=== PATIENT | female | born 1950 | race Caucasian/White ===

== ENCOUNTER 2018-04-27 03:28 | Emergency (ER) | payer MEDICARE, OTHER ==
[2018-04-27] MEDS ORDERED: DIPHENHYDRAMINE HCL 50 MG/ML VIAL IV ONE (03:43)
[2018-04-27] MEDS ORDERED: FAMOTIDINE INJ/PF 20 MG/2 ML SDV IV ONE (03:44)
[2018-04-27] MEDS ORDERED: METHYLPREDNISOLONE INJ 40 MG/1 ML SDV IV ONE (03:44)
[2018-04-27] MEDS ORDERED: METHYLPREDNISOLONE INJ 125 MG/2 ML SDV IV ONE (03:47)
--- NOTE | 2018-04-27 03:53 | ER Document Report ---
ED General - General Chief Complaint: Allergic Reaction Stated Complaint: THROAT SWELLING Time Seen by Provider: 04/27/18 03:42 Mode of Arrival: Ambulatory Information source: Patient Notes: 67-year-old female presents emergency department with complaints of throat swelling. Patient states that she is having allergic reaction. Patient states that she fell down on a treadmill a couple of days ago. She has abrasions to her lower extremities. Patient states that for she was applying bacitracin but it was . She states that she then picked up some Neosporin. She states that she used the Neosporin yesterday and again today. Patient states that tonight she woke up with throat swelling. Patient states that she is having allergic reaction to Neosporin. Patient denies starting any new medications. She denies eating any new foods. She denies any new soaps, detergents, lotions. Patient is not on an FRANCISCO inhibitor. TRAVEL OUTSIDE OF THE [place] IN LAST 30 DAYS: No - HPI Onset: Just prior to arrival Onset/Duration: Sudden Quality of pain: Fullness Severity: None Pain Level: Denies Associated symptoms: None Exacerbated by: Denies Similar symptoms previously: No Recently seen / treated by doctor: No - Related Data Allergies/Adverse Reactions: Penicillins Allergy (Verified 09/16/13 13:11) Past Medical History - Social History Smoking Status: Never Smoker Family History: Reviewed & Not Pertinent - Past Medical History Cardiac Medical History: Reports: Hx Atrial Fibrillation, Hx Hypertension Past Surgical History: Reports: Hx Appendectomy, Hx Hysterectomy, Hx Tonsillectomy, Hx Valve Replacement Review of Systems - Review of Systems Constitutional: No symptoms reported EENT: Difficulty swallowing, Throat swelling Cardiovascular: No symptoms reported Respiratory: No symptoms reported Gastrointestinal: No symptoms reported Genitourinary: No symptoms reported Musculoskeletal: No symptoms reported Skin: No symptoms reported Hematologic/Lymphatic: No symptoms reported Neurological/Psychological: No symptoms reported -: Yes All other systems reviewed and negative Physical Exam - Vital signs Vitals: Pulse Resp BP Pulse Ox 76 16 190/120 H 92 04/27/18 03:41 04/27/18 03:41 04/27/18 03:41 04/27/18 03:41 - Notes Notes: PHYSICAL EXAMINATION: GENERAL: Well-appearing, well-nourished and in no acute distress. HEAD: Atraumatic, normocephalic. EYES: Pupils equal round and reactive to light, extraocular movements intact, conjunctiva are normal. ENT: Nares patent, oropharynx clear without exudates. Moist mucous membranes. NECK: Normal range of motion, supple without lymphadenopathy LUNGS: Breath sounds clear to auscultation bilaterally and equal. No wheezes rales or rhonchi. HEART: Regular rate and rhythm without murmurs ABDOMEN: Soft, nontender, nondistended abdomen. No guarding, no rebound. No masses appreciated. Female : deferred Musculoskeletal: Normal range of motion, no pitting or edema. No cyanosis. NEUROLOGICAL: Cranial nerves grossly intact. Normal speech, normal gait. Normal sensory, motor exams PSYCH: Normal mood, normal affect. SKIN: Warm, Dry, normal turgor, no rashes or lesions noted. Course - Re-evaluation Re-evalutation: 04/27/18 05:49 On re-evaluation, patient is feeling better. Swelling resolved. Patient is speaking in complete sentences. No difficulty swallowing. No difficulty opening her mouth. Patient feels comfortable with discharge home. Patient instructed to take medication as directed, to follow up with her PCP this week,and to return for worsening symptoms. - Vital Signs Vital signs: Temp Pulse Resp BP Pulse Ox 98.3 F 74 14 97/68 L 98 04/27/18 04:07 04/27/18 05:03 04/27/18 05:03 04/27/18 05:03 04/27/18 05:03 - Laboratory Laboratory results interpreted by me: 04/27/18 03:55 PT 21.0 H Discharge - Discharge Clinical Impression: Allergic reaction caused by a drug Qualifiers: Encounter type: initial encounter Qualified Code(s): T78.40XA - Allergy, unspecified, initial encounter Condition: Good Disposition: HOME, SELF-CARE Instructions: Acute Allergic Reaction to Drugs ([facility]) Prescriptions: Epinephrine [Epipen] 0.3 mg IJ ONCE PRN #1 [email or web address] PRN Reason: Referrals: SUYAPA SHEIKH MD [HONORARY] - Follow up as needed
[2018-04-27 04:11] LABS: INTERNATIONAL RATION (INR) 1.72
[2018-04-27] MEDS ORDERED: CLONIDINE HCL 0.1 MG TABLET PO ONE (05:49)
[2018-04-27 06:30] VITALS: BP 160/95
== END 2018-04-27 06:30 | disposition home or self-care (01) ==
LOC: ER 03:28
DX: T78.40XA Allergy, unspecified, initial encounter (principal); R13.10 Dysphagia, unspecified; R09.89 Other specified symptoms and signs involving the circulatory and respiratory systems; X58.XXXA Exposure to other specified factors, initial encounter; I10 Essential (primary) hypertension; Z79.899 Other long term (current) drug therapy
CPT/HCPCS: 99283; 96374; 96375; 36415; 85610; A9270; J1200; J2930; S0028

== ENCOUNTER 2018-05-15 08:11 | Emergency (ER) | payer MEDICARE, OTHER ==
[2018-05-15] MEDS ORDERED: METHYLPREDNISOLONE INJ 125 MG/2 ML SDV IV ONE (08:43)
[2018-05-15] MEDS ORDERED: FAMOTIDINE INJ/PF 20 MG/2 ML SDV IV ONE (08:43)
[2018-05-15] MEDS ORDERED: DIPHENHYDRAMINE HCL 50 MG/ML VIAL IV ONE (08:43)
--- NOTE | 2018-05-15 08:46 | ER Document Report ---
ED General - General Chief Complaint: Swelling of Tongue Stated Complaint: MOUTH PAIN TRAVEL OUTSIDE OF THE [place] IN LAST 30 DAYS: No - HPI Notes: Patient is a 67-year-old female with a history of hypothyroidism, hypertension, valve replacement who presents to the ED complaining of tongue swelling that started this morning when she woke up. Patient states that she did bite her tongue last night, but is not sure if that is associated or not. Patient states that she had a similar presentation about 2-1/2 weeks ago when she came to the ED. Patient states that she received Benadryl, steroid, and Pepcid which resolved her symptoms. Patient states that she has since stopped taking losartan as directed by her primary care doctor. Patient states that they have not found a cause as to why she had that swelling otherwise. Patient states that her swelling has greatly improved since this morning. She is eating and drinking without any difficulties. She is urinating normally and having normal bowel movements. She has not had any drooling or hoarseness. She has not had any new medications, foods, or drinks otherwise. No recent travel. No other recent illness. Denies any headache, fever, head injury, neck pain, changes in vision/speech/mentation/hearing, URI, sore throat, chest pain, palpitations, syncope, cough, shortness of breath, wheeze, dyspnea, abdominal pain, nausea/ vomiting/diarrhea, urinary retention, dysuria, hematuria, loss of control of bowel or bladder, numbness/tingling, or rash. Pt did not take her BP meds this morning. - Related Data Allergies/Adverse Reactions: Penicillins Allergy (Verified 09/16/13 13:11) Past Medical History - Social History Smoking Status: Never Smoker Family History: Reviewed & Not Pertinent - Past Medical History Cardiac Medical History: Reports: Hx Atrial Fibrillation, Hx Hypertension Renal/ Medical History: Denies: Hx Peritoneal Dialysis Past Surgical History: Reports: Hx Appendectomy, Hx Hysterectomy, Hx Tonsillectomy, Hx Valve Replacement Review of Systems - Review of Systems -: Yes All other systems reviewed and negative Physical Exam - Vital signs Vitals: Temp Pulse Resp BP Pulse Ox 99.2 F 80 18 189/110 H 93 05/15/18 08:17 05/15/18 08:17 05/15/18 08:17 05/15/18 08:17 05/15/18 08:17 - Notes Notes: PHYSICAL EXAMINATION: GENERAL: Well-appearing, well-nourished and in no acute distress. A&Ox4. Answers questions appropriately. Moves comfortably w/o notable distress. pt is speaking in clear and complete sentences non-stop w/o any difficulty or muffling of her voice. HEAD: Atraumatic, normocephalic. EYES: Pupils equal round and reactive to light, extraocular movements intact, sclera anicteric, conjunctiva are normal. ENT: Nares patent and with clear discharge. oropharynx w/o erythema without exudates. No tonsilar hypertrophy without erythema or exudate. No palatine shift. Uvula midline. No tongue protrusion. + minimal tongue swelling w/o immediate threat to airway. No drooling, hoarseness, or airway compromise. Moist mucous membranes. No lip swelling. NECK: Normal range of motion, supple without lymphadenopathy. No rigidity/ meningismus. LUNGS: Breath sounds clear to auscultation bilaterally and equal. No wheezes rales or rhonchi. No retractions HEART: Regular rate and rhythm without murmurs, rubs, gallops. NEUROLOGICAL: Normal speech, normal gait. Normal sensory, motor exams PSYCH: Normal mood, normal affect. SKIN: Warm, Dry, normal turgor, no rashes or lesions noted. Course - Re-evaluation Re-evalutation: 05/15/18 10:35 Patient is an afebrile, well-hydrated, 67-year-old female who presents to the ED with tongue swelling, since resolved. Vitals are acceptable without significant tachycardia, tachypnea, or hypoxia. PE is otherwise unremarkable without any obvious swelling noted at this time. Patient was given Solu-Medrol , Benadryl, and Pepcid IV. Patient had complete resolution of her symptoms and is feeling much better and would like to go home. She is nontoxic-appearing and is tolerating p.o. without difficulties. No other labs or imaging warranted at this time based on H&P. Low suspicion for any meningitis, sepsis, peritonsillar/pharyngeal abscess, respiratory compromise, Ted's, or other emergent systemic condition at this time. Patient is aware this condition can change from initial presentation and she needs to monitor symptoms closely. Conservative measures otherwise for symptoms. Recheck with your PCM in 2-3 days. Return to the ED with any worsening/concerning symptoms otherwise as reviewed in discharge. Patient is in agreement. - Vital Signs Vital signs: Temp Pulse Resp BP Pulse Ox 99.2 F 80 18 189/110 H 93 05/15/18 08:17 05/15/18 08:17 05/15/18 08:17 05/15/18 08:17 05/15/18 08:17 Discharge - Discharge Clinical Impression: Mild tongue swelling Condition: Stable Disposition: HOME, SELF-CARE Additional Instructions: Maintain adequate fluid intake Benadryl/Pepcid as needed F/u: with your PCM in 2-3 days for a recheck Return to the ED with any fever, worsening pain, chest pain, neck pain/stiffness , shortness of breath, cough, drooling, trouble swallowing/breathing, abdominal pain, n/v/d, rash, or worsening/concerning symptoms otherwise. Forms: Elevated Blood Pressure Referrals: FAROOQ MAHONEY DO [ASSOCIATE] - Follow up as needed
[2018-05-15 10:41] VITALS: BP 162/85
== END 2018-05-15 10:52 | disposition home or self-care (01) ==
LOC: ER 08:11
DX: R22.0 Localized swelling, mass and lump, head (principal); I10 Essential (primary) hypertension; Z88.0 Allergy status to penicillin
CPT/HCPCS: 99282; 96374; 96375; J1200; J2930; S0028

== ENCOUNTER 2019-09-10 11:32 | Inpatient (IN) | payer MEDICARE, OTHER ==
--- NOTE | 2019-09-10 13:16 | ER Document Report ---
ED General - General Chief Complaint: Abdominal Pain Stated Complaint: ABDOMINAL PAIN Time Seen by Provider: 09/10/19 13:15 TRAVEL OUTSIDE OF THE [place] IN LAST 30 DAYS: No - HPI Notes: 69WF h/o A fib s/p remote ablation (on diltazem ER 24 hr 120 mg BID), Ao valve replacement (on coumadin 5mg qd), sigmoid diverticulosis w/ 1 prior episode diverticulitis w/o complications who presents today by ems since the abdominal pain she started to note this am has persisted. its difficult for her to tell me exact location says it's rather general in her lower sections moreso on her right. yest started feeling poor appetitie but hasn't noticed worsening of pain w/ BM or w/ eating. denies urinary sx. has had nausea but no vomiting. has felt feverish now over last hours. vs wnl. she says pain doesn't radiate hasn't migrated since onset. says hasn't tried anything at home to help w/ pain. doesn't seem to be affected by position. denies falls/any passing out or near passing out. no changes in her BM she's noted. last yest. passing gas today. PMH: also includes. hypothyroidism (on levothyroxine qd) htn (in add to dilt on hydralazine 25 bid) COPD (haslevalbut inhaler prn, sotalol 80 bid) she has list of her meds and is able to recall them for me - Related Data Allergies/Adverse Reactions: Penicillins Allergy (Verified 09/16/13 13:11) Past Medical History - General Information source: Patient, Emergency Med Personnel - Social History Smoking Status: Never Smoker Chew tobacco use (# tins/day): No Frequency of alcohol use: None Drug Abuse: None Family History: Reviewed & Not Pertinent Patient has suicidal ideation: No Patient has homicidal ideation: No - Past Medical History Cardiac Medical History: Reports: Hx Atrial Fibrillation, Hx Hypertension Renal/ Medical History: Denies: Hx Peritoneal Dialysis Past Surgical History: Reports: Hx Appendectomy, Hx Hysterectomy, Hx Tonsillectomy, Hx Valve Replacement Review of Systems - Review of Systems Constitutional: See HPI, Fever, Malaise. denies: Diaphoresis, Weight gain, Weight loss, Recent illness EENT: No symptoms reported Cardiovascular: No symptoms reported Respiratory: No symptoms reported Gastrointestinal: See HPI, Abdominal pain, Nausea, Poor appetite, Poor fluid int cam. denies: Abdomen distended, Diarrhea, Vomiting, Constipation, Blood streaked bowels, Black stools, Rectal bleeding, Fecal incontinence Genitourinary: No symptoms reported Female Genitourinary: No symptoms reported Musculoskeletal: No symptoms reported Skin: No symptoms reported Hematologic/Lymphatic: No symptoms reported Neurological/Psychological: No symptoms reported Physical Exam - Vital signs Vitals: Resp Pulse Ox 20 96 09/10/19 11:44 09/10/19 11:44 Interpretation: Normal, Tachycardic, Febrile - General General appearance: Appears well, Alert In distress: None - HEENT Head: Normocephalic, Atraumatic Eyes: Normal. No: Pale conjunctiva, Scleral icterus Pupils: PERRL Mouth/Lips: No: Lesions Mucous membranes: Dry Pharynx: Normal Neck: Normal - Respiratory Respiratory status: No respiratory distress Chest status: Nontender Breath sounds: Normal Chest palpation: Normal - Cardiovascular Rhythm: Regular Heart sounds: Normal auscultation Murmur: No - Abdominal Inspection: Healed incision - old midline lap scar (prior appy)., Obese. No: Wounds Distension: No distension. No: Tympanitic, Distended bladder Bowel sounds: Normal Tenderness: Tender - very tender in general R and L lower quadrants and periumbilical regions w/ some guarding when i examine there no rigidity able to move in bed change postions for me w/o difficulty. not much at all RUQ or LUQ, no palpable masses or OMG. no overlying skin changes or ecchymosis. Organomegaly: No organomegaly - Back Back: Normal, Nontender. No: Deformity/step-off, CVA tenderness, Vertebra tenderness, Wounds - Extremities General upper extremity: Normal inspection, Nontender, Normal color, Normal ROM, Normal temperature General lower extremity: Normal inspection, Nontender, Normal color, Normal ROM, Normal temperature, Normal weight bearing. No: Darren's sign - Neurological Neuro grossly intact: Yes Cognition: Normal Orientation: AAOx4 Dulce Coma Scale Eye Opening: Spontaneous [place] Coma Scale Verbal: Oriented Dulce Coma Scale Motor: Obeys Commands Dulce Coma Scale Total: 15 Speech: Normal Motor strength normal: LUE, RUE, LLE, RLE Sensory: Normal - Psychological Associated symptoms: Normal affect, Normal mood - Skin Skin Temperature: Warm Skin Moisture: Dry Skin Color: Normal Course - Re-evaluation Re-evalutation: 09/20/19 19:56 pt reportedly received 975 tylenol, did have initial fever 101.5 oral here, then on rechecks resolved. made npo gave total 2L ivLR. hr remained ~100 but no hypotensive episodes during first hours ED w/u. ordered both CT a/p w/ iv contrast as well as RUQ u/s since on review of labs did have lipase 1096 and elvated unconjugated bili slightly to 2.2, though again my exam wasn't isolating to ruq had to consider older women difficult to localize pain. CT a/p showed sigmoid diverticulitis and 2 small 8mm areas at sigmoid/desc colon junction "c/w free air", they note no pancreatic changes. u/s and CT showed no evidence of GB stones, infection/obstruction. sgy evaluated patient request med adm, since she does need overall cont mgmt of afib, etc. and they will follow as consult. he doesn;t feel she has a acute abdomiinal exam therefore defer surgery right now and plan close monitoring cont serial exams. adm teams to order Abx. she'll remain NPO for now. . 09/20/19 19:58 09/20/19 20:02 - Vital Signs Vital signs: Temp Pulse Resp BP Pulse Ox 97.9 F 80 16 100/66 96 09/20/19 13:25 09/20/19 16:00 09/20/19 13:25 09/20/19 16:00 09/20/19 15:52 - Laboratory Result Diagrams: 09/20/19 04:39 09/16/19 04:09 Laboratory results interpreted by me: 09/10/19 09/10/19 09/10/19 12:54 12:54 12:54 WBC 15.6 H RBC 5.74 H Hgb 16.9 H Hct 49.7 H Seg Neuts % (Manual) 86 H Band Neutrophils % 2 L Lymphocytes % (Manual) 5 L Abs Neuts (Manual) 13.7 H PT 19.2 H Sodium 136.2 L Potassium 3.5 L Glucose 112 H Total Bilirubin 2.2 H Lipase 1078.9 H TSH Urine Protein 09/10/19 09/10/19 12:54 12:57 WBC RBC Hgb Hct Seg Neuts % (Manual) Band Neutrophils % Lymphocytes % (Manual) Abs Neuts (Manual) PT Sodium Potassium Glucose Total Bilirubin Lipase TSH 0.20 L Urine Protein >=500 H Critical Care Note - Critical Care Note Total time excluding time spent on procedures (mins): 30 Discharge - Discharge Clinical Impression: Sigmoid diverticulitis, Perforated diverticulum of large intestine, Fever, Free intraperitoneal air Condition: Poor Disposition: ADMITTED INPATIENT Admitting Provider: Staci (Hospitalist)
[2019-09-10 13:17] LABS: HEMATOCRIT 49.7 % (36.0-47.0); HEMOGLOBIN 16.9 g/dL (12.0-15.5); MEAN CORPUSCULAR HEMOGLOBIN 29.5 pg (27.0-33.4); MEAN CORPUSCULAR VOLUME 87 fl (80-97); PLATELET COUNT 175 10^3/uL (150-450); RED BLOOD COUNT 5.74 10^6/uL (3.72-5.28); RED CELL DISTRIBUTION WIDTH 13.8 % (11.5-14.0); WHITE BLOOD COUNT 15.6 10^3/uL (4.0-10.5)
[2019-09-10 13:18] LABS: ALBUMIN 3.9 g/dL (3.5-5.0); ALKALINE PHOSPHATASE 69 U/L (38-126); ANION GAP 13 (5-19); ASPARTATE AMINO TRANSFERASE 25 U/L (14-36); BILIRUBIN,TOTAL 2.2 mg/dL (0.2-1.3); BLOOD UREA NITROGEN 15 mg/dL (7-20); CARBON DIOXIDE 24 mmol/L (22-30); CHLORIDE 99 mmol/L (98-107); GLUCOSE 112 mg/dL (75-110); POTASSIUM 3.5 mmol/L (3.6-5.0); TOTAL PROTEIN 7.2 g/dL (6.3-8.2)
[2019-09-10 13:27] LABS: APPEARANCE,URINE CLEAR; BILIRUBIN,URINE NEGATIVE (NEGATIVE); COLOR,URINE YELLOW; GLUCOSE, URINE NEGATIVE (NEGATIVE); KETONES,URINE NEGATIVE (NEGATIVE); LEUKOCYTE ESTERASE,URINE NEGATIVE (NEGATIVE); NITRITE,URINE NEGATIVE (NEGATIVE); PROTEIN,URINE >=500 mg/dL (NEGATIVE); URINE SPECIFIC GRAVITY 1.015; UROBILINOGEN,URINE NEGATIVE mg/dL (<2.0)
[2019-09-10 13:45] LABS: ABSOLUTE LYMPHOCYTES# (MANUAL) 0.8 10^3/uL (0.5-4.7); ABSOLUTE MONOCYTES # (MANUAL) 1.1 10^3/uL (0.1-1.4); BAND NEUTROPHILS % (MANUAL) 2 % (3-5); BASOPHILS % (MANUAL) 0 % (0-2); EOSINOPHILS % (MANUAL) 0 % (0-6); LYMPHOCYTES % (MANUAL) 5 % (13-45); MONOCYTES % (MANUAL) 7 % (3-13); SEGMENTED NEUTROPHILS % (MAN) 86 % (42-78); TOTAL CELLS COUNTED 100
[2019-09-10 13:49] LABS: PLATELET COMMENT ADEQUATE; TOXIC GRANULATION 1+
[2019-09-10] MEDS ORDERED: RINGERS SOLUTION,LACTATED 1,000 ML IV ONE ×2 (14:05→17:23)
[2019-09-10] MEDS ORDERED: ONDANSETRON HCL INJ/PF 4 MG/2 ML SDV IV PRN (14:10)
[2019-09-10] MEDS ORDERED: HYDROMORPHONE HCL INJ/PF 2 MG/ML AMPULE IV PRN (14:10)
--- NOTE | 2019-09-10 15:35 | RADIOLOGY REPORT (SQ) ---
EXAM DESCRIPTION: U/S ABDOMEN LIMITED W/O DOP COMPLETED DATE/TIME: 09/10/2019 3:21 pm REASON FOR STUDY: abdominal pain post prandial elev lipase and bilir COMPARISON: None. TECHNIQUE: Dynamic and static grayscale images acquired of the abdomen and recorded on PACS. Kathyo nato selected color Doppler and spectral images recorded. LIMITATIONS: None. FINDINGS: PANCREAS: No masses. Visualized pancreatic duct normal caliber. LIVER: No masses. Increased echogenicity. Subcapsular cystic lesion measuring 3.1 cm in the right l obe. LIVER VASCULATURE: Normal directional flow of the main portal vein and hepatic veins. GALLBLADDER: Possible small volume of gall sludge. 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 The gallbl adder is mildly contracted. Normal wall thickness. No pericholecystic fluid. ULTRASOUND-DETECTED SZYMANSKI'S SIGN: Negative. INTRAHEPATIC DUCTS AND COMMON DUCT: CBD and intrahepatic ducts normal caliber. No filling defects. INFERIOR VENA CAVA: Normal flow. AORTA: No aneurysm. RIGHT KIDNEY: Normal size. Normal echogenicity. 1.0 cm cyst, possibly with a thickened septation or nodular component of the right superior pole. Mild right hydronephrosis. No calcifications. PERITONEAL AND RIGHT PLEURAL SPACE: Small volume ascites. OTHER: No other significant findings. IMPRESSION: 1. Possible small volume of gall sludge. 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 The gal lbladder is mildly contracted. No pericholecystic fluid. Negative sonographic Szymanski sign. 2. Hepatic steatosis. 3. Mild right hydronephrosis. No obstructing calculus or other etiology identified. Attention on f orthcoming CT. 4. Small volume ascites. 5. There is a 1.0 cm cyst, possibly with a thickened septation or nodular component of the right sup erior pole. Attention on forthcoming CT. TECHNICAL DOCUMENTATION: JOB ID: [id number] [employer]- All Rights Reserved Reading location - IP/workstation name: [email or web address]
--- NOTE | 2019-09-10 16:26 | RADIOLOGY REPORT (SQ) ---
EXAM DESCRIPTION: CT ABD/PELVIS WITH IV ONLY COMPLETED DATE/TIME: 09/10/2019 4:04 pm REASON FOR STUDY: abdominal pain COMPARISON: None. TECHNIQUE: CT scan of the abdomen and pelvis performed using helical scanning technique with dynamic intravenous contrast injection. No oral contrast. Images reviewed with lung, soft tissue, and bone w indows. Reconstructed coronal and sagittal MPR images reviewed. Delayed images for evaluation of the urinary system also acquired. All images stored on PACS. All CT scanners at this facility use dose modulation, iterative reconstruction, and/or weight based d osing when appropriate to reduce radiation dose to as low as reasonably achievable (ALARA). [facility]: Dose Right [facility]: CareDose [facility]: Dose Right [facility]: Teradose 4D [facility]: Invoice2go CONTRAST TYPE AND DOSE: contrast/concentration: Isovue 350.00 mg/ml; Total Contrast Delivered: 93.0 ml; Total Saline Delivered: 66.0 ml RENAL FUNCTION: GFR > 60. RADIATION DOSE: CT Rad equipment meets quality standard of care and radiation dose reduction techniq ues were employed. CTDIvol: 13.7 - 17.7 mGy. DLP: 1497 mGy-cm.. LIMITATIONS: None. FINDINGS: LOWER CHEST: No significant findings. LIVER: Normal size. No enhancing masses. Right lobe parenchymal cyst. No dilated ducts. SPLEEN: Normal size. No focal lesions. PANCREAS: No masses identified. No significant calcifications. No adjacent inflammation or peripancre atic fluid collections. Pancreatic duct not dilated. GALLBLADDER: No calcified stones. No inflammatory changes to suggest cholecystitis. ADRENAL GLANDS: No significant masses. RIGHT KIDNEY AND URETER: Small cysts identified. No solid masses identified. No calcified stones. No hydronephrosis or hydroureter. LEFT KIDNEY AND URETER: Small cysts identified. No solid masses identified. No calcified stones. No h ydronephrosis or hydroureter. AORTA AND VESSELS: No aneurysm. No dissection. Renal arteries, SMA, celiac without significant stenos is. RETROPERITONEUM: No bulky retroperitoneal adenopathy. BOWEL AND PERITONEAL CAVITY: No obstruction. Moderate inflammatory changes and 2 small 8-10 mm pocke ts of free air adjacent to the sigmoid -descending colonic junction consistent with perforated divert iculitis. Small amount of free fluid in scattered throughout the abdomen. APPENDIX: Normal. PELVIS: Small amount of free fluid.. Unremarkable bladder. ABDOMINAL WALL: No masses. No hernias. BONES: No acute findings. OTHER: No other significant finding. IMPRESSION: Moderate inflammatory changes and 2 small 8-10 mm pockets of free air adjacent to the si gmoid -descending colonic junction consistent with perforated diverticulitis. Surgical consultation recommended. COMMENT: The findings were sent to the Radiology Results Communication Center at 16:20 on 9 to be communicated to a licensed caregiver. TECHNICAL DOCUMENTATION: JOB ID: [id number] Quality ID # [id number]: Final reports with documentation of one or more dose reduction techniques (e.g., Au tomated exposure control, adjustment of the mA and/or kV according to patient size, use of iterative reconstruction technique) 2010 [employer]- All Rights Reserved Reading location - IP/workstation name: [email or web address]
[2019-09-10 17:37] LABS: PROTHROMBIN TIME 19.2 SEC (11.4-15.4)
[2019-09-10] MEDS ORDERED: DILTIAZEM HCL/D5W 125 MG/125 ML RTUINJ IV PRN (17:51)
[2019-09-10] MEDS ORDERED: POTASSI CL 20 MEQ/50 ML RIDER 20 MEQ/50 ML RTUPB IV ONE (17:53)
[2019-09-10] MEDS ORDERED: FLUCONAZOLE 100 MG TABLET PO ONE (17:54)
[2019-09-10] MEDS ORDERED: DEXTROSE 40% GEL 15 GM TUBE PO PRN ×2 (17:56)
[2019-09-10] MEDS ORDERED: DEXTROSE 50%-WATER 25 GM/50 ML DISP.SYRIN IV PRN ×2 (17:56)
[2019-09-10] MEDS ORDERED: GLUCAGON,HUMAN RECOMB 1 MG INJ IM PRN (17:56)
[2019-09-10] MEDS ORDERED: IPRATROPIUM/ALBUTEROL 0.5-2.5 MG/3 ML AMPUL NEB PRN (18:03)
--- NOTE | 2019-09-10 18:12 | PDOC H&P ---
History of Present Illness Admission Date/PCP: DILMA ALEXANDRE MD Patient complains of: abdominal pain History of Present Illness: RAKAN SUGGS is a 69 year old female with a past medical history of atrial fibrillation with prior ablation, aortic valve replacement, COPD not on home O2, hypothyroidism, history of diverticulosis and acute diverticulitis and hypertension who presented with abdominal pain. Patient says that she has been apparently fine until early this morning when she developed the hypogastric pain. She did report of associated loose, nonbloody stools. She denies fever or chills. In the ER, CT showed sigmoid diverticulitis with 2 pockets of free air consistent with perforation. Upon encounter, she is not in distress. On examination, there is minimal direct hypogastric tenderness with no rebound tenderness or other peritoneal signs. Past Medical History Cardiac Medical History: Reports: Atrial Fibrillation, Hypertension Past Surgical History Past Surgical History: Reports: Appendectomy, Hysterectomy, Tonsillectomy, Valve Replacement Social History Smoking Status: Unknown if Ever Smoked Electronic Cigarette use?: No Family History Family History: Reviewed & Not Pertinent Parental Family History Reviewed: Yes - No premature CAD Children Family History Reviewed: No Sibling(s) Family History Reviewed.: No Medication/Allergy Allergies/Adverse Reactions: Penicillins Allergy (Verified 09/16/13 13:11) Review of Systems All systems: reviewed and no additional remarkable complaints except as stated - As mentioned in HPI Physical Exam Vital Signs: Temp Pulse Resp BP Pulse Ox 100.6 F H 24 H 143/104 H 92 09/10/19 13:54 09/10/19 13:52 09/10/19 13:52 09/10/19 13:52 Intake & Output 09/09/19 09/10/19 09/11/19 06:59 06:59 06:59 Intake Total 1000 Balance 1000 Weight 178 lb General appearance: PRESENT: no acute distress, well-developed, well-nourished Head exam: PRESENT: atraumatic, normocephalic Eye exam: PRESENT: conjunctiva pink, EOMI, PERRLA. ABSENT: scleral icterus Ear exam: PRESENT: normal external ear exam Mouth exam: PRESENT: moist, tongue midline Neck exam: ABSENT: carotid bruit, JVD, lymphadenopathy, thyromegaly Respiratory exam: PRESENT: clear to auscultation chase. ABSENT: rales, rhonchi, wheezes Cardiovascular exam: PRESENT: irregular rhythm, tachycardia Pulses: PRESENT: normal dorsalis pedis pul GI/Abdominal exam: PRESENT: normal bowel sounds, soft, tenderness - Direct epigastric tenderness, negative rebound, no other peritoneal signs. ABSENT: distended, guarding, mass, organolmegaly, rebound Rectal exam: PRESENT: deferred Neurological exam: PRESENT: alert, awake, oriented to person, oriented to place, oriented to time, oriented to situation, CN II-XII grossly intact. ABSENT: motor sensory deficit Results Laboratory Results: 09/10/19 12:54 09/10/19 12:54 09/10/19 09/10/19 09/10/19 12:54 12:54 12:57 WBC 15.6 H RBC 5.74 H Hgb 16.9 H Hct 49.7 H MCV 87 MCH 29.5 MCHC 34.0 RDW 13.8 Plt Count 175 Seg Neutrophils % Not Reportable Sodium 136.2 L Potassium 3.5 L Chloride 99 Carbon Dioxide 24 Anion Gap 13 BUN 15 Creatinine 0.61 Est GFR ( Amer) > 60 Glucose 112 H Calcium 9.0 Total Bilirubin 2.2 H AST 25 Alkaline Phosphatase 69 Total Protein 7.2 Albumin 3.9 Lipase 1078.9 H Urine Color YELLOW Urine Appearance CLEAR Urine pH 6.0 Ur Specific [place] 1.015 Urine Protein >=500 H Urine Glucose (UA) NEGATIVE Urine Ketones NEGATIVE Urine Blood NEGATIVE Urine Nitrite NEGATIVE Ur Leukocyte Esterase NEGATIVE Urine WBC (Auto) 3 Urine RBC (Auto) 3 Impressions: Abdomen Ultrasound 09/10/19 14:06 IMPRESSION: 1. Possible small volume of gall sludge. 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 The gallbladder is mildly contracted. No pericholecystic fluid. Negative sonographic Szymanski sign. 2. Hepatic steatosis. 3. Mild right hydronephrosis. No obstructing calculus or other etiology identified. Attention on forthcoming CT. 4. Small volume ascites. 5. There is a 1.0 cm cyst, possibly with a thickened septation or nodular component of the right superior pole. Attention on forthcoming CT. Abdomen/Pelvis CT 09/10/19 14:06 IMPRESSION: Moderate inflammatory changes and 2 small 8-10 mm pockets of free air adjacent to the sigmoid -descending colonic junction consistent with perforated diverticulitis. Surgical consultation recommended. Assessment and Plan - Diagnosis (1) Acute diverticulitis Is this a current diagnosis for this admission?: Yes Plan: On examination, there is minimal direct hypogastric tenderness with no rebound tenderness or other peritoneal signs. Patient likely has diabetes mellitus with localized perforation at this time. She has also been evaluated by surgery. No plan for immediate surgical intervention at this time. Will start patient on IV fluids and IV antibiotics. She says she has allergy to penicillins but is unable to recall exact allergic reactions. We will start patient on IV Flagyl and ciprofloxacin. We will keep her n.p.o. for now. Hold Coumadin for now. Last dose of Coumadin was last night. (2) Atrial fibrillation with RVR Is this a current diagnosis for this admission?: Yes Plan: Currently in A. fib with heart rate running into 120s-130s. Will start patient on Cardizem drip. (3) Oral candidiasis Is this a current diagnosis for this admission?: Yes Plan: Patient says that she has been using Magic mouthwash but still has a few whitish plaques on oral cavity. He does appear to have oral thrush. Will start her on Diflucan. - Time Time Spent with patient: 25-34 minutes
--- NOTE | 2019-09-10 18:17 | ADVANCED CARE ---
- Diagnosis (1) Acute diverticulitis Diagnosis Current: Yes (2) Atrial fibrillation with RVR Diagnosis Current: Yes (3) Oral candidiasis Diagnosis Current: Yes Resuscitation Status: Full Code Discussion: Discussed CODE STATUS with patient. Patient verbalized that she "does not want to be on life support system for a long time". When this was further probed, she says that she is amenable for us to attempt resuscitation including receiving chest compressions, defibrillation or temporary mechanical ventilation if the need arises but verbalized she does not want to be resuscitated multiple times. She says that "if you do not think I will have a good chance of survival, just let me go". She verbalized that she is only okay with short-term or temporary intubation if she needs it during surgery but does not want to be on a ventilator for weeks. She says that her son, Magno is his surrogate medical decision maker.
--- NOTE | 2019-09-10 18:26 | PDOC CONSULTATION ---
Consultation Consult Date: 09/10/19 Provider Consulted: STEPHANIE CENTENO Consult reason:: Perforated diverticulitis with 2 small loculated free air 2 to 8 mm adjacent to the sigmoid colon History of Present Illness Admission Date/PCP: 09/10/19 17:56 DILMA ALEXANDRE MD Patient complains of: Abdominal pains History of Present Illness: RAKAN SUGGS is a 69 year old female with history of atrial fibrillation on Coumadin, hypertension, hypothyroidism complain of left lower quadrant pains this morning associated with nausea and fever. She had a bowel movement this m orning and has been passing small amount of flatus since. Past Medical History Cardiac Medical History: Reports: Atrial Fibrillation - On Coumadin, Hypertensio n Past Surgical History Past Surgical History: Reports: Appendectomy, Hysterectomy, Tonsillectomy, Valve Replacement - Pig valve Social History Smoking Status: Unknown if Ever Smoked Electronic Cigarette use?: No Family History Family History: Reviewed & Not Pertinent Parental Family History Reviewed: Yes Children Family History Reviewed: No Sibling(s) Family History Reviewed.: No Medication/Allergy Home Medications: Amlodipine Besylate [Norvasc 10 mg Tablet] 10 mg PO DAILY 09/16/13 Diazepam [Valium 5 mg Tablet] 5 mg PO PRN PRN 09/16/13 Dofetilide [Tikosyn 125 Mcg Capsule] 0.125 mg PO DAILY 09/16/13 Levothyroxine Sodium [Synthroid 0.088 mg Tablet] 88 mg PO DAILY 09/16/13 Losartan Potassium 50 mg PO DAILY 09/16/13 Warfarin Sodium [Coumadin 5 mg Tablet] 5 mg PO DAILY 09/16/13 Epinephrine [Epipen] 0.3 mg IJ ONCE PRN #1 auto.injct 04/27/18 Allergies/Adverse Reactions: Penicillins Allergy (Verified 09/16/13 13:11) Review of Systems Constitutional: PRESENT: as per HPI Gastrointestinal: PRESENT: abdominal pain Physical Exam Vital Signs: Temp Pulse Resp BP Pulse Ox 100.6 F H 24 H 143/104 H 92 09/10/19 13:54 09/10/19 13:52 09/10/19 13:52 09/10/19 13:52 Intake & Output 09/09/19 09/10/19 09/11/19 06:59 06:59 06:59 Intake Total 1000 Balance 1000 Weight 80.739 kg General appearance: PRESENT: mild distress Head exam: PRESENT: atraumatic Eye exam: PRESENT: conjunctiva pink Mouth exam: PRESENT: dry mucosa Neck exam: PRESENT: full ROM Respiratory exam: PRESENT: clear to auscultation chase Cardiovascular exam: PRESENT: irregular rhythm Pulses: PRESENT: normal radial pulses Vascular exam: PRESENT: normal capillary refill GI/Abdominal exam: PRESENT: soft, tenderness - Left lower quadrant Rectal exam: PRESENT: deferred Extremities exam: PRESENT: full ROM Musculoskeletal exam: PRESENT: full ROM Neurological exam: PRESENT: alert, oriented to person, oriented to place, oriented to time, oriented to situation Psychiatric exam: PRESENT: appropriate affect Skin exam: PRESENT: normal color, warm Results Laboratory Results: 09/10/19 12:54 09/10/19 12:54 09/10/19 09/10/19 09/10/19 12:54 12:54 12:57 WBC 15.6 H RBC 5.74 H Hgb 16.9 H Hct 49.7 H MCV 87 MCH 29.5 MCHC 34.0 RDW 13.8 Plt Count 175 Seg Neutrophils % Not Reportable Sodium 136.2 L Potassium 3.5 L Chloride 99 Carbon Dioxide 24 Anion Gap 13 BUN 15 Creatinine 0.61 Est GFR ( Amer) > 60 Glucose 112 H Calcium 9.0 Total Bilirubin 2.2 H AST 25 Alkaline Phosphatase 69 Total Protein 7.2 Albumin 3.9 Lipase 1078.9 H Urine Color YELLOW Urine Appearance CLEAR Urine pH 6.0 Ur Specific [place] 1.015 Urine Protein >=500 H Urine Glucose (UA) NEGATIVE Urine Ketones NEGATIVE Urine Blood NEGATIVE Urine Nitrite NEGATIVE Ur Leukocyte Esterase NEGATIVE Urine WBC (Auto) 3 Urine RBC (Auto) 3 Impressions: Abdomen Ultrasound 09/10/19 14:06 IMPRESSION: 1. Possible small volume of gall sludge. 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 The gallbladder is mildly contracted. No pericholecystic fluid. Negative sonographic Szymanski sign. 2. Hepatic steatosis. 3. Mild right hydronephrosis. No obstructing calculus or other etiology identified. Attention on forthcoming CT. 4. Small volume ascites. 5. There is a 1.0 cm cyst, possibly with a thickened septation or nodular component of the right superior pole. Attention on forthcoming CT. Abdomen/Pelvis CT 09/10/19 14:06 IMPRESSION: Moderate inflammatory changes and 2 small 8-10 mm pockets of free air adjacent to the sigmoid -descending colonic junction consistent with perforated diverticulitis. Surgical consultation recommended. Assessment & Plan - Time Time Spent: 30 to 50 Minutes - Inpatient Certification Medical Necessity: Need For IV Fluids, Need for Pain Control, Need for IV Antibiotics - Plan Summary Plan Summary: 69-year-old female with the sudden onset of left lower quadrant pains this morning associated with nausea and fever. She has history of atrial fibrillation and hypertension and taking Coumadin. History of valve replacement with a pig valve CT scan of the abdomen was done today which showed diverticulitis with small amount of free air adjacent to the sigmoid colon. Next Impression is sigmoid diverticular perforation with loculated small amount of air adjacent to the sigmoid colon Plans: Start hydration and IV antibiotics. Keep n.p.o. At this time there is no emergent need for surgery but we will monitor the patient closely. Hold Coumadin and monitor coagulation
[2019-09-10] MEDS ORDERED: DIAZEPAM INJ 10 MG/2 ML DISP.SYRIN IV ONE (18:36)
[2019-09-10] MEDS ORDERED: METRONIDAZOLE 500 MG/NS RTU 500 MG/100 ML RTUPB IV ONE (19:30)
[2019-09-10] MEDS: NORMAL SALINE 1000 ML 1,000 ML IV PRN (21:07)
[2019-09-10] MEDS: HEPARIN SOD (PORCINE) 5,000 UNIT/ML 1 ML VIAL SUBCUT SCH (21:40)
[2019-09-10] MEDS: CIPROFLOXACIN 400 MG/D5W RTU 400 MG/200 ML RTUPB IV SCH (22:34)
[2019-09-10] MEDS: METRONIDAZOLE 500 MG/NS RTU 500 MG/100 ML RTUPB IV SCH (23:23)
[2019-09-11] MEDS ORDERED: HYDROMORPHONE HCL INJ/PF 2 MG/ML AMPULE IV PRN (00:14)
[2019-09-11] MEDS ORDERED: NORMAL SALINE 1000 ML 1,000 ML IV ONE (02:45)
[2019-09-11] MEDS: METRONIDAZOLE 500 MG/NS RTU 500 MG/100 ML RTUPB IV SCH ×3 (06:16→18:44)
[2019-09-11 07:47] LABS: INTERNATIONAL RATION (INR) 1.74; PROTHROMBIN TIME 20.5 SEC (11.4-15.4)
[2019-09-11 07:49] LABS: HEMATOCRIT 43.8 % (36.0-47.0); MEAN CORPUSCULAR HEMOGLOBIN 29.8 pg (27.0-33.4); MEAN CORPUSCULAR HGB CONC 33.9 g/dL (32.0-36.0); MEAN CORPUSCULAR VOLUME 88 fl (80-97); PLATELET COUNT 118 10^3/uL (150-450); RED BLOOD COUNT 4.98 10^6/uL (3.72-5.28); RED CELL DISTRIBUTION WIDTH 14.4 % (11.5-14.0); WHITE BLOOD COUNT 16.2 10^3/uL (4.0-10.5)
[2019-09-11 07:56] LABS: HEMOGLOBIN 14.8 g/dL (12.0-15.5)
[2019-09-11 08:05] LABS: BILIRUBIN,DIRECT 0.2 mg/dL (0.0-0.4); BILIRUBIN,TOTAL 2.5 mg/dL (0.2-1.3)
[2019-09-11 08:11] LABS: ABSOLUTE LYMPHOCYTES# (MANUAL) 0.8 10^3/uL (0.5-4.7); ANISOCYTOSIS SLIGHT; BAND NEUTROPHILS % (MANUAL) 5 % (3-5); BASOPHILS % (MANUAL) 0 % (0-2); EOSINOPHILS % (MANUAL) 0 % (0-6); LYMPHOCYTES % (MANUAL) 5 % (13-45); MONOCYTES % (MANUAL) 6 % (3-13); PLATELET COMMENT ADEQUATE; PLATELET LARGE PRESENT; POIKILOCYTOSIS SLIGHT; SEGMENTED NEUTROPHILS % (MAN) 84 % (42-78); TOTAL CELLS COUNTED 100; TOXIC VACUOLATION PRESENT
[2019-09-11 08:22] LABS: ANION GAP 9 (5-19); BLOOD UREA NITROGEN 15 mg/dL (7-20); CALCIUM 8.2 mg/dL (8.4-10.2); CARBON DIOXIDE 25 mmol/L (22-30); CHLORIDE 106 mmol/L (98-107); GLUCOSE 121 mg/dL (75-110); POTASSIUM 3.8 mmol/L (3.6-5.0)
[2019-09-11] MEDS: DIAZEPAM 5 MG TABLET PO PRN (08:57)
[2019-09-11] MEDS: HEPARIN SOD (PORCINE) 5,000 UNIT/ML 1 ML VIAL SUBCUT SCH ×2 (09:53→21:29)
[2019-09-11] MEDS: CIPROFLOXACIN 400 MG/D5W RTU 400 MG/200 ML RTUPB IV SCH ×2 (10:05→21:28)
[2019-09-11] MEDS: FLUCONAZOLE 100 MG TABLET PO SCH (10:06)
[2019-09-11] MEDS: KETOROLAC TROMETHAMINE INJ/PF 30 MG/1 ML SDV IV PRN ×2 (10:27→21:28)
--- NOTE | 2019-09-11 11:49 | PDOC PROGRESS REPORT ---
Subjective Progress Note for:: 09/11/19 Subjective:: RAKAN SUGGS is a 69 year old female with a past medical history of atrial fibrillation with prior ablation, aortic valve replacement, COPD not on home O2, hypothyroidism, history of diverticulosis and acute diverticulitis and hypertension who presented with abdominal pain. In the ER, CT showed sigmoid diverticulitis with 2 pockets of free air consistent with perforation. She was also found to be in AFib with RVR. She was admitted for localized perforated diverticulitis. She was also started on Cardizem drip for her A. fib. No acute event overnight. She was weaned off Cardizem drip. Currently rate controlled in the 80s. She says her abdominal pain has slightly improved today. No nausea or vomiting. She says she wants to eat today. Reason For Visit: PERFORATED DIVERTICULITIS Physical Exam Vital Signs: Temp Pulse Resp BP Pulse Ox 98.1 F 93 16 109/70 97 09/11/19 07:40 09/11/19 07:40 09/11/19 07:40 09/11/19 07:40 09/11/19 07:40 Intake & Output 09/10/19 09/11/19 09/12/19 06:59 06:59 06:59 Intake Total 3096 100 Output Total 0 Balance 3096 100 Weight 180 lb 8.937 oz General appearance: PRESENT: no acute distress, well-developed, well-nourished Head exam: PRESENT: atraumatic, normocephalic Eye exam: PRESENT: conjunctiva pink, EOMI, PERRLA. ABSENT: scleral icterus Ear exam: PRESENT: normal external ear exam Mouth exam: PRESENT: moist, tongue midline Neck exam: ABSENT: carotid bruit, JVD, lymphadenopathy, thyromegaly Respiratory exam: PRESENT: clear to auscultation chase. ABSENT: rales, rhonchi, wheezes Cardiovascular exam: PRESENT: irregular rhythm. ABSENT: diastolic murmur, rubs Pulses: PRESENT: normal dorsalis pedis pul GI/Abdominal exam: PRESENT: normal bowel sounds, soft, tenderness - Minimal hypogastric, left lower quadrant tenderness, negative rebound. ABSENT: distended, guarding, mass, organolmegaly, rebound Rectal exam: PRESENT: deferred Extremities exam: PRESENT: full ROM. ABSENT: calf tenderness, clubbing, pedal edema Neurological exam: PRESENT: alert, awake, oriented to person, oriented to place, oriented to time, oriented to situation, CN II-XII grossly intact. ABSENT: motor sensory deficit Results Laboratory Results: 09/11/19 07:21 09/11/19 07:21 09/10/19 09/10/19 09/10/19 12:54 12:54 12:54 WBC 15.6 H RBC 5.74 H Hgb 16.9 H Hct 49.7 H MCV 87 MCH 29.5 MCHC 34.0 RDW 13.8 Plt Count 175 Seg Neutrophils % Not Reportable Sodium 136.2 L Potassium 3.5 L Chloride 99 Carbon Dioxide 24 Anion Gap 13 BUN 15 Creatinine 0.61 Est GFR ( Amer) > 60 Glucose 112 H Calcium 9.0 Total Bilirubin 2.2 H AST 25 Alkaline Phosphatase 69 Total Protein 7.2 Albumin 3.9 Lipase 1078.9 H TSH 0.20 L Urine Color Urine Appearance Urine pH Ur Specific [place] Urine Protein Urine Glucose (UA) Urine Ketones Urine Blood Urine Nitrite Ur Leukocyte Esterase Urine WBC (Auto) Urine RBC (Auto) Blood Type Antibody Screen 09/10/19 09/10/19 09/10/19 12:57 18:10 19:05 WBC RBC Hgb Hct MCV MCH MCHC RDW Plt Count Seg Neutrophils % Sodium Potassium Chloride Carbon Dioxide Anion Gap BUN Creatinine Est GFR ( Amer) Glucose Calcium Total Bilirubin AST Alkaline Phosphatase Total Protein Albumin Lipase TSH Urine Color YELLOW Urine Appearance CLEAR Urine pH 6.0 Ur Specific [place] 1.015 Urine Protein >=500 H Urine Glucose (UA) NEGATIVE Urine Ketones NEGATIVE Urine Blood NEGATIVE Urine Nitrite NEGATIVE Ur Leukocyte Esterase NEGATIVE Urine WBC (Auto) 3 Urine RBC (Auto) 3 Blood Type Cancelled O POSITIVE Antibody Screen Cancelled NEGATIVE 09/11/19 09/11/19 09/11/19 07:21 07:21 07:21 WBC 16.2 H RBC 4.98 Hgb 14.8 D Hct 43.8 MCV 88 MCH 29.8 MCHC 33.9 RDW 14.4 H Plt Count 118 L Seg Neutrophils % Not Reportable Sodium 139.5 Potassium 3.8 Chloride 106 Carbon Dioxide 25 Anion Gap 9 BUN 15 Creatinine 0.63 Est GFR ( Amer) > 60 Glucose 121 H Calcium 8.2 L Total Bilirubin 2.5 H AST Alkaline Phosphatase Total Protein Albumin Lipase < 10.0 L TSH Urine Color Urine Appearance Urine pH Ur Specific [place] Urine Protein Urine Glucose (UA) Urine Ketones Urine Blood Urine Nitrite Ur Leukocyte Esterase Urine WBC (Auto) Urine RBC (Auto) Blood Type Antibody Screen Impressions: Abdomen Ultrasound 09/10/19 14:06 IMPRESSION: 1. Possible small volume of gall sludge. 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 The gallbladder is mildly contracted. No pericholecystic fluid. Negative sonographic Szymanski sign. 2. Hepatic steatosis. 3. Mild right hydronephrosis. No obstructing calculus or other etiology identified. Attention on forthcoming CT. 4. Small volume ascites. 5. There is a 1.0 cm cyst, possibly with a thickened septation or nodular component of the right superior pole. Attention on forthcoming CT. Abdomen/Pelvis CT 09/10/19 14:06 IMPRESSION: Moderate inflammatory changes and 2 small 8-10 mm pockets of free air adjacent to the sigmoid -descending colonic junction consistent with perforated diverticulitis. Surgical consultation recommended. Assessment and Plan - Diagnosis (1) Acute diverticulitis Is this a current diagnosis for this admission?: Yes Plan: Abdominal pain has slightly improved overnight. Currently n.p.o. Will advance to clear liquids if okay with surgery. Continue IV antibiotics. (2) Atrial fibrillation with RVR Is this a current diagnosis for this admission?: Yes Plan: Weaned off Cardizem drip. Resume Tikosyn. Coumadin on hold for now. Patient verbalizes understanding of the risks and benefits. (3) Oral candidiasis Is this a current diagnosis for this admission?: Yes Plan: Continue Diflucan. - Time Time Spent with patient: 25-34 minutes
[2019-09-11 13:26] LABS: FREE T4 (FREE THYROXINE) 1.69 ng/dL (0.78-2.19)
--- NOTE | 2019-09-11 13:36 | RADIOLOGY REPORT (SQ) ---
EXAM DESCRIPTION: ABDOMEN 2 VIEWS COMPLETED DATE/TIME: 09/11/2019 10:04 am REASON FOR STUDY: Abnominal pain/ R/O free flowing air COMPARISON: None. NUMBER OF VIEWS: Two views. TECHNIQUE: Supine and erect/decubitus radiographic images of the abdomen acquired. LIMITATIONS: None. FINDINGS: FREE AIR: None. No abnormal gas collections. LUNG BASES: Clear. BOWEL GAS PATTERN: Nonobstructive pattern. No dilated loops or air fluid levels. CALCIFICATIONS: No suspicious calcifications. SOFT TISSUES: Contrast in the urinary bladder. HARDWARE: None in the abdomen. BONES: No acute fracture. No worrisome bone lesions. OTHER: No other significant finding. IMPRESSION: NO RADIOGRAPHIC EVIDENCE FOR ACUTE ABDOMINAL DISEASE. TECHNICAL DOCUMENTATION: JOB ID: [id number] [employer]- All Rights Reserved Reading location - IP/workstation name: [email or web address]
[2019-09-11 13:42] LABS: FREE T3 2.1 pg/mL (2.77-5.27)
[2019-09-11] MEDS ORDERED: DIAZEPAM 5 MG TABLET PO PRN (16:24)
[2019-09-11] MEDS ORDERED: (PENDING PHARMACY ID) (Levalbuterol Tartrate [Levalbuterol Tartrate Hfa] 1 PUFF) IH PRN (16:24)
[2019-09-11] MEDS: NYSTATIN/DEXAMETH/DIPHEN SUSP 120 ML PO SCH ×2 (16:49→23:14)
[2019-09-11] MEDS ORDERED: ALPRAZOLAM 0.25 MG TABLET PO ONE (17:00)
--- NOTE | 2019-09-11 17:05 | EKG REPORT ---
SEVERITY:- ABNORMAL ECG - ATRIAL FIBRILLATION LEFT BUNDLE BRANCH BLOCK : Confirmed by: Taqueria Harman MD 11-Sep-2019 17:05:22
[2019-09-11] MEDS ORDERED: METOPROLOL TARTRATE PF/INJ 5 MG/5 ML SDV IV ONE (18:35)
[2019-09-11] MEDS: SOTALOL HCL 80 MG TABLET PO SCH (18:49)
[2019-09-11] MEDS ORDERED: DILTIAZEM HCL 120 MG CAP.SR.24H PO ONE (19:00)
[2019-09-11] MEDS ORDERED: (PENDING PHARMACY ID) (Diltiazem Hcl [Diltiazem 12hr Er] 120 MG) PO SCH (22:00)
[2019-09-11] MEDS ORDERED: DIAZEPAM 5 MG TABLET PO ONE (23:00)
[2019-09-12] MEDS: METRONIDAZOLE 500 MG/NS RTU 500 MG/100 ML RTUPB IV SCH ×5 (00:45→23:33)
[2019-09-12] MEDS: NORMAL SALINE 1000 ML 1,000 ML IV PRN ×2 (03:47→15:53)
[2019-09-12] MEDS ORDERED: (PENDING PHARMACY ID) (Levothyroxine Sodium [Synthroid] 125 MCG) PO SCH (06:00)
[2019-09-12 06:30] LABS: HEMATOCRIT 41.1 % (36.0-47.0); HEMOGLOBIN 13.8 g/dL (12.0-15.5); MEAN CORPUSCULAR HEMOGLOBIN 29.8 pg (27.0-33.4); MEAN CORPUSCULAR HGB CONC 33.7 g/dL (32.0-36.0); MEAN CORPUSCULAR VOLUME 88 fl (80-97); PLATELET COUNT 104 10^3/uL (150-450); RED BLOOD COUNT 4.65 10^6/uL (3.72-5.28); RED CELL DISTRIBUTION WIDTH 14.4 % (11.5-14.0); WHITE BLOOD COUNT 11.9 10^3/uL (4.0-10.5)
[2019-09-12] MEDS: LEVOTHYROXINE SODIUM 0.1 MG TABLET PO SCH (06:50)
[2019-09-12] MEDS: LEVOTHYROXINE SODIUM 0.025 MG TABLET PO SCH (06:50)
[2019-09-12] MEDS: NYSTATIN/DEXAMETH/DIPHEN SUSP 120 ML PO SCH ×3 (06:51→21:11)
[2019-09-12 06:57] LABS: ABSOLUTE LYMPHOCYTES# (MANUAL) 0.8 10^3/uL (0.5-4.7); ABSOLUTE MONOCYTES # (MANUAL) 0.4 10^3/uL (0.1-1.4); BASOPHILS % (MANUAL) 0 % (0-2); EOSINOPHILS % (MANUAL) 0 % (0-6); LYMPHOCYTES % (MANUAL) 7 % (13-45); MONOCYTES % (MANUAL) 3 % (3-13); SEGMENTED NEUTROPHILS % (MAN) 90 % (42-78); TOTAL CELLS COUNTED 100
[2019-09-12 07:01] LABS: ANISOCYTOSIS SLIGHT; BURR CELLS SLIGHT; PLATELET COMMENT ADEQUATE; POIKILOCYTOSIS SLIGHT; TOXIC GRANULATION SLIGHT; TOXIC VACUOLATION PRESENT
[2019-09-12 09:25] LABS: ANION GAP 6 (5-19); BLOOD UREA NITROGEN 22 mg/dL (7-20); CALCIUM 8.1 mg/dL (8.4-10.2); CARBON DIOXIDE 28 mmol/L (22-30); CHLORIDE 99 mmol/L (98-107); GLUCOSE 82 mg/dL (75-110); POTASSIUM 4.4 mmol/L (3.6-5.0)
[2019-09-12] MEDS: HEPARIN SOD (PORCINE) 5,000 UNIT/ML 1 ML VIAL SUBCUT SCH ×2 (09:27→21:08)
[2019-09-12] MEDS: DILTIAZEM HCL 120 MG CAP.SR.24H PO SCH ×2 (09:29→21:09)
[2019-09-12] MEDS: CIPROFLOXACIN 400 MG/D5W RTU 400 MG/200 ML RTUPB IV SCH ×2 (09:29→21:13)
[2019-09-12] MEDS: SOTALOL HCL 80 MG TABLET PO SCH ×2 (09:29→21:09)
[2019-09-12] MEDS: FLUCONAZOLE 100 MG TABLET PO SCH (09:29)
[2019-09-12] MEDS ORDERED: DIAZEPAM 5 MG TABLET PO SCH (10:00)
--- NOTE | 2019-09-12 10:28 | PDOC PROGRESS REPORT ---
Subjective Reason For Visit: PERFORATED DIVERTICULITIS Physical Exam Vital Signs: Temp Pulse Resp BP Pulse Ox 98.9 F 99 16 117/50 L 93 09/12/19 07:35 09/12/19 08:00 09/12/19 08:00 09/12/19 07:35 09/12/19 08:00 Intake & Output 09/11/19 09/12/19 09/13/19 06:59 06:59 06:59 Intake Total 3365 800 100 Output Total 0 0 Balance 3365 800 100 Weight 81.9 kg 85.3 kg General appearance: PRESENT: no acute distress GI/Abdominal exam: PRESENT: other - Abdomen exposed. It is soft not distended but tender in the left lower quadrant with mild guarding to moderate palpation. There is no rigidity. Results Laboratory Results: 09/12/19 06:23 09/12/19 06:23 09/11/19 09/12/19 09/12/19 07:21 06:23 06:23 WBC 11.9 H RBC 4.65 Hgb 13.8 Hct 41.1 MCV 88 MCH 29.8 MCHC 33.7 RDW 14.4 H Plt Count 104 L Seg Neutrophils % Not Reportable Sodium 133.4 L Potassium 4.4 Chloride 99 Carbon Dioxide 28 Anion Gap 6 BUN 22 H Creatinine 0.98 Est GFR ( Amer) > 60 Glucose 82 Calcium 8.1 L Free T4 1.69 Free T3 pg/mL 2.10 L Impressions: Abdomen Ultrasound 09/10/19 14:06 IMPRESSION: 1. Possible small volume of gall sludge. 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 The gallbladder is mildly contracted. No pericholecystic fluid. Negative sonographic Szymanski sign. 2. Hepatic steatosis. 3. Mild right hydronephrosis. No obstructing calculus or other etiology identified. Attention on forthcoming CT. 4. Small volume ascites. 5. There is a 1.0 cm cyst, possibly with a thickened septation or nodular component of the right superior pole. Attention on forthcoming CT. Abdomen/Pelvis CT 09/10/19 14:06 IMPRESSION: Moderate inflammatory changes and 2 small 8-10 mm pockets of free air adjacent to the sigmoid -descending colonic junction consistent with perforated diverticulitis. Surgical consultation recommended. Abdomen X-Ray 09/11/19 00:00 IMPRESSION: NO RADIOGRAPHIC EVIDENCE FOR ACUTE ABDOMINAL DISEASE. Assessment & Plan - Diagnosis (1) Acute diverticulitis with localized perf Is this a current diagnosis for this admission?: Yes Plan: Impression: Incremental clinical improvement in patient with a contained sigmoid colon perforation on intravenous antibiotics, leukocytosis improved. No indication for surgical intervention at this time. Recommendations: 1. We will start clear liquid sips today. 2. Continue intravenous antibiotics 3. Patient had complete colonoscopy with normal findings 3 years ago in [place]. Understands that she may require interval sigmoid colectomy for resolution of her complicated sigmoid diverticular problem. (2) Atrial fibrillation with RVR Is this a current diagnosis for this admission?: Yes - Time Time Spent with patient: 15-24 minutes
--- NOTE | 2019-09-12 13:03 | PDOC PROGRESS REPORT ---
Subjective Progress Note for:: 09/12/19 Subjective:: RAKAN SUGGS is a 69 year old female with a past medical history of atrial fibrillation with prior ablation, aortic valve replacement, COPD not on home O2, hypothyroidism, history of diverticulosis and acute diverticulitis and hypertension who presented with abdominal pain. In the ER, CT showed sigmoid diverticulitis with 2 pockets of free air consistent with perforation. She was also found to be in AFib with RVR. She was admitted for localized perforated diverticulitis. She was also started on Cardizem drip for her A. fib. 09/11: She was weaned off Cardizem drip. Currently rate controlled in the 80s. She says her abdominal pain has slightly improved today. No nausea or vomiting. She says she wants to eat today. 09/12: No acute event overnight. She did get 1 dose of Dilaudid last night for abdominal pain. This morning, she says that her abdominal pain continue to improve. She remains rate controlled. Denies chest pain or shortness of breat h. Her diet is being advanced to clear liquids today per surgery recommendation. Reason For Visit: PERFORATED DIVERTICULITIS Physical Exam Vital Signs: Temp Pulse Resp BP Pulse Ox 98.2 F 77 17 112/66 91 L 09/12/19 11:01 09/12/19 11:01 09/12/19 11:01 09/12/19 11:01 09/12/19 11:01 Intake & Output 09/11/19 09/12/19 09/13/19 06:59 06:59 06:59 Intake Total 3365 800 300 Output Total 0 0 Balance 3365 800 300 Weight 180 lb 8.937 oz 188 lb 0.869 oz General appearance: PRESENT: no acute distress, well-developed, well-nourished Head exam: PRESENT: atraumatic, normocephalic Eye exam: PRESENT: conjunctiva pink, EOMI, PERRLA. ABSENT: scleral icterus Ear exam: PRESENT: normal external ear exam Mouth exam: PRESENT: moist, tongue midline Neck exam: ABSENT: carotid bruit, JVD, lymphadenopathy, thyromegaly Respiratory exam: PRESENT: clear to auscultation chase. ABSENT: rales, rhonchi, wheezes Cardiovascular exam: PRESENT: RRR. ABSENT: diastolic murmur, rubs, systolic murmur Pulses: PRESENT: normal dorsalis pedis pul GI/Abdominal exam: PRESENT: normal bowel sounds, soft, tenderness - To moderate left lower quadrant tenderness negative rebound. ABSENT: distended, guarding, mass, organolmegaly, rebound Rectal exam: PRESENT: deferred Neurological exam: PRESENT: alert, awake, oriented to person, oriented to place, oriented to time, oriented to situation, CN II-XII grossly intact. ABSENT: motor sensory deficit Results Laboratory Results: 09/12/19 06:23 09/12/19 06:23 09/11/19 09/12/19 09/12/19 07:21 06:23 06:23 WBC 11.9 H RBC 4.65 Hgb 13.8 Hct 41.1 MCV 88 MCH 29.8 MCHC 33.7 RDW 14.4 H Plt Count 104 L Seg Neutrophils % Not Reportable Sodium 133.4 L Potassium 4.4 Chloride 99 Carbon Dioxide 28 Anion Gap 6 BUN 22 H Creatinine 0.98 Est GFR ( Amer) > 60 Glucose 82 Calcium 8.1 L Free T4 1.69 Free T3 pg/mL 2.10 L Impressions: Abdomen Ultrasound 09/10/19 14:06 IMPRESSION: 1. Possible small volume of gall sludge. 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 The gallbladder is mildly contracted. No pericholecystic fluid. Negative sonographic Szymanski sign. 2. Hepatic steatosis. 3. Mild right hydronephrosis. No obstructing calculus or other etiology identified. Attention on forthcoming CT. 4. Small volume ascites. 5. There is a 1.0 cm cyst, possibly with a thickened septation or nodular component of the right superior pole. Attention on forthcoming CT. Abdomen/Pelvis CT 09/10/19 14:06 IMPRESSION: Moderate inflammatory changes and 2 small 8-10 mm pockets of free air adjacent to the sigmoid -descending colonic junction consistent with perforated diverticulitis. Surgical consultation recommended. Abdomen X-Ray 09/11/19 00:00 IMPRESSION: NO RADIOGRAPHIC EVIDENCE FOR ACUTE ABDOMINAL DISEASE. Assessment and Plan - Diagnosis (1) Acute diverticulitis Is this a current diagnosis for this admission?: Yes Plan: 09/12: Abdominal pain slightly improving. Currently n.p.o. Advance diet to clear liquids. Continue IV antibiotics. Continue IV fluids. Creatinine slightly up from yesterday. Repeat BMP tomorrow tomorrow. (2) Atrial fibrillation with RVR Is this a current diagnosis for this admission?: Yes Plan: Weaned off Cardizem drip. Continue sotalol and p.o. Cardizem. (3) Oral candidiasis Is this a current diagnosis for this admission?: Yes Plan: Continue Diflucan. - Time Time Spent with patient: 25-34 minutes
[2019-09-12] MEDS: DIAZEPAM 5 MG TABLET PO PRN (19:42)
[2019-09-12] MEDS: KETOROLAC TROMETHAMINE INJ/PF 30 MG/1 ML SDV IV PRN (21:18)
[2019-09-13] MEDS: NORMAL SALINE 1000 ML 1,000 ML IV PRN (03:31)
[2019-09-13] MEDS: METRONIDAZOLE 500 MG/NS RTU 500 MG/100 ML RTUPB IV SCH ×2 (05:18→16:48)
[2019-09-13] MEDS: LEVOTHYROXINE SODIUM 0.025 MG TABLET PO SCH (05:18)
[2019-09-13] MEDS: NYSTATIN/DEXAMETH/DIPHEN SUSP 120 ML PO SCH ×3 (05:18→23:45)
[2019-09-13] MEDS: LEVOTHYROXINE SODIUM 0.1 MG TABLET PO SCH (05:18)
[2019-09-13 06:41] LABS: ANION GAP 10 (5-19); BLOOD UREA NITROGEN 23 mg/dL (7-20); CALCIUM 8.2 mg/dL (8.4-10.2); CARBON DIOXIDE 21 mmol/L (22-30); CHLORIDE 103 mmol/L (98-107); GLUCOSE 74 mg/dL (75-110)
[2019-09-13] MEDS: SOTALOL HCL 80 MG TABLET PO SCH ×2 (09:13→23:44)
[2019-09-13] MEDS: FLUCONAZOLE 100 MG TABLET PO SCH (09:13)
[2019-09-13] MEDS: DILTIAZEM HCL 120 MG CAP.SR.24H PO SCH ×2 (09:14→23:45)
[2019-09-13] MEDS: CIPROFLOXACIN 400 MG/D5W RTU 400 MG/200 ML RTUPB IV SCH (09:15)
[2019-09-13] MEDS: DIAZEPAM 5 MG TABLET PO PRN (09:23)
--- NOTE | 2019-09-13 11:10 | RADIOLOGY REPORT (SQ) ---
EXAM DESCRIPTION: CT ABD/PELVIS WITH IV ONLY COMPLETED DATE/TIME: 09/13/2019 10:24 am REASON FOR STUDY: perf diverticulitis COMPARISON: 09/10/2019 TECHNIQUE: CT scan of the abdomen and pelvis performed using helical scanning technique with dynamic intravenous contrast injection. No oral contrast. Images reviewed with lung, soft tissue, and bone windows. Reconstructed coronal and sagittal MPR images reviewed. Delayed images for evaluation of the urinary system also acquired. All images stored on PACS. All CT scanners at this facility use dose modulation, iterative reconstruction, and/or weight based d osing when appropriate to reduce radiation dose to as low as reasonably achievable (ALARA). [facility]: Dose Right [facility]: CareDose [facility]: Dose Right [facility]: Teradose 4D [facility]: [employer] CONTRAST TYPE AND DOSE: contrast/concentration: Isovue 350.00 mg/ml; Total Contrast Delivered: 97.0 ml; Total Saline Delivered: 70.0 ml RENAL FUNCTION: Creatinine 0.95 RADIATION DOSE: CT Rad equipment meets quality standard of care and radiation dose reduction techniq ues were employed. CTDIvol: 19.2 - 19.4 mGy. DLP: 1916 mGy-cm.. LIMITATIONS: None. FINDINGS: LOWER CHEST: Small bilateral pleural effusions with minimal associated atelectasis. Uncha nged right-sided Bochdalek's hernia. Enlarged heart. LIVER: Normal size. Unchanged inferior right hepatic lobe cyst. Small volume perihepatic ascites. Increased perihepatic free intraperitoneal gas. SPLEEN: Normal size. No focal lesions. PANCREAS: No masses. No significant calcifications. No adjacent inflammation or peripancreatic fluid collections. Pancreatic duct not dilated. GALLBLADDER: Vicarious excretion of contrast within the gallbladder lumen. ADRENAL GLANDS: No significant masses or asymmetry. RIGHT KIDNEY AND URETER: No solid masses. No significant calcifications. No hydronephrosis or hyd roureter. LEFT KIDNEY AND URETER: No solid masses. No significant calcifications. No hydronephrosis or hydr oureter. AORTA AND VESSELS: Aortoiliac atherosclerosis with out aneurysm. Celiac, SMA, bilateral renals and I MA are opacified. RETROPERITONEUM: No retroperitoneal adenopathy, hemorrhage or masses. BOWEL AND PERITONEAL CAVITY: Again seen is inflammatory change around the sigmoid colon with multiple scattered colonic diverticula. There is increased, now moderate to large volume, pneumoperitoneum. Small volume ill-defined stranding around the sigmoid colon without focal drainable collection. New small volume perihepatic and pelvic ascites. No evidence of intestinal obstruction. APPENDIX: Not identified PELVIS: Small volume pelvic ascites. Unremarkable urinary bladder. ABDOMINAL WALL: Anasarca. BONES: No acute bony abnormality. No discrete lytic or blastic osseous lesions. Lower lumbar facet arthropathy. OTHER: No other significant finding. IMPRESSION: 1. Again seen are the changes from sigmoid diverticulitis. There has been worsening of the pneumoperitoneum with now moderate to large volume pneumoperitoneum and new small volume perihep atic and pelvic ascites. No focal drainable collection. Recommend surgical re-evaluation. 2. New small bilateral pleural effusions, right greater than left. 3. Vicarious excretion of contrast within the gallbladder lumen suggestive of kidney dysfunction. 4. Cardiomegaly. Findings were discussed with TONY Hirsch at 1101 hours on 09/13/2019. TECHNICAL DOCUMENTATION: JOB ID: [id number] Quality ID # [id number]: Final reports with documentation of one or more dose reduction techniques (e.g., Au tomated exposure control, adjustment of the mA and/or kV according to patient size, use of iterative reconstruction technique) 2010 [employer]- All Rights Reserved Reading location - IP/workstation name: [email or web address]
[2019-09-13] MEDS ORDERED: LIDOCAINE 2% INJ-PF (20 MG/ML) 2 ML AMPUL ONE (11:18)
[2019-09-13] MEDS ORDERED: PHENYLEPHRINE HCL INJ/PF 10 MG/1 ML SDV ONE (11:18)
[2019-09-13] MEDS ORDERED: VECURONIUM BROMIDE INJ 10 MG VIAL IV ONE (11:18)
[2019-09-13] MEDS ORDERED: ROCURONIUM BROMIDE INJ 50 MG/5 ML VIAL IV ONE (11:18)
[2019-09-13] MEDS: HEPARIN SOD (PORCINE) 5,000 UNIT/ML 1 ML VIAL SUBCUT SCH (11:56)
--- NOTE | 2019-09-13 13:58 | PDOC PROGRESS REPORT ---
Subjective Progress Note for:: 09/13/19 Subjective:: This is a 69-year-old female with diverticulitis. She has received 3 days of antibiotics. She still complains of pain. She reports nausea and vomiting this morning. Repeat CT scan was performed today showing increasing amounts of intra-abdominal fluid and free intra-abdominal air. Patient denies fevers, chills, shortness of breath, chest pain, blurry vision, headache. Reason For Visit: PERFORATED DIVERTICULITIS Physical Exam Vital Signs: Temp Pulse Resp BP Pulse Ox 97.2 F 54 L 18 144/58 H 95 09/13/19 08:07 09/13/19 08:07 09/13/19 08:07 09/13/19 08:07 09/13/19 08:07 Intake & Output 09/12/19 09/13/19 09/14/19 06:59 06:59 06:59 Intake Total 800 4080 Output Total 0 Balance 800 4080 Weight 85.3 kg 91.7 kg General appearance: PRESENT: cooperative, mild distress - Abdominal pain, other - Overweight Head exam: PRESENT: atraumatic, normocephalic Eye exam: PRESENT: EOMI, PERRLA Mouth exam: PRESENT: moist, neck supple Neck exam: ABSENT: tenderness, thyromegaly, tracheal deviation Respiratory exam: PRESENT: clear to auscultation chase, unlabored. ABSENT: chest wall tenderness, tachypnea, wheezes Cardiovascular exam: PRESENT: irregular rhythm Vascular exam: PRESENT: normal capillary refill. ABSENT: pallor GI/Abdominal exam: PRESENT: soft, tenderness - Left lower quadrant, suprapubic. ABSENT: distended Rectal exam: PRESENT: deferred Extremities exam: ABSENT: clubbing Musculoskeletal exam: ABSENT: deformity Neurological exam: PRESENT: alert, awake, oriented to person, oriented to place, oriented to time, oriented to situation, CN II-XII grossly intact. ABSENT: motor sensory deficit Psychiatric exam: ABSENT: agitated, anxious, depressed Focused psych exam: ABSENT: delusional Skin exam: ABSENT: cyanosis, erythema, jaundice Results Laboratory Results: 09/12/19 06:23 09/13/19 04:59 09/13/19 04:59 Sodium 133.6 L Potassium 4.0 Chloride 103 Carbon Dioxide 21 L Anion Gap 10 BUN 23 H Creatinine 0.95 Est GFR ( Amer) > 60 Glucose 74 L Calcium 8.2 L Impressions: Abdomen Ultrasound 09/10/19 14:06 IMPRESSION: 1. Possible small volume of gall sludge. Probable gallbladder maría elena omyomatosis. The gallbladder is mildly contracted. No pericholecystic fluid. Negative sonographic Szymanski sign. 2. Hepatic steatosis. 3. Mild right hydronephrosis. No obstructing calculus or other etiology identified. Attention on forthcoming CT. 4. Small volume ascites. 5. There is a 1.0 cm cyst, possibly with a thickened septation or nodular component of the right superior pole. Attention on forthcoming CT. Abdomen X-Ray 09/11/19 00:00 IMPRESSION: NO RADIOGRAPHIC EVIDENCE FOR ACUTE ABDOMINAL DISEASE. Abdomen/Pelvis CT 09/13/19 11:00 IMPRESSION: 1. Again seen are the changes from sigmoid diverticulitis. There has been worsening of the pneumoperitoneum with now moderate to large volume pneumoperitoneum and new small volume perihepatic and pelvic ascites. No focal drainable collection. Recommend surgical re-evaluation. 2. New small bilateral pleural effusions, right greater than left. 3. Vicarious excretion of contrast within the gallbladder lumen suggestive of kidney dysfunction. 4. Cardiomegaly. Findings were discussed with TONY Hirsch at 1101 hours on 09/13/2019. Assessment & Plan - Diagnosis (1) Free intraperitoneal air Is this a current diagnosis for this admission?: Yes (2) Acute diverticulitis Is this a current diagnosis for this admission?: Yes - Time Time Spent with patient: Less than 15 minutes - Plan Summary Plan Summary: This is a 69-year-old female with diverticulitis, that is progressed to free air and free fluid in the abdomen. 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 I have recommended surgical intervention for her, in an effort to resolve her infectious process. She has agreed to this. Risks/benefits discussed, informed consent obtained, and all questions answered.
[2019-09-13] MEDS ORDERED: CLINDAMYCIN 600 MG/D5W RTU 600 MG/50 ML RTUPB IV PRN (15:25)
--- NOTE | 2019-09-13 15:25 | Progress Note ---
Provider Note Provider Note: 09/13/2019 I have gone up to see the patient today following her CT scan of the abdomen earlier this morning. Patient's perforation diverticulitis is to have worsened and is now a surgical situation. She was being treated conservatively with IV antibiotics and tincture of time, ever she has failed to improve and is worse. Patient is given me the name of her son and his phone number to call should anything significant develop, name is Sumeet, in [place] area code [phone]. Patient has decided that she does not want to be intubated should she have a respiratory arrest, he does want chest compression and she does want medications but she does not want to be put on a ventilator, she was to going to cardiac arrest. 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 Quiñones. Patient has also told me that she had an aortic valve replacement done 15 years ago. Patient will need 1 dose of IV clindamycin 600 mg prior to anesthesia prophylactics for her aortic valve replacement. I have ordered this
[2019-09-13] MEDS ORDERED: LORAZEPAM INJ 2 MG/1 ML VIAL IV ONE (15:30)
[2019-09-13] MEDS ORDERED: BUPIVACAINE HCL 0.25 % INJ/PF (2.5 MG/1 ML) 30 ML VIAL ONE (15:55)
[2019-09-13 16:08] LABS: HEMATOCRIT 42.7 % (36.0-47.0); HEMOGLOBIN 14.2 g/dL (12.0-15.5); MEAN CORPUSCULAR HEMOGLOBIN 29.5 pg (27.0-33.4); MEAN CORPUSCULAR HGB CONC 33.3 g/dL (32.0-36.0); MEAN CORPUSCULAR VOLUME 89 fl (80-97); PLATELET COUNT 140 10^3/uL (150-450); RED BLOOD COUNT 4.82 10^6/uL (3.72-5.28); WHITE BLOOD COUNT 14.8 10^3/uL (4.0-10.5)
[2019-09-13 16:22] LABS: ANION GAP 10 (5-19); BLOOD UREA NITROGEN 23 mg/dL (7-20); CALCIUM 8.4 mg/dL (8.4-10.2); CARBON DIOXIDE 23 mmol/L (22-30); CHLORIDE 101 mmol/L (98-107); GLUCOSE 104 mg/dL (75-110); POTASSIUM 4.2 mmol/L (3.6-5.0)
[2019-09-13] MEDS ORDERED: EPHEDRINE SULFATE INJ 50 MG/1 ML AMPULE ONE (16:29)
[2019-09-13] MEDS ORDERED: MIDAZOLAM 2 MG/2 ML INJ ONE (16:29)
[2019-09-13] MEDS ORDERED: FENTANYL CITRATE INJ/PF 100 MCG/2 ML AMPUL ONE (16:29)
[2019-09-13] MEDS ORDERED: HYDROMORPHONE HCL INJ/PF 2 MG/ML AMPULE ONE (16:29)
[2019-09-13] MEDS ORDERED: PROPOFOL INJ 200 MG/20 ML VIAL IV ONE (16:35)
--- NOTE | 2019-09-13 17:02 | RADIOLOGY REPORT (SQ) ---
EXAM DESCRIPTION: CHEST SINGLE VIEW COMPLETED DATE/TIME: 09/13/2019 4:53 pm REASON FOR STUDY: PER ANESTHESIA COMPARISON: None. EXAM PARAMETERS: NUMBER OF VIEWS: One view. TECHNIQUE: Single frontal radiographic view of the chest acquired. RADIATION DOSE: NA LIMITATIONS: None. FINDINGS: LUNGS AND PLEURA: There is ill-defined opacification in the right base. The right hemidia phragm remains well-defined. There appear to be pleural calcifications on the left diaphragm. MEDIASTINUM AND HILAR STRUCTURES: No masses. Contour normal. HEART AND VASCULAR STRUCTURES: Cardiomegaly. No pulmonary edema. BONES: No acute findings. HARDWARE: None in the chest. OTHER: No other significant finding. IMPRESSION: Cardiomegaly without pulmonary edema. Cannot exclude limited right lower lobe pneumonia . Pleural calcifications may suggest asbestos exposure. TECHNICAL DOCUMENTATION: JOB ID: [id number] [employer]- All Rights Reserved Reading location - IP/workstation name: [email or web address]
[2019-09-13] MEDS ORDERED: CLINDAMYCIN 600 MG/D5W RTU 600 MG/50 ML RTUPB IV ONE (17:05)
[2019-09-13] MEDS ORDERED: METRONIDAZOLE 500 MG/NS RTU 500 MG/100 ML RTUPB IV ONE (17:49)
--- NOTE | 2019-09-13 21:15 | Operative Report ---
Nonrecallable Operative Report DATE OF SURGERY: 09/13/19 PREOPERATIVE DIAGNOSIS: 1. Sigmoid diverticulitis. 2. Free intraperitoneal air. 3. Free intra-abdominal fluid POSTOPERATIVE DIAGNOSIS: 1. Perforated sigmoid colon due to diverticulitis. 2. Purulent peritonitis. 3. Free intraperitoneal air. OPERATION: 1. Sigmoid colon resection with descending left lower quadrant colostomy (Graf's procedure). 2. Mobilization of the splenic flexure SURGEON: RONY RAMOS ANESTHESIA: GA TISSUE REMOVED OR ALTERED: Sigmoid colon COMPLICATIONS: None apparent ESTIMATED BLOOD LOSS: 200 cc PROCEDURE: Drains/implants: 15 Slovenian round Missael drain in the pelvis. Procedure in detail: After informed consent was obtained, the patient was brought to the operating room and laid in the supine position. The area of the abdomen was prepped and draped in a normal sterile fashion. An incision was created from the umbilicus to the pubis using a 10 blade scalpel. Dissection was carried through the subcutaneous tissue using sharp and blunt dissection. The linea alba fascia was incised sharply, the abdomen was entered sharply. Upon entering the abdomen there was noted to be free intraperitoneal air, as well as purulent intraperitoneal fluid. This was suctioned. The abdomen was then inspected. There was a dense inflammatory reaction in the left lower quadrant. The area of sigmoid colon perforation was easily identified. The sigmoid colon was freed using a mixture of sharp and blunt dissection. It was rotated medially. A portion of the rectosigmoid junction that was uninvolved with the inflammatory response was chosen as the distal line of resection. This was divided using the contour stapling device. Next the rectal stump was marked with an 0 Prolene suture. The tails were left long, to facilitate identification in the future. Next attention was turned to removing the affected sigmoid colon from its mesentery. The LigaSure impact device was used to divide the mesentery immediately adjacent to the bowel wall. This was done to the inflamed, affected sigmoid colon. Once an unaffected portion of the proximal bowel was reached, the contour stapler was again used to divide the colon. The inflamed sigmoid colon was then passed off the field and sent to pathology. It was felt necessary to free the splenic flexure in order to gain enough length to place a colostomy. The splenic flexure was mobilized using a mixture of sharp dissection, blunt dissection, and electrocautery. The white line of Toldt was divided laterally along the entirety of the descending colon. The greater omentum was freed from the transverse colon also using electrocautery. Once the splenic flexure was c ompletely freed, adequate length was ensured to perform a colostomy. An area between the umbilicus and the ASIS was chosen. An area of skin was removed. Dissection was carried down to the abdominal wall using blunt dissection. The anterior and posterior rectus sheath was divided using electrocautery. The rectus muscle was spread. The descending colon was then brought out through the incision. Attention was then turned to irrigation of the abdomen, and placement of the drain. A 15 Slovenian round Missael drain was pulled out through a separate stab incision in the right lower quadrant. It was placed into the pelvis, over the area of the rectal stump. It was also draped over the left lower quadrant. The drain was sutured into place using 2-0 nylon suture at the skin. Once the drain was in place, the midline fascia was reapproximated using #1 PDS suture in simple running fashion. The overlying skin was loosely approximated using skin milka. Xeroform packing was placed into the skin. A dressing was placed over the midline wound, and attention was turned to maturing of the colostomy. The left lower quadrant colostomy was created in Lorie fashion. The distal aspect of the colon was divided, removing a devascularized piece. 3-0 Vicryl suture was then used circumferentially to mature the colostomy. Once this was completed, an ostomy appliance was placed, and the procedure was concluded. All sponge, instrument, and needle counts were correct x2. Condition: Fair.
[2019-09-13] MEDS ORDERED: PROPOFOL 1,000 MG/100 ML INFUS..BTL IV PRN (22:10)
[2019-09-13] MEDS ORDERED: PROPOFOL 1,000 MG/100 ML INFUS..BTL IV ONE (22:21)
[2019-09-13] MEDS: DEXTROSE 5%-LACTATED RINGERS 1,000 ML IV PRN (22:23)
[2019-09-13] MEDS ORDERED: ALBUTEROL SULFATE 0.083% NEB 2.5 MG/3 ML AMPUL NEB PRN (22:23)
[2019-09-13] MEDS ORDERED: IPRATROPIUM/ALBUTEROL 0.5-2.5 MG/3 ML AMPUL NEB SCH (22:30)
[2019-09-13] MEDS ORDERED: PHARMACY COMMUNICATION ORDER MC NR (22:30)
[2019-09-13 23:05] LABS: HEMATOCRIT 41.8 % (36.0-47.0); MEAN CORPUSCULAR HEMOGLOBIN 29.5 pg (27.0-33.4); MEAN CORPUSCULAR HGB CONC 33.4 g/dL (32.0-36.0); MEAN CORPUSCULAR VOLUME 88 fl (80-97); PLATELET COUNT 114 10^3/uL (150-450); RED BLOOD COUNT 4.74 10^6/uL (3.72-5.28); RED CELL DISTRIBUTION WIDTH 13.9 % (11.5-14.0); WHITE BLOOD COUNT 12.6 10^3/uL (4.0-10.5)
[2019-09-13] MEDS ORDERED: DILTIAZEM HCL/D5W 125 MG/125 ML RTUINJ IV PRN (23:19)
--- NOTE | 2019-09-13 23:22 | RADIOLOGY REPORT (SQ) ---
EXAM DESCRIPTION: XR CHEST 1 VIEW COMPLETED DATE/TME: 09/13/2019 00:00 CLINICAL HISTORY: 69 years, Female, post intubation - tube placement COMPARISON: 09/13/2019 chest at 4:51 PM NUMBER OF VIEWS: 1 TECHNIQUE: Portable chest LIMITATIONS: None. FINDINGS: Cardiomegaly. Endotracheal tube directed slightly to the right of midline likely at the level of the ankit or proximal right mainstem bronchus. Retraction by approximately 2 to 3 cm recommended. Enteric tube extends into the upper abdomen. Median sternotomy wires. No pneumothorax. Airspace opacities of the lung bases and right upper lobe. IMPRESSION: Recommend retraction of the endotracheal tube, as above. Cardiomegaly with airspace opacities bilaterally copyright 2010 [employer]- All Rights Reserved
[2019-09-13 23:23] LABS: ALBUMIN 2.8 g/dL (3.5-5.0); ALKALINE PHOSPHATASE 50 U/L (38-126); ANION GAP 10 (5-19); ASPARTATE AMINO TRANSFERASE 28 U/L (14-36); BILIRUBIN,DIRECT 0.5 mg/dL (0.0-0.4); BILIRUBIN,TOTAL 1.7 mg/dL (0.2-1.3); BLOOD UREA NITROGEN 22 mg/dL (7-20); CALCIUM 8.4 mg/dL (8.4-10.2); CARBON DIOXIDE 22 mmol/L (22-30); CHLORIDE 103 mmol/L (98-107); GLUCOSE 94 mg/dL (75-110); PHOSPHORUS 2.8 mg/dL (2.5-4.5); POTASSIUM 4.3 mmol/L (3.6-5.0)
[2019-09-13 23:24] LABS: ABSOLUTE LYMPHOCYTES# (MANUAL) 0.8 10^3/uL (0.5-4.7); ABSOLUTE MONOCYTES # (MANUAL) 0.8 10^3/uL (0.1-1.4); BAND NEUTROPHILS % (MANUAL) 1 % (3-5); BASOPHILS % (MANUAL) 0 % (0-2); EOSINOPHILS % (MANUAL) 1 % (0-6); LYMPHOCYTES % (MANUAL) 6 % (13-45); MONOCYTES % (MANUAL) 6 % (3-13); OVALOCYTES SLIGHT; PLATELET COMMENT ADEQUATE; SEGMENTED NEUTROPHILS % (MAN) 86 % (42-78); TOTAL CELLS COUNTED 100; TOXIC VACUOLATION PRESENT
[2019-09-13] MEDS ORDERED: DILTIAZEM HCL INJ 25 MG/5 ML VIAL ONE (23:27)
[2019-09-13 23:47] LABS: ARTERIAL BLOOD BASE EXCESS -5.5 mmol/L; ARTERIAL BLOOD H2CO3 1.24 mmol/L (1.05-1.35); ARTERIAL BLOOD HCO3 20.4 mmol/L (20-24); ARTERIAL BLOOD O2 SATURATION 97.2 % (94-98); ARTERIAL BLOOD PCO2 41.3 mmHg (35-45); ARTERIAL BLOOD PH 7.31 (7.35-7.45); ARTERIAL BLOOD PO2 101.7 mmHg (80-100); ARTERIAL BLOOD TOTAL CO2 21.7 mmol/L (21-25)
[2019-09-13 23:48] LABS: ARTERIAL BLOOD FIO2 40%
[2019-09-14] MEDS: METRONIDAZOLE 500 MG/NS RTU 500 MG/100 ML RTUPB IV SCH ×6 (00:01→23:03)
[2019-09-14] MEDS: CIPROFLOXACIN 400 MG/D5W RTU 400 MG/200 ML RTUPB IV SCH ×3 (00:01→21:09)
[2019-09-14] MEDS: HEPARIN SOD (PORCINE) 5,000 UNIT/ML 1 ML VIAL SUBCUT SCH ×2 (00:04→21:03)
[2019-09-14] MEDS: FENTANYL CITRATE INJ/PF 100 MCG/2 ML AMPUL IV PRN ×2 (01:10→06:16)
--- NOTE | 2019-09-14 01:50 | CRITICAL CARE ADMISSION REPORT ---
HPI Date:: 09/13/19 Reason for ICU Reason:: Acute diverticulitis HPI: As per admitting H&P "RAKAN SUGGS is a 69 year old female with a past medical history of atrial fibrillation with prior ablation, aortic valve replacement, COPD not on home O2, hypothyroidism, history of diverticulosis and acute diverticulitis and hypertension who presented with abdominal pain. Patient says that she has been apparently fine until early this morning when she developed the hypogastric pain. She did report of associated loose, nonbloody stools. She denies fever or chills. In the ER, CT showed sigmoid diverticulitis with 2 pockets of free air consistent with perforation." Surgery assessed the pt after initial CT scan and determined no need for acute intervention. Pt was admitted to the medicine service in 09/10 and treated with IV abx and initially placed on cardizem gtt to treat Afib with RVR. She began showing improvemnt and was weaned off the Cardizem gtt and transitioned to PO meds and a clear liquid diet with reported improvement by the pt. This AM, pt reported increased abdominal pain, nausea and vomiting. Repeat CT was performed and found worsening of sigmoid diverticulitis with perforation and worsening of thee pneumoperitoneum with moderate to large volume of perihepatic and pelvic ascites. Surgery was re-called and pt was taken to the OR for sigmoid colon resection and left lower quadrant colonostomy placement. Prior to the procedure, an Echo was obtained do to her hx of aortic valve replacement with final read pending but reported by surgical team to have multiple valve dysfunction. Per [employer], pt was noted to be hypoxic prior to procedure while on nasal cannula. Decision was made by surgical team for pt to remain intubated post-op secondary to her poor cardiac function, hypoxia prior to procedure and high liklihood of SIRS reponse post-op. Pt was transferred to the ICU intubated and sedated. - Diagnosis/Plan (1) Acute diverticulitis with localized perf Is this a current diagnosis for this admission?: Yes (2) Leukocytosis Is this a current diagnosis for this admission?: Yes (3) Atrial fibrillation with RVR Is this a current diagnosis for this admission?: Yes (4) Free intraperitoneal air Is this a current diagnosis for this admission?: Yes (5) Hypothyroid Is this a current diagnosis for this admission?: Yes (6) Oral candidiasis Is this a current diagnosis for this admission?: Yes (7) COPD (chronic obstructive pulmonary disease) Is this a current diagnosis for this admission?: Yes (8) Hypertension Is this a current diagnosis for this admission?: Yes - . Plan Summary: Pulm: * Continue full vent support with weaning trials in the AM as tolerated - goal to extubate pt in the AM as she is a DNI * Post intubation Xray showing ETT at level of clavicle - advanced ETT with confirmation xray to show tube above the ankit * Hx of COPD - DuoNeb Q6 with PRN Albuterol Cardiac: * Continue on tele monitoring - Afib * Echo pending final read - valve dysfunction in multiple valves on quick read by surgical team * Hx of Afib - rate controlling meds on hold for NPO status - placed on cardizem gtt for AFib * Hx of HTN - hold antihypertensives and monitor - currently mildly hypotensive Neuro: * Q2hr neuro assessments post-op to assess for acute changes * Fentanyl PRN for pain post-op - transition to less constipating medication as soon as able GI: * S/P sigmoid colon resection with LLQ colonstomy - continue surgery recommendations, repeat KUB in AM to follow free air in abdomen * Consult for dietary placed Re: pt education of colonstomy * maintain NPO * GI ppx - will hold at this time as goal for extubation in the AM if possible * treatment for oral candidiasis prior to ICU admission - no evidence on exam, reassess after extubation Renal: * Maintain strict I&O * Monitor renal indices, replace lytes PRN * Nesbitt placed for prolonged immobility while intubated - remove when able Heme/Onc: * Leukocytosis - continue IV abx and monitor for SIRS response post-op * DVT ppx on hold 24hrs post-op - SCDs on b/l lower extremities Endocrine: * D5 LR at 75mL/hr while NPO to prevent hypoglycemia * Hx of hypothyroid - PO synthroid on hold - consider transition to IV if pt unable to take PO in 2-3days Advance directives: DNI suspended for surgical procedure, goal to extubate in the AM Past Medical History Past Medical History: As per HPI Cardiac Medical History: Reports: Atrial Fibrillation, Hypertension Past Surgical History Past Surgical History: Reports: Appendectomy, Hysterectomy, Tonsillectomy, Valve Replacement Social/Family History - Social History Smoking Status: Unknown if Ever Smoked Frequency of Alcohol Use: None Drugs: None Hx Prescription Drug Abuse: No - Medication/Allergies Home Medications: Diazepam [Valium 5 mg Tablet] 5 mg PO DAILYP PRN 09/11/19 Diltiazem HCl [Diltiazem 12Hr ER] 120 mg PO Q12 09/11/19 Hydralazine HCl [Apresoline 25 mg Tablet] 25 mg PO BID 09/11/19 Levalbuterol Tartrate [Levalbuterol Tartrate Hfa] 1 puff IH Q6HP PRN 09/11/19 Levothyroxine Sodium [Synthroid] 125 mcg PO Q6AM 09/11/19 Sotalol HCl [Sotalol Af] 80 mg PO Q12 09/11/19 Warfarin Sodium [Coumadin 5 mg Tablet] 5 mg PO DAILY 09/11/19 Allergies/Adverse Reactions: Penicillins Allergy (Verified 09/16/13 13:11) Review of Systems ROS unobtainable: Due to endotracheal tube Physical Exam Vital Signs: Temp Pulse Resp BP Pulse Ox 98.2 F 68 16 130/90 H 100 09/13/19 15:32 09/13/19 15:32 09/13/19 15:32 09/13/19 15:32 09/13/19 21:00 Intake & Output 09/12/19 09/13/19 09/14/19 06:59 06:59 06:59 Intake Total 800 4080 320 Output Total 0 Balance 800 4080 320 Weight 85.3 kg 91.7 kg Weight/Height Weight 91.7 kg Height 5 ft 3 in General appearance: PRESENT: no acute distress, well-developed, well-nourished Head exam: PRESENT: atraumatic, normocephalic Eye exam: PRESENT: conjunctiva pink, PERRLA Ear exam: PRESENT: normal external ear exam Mouth exam: PRESENT: moist, other - tongue pink Neck exam: ABSENT: JVD, tracheal deviation Respiratory exam: PRESENT: decreased breath sounds - RLL, symmetrical. ABSENT: wheezes Cardiovascular exam: PRESENT: irregular rhythm, +S1, +S2 Pulses: PRESENT: other - b/l radial pulses +1 GI/Abdominal exam: PRESENT: hypoactive bowel sounds, soft, other - colonostomy to LLQ, surgical dressing to mid-abdomen, surgical drain with small amount of serous fluid Extremities exam: PRESENT: +1 edema Neurological exam: PRESENT: other - sedated Skin exam: PRESENT: dry, warm. ABSENT: rash Tubes/Lines: PRESENT: Endotracheal Tube, Nasogastic Tube, Other - surgical drain Laboratory/Radiographs Laboratory Results: 09/13/19 22:56 09/13/19 22:56 09/13/19 09/13/19 09/13/19 04:59 15:43 15:43 WBC 14.8 H RBC 4.82 Hgb 14.2 Hct 42.7 MCV 89 MCH 29.5 MCHC 33.3 RDW 14.0 Plt Count 140 L Seg Neutrophils % Sodium 133.6 L 133.7 L Potassium 4.0 4.2 Chloride 103 101 Carbon Dioxide 21 L 23 Anion Gap 10 10 BUN 23 H 23 H Creatinine 0.95 0.90 Est GFR ( Amer) > 60 > 60 Glucose 74 L 104 Calcium 8.2 L 8.4 Phosphorus Magnesium Total Bilirubin AST Alkaline Phosphatase Total Protein Albumin 09/13/19 09/13/19 22:56 22:56 WBC 12.6 H RBC 4.74 Hgb 14.0 Hct 41.8 MCV 88 MCH 29.5 MCHC 33.4 RDW 13.9 Plt Count 114 L Seg Neutrophils % Not Reportable Sodium 135.4 L Potassium 4.3 Chloride 103 Carbon Dioxide 22 Anion Gap 10 BUN 22 H Creatinine 0.91 Est GFR ( Amer) > 60 Glucose 94 Calcium 8.4 Phosphorus 2.8 Magnesium 1.9 Total Bilirubin 1.7 H AST 28 Alkaline Phosphatase 50 Total Protein 6.0 L Albumin 2.8 L Impressions: Abdomen Ultrasound 09/10/19 14:06 IMPRESSION: 1. Possible small volume of gall sludge. 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 The gallbladder is mildly contracted. No pericholecystic fluid. Negative sonographic Szymanski sign. 2. Hepatic steatosis. 3. Mild right hydronephrosis. No obstructing calculus or other etiology identified. Attention on forthcoming CT. 4. Small volume ascites. 5. There is a 1.0 cm cyst, possibly with a thickened septation or nodular component of the right superior pole. Attention on forthcoming CT. Abdomen X-Ray 09/11/19 00:00 IMPRESSION: NO RADIOGRAPHIC EVIDENCE FOR ACUTE ABDOMINAL DISEASE. Abdomen/Pelvis CT 09/13/19 11:00 IMPRESSION: 1. Again seen are the changes from sigmoid diverticulitis. There has been worsening of the pneumoperitoneum with now moderate to large volume pneumoperitoneum and new small volume perihepatic and pelvic ascites. No focal drainable collection. Recommend surgical re-evaluation. 2. New small bilateral pleural effusions, right greater than left. 3. Vicarious excretion of contrast within the gallbladder lumen suggestive of kidney dysfunction. 4. Cardiomegaly. Findings were discussed with TONY Hirsch at 1101 hours on 09/13/2019. Chest X-Ray 09/13/19 16:39 IMPRESSION: Cardiomegaly without pulmonary edema. Cannot exclude limited right lower lobe pneumonia. Pleural calcifications may suggest asbestos exposure. All labs, radiographs, diagnostic studies and EKGs were personally reviewed: Yes Critical Time Critical Time (minutes): 45 - not including procedures -: The care of a critically ill patient is dynamic. This note represents a static moment in the admission process. orders and treatments may be given simulataneously and urgentl, and time is not parts sales representative of the treatment process. This patient requires Critical Care secondary to life threating organ or limb dysfunction. Without the need for Critical Care services, the patient is at risk for increasid mortality and morbidity.
--- NOTE | 2019-09-14 03:16 | RADIOLOGY REPORT (SQ) ---
CLINICAL HISTORY: Check Placement of NG Tube COMPARISON: None. TECHNIQUE: XR ABDOMEN 1 VIEW (KUB) 09/13/2019 10:26 PM GRIZZLYMAN FINDINGS: Bowel gas pattern is nonspecific. There are no abnormal radiopaque foreign bodies or abnormal calcifications. Osseous structures are grossly unremarkable. NG tube tip is in the stomach. The heart is enlarged following sternotomy. IMPRESSION: NG tube tip in the stomach.
[2019-09-14] MEDS ORDERED: MIDAZOLAM 2 MG/2 ML INJ ONE ×3 (03:21→05:43)
[2019-09-14] MEDS ORDERED: MIDAZOLAM 2 MG/2 ML INJ IV ONE ×2 (03:58→05:06)
[2019-09-14] MEDS ORDERED: MIDAZOLAM 2 MG/2 ML INJ IV PRN ×3 (04:00→05:45)
[2019-09-14 04:40] LABS: HEMATOCRIT 40.6 % (36.0-47.0); HEMOGLOBIN 13.5 g/dL (12.0-15.5); MEAN CORPUSCULAR HEMOGLOBIN 29.5 pg (27.0-33.4); MEAN CORPUSCULAR HGB CONC 33.3 g/dL (32.0-36.0); MEAN CORPUSCULAR VOLUME 89 fl (80-97); PLATELET COUNT 121 10^3/uL (150-450); RED BLOOD COUNT 4.59 10^6/uL (3.72-5.28); RED CELL DISTRIBUTION WIDTH 14.1 % (11.5-14.0); WHITE BLOOD COUNT 14.9 10^3/uL (4.0-10.5)
[2019-09-14 04:47] LABS: INTERNATIONAL RATION (INR) 1.52; PROTHROMBIN TIME 18.5 SEC (11.4-15.4)
[2019-09-14 04:48] LABS: PARTIAL THROMBOPLASTIN TIME 34.7 SEC (23.5-35.8)
[2019-09-14] MEDS: NYSTATIN/DEXAMETH/DIPHEN SUSP 120 ML PO SCH ×3 (05:01→21:04)
[2019-09-14 05:03] LABS: ABSOLUTE LYMPHOCYTES# (MANUAL) 0.6 10^3/uL (0.5-4.7); ABSOLUTE MONOCYTES # (MANUAL) 0.6 10^3/uL (0.1-1.4); BASOPHILS % (MANUAL) 0 % (0-2); EOSINOPHILS % (MANUAL) 1 % (0-6); LYMPHOCYTES % (MANUAL) 4 % (13-45); MONOCYTES % (MANUAL) 4 % (3-13); SEGMENTED NEUTROPHILS % (MAN) 91 % (42-78); TOTAL CELLS COUNTED 100
[2019-09-14 05:04] LABS: PLATELET COMMENT DECREASED; RBC MORPHOLOGY COMMENT NORMO-CYTIC/CHROMIC
[2019-09-14 05:26] LABS: ALBUMIN 2.5 g/dL (3.5-5.0); ALKALINE PHOSPHATASE 43 U/L (38-126); ANION GAP 9 (5-19); ASPARTATE AMINO TRANSFERASE 27 U/L (14-36); BILIRUBIN,DIRECT 0.5 mg/dL (0.0-0.4); BILIRUBIN,TOTAL 1.6 mg/dL (0.2-1.3); BLOOD UREA NITROGEN 22 mg/dL (7-20); CALCIUM 8.1 mg/dL (8.4-10.2); CARBON DIOXIDE 24 mmol/L (22-30); CHLORIDE 103 mmol/L (98-107); GLUCOSE 95 mg/dL (75-110); PHOSPHORUS 2.9 mg/dL (2.5-4.5); POTASSIUM 3.8 mmol/L (3.6-5.0); TOTAL PROTEIN 5.3 g/dL (6.3-8.2)
[2019-09-14 06:05] LABS: ARTERIAL BLOOD BASE EXCESS -2.1 mmol/L; ARTERIAL BLOOD H2CO3 1.68 mmol/L (1.05-1.35); ARTERIAL BLOOD HCO3 25.6 mmol/L (20-24); ARTERIAL BLOOD PCO2 55.9 mmHg (35-45); ARTERIAL BLOOD PH 7.28 (7.35-7.45); ARTERIAL BLOOD TOTAL CO2 27.3 mmol/L (21-25)
[2019-09-14 06:09] LABS: ARTERIAL BLOOD FIO2 40%
--- NOTE | 2019-09-14 07:21 | RADIOLOGY REPORT (SQ) ---
CLINICAL HISTORY: assess ETT position COMPARISON: 09/13/2019. TECHNIQUE: XR CHEST 1 VIEW 09/14/2019 12:00 AM PAINTER ORDNANCE FINDINGS: The heart is enlarged following sternotomy. Lungs are clear without consolidation, atelectasis, mass or edema. There are small pleural effusions. There is no pneumothorax. There are no acute osseous findings. Endotracheal tube has been retracted into the lower third of the trachea. NG tube is unchanged. IMPRESSION: Appropriate position of endotracheal tube.
[2019-09-14] MEDS ORDERED: DIAZEPAM 5 MG TABLET NG PRN (07:30)
[2019-09-14] MEDS: MORPHINE SULFATE 10 MG/ML INJ IV PRN ×3 (08:02→21:00)
--- NOTE | 2019-09-14 09:24 | PDOC PROGRESS REPORT ---
Subjective Progress Note for:: 09/14/19 Subjective:: Patient in ICU, intubated, partially sedated. Hemodynamically stable, no pressors. Reason For Visit: PERFORATED DIVERTICULITIS Physical Exam Vital Signs: Temp Pulse Resp BP Pulse Ox 98.6 F 84 14 86/53 L 96 09/14/19 09:11 09/13/19 22:08 09/14/19 09:11 09/14/19 09:11 09/14/19 09:00 Intake & Output 09/13/19 09/14/19 09/15/19 06:59 06:59 06:59 Intake Total 4080 640 42 Output Total 575 75 Balance 4080 65 -33 Weight 91.7 kg 92.7 kg General appearance: PRESENT: other - Patient agitated, chomping at the oral tracheal tube GI/Abdominal exam: PRESENT: other - All dressings removed because of serosanguineous soaking. Midline incision approximated in areas; repacked with gauze saline. Serosanguineous food coming out of right pelvic drain; ostomy is edematous, dark pink. No output yet Results Laboratory Results: 09/14/19 03:54 09/14/19 03:54 09/13/19 09/13/19 09/13/19 15:43 15:43 15:43 WBC 14.8 H RBC 4.82 Hgb 14.2 Hct 42.7 MCV 89 MCH 29.5 MCHC 33.3 RDW 14.0 Plt Count 140 L Seg Neutrophils % Carbonic Acid HCO3/H2CO3 Ratio ABG pH ABG pCO2 ABG pO2 ABG HCO3 ABG O2 Saturation ABG Base Excess FiO2 Sodium 133.7 L Potassium 4.2 Chloride 101 Carbon Dioxide 23 Anion Gap 10 BUN 23 H Creatinine 0.90 Est GFR ( Amer) > 60 Glucose 104 Calcium 8.4 Phosphorus Magnesium Total Bilirubin AST Alkaline Phosphatase Total Protein Albumin Blood Type O POSITIVE Antibody Screen NEGATIVE 09/13/19 09/13/19 09/13/19 22:56 22:56 23:35 WBC 12.6 H RBC 4.74 Hgb 14.0 Hct 41.8 MCV 88 MCH 29.5 MCHC 33.4 RDW 13.9 Plt Count 114 L Seg Neutrophils % Not Reportable Carbonic Acid 1.24 HCO3/H2CO3 Ratio 16:1 ABG pH 7.31 L ABG pCO2 41.3 ABG pO2 101.7 H ABG HCO3 20.4 ABG O2 Saturation 97.2 ABG Base Excess -5.5 FiO2 40% Sodium 135.4 L Potassium 4.3 Chloride 103 Carbon Dioxide 22 Anion Gap 10 BUN 22 H Creatinine 0.91 Est GFR ( Amer) > 60 Glucose 94 Calcium 8.4 Phosphorus 2.8 Magnesium 1.9 Total Bilirubin 1.7 H AST 28 Alkaline Phosphatase 50 Total Protein 6.0 L Albumin 2.8 L Blood Type Antibody Screen 09/14/19 09/14/19 09/14/19 03:54 03:54 05:47 WBC 14.9 H RBC 4.59 Hgb 13.5 Hct 40.6 MCV 89 MCH 29.5 MCHC 33.3 RDW 14.1 H Plt Count 121 L Seg Neutrophils % Not Reportable Carbonic Acid 1.68 H HCO3/H2CO3 Ratio 15:1 ABG pH 7.28 L ABG pCO2 55.9 H ABG pO2 79.0 L ABG HCO3 25.6 H ABG O2 Saturation 94.0 ABG Base Excess -2.1 FiO2 40% Sodium 136.2 L Potassium 3.8 Chloride 103 Carbon Dioxide 24 Anion Gap 9 BUN 22 H Creatinine 0.89 Est GFR ( Amer) > 60 Glucose 95 Calcium 8.1 L Phosphorus 2.9 Magnesium 1.9 Total Bilirubin 1.6 H AST 27 Alkaline Phosphatase 43 Total Protein 5.3 L Albumin 2.5 L Blood Type Antibody Screen Impressions: Abdomen Ultrasound 09/10/19 14:06 IMPRESSION: 1. Possible small volume of gall sludge. 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 The gallbladder is mildly contracted. No pericholecystic fluid. Negative sonographic Szymanski sign. 2. Hepatic steatosis. 3. Mild right hydronephrosis. No obstructing calculus or other etiology identified. Attention on forthcoming CT. 4. Small volume ascites. 5. There is a 1.0 cm cyst, possibly with a thickened septation or nodular component of the right superior pole. Attention on forthcoming CT. Abdomen X-Ray 09/11/19 00:00 IMPRESSION: NO RADIOGRAPHIC EVIDENCE FOR ACUTE ABDOMINAL DISEASE. Abdomen/Pelvis CT 09/13/19 11:00 IMPRESSION: 1. Again seen are the changes from sigmoid diverticulitis. There has been worsening of the pneumoperitoneum with now moderate to large volume pneumoperitoneum and new small volume perihepatic and pelvic ascites. No focal drainable collection. Recommend surgical re-evaluation. 2. New small bilateral pleural effusions, right greater than left. 3. Vicarious excretion of contrast within the gallbladder lumen suggestive of kidney dysfunction. 4. Cardiomegaly. Findings were discussed with TONY Hirsch at 1101 hours on 09/13/2019. KUB X-Ray 09/13/19 22:26 IMPRESSION: NG tube tip in the stomach. Chest X-Ray 09/14/19 00:00 IMPRESSION: Appropriate position of endotracheal tube. Assessment & Plan - Diagnosis (1) Acute diverticulitis with localized perf Is this a current diagnosis for this admission?: Yes Plan: Impression: 12 hours status post exploratory laparotomy, sigmoid colectomy, colostomy for perforated, complicated diverticulitis. Able early postoperative course. Recommendations: 1. We will initiate dressing changes; order written 2. Discussed ventilator management with Dr. Colon; will consider extubation if criteria met 3. Continue empiric antibiotic coverage (2) Atrial fibrillation with RVR Is this a current diagnosis for this admission?: Yes - Time Time Spent with patient: 15-24 minutes
[2019-09-14] MEDS ORDERED: DEXMEDETOMIDINE IN 0.9 % NACL 400 MCG/100 ML RTUPB IV ONE (09:52)
[2019-09-14] MEDS: FAMOTIDINE INJ/PF 20 MG/2 ML SDV IV SCH ×2 (10:10→21:09)
[2019-09-14] MEDS: FLUCONAZOLE 100 MG TABLET NG SCH (10:17)
[2019-09-14] MEDS: SOTALOL HCL 80 MG TABLET NG SCH ×2 (10:17→21:03)
--- NOTE | 2019-09-14 10:29 | PDOC CRITICAL CARE PROG REPORT ---
General Date:: 09/14/19 ICU Day:: 2 Ventilator Day:: 2 Hospital Day:: 2 Events in the past 12 to 24 Hours:: To OR for perforated diverticulitis.Unable to extubate as yet. Review of systems relevant to events:: Respiratory, GI Reason for ICU Addmission:: Acute diverticulitis, Intubated from OR - Medications: Medications reviewed and adjusted accordingly: Yes Vasopressors:: None Sedation:: Precedex, ativa. Physical Exam Vital Signs: Temp Pulse Resp BP Pulse Ox 98.6 F 84 14 86/53 L 96 09/14/19 09:11 09/13/19 22:08 09/14/19 09:11 09/14/19 09:11 09/14/19 09:00 Intake & Output 09/13/19 09/14/19 09/15/19 06:59 06:59 06:59 Intake Total 4080 640 42 Output Total 575 75 Balance 4080 65 -33 Weight 91.7 kg 92.7 kg Weight/Height Weight 92.7 kg Height 5 ft 3 in General appearance: PRESENT: cooperative, hard of hearing, mild distress Head exam: PRESENT: atraumatic, normocephalic Eye exam: PRESENT: conjunctiva pink, EOMI, PERRLA. ABSENT: scleral icterus Ear exam: PRESENT: normal external ear exam Mouth exam: PRESENT: moist, tongue midline Respiratory exam: PRESENT: clear to auscultation chase, decreased breath sounds, other - Much secretions Cardiovascular exam: PRESENT: tachycardia Vascular exam: PRESENT: normal capillary refill GI/Abdominal exam: PRESENT: hypoactive bowel sounds, soft, tenderness, other - MIA with serosanguinous material. Ostomy pink and not producing yet. Rectal exam: PRESENT: deferred Gentrourinary exam: PRESENT: indwelling catheter Extremities exam: PRESENT: full ROM. ABSENT: calf tenderness, clubbing, pedal edema Musculoskeletal exam: PRESENT: full ROM Neurological exam: PRESENT: altered, awake Psychiatric exam: PRESENT: agitated Skin exam: PRESENT: dry, intact, warm. ABSENT: cyanosis, rash Tubes/Lines: PRESENT: Endotracheal Tube, Nasogastic Tube, Other - MIA RLQ Laboratory/Radiographs Laboratory Results: 09/14/19 03:54 09/14/19 03:54 09/13/19 09/13/19 09/13/19 15:43 15:43 15:43 WBC 14.8 H RBC 4.82 Hgb 14.2 Hct 42.7 MCV 89 MCH 29.5 MCHC 33.3 RDW 14.0 Plt Count 140 L Seg Neutrophils % Carbonic Acid HCO3/H2CO3 Ratio ABG pH ABG pCO2 ABG pO2 ABG HCO3 ABG O2 Saturation ABG Base Excess FiO2 Sodium 133.7 L Potassium 4.2 Chloride 101 Carbon Dioxide 23 Anion Gap 10 BUN 23 H Creatinine 0.90 Est GFR ( Amer) > 60 Glucose 104 Calcium 8.4 Phosphorus Magnesium Total Bilirubin AST Alkaline Phosphatase Total Protein Albumin Blood Type O POSITIVE Antibody Screen NEGATIVE 09/13/19 09/13/19 09/13/19 22:56 22:56 23:35 WBC 12.6 H RBC 4.74 Hgb 14.0 Hct 41.8 MCV 88 MCH 29.5 MCHC 33.4 RDW 13.9 Plt Count 114 L Seg Neutrophils % Not Reportable Carbonic Acid 1.24 HCO3/H2CO3 Ratio 16:1 ABG pH 7.31 L ABG pCO2 41.3 ABG pO2 101.7 H ABG HCO3 20.4 ABG O2 Saturation 97.2 ABG Base Excess -5.5 FiO2 40% Sodium 135.4 L Potassium 4.3 Chloride 103 Carbon Dioxide 22 Anion Gap 10 BUN 22 H Creatinine 0.91 Est GFR ( Amer) > 60 Glucose 94 Calcium 8.4 Phosphorus 2.8 Magnesium 1.9 Total Bilirubin 1.7 H AST 28 Alkaline Phosphatase 50 Total Protein 6.0 L Albumin 2.8 L Blood Type Antibody Screen 09/14/19 09/14/19 09/14/19 03:54 03:54 05:47 WBC 14.9 H RBC 4.59 Hgb 13.5 Hct 40.6 MCV 89 MCH 29.5 MCHC 33.3 RDW 14.1 H Plt Count 121 L Seg Neutrophils % Not Reportable Carbonic Acid 1.68 H HCO3/H2CO3 Ratio 15:1 ABG pH 7.28 L ABG pCO2 55.9 H ABG pO2 79.0 L ABG HCO3 25.6 H ABG O2 Saturation 94.0 ABG Base Excess -2.1 FiO2 40% Sodium 136.2 L Potassium 3.8 Chloride 103 Carbon Dioxide 24 Anion Gap 9 BUN 22 H Creatinine 0.89 Est GFR ( Amer) > 60 Glucose 95 Calcium 8.1 L Phosphorus 2.9 Magnesium 1.9 Total Bilirubin 1.6 H AST 27 Alkaline Phosphatase 43 Total Protein 5.3 L Albumin 2.5 L Blood Type Antibody Screen Impressions: Abdomen Ultrasound 09/10/19 14:06 IMPRESSION: 1. Possible small volume of gall sludge. 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 The gallbladder is mildly contracted. No pericholecystic fluid. Negative sonographic Szymanski sign. 2. Hepatic steatosis. 3. Mild right hydronephrosis. No obstructing calculus or other etiology identified. Attention on forthcoming CT. 4. Small volume ascites. 5. There is a 1.0 cm cyst, possibly with a thickened septation or nodular component of the right superior pole. Attention on forthcoming CT. Abdomen X-Ray 09/11/19 00:00 IMPRESSION: NO RADIOGRAPHIC EVIDENCE FOR ACUTE ABDOMINAL DISEASE. Abdomen/Pelvis CT 09/13/19 11:00 IMPRESSION: 1. Again seen are the changes from sigmoid diverticulitis. There has been worsening of the pneumoperitoneum with now moderate to large volume pneumoperitoneum and new small volume perihepatic and pelvic ascites. No focal drainable collection. Recommend surgical re-evaluation. 2. New small bilateral pleural effusions, right greater than left. 3. Vicarious excretion of contrast within the gallbladder lumen suggestive of kidney dysfunction. 4. Cardiomegaly. Findings were discussed with TONY Hirsch at 1101 hours on 09/13/2019. KUB X-Ray 09/13/19 22:26 IMPRESSION: NG tube tip in the stomach. Chest X-Ray 09/14/19 00:00 IMPRESSION: Appropriate position of endotracheal tube. All labs, radiographs, diagnostic studies and EKGs were personally reviewed: Yes In addition, reports of radiographic and diagnostic studies were read: Yes Assessment and Plan - Diagnosis (1) Acute diverticulitis with localized perf Is this a current diagnosis for this admission?: Yes Plan: Resolved with surgery and Graf's procedure. Continue antibiotics and await bowel function to return. (2) Atrial fibrillation with RVR Is this a current diagnosis for this admission?: Yes Plan: No further episodes of afib. (3) COPD (chronic obstructive pulmonary disease) Qualifiers: COPD type: emphysema Emphysema type: centrilobular Qualified Code(s): J43.2 - Centrilobular emphysema Is this a current diagnosis for this admission?: Yes Plan: This will make extubation more difficult especially with a midline abdominal incision. Her RSBI is 196 and NIF zenon 9. With secretions she is not a viable extubation candidate at this point. With her DNI status I would not want to reintubate her. Plan Summary: Sedate, pain control and exercise on vent. Critical Time Critical Time (minutes): 35 Level of Care: ICU Anticipated discharge: Home Within: Other - Unable to give a definite date. -: 1. The care of a critical patient is a dynamic process. This note is a customer retention representative synopsis but static in nature. The timeframe for treatments given in order is not necessary the actual time these treatments may have been done. 2. This patient requires critical care secondary to ongoing requirements for therapy not offered or safe outside the critical care environment. Transfer to a lower level of care with altered life or limb morbidity and mortality. 3. Multidisciplinary rounds completed. 4. ABCDE bundle addressed.
[2019-09-14] MEDS: DEXMEDETOMIDINE IN NS 400 MCG/100 ML RTUPB IV PRN ×2 (10:59→23:01)
[2019-09-14] MEDS: DEXTROSE 5%-LACTATED RINGERS 1,000 ML IV PRN (20:07)
[2019-09-15] MEDS: LORAZEPAM INJ 2 MG/1 ML VIAL IV PRN ×2 (01:59→07:09)
[2019-09-15] MEDS: MORPHINE SULFATE 10 MG/ML INJ IV PRN ×2 (03:19→21:26)
[2019-09-15] MEDS: NYSTATIN/DEXAMETH/DIPHEN SUSP 120 ML PO SCH ×3 (05:33→21:32)
[2019-09-15] MEDS: METRONIDAZOLE 500 MG/NS RTU 500 MG/100 ML RTUPB IV SCH ×3 (05:33→18:20)
[2019-09-15] MEDS: LEVOTHYROXINE SODIUM 0.025 MG TABLET NG SCH (05:34)
[2019-09-15] MEDS: LEVOTHYROXINE SODIUM 0.1 MG TABLET NG SCH (05:34)
[2019-09-15 08:00] LABS: ABSOLUTE EOSINOPHILS # (AUTO) 0.3 10^3/uL (0.0-0.6); ABSOLUTE LYMPHOCYTES (AUTO) 0.6 10^3/uL (0.5-4.7); ABSOLUTE MONOCYTES (AUTO) 1.2 10^3/uL (0.1-1.4); BASOPHILS % (AUTO) 0.2 % (0-2); EOSINOPHILS % (AUTO) 2.9 % (0-6); HEMATOCRIT 35.3 % (36.0-47.0); HEMOGLOBIN 12.1 g/dL (12.0-15.5); MEAN CORPUSCULAR HEMOGLOBIN 29.9 pg (27.0-33.4); MEAN CORPUSCULAR HGB CONC 34.3 g/dL (32.0-36.0); MEAN CORPUSCULAR VOLUME 87 fl (80-97); MONOCYTES % (AUTO) 11.8 % (3-13); PLATELET COUNT 110 10^3/uL (150-450); RED BLOOD COUNT 4.05 10^6/uL (3.72-5.28); RED CELL DISTRIBUTION WIDTH 13.7 % (11.5-14.0); SEGMENTED NEUTROPHILS % (AUTO) 79.1 % (42-78); TOTAL CELLS COUNTED % (AUTO) 100 %; WHITE BLOOD COUNT 10.1 10^3/uL (4.0-10.5)
--- NOTE | 2019-09-15 09:31 | PDOC CRITICAL CARE PROG REPORT ---
General Date:: 09/15/19 ICU Day:: 2 Hospital Day:: 3 Events in the past 12 to 24 Hours:: Extubated Review of systems relevant to events:: Respiratory, GI, neuro. Reason for ICU Addmission:: Acute diverticulitis, Intubated from OR - Medications: Medications reviewed and adjusted accordingly: Yes Vasopressors:: None Sedation:: None Physical Exam Vital Signs: Temp Pulse Resp BP Pulse Ox 97.9 F 76 14 98/76 L 98 09/15/19 08:00 09/15/19 08:00 09/15/19 08:00 09/15/19 08:00 09/15/19 08:00 Intake & Output 09/14/19 09/15/19 09/16/19 06:59 06:59 06:59 Intake Total 940 1823 Output Total 575 1020 0 Balance 365 803 0 Weight 92.7 kg 92.4 kg Weight/Height Weight 92.4 kg Height 5 ft 3 in General appearance: PRESENT: cooperative Exam: Sleepy Head exam: PRESENT: atraumatic, normocephalic Eye exam: PRESENT: conjunctiva pink, EOMI, PERRLA. ABSENT: scleral icterus Ear exam: PRESENT: normal external ear exam Mouth exam: PRESENT: dry mucosa, moist, tongue midline Respiratory exam: PRESENT: clear to auscultation chase, decreased breath sounds. ABSENT: rales, rhonchi, wheezes Cardiovascular exam: PRESENT: RRR. ABSENT: diastolic murmur, rubs, systolic murmur GI/Abdominal exam: PRESENT: diminished bowel sounds, soft, tenderness, other - Ostomy pink and not functioning yet Rectal exam: PRESENT: deferred Gentrourinary exam: PRESENT: indwelling catheter Extremities exam: PRESENT: full ROM. ABSENT: calf tenderness, clubbing, pedal edema Neurological exam: PRESENT: alert, awake, oriented to person, oriented to place, oriented to time, oriented to situation, CN II-XII grossly intact, other - She is sleepy but arousable and appropriate.. ABSENT: motor sensory deficit Skin exam: PRESENT: dry, intact, warm. ABSENT: cyanosis, rash Tubes/Lines: PRESENT: Nasogastic Tube Laboratory/Radiographs Laboratory Results: 09/15/19 07:40 09/14/19 03:54 09/15/19 07:40 WBC 10.1 RBC 4.05 Hgb 12.1 Hct 35.3 L MCV 87 MCH 29.9 MCHC 34.3 RDW 13.7 Plt Count 110 L Seg Neutrophils % 79.1 H Impressions: Abdomen Ultrasound 09/10/19 14:06 IMPRESSION: 1. Possible small volume of gall sludge. 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 The gallbladder is mildly contracted. No pericholecystic fluid. Negative sonographic Szymanski sign. 2. Hepatic steatosis. 3. Mild right hydronephrosis. No obstructing calculus or other etiology identified. Attention on forthcoming CT. 4. Small volume ascites. 5. There is a 1.0 cm cyst, possibly with a thickened septation or nodular component of the right superior pole. Attention on forthcoming CT. Abdomen X-Ray 09/11/19 00:00 IMPRESSION: NO RADIOGRAPHIC EVIDENCE FOR ACUTE ABDOMINAL DISEASE. Abdomen/Pelvis CT 09/13/19 11:00 IMPRESSION: 1. Again seen are the changes from sigmoid diverticulitis. There has been worsening of the pneumoperitoneum with now moderate to large volume pneumoperitoneum and new small volume perihepatic and pelvic ascites. No focal drainable collection. Recommend surgical re-evaluation. 2. New small bilateral pleural effusions, right greater than left. 3. Vicarious excretion of contrast within the gallbladder lumen suggestive of kidney dysfunction. 4. Cardiomegaly. Findings were discussed with TONY Hirsch at 1101 hours on 09/13/2019. KUB X-Ray 09/13/19 22:26 IMPRESSION: NG tube tip in the stomach. Chest X-Ray 09/14/19 00:00 IMPRESSION: Appropriate position of endotracheal tube. All labs, radiographs, diagnostic studies and EKGs were personally reviewed: Yes In addition, reports of radiographic and diagnostic studies were read: Yes Assessment and Plan - Diagnosis (1) Acute diverticulitis with localized perf Is this a current diagnosis for this admission?: Yes Plan: Resolved with definitive Graf's surgery. (2) Atrial fibrillation with RVR Is this a current diagnosis for this admission?: Yes Plan: Resolved. Mild ST remains (3) COPD (chronic obstructive pulmonary disease) Qualifiers: COPD type: emphysema Emphysema type: centrilobular Qualified Code(s): J43.2 - Centrilobular emphysema Is this a current diagnosis for this admission?: Yes Plan: Inactive Plan Summary: Await bowel return funcion. NG until then. Respiratory stable right now. Critical Time Critical Time (minutes): 40 Level of Care: ICU Anticipated discharge: Home Within: Other -: 1. The care of a critical patient is a dynamic process. This note is a technical account representative synopsis but static in nature. The timeframe for treatments given in order is not necessary the actual time these treatments may have been done. 2. This patient requires critical care secondary to ongoing requirements for therapy not offered or safe outside the critical care environment. Transfer to a lower level of care with altered life or limb morbidity and mortality. 3. Multidisciplinary rounds completed. 4. ABCDE bundle addressed.
[2019-09-15] MEDS: HEPARIN SOD (PORCINE) 5,000 UNIT/ML 1 ML VIAL SUBCUT SCH ×2 (10:38→21:26)
[2019-09-15] MEDS: FAMOTIDINE INJ/PF 20 MG/2 ML SDV IV SCH ×2 (10:38→21:25)
[2019-09-15] MEDS: SOTALOL HCL 80 MG TABLET NG SCH (10:38)
[2019-09-15] MEDS: CIPROFLOXACIN 400 MG/D5W RTU 400 MG/200 ML RTUPB IV SCH ×2 (10:39→21:25)
[2019-09-15] MEDS: FLUCONAZOLE 100 MG TABLET NG SCH (10:40)
--- NOTE | 2019-09-15 10:53 | PDOC PROGRESS REPORT ---
Subjective Progress Note for:: 09/15/19 Subjective:: Patient has been extubated. She appears a bit tired and sleepy but easily arousable. Reason For Visit: PERFORATED DIVERTICULITIS Physical Exam Vital Signs: Temp Pulse Resp BP Pulse Ox 98.6 F 90 17 106/70 98 09/15/19 10:00 09/15/19 10:00 09/15/19 10:00 09/15/19 10:00 09/15/19 10:00 Intake & Output 09/14/19 09/15/19 09/16/19 06:59 06:59 06:59 Intake Total 940 1823 22 Output Total 575 1020 300 Balance 365 803 -278 Weight 92.7 kg 92.4 kg General appearance: PRESENT: no acute distress Respiratory exam: PRESENT: clear to auscultation chase Cardiovascular exam: PRESENT: RRR GI/Abdominal exam: PRESENT: other - Soft, nondistended, no apparent tenderness. Wound has milka intact loosely spaced with portions of the lower wound open. The packing was removed. There was only slight drainage. No erythema. Stoma is edematous but viable. No significant ostomy output. Extremities exam: PRESENT: other - No swelling and no tenderness Results Laboratory Results: 09/15/19 07:40 09/14/19 03:54 09/15/19 07:40 WBC 10.1 RBC 4.05 Hgb 12.1 Hct 35.3 L MCV 87 MCH 29.9 MCHC 34.3 RDW 13.7 Plt Count 110 L Seg Neutrophils % 79.1 H Impressions: Abdomen Ultrasound 09/10/19 14:06 IMPRESSION: 1. Possible small volume of gall sludge. 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 The gallbladder is mildly contracted. No pericholecystic fluid. Negative sonographic Szymanski sign. 2. Hepatic steatosis. 3. Mild right hydronephrosis. No obstructing calculus or other etiology identified. Attention on forthcoming CT. 4. Small volume ascites. 5. There is a 1.0 cm cyst, possibly with a thickened septation or nodular component of the right superior pole. Attention on forthcoming CT. Abdomen X-Ray 09/11/19 00:00 IMPRESSION: NO RADIOGRAPHIC EVIDENCE FOR ACUTE ABDOMINAL DISEASE. Abdomen/Pelvis CT 09/13/19 11:00 IMPRESSION: 1. Again seen are the changes from sigmoid diverticulitis. There has been worsening of the pneumoperitoneum with now moderate to large volume pneumoperitoneum and new small volume perihepatic and pelvic ascites. No focal drainable collection. Recommend surgical re-evaluation. 2. New small bilateral pleural effusions, right greater than left. 3. Vicarious excretion of contrast within the gallbladder lumen suggestive of kidney dysfunction. 4. Cardiomegaly. Findings were discussed with TONY Hirsch at 1101 hours on 09/13/2019. KUB X-Ray 09/13/19 22:26 IMPRESSION: NG tube tip in the stomach. Chest X-Ray 09/14/19 00:00 IMPRESSION: Appropriate position of endotracheal tube. Assessment & Plan - Diagnosis (1) Acute diverticulitis with localized perf Is this a current diagnosis for this admission?: Yes Plan: Status post sigmoid colectomy with end colostomy. Patient looks reasonably well. Just got extubated today. When she has gained sufficient strength will ambulate the patient. Likely will DC NG tube tomorrow. Possible transfer to the floor in the next couple of days. - Time Time Spent with patient: Less than 15 minutes
--- NOTE | 2019-09-15 21:32 | Progress Note ---
Provider Note Provider Note: Pt discontinued NGT inadvertantly. No NGT output recorded in chart, scant amount in canister per RN. Reviewed GS note with plans to dc in am. Given above, will hold on replacing. Transitions sotalol to metoprolol until safe oral intake can resume.
[2019-09-15] MEDS ORDERED: METOPROLOL TARTRATE PF/INJ 5 MG/5 ML SDV IV ONE (22:09)
[2019-09-16] MEDS: METRONIDAZOLE 500 MG/NS RTU 500 MG/100 ML RTUPB IV SCH ×4 (01:18→18:34)
[2019-09-16 04:28] LABS: ABSOLUTE EOSINOPHILS # (AUTO) 0.4 10^3/uL (0.0-0.6); ABSOLUTE LYMPHOCYTES (AUTO) 0.7 10^3/uL (0.5-4.7); ABSOLUTE MONOCYTES (AUTO) 1.7 10^3/uL (0.1-1.4); ABSOLUTE NEUT (AUTO) 9.3 10^3/uL (1.7-8.2); BASOPHILS % (AUTO) 0.4 % (0-2); EOSINOPHILS % (AUTO) 2.9 % (0-6); HEMATOCRIT 40.2 % (36.0-47.0); HEMOGLOBIN 13.6 g/dL (12.0-15.5); MEAN CORPUSCULAR HEMOGLOBIN 29.5 pg (27.0-33.4); MEAN CORPUSCULAR HGB CONC 33.9 g/dL (32.0-36.0); MEAN CORPUSCULAR VOLUME 87 fl (80-97); MONOCYTES % (AUTO) 13.7 % (3-13); PLATELET COUNT 177 10^3/uL (150-450); RED BLOOD COUNT 4.62 10^6/uL (3.72-5.28); RED CELL DISTRIBUTION WIDTH 13.9 % (11.5-14.0); TOTAL CELLS COUNTED % (AUTO) 100 %; WHITE BLOOD COUNT 12.1 10^3/uL (4.0-10.5)
[2019-09-16] MEDS ORDERED: METOPROLOL TARTRATE PF/INJ 5 MG/5 ML SDV IV ONE (04:33)
[2019-09-16] MEDS: MORPHINE SULFATE 10 MG/ML INJ IV PRN ×3 (04:35→22:21)
[2019-09-16 04:51] LABS: ANION GAP 6 (5-19); BLOOD UREA NITROGEN 18 mg/dL (7-20); CALCIUM 8.2 mg/dL (8.4-10.2); CARBON DIOXIDE 27 mmol/L (22-30); CHLORIDE 107 mmol/L (98-107); GLUCOSE 106 mg/dL (75-110); POTASSIUM 3.8 mmol/L (3.6-5.0)
[2019-09-16] MEDS: METOPROLOL TARTRATE PF/INJ 5 MG/5 ML SDV IV SCH ×3 (05:49→18:34)
[2019-09-16] MEDS: NYSTATIN/DEXAMETH/DIPHEN SUSP 120 ML PO SCH ×3 (05:49→22:21)
[2019-09-16] MEDS: LEVOTHYROXINE SODIUM 0.1 MG TABLET NG SCH (05:50)
[2019-09-16] MEDS: LEVOTHYROXINE SODIUM 0.025 MG TABLET NG SCH (05:50)
[2019-09-16] MEDS: LORAZEPAM INJ 2 MG/1 ML VIAL IV PRN (08:43)
[2019-09-16] MEDS: DEXTROSE 5%-LACTATED RINGERS 1,000 ML IV PRN ×2 (09:36→18:34)
[2019-09-16] MEDS ORDERED: LORAZEPAM INJ 2 MG/1 ML VIAL IV PRN (09:41)
[2019-09-16] MEDS: FLUCONAZOLE 100 MG TABLET NG SCH (10:27)
[2019-09-16] MEDS: CIPROFLOXACIN 400 MG/D5W RTU 400 MG/200 ML RTUPB IV SCH ×2 (10:56→22:22)
[2019-09-16] MEDS: FAMOTIDINE INJ/PF 20 MG/2 ML SDV IV SCH ×2 (10:57→22:22)
[2019-09-16] MEDS: HEPARIN SOD (PORCINE) 5,000 UNIT/ML 1 ML VIAL SUBCUT SCH ×2 (10:57→22:22)
--- NOTE | 2019-09-16 11:39 | PDOC CRITICAL CARE PROG REPORT ---
General Date:: 09/16/19 ICU Day:: 4 Hospital Day:: 6 Events in the past 12 to 24 Hours:: Increasing confusion and developement of delirium. Review of systems relevant to events:: Neuro, GI, Respiratory Reason for ICU Addmission:: Acute diverticulitis, Intubated from OR - Medications: Medications reviewed and adjusted accordingly: Yes Vasopressors:: None. Sedation:: Ativan, decreased dose today Physical Exam Vital Signs: Temp Pulse Resp BP Pulse Ox 98.6 F 87 13 114/70 98 09/16/19 10:00 09/16/19 10:00 09/16/19 10:00 09/16/19 10:00 09/16/19 10:00 Intake & Output 09/15/19 09/16/19 09/17/19 06:59 06:59 06:59 Intake Total 1923 1722 100 Output Total 1020 2495 270 Balance 903 -773 -170 Weight 92.4 kg Weight/Height Weight 92.4 kg Height 5 ft 3 in General appearance: PRESENT: no acute distress, cooperative Exam: Sleepy and confused Head exam: PRESENT: atraumatic, normocephalic Eye exam: PRESENT: conjunctiva pink, EOMI, PERRLA. ABSENT: scleral icterus Ear exam: PRESENT: normal external ear exam Mouth exam: PRESENT: moist, tongue midline Respiratory exam: PRESENT: clear to auscultation chase, decreased breath sounds. ABSENT: rales, rhonchi, wheezes Cardiovascular exam: PRESENT: RRR. ABSENT: diastolic murmur, rubs, systolic murmur Pulses: PRESENT: normal dorsalis pedis pul Vascular exam: PRESENT: normal capillary refill GI/Abdominal exam: PRESENT: normal bowel sounds, soft, other - Ostomy continues pink. No output yet.. ABSENT: distended, guarding, mass, organolmegaly, rebound, tenderness Rectal exam: PRESENT: deferred Gentrourinary exam: PRESENT: indwelling catheter Extremities exam: PRESENT: full ROM. ABSENT: calf tenderness, clubbing, pedal edema Musculoskeletal exam: PRESENT: normal inspection Neurological exam: PRESENT: altered Psychiatric exam: PRESENT: agitated Skin exam: PRESENT: dry, intact, warm. ABSENT: cyanosis, rash Laboratory/Radiographs Laboratory Results: 09/16/19 04:09 09/16/19 04:09 09/16/19 09/16/19 04:09 04:09 WBC 12.1 H RBC 4.62 Hgb 13.6 Hct 40.2 MCV 87 MCH 29.5 MCHC 33.9 RDW 13.9 Plt Count 177 Seg Neutrophils % 77.0 Sodium 139.8 Potassium 3.8 Chloride 107 Carbon Dioxide 27 Anion Gap 6 BUN 18 Creatinine 0.91 Est GFR ( Amer) > 60 Glucose 106 Calcium 8.2 L 09/10/19 21:05 Blood Blood Culture - Final NO GROWTH IN 5 DAYS 09/10/19 19:05 Blood Blood Culture - Final NO GROWTH IN 5 DAYS Impressions: Abdomen Ultrasound 09/10/19 14:06 IMPRESSION: 1. Possible small volume of gall sludge. 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 The gallbladder is mildly contracted. No pericholecystic fluid. Negative sonographic Szymanski sign. 2. Hepatic steatosis. 3. Mild right hydronephrosis. No obstructing calculus or other etiology identified. Attention on forthcoming CT. 4. Small volume ascites. 5. There is a 1.0 cm cyst, possibly with a thickened septation or nodular component of the right superior pole. Attention on forthcoming CT. Abdomen X-Ray 09/11/19 00:00 IMPRESSION: NO RADIOGRAPHIC EVIDENCE FOR ACUTE ABDOMINAL DISEASE. Abdomen/Pelvis CT 09/13/19 11:00 IMPRESSION: 1. Again seen are the changes from sigmoid diverticulitis. There has been worsening of the pneumoperitoneum with now moderate to large volume pneumoperitoneum and new small volume perihepatic and pelvic ascites. No focal drainable collection. Recommend surgical re-evaluation. 2. New small bilateral pleural effusions, right greater than left. 3. Vicarious excretion of contrast within the gallbladder lumen suggestive of kidney dysfunction. 4. Cardiomegaly. Findings were discussed with TONY Hirsch at 1101 hours on 09/13/2019. KUB X-Ray 09/13/19 22:26 IMPRESSION: NG tube tip in the stomach. Chest X-Ray 09/14/19 00:00 IMPRESSION: Appropriate position of endotracheal tube. All labs, radiographs, diagnostic studies and EKGs were personally reviewed: Yes In addition, reports of radiographic and diagnostic studies were read: Yes Assessment and Plan - Diagnosis (1) Acute diverticulitis with localized perf Is this a current diagnosis for this admission?: Yes Plan: Resolved. Continue post-op treatment. Pt pulled out NG last night. (2) Atrial fibrillation with RVR Is this a current diagnosis for this admission?: Yes Plan: No recurrence. (3) COPD (chronic obstructive pulmonary disease) Qualifiers: COPD type: emphysema Emphysema type: centrilobular Qualified Code(s): J43.2 - Centrilobular emphysema Is this a current diagnosis for this admission?: Yes Plan: Stable and inactive. (4) Delirium Is this a current diagnosis for this admission?: Yes Plan: Right now this is her most pressing problem. She is elderly, post-op, receiving narcotics is relatively immobile and has sleep wake disturbances. Treatment will be according to PADIS goals. Pain: Treat pain with smallest doses to keep comfortable. Morphine already decreased. Agitation Delerium. Ativan also decreased. An importnat goal is to get her in an environement where time of day can be discerned. Family can more freely visit. She can be more mobilr. Immobility: Needs to get moving PT involved. Get away from ICU setting and lines to makeher more mobile. Sleep disturbance: Allow to sleep and re-stablish sleep/wake cycles. Plan Summary: Transfer out of ICU to become more oriented. Critical Time Critical Time (minutes): 35 Level of Care: ICU Anticipated discharge: SNF Within: Other -: 1. The care of a critical patient is a dynamic process. This note is a manufacturer representative synopsis but static in nature. The timeframe for treatments given in order is not necessary the actual time these treatments may have been done. 2. This patient requires critical care secondary to ongoing requirements for therapy not offered or safe outside the critical care environment. Transfer to a lower level of care with altered life or limb morbidity and mortality. 3. Multidisciplinary rounds completed. 4. ABCDE bundle addressed.
--- NOTE | 2019-09-16 12:57 | PDOC PROGRESS REPORT ---
Subjective Reason For Visit: PERFORATED DIVERTICULITIS Physical Exam Vital Signs: Temp Pulse Resp BP Pulse Ox 98.1 F 92 15 129/96 H 97 09/16/19 12:00 09/16/19 12:00 09/16/19 12:00 09/16/19 12:00 09/16/19 12:00 Intake & Output 09/15/19 09/16/19 09/17/19 06:59 06:59 06:59 Intake Total 1923 1722 100 Output Total 1020 2495 320 Balance 083 -613 -220 Weight 92.4 kg Results Laboratory Results: 09/16/19 04:09 09/16/19 04:09 09/16/19 09/16/19 04:09 04:09 WBC 12.1 H RBC 4.62 Hgb 13.6 Hct 40.2 MCV 87 MCH 29.5 MCHC 33.9 RDW 13.9 Plt Count 177 Seg Neutrophils % 77.0 Sodium 139.8 Potassium 3.8 Chloride 107 Carbon Dioxide 27 Anion Gap 6 BUN 18 Creatinine 0.91 Est GFR ( Amer) > 60 Glucose 106 Calcium 8.2 L 09/10/19 21:05 Blood Blood Culture - Final NO GROWTH IN 5 DAYS 09/10/19 19:05 Blood Blood Culture - Final NO GROWTH IN 5 DAYS Impressions: Abdomen Ultrasound 09/10/19 14:06 IMPRESSION: 1. Possible small volume of gall sludge. 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 The gallbladder is mildly contracted. No pericholecystic fluid. Negative sonographic Szymanski sign. 2. Hepatic steatosis. 3. Mild right hydronephrosis. No obstructing calculus or other etiology identified. Attention on forthcoming CT. 4. Small volume ascites. 5. There is a 1.0 cm cyst, possibly with a thickened septation or nodular component of the right superior pole. Attention on forthcoming CT. Abdomen X-Ray 09/11/19 00:00 IMPRESSION: NO RADIOGRAPHIC EVIDENCE FOR ACUTE ABDOMINAL DISEASE. Abdomen/Pelvis CT 09/13/19 11:00 IMPRESSION: 1. Again seen are the changes from sigmoid diverticulitis. There has been worsening of the pneumoperitoneum with now moderate to large volume pneumoperitoneum and new small volume perihepatic and pelvic ascites. No focal drainable collection. Recommend surgical re-evaluation. 2. New small bilateral pleural effusions, right greater than left. 3. Vicarious excretion of contrast within the gallbladder lumen suggestive of kidney dysfunction. 4. Cardiomegaly. Findings were discussed with TONY Hirsch at 1101 hours on 09/13/2019. KUB X-Ray 09/13/19 22:26 IMPRESSION: NG tube tip in the stomach. Chest X-Ray 09/14/19 00:00 IMPRESSION: Appropriate position of endotracheal tube. Assessment & Plan - Diagnosis (1) Free intraperitoneal air Is this a current diagnosis for this admission?: Yes (2) Acute diverticulitis Is this a current diagnosis for this admission?: Yes - Time Time Spent with patient: Less than 15 minutes - Plan Summary Plan Summary: This is a 69-year-old female status post Graf's procedure for perforated di verticulitis with purulent peritonitis. The patient is currently extubated. She is breathing without difficulty. She is somewhat confused at this time. I believe she is experiencing ICU delirium. She is calm however. Her colostomy is edematous, but it is pink. Her colostomy does not appear to be productive at this time. Continue antibiotics. Aggressive pulmonary toilet. Awaiting bowel function.
[2019-09-17] MEDS: METRONIDAZOLE 500 MG/NS RTU 500 MG/100 ML RTUPB IV SCH ×5 (00:09→23:05)
[2019-09-17] MEDS: METOPROLOL TARTRATE PF/INJ 5 MG/5 ML SDV IV SCH ×3 (00:10→13:11)
[2019-09-17] MEDS: LEVOTHYROXINE SODIUM 0.025 MG TABLET NG SCH (06:03)
[2019-09-17] MEDS: LEVOTHYROXINE SODIUM 0.1 MG TABLET NG SCH (06:03)
[2019-09-17] MEDS: NYSTATIN/DEXAMETH/DIPHEN SUSP 120 ML PO SCH ×3 (06:04→22:08)
--- NOTE | 2019-09-17 06:49 | PDOC PROGRESS REPORT ---
Subjective Progress Note for:: 09/17/19 Reason For Visit: PERFORATED DIVERTICULITIS Physical Exam Vital Signs: Temp Pulse Resp BP Pulse Ox 98.7 F 99 16 113/82 100 09/16/19 23:54 09/16/19 23:54 09/16/19 23:54 09/16/19 23:54 09/16/19 23:54 Intake & Output 09/15/19 09/16/19 09/17/19 06:59 06:59 06:59 Intake Total 1923 1722 1825 Output Total 1020 2495 1240 Balance 903 -773 585 Weight 92.4 kg 79.5 kg Results Laboratory Results: 09/16/19 04:09 09/16/19 04:09 Impressions: Abdomen Ultrasound 09/10/19 14:06 IMPRESSION: 1. Possible small volume of gall sludge. 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 The gallbladder is mildly contracted. No pericholecystic fluid. Negative sonographic Szymanski sign. 2. Hepatic steatosis. 3. Mild right hydronephrosis. No obstructing calculus or other etiology identified. Attention on forthcoming CT. 4. Small volume ascites. 5. There is a 1.0 cm cyst, possibly with a thickened septation or nodular component of the right superior pole. Attention on forthcoming CT. Abdomen X-Ray 09/11/19 00:00 IMPRESSION: NO RADIOGRAPHIC EVIDENCE FOR ACUTE ABDOMINAL DISEASE. Abdomen/Pelvis CT 09/13/19 11:00 IMPRESSION: 1. Again seen are the changes from sigmoid diverticulitis. There has been worsening of the pneumoperitoneum with now moderate to large volume pneumoperitoneum and new small volume perihepatic and pelvic ascites. No focal drainable collection. Recommend surgical re-evaluation. 2. New small bilateral pleural effusions, right greater than left. 3. Vicarious excretion of contrast within the gallbladder lumen suggestive of kidney dysfunction. 4. Cardiomegaly. Findings were discussed with TONY Hirsch at 1101 hours on 09/13/2019. KUB X-Ray 09/13/19 22:26 IMPRESSION: NG tube tip in the stomach. Chest X-Ray 09/14/19 00:00 IMPRESSION: Appropriate position of endotracheal tube. Assessment & Plan - Diagnosis (1) Free intraperitoneal air Is this a current diagnosis for this admission?: Yes (2) Acute diverticulitis Is this a current diagnosis for this admission?: Yes - Time Time Spent with patient: Less than 15 minutes - Plan Summary Plan Summary: This is a 69-year-old female status post Graf's procedure for perforated diverticulitis with purulent peritonitis. The patient is doing reasonably well today. She is awake and alert upon my examination. She is still somewhat confused. She is oriented to person but not place or time. She is breathing without difficulty. She is afebrile. Her midline wound appears clean, without erythema or purulent drainage. Dry dressing to midline abdominal wound daily. Ostomy is pink and productive of air and small amounts of fluid. Okay to start a liquid diet. Physical therapy/occupational therapy consult. DVT prophylaxis. Continue antibiotics.
--- NOTE | 2019-09-17 08:34 | PDOC PROGRESS REPORT ---
Subjective Progress Note for:: 09/17/19 Subjective:: Patient awake. Still not clear mentally but is oriented to person and knows she is in the hospital. She is cooperative. Reason For Visit: PERFORATED DIVERTICULITIS Physical Exam Vital Signs: Temp Pulse Resp BP Pulse Ox 98.7 F 99 16 122/88 H 100 09/16/19 23:54 09/16/19 23:54 09/16/19 23:54 09/17/19 06:30 09/16/19 23:54 Intake & Output 09/16/19 09/17/19 09/18/19 06:59 06:59 06:59 Intake Total 1722 1925 Output Total 2495 1240 Balance -773 685 Weight 79.5 kg General appearance: PRESENT: no acute distress, cooperative Eye exam: PRESENT: conjunctiva pink Respiratory exam: PRESENT: clear to auscultation chase Cardiovascular exam: PRESENT: irregular rhythm GI/Abdominal exam: PRESENT: other - Soft, nondistended, with no tenderness, open portions of wound appears clean with no significant drainage, ostomy pink with air in the bag. Results Laboratory Results: 09/16/19 04:09 09/16/19 04:09 Impressions: Abdomen Ultrasound 09/10/19 14:06 IMPRESSION: 1. Possible small volume of gall sludge. 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 The gallbladder is mildly contracted. No pericholecystic fluid. Negative sonographic Szymanski sign. 2. Hepatic steatosis. 3. Mild right hydronephrosis. No obstructing calculus or other etiology identified. Attention on forthcoming CT. 4. Small volume ascites. 5. There is a 1.0 cm cyst, possibly with a thickened septation or nodular component of the right superior pole. Attention on forthcoming CT. Abdomen X-Ray 09/11/19 00:00 IMPRESSION: NO RADIOGRAPHIC EVIDENCE FOR ACUTE ABDOMINAL DISEASE. Abdomen/Pelvis CT 09/13/19 11:00 IMPRESSION: 1. Again seen are the changes from sigmoid diverticulitis. There has been worsening of the pneumoperitoneum with now moderate to large volume pneumoperitoneum and new small volume perihepatic and pelvic ascites. No focal drainable collection. Recommend surgical re-evaluation. 2. New small bilateral pleural effusions, right greater than left. 3. Vicarious excretion of contrast within the gallbladder lumen suggestive of kidney dysfunction. 4. Cardiomegaly. Findings were discussed with TONY Hirsch at 1101 hours on 09/13/2019. KUB X-Ray 09/13/19 22:26 IMPRESSION: NG tube tip in the stomach. Chest X-Ray 09/14/19 00:00 IMPRESSION: Appropriate position of endotracheal tube. Assessment & Plan - Diagnosis (1) Acute diverticulitis with localized perf Is this a current diagnosis for this admission?: Yes Plan: Mental status still has not completely cleared but is improving. Patient with evidence of bowel function. Abdomen is not distended and although she is disoriented, I think her mental status is clear enough for a diet with nursing assistance. - Time Time Spent with patient: Less than 15 minutes
[2019-09-17] MEDS: FAMOTIDINE INJ/PF 20 MG/2 ML SDV IV SCH ×2 (10:56→22:02)
[2019-09-17] MEDS: HEPARIN SOD (PORCINE) 5,000 UNIT/ML 1 ML VIAL SUBCUT SCH ×2 (10:56→22:01)
[2019-09-17] MEDS: CIPROFLOXACIN 400 MG/D5W RTU 400 MG/200 ML RTUPB IV SCH ×2 (10:56→22:02)
[2019-09-17] MEDS: FLUCONAZOLE 100 MG TABLET NG SCH (10:56)
[2019-09-17] MEDS: MORPHINE SULFATE 10 MG/ML INJ IV PRN ×2 (11:17→18:33)
[2019-09-17] MEDS ORDERED: HYDRALAZINE HCL INJ/PF 20 MG/1 ML SDV IV PRN (14:37)
--- NOTE | 2019-09-17 15:31 | PDOC CONSULTATION ---
Consultation Consult Date: 09/17/19 Attending physician:: PANFILO SPENCE Provider Consulted: MAXINE HERRERA JR Consult reason:: medical management History of Present Illness Admission Date/PCP: 09/10/19 17:56 DILMA ALEXANDRE MD History of Present Illness: RAKAN SUGGS is a 69 year old female who was admitted to the hospital through the emergency room on September 10, 2019. Patient had acute abdominal pain day of admission. CT scan emergency room showed sigmoid diverticulitis with 2 pockets of free air consistent with perforation. Patient was treated with IV antibiotics however she worsened taken to the OR on sigmoid colon resection with descending left lower quadrant colostomy, (Graf's procedure). Start procedure well sent to recovery room in good condition. Since then the patient has been managed medically in the ICU. Patient was transferred out of the ICU today with ongoing delirium possibly due to narcotics and/or sleep-wake disturbances. Morphine and Ativan have been decreased. On admission her other medical problems included COPD, will fib with RVR, hypertension, hypothyroidism, valve replacement. 9 Past Medical History Cardiac Medical History: Reports: Atrial Fibrillation, Hypertension Past Surgical History Past Surgical History: Reports: Appendectomy, Hysterectomy, Tonsillectomy, Valve Replacement Social History Smoking Status: Unknown if Ever Smoked Electronic Cigarette use?: No Frequency of Alcohol Use: None Drugs: None Hx Prescription Drug Abuse: No - Advance Directive Resuscitation Status: Do Not Intubate Family History Family History: Reviewed & Not Pertinent Parental Family History Reviewed: No Children Family History Reviewed: No Sibling(s) Family History Reviewed.: No Medication/Allergy Home Medications: Diazepam [Valium 5 mg Tablet] 5 mg PO DAILYP PRN 09/11/19 Diltiazem HCl [Diltiazem 12Hr ER] 120 mg PO Q12 09/11/19 Hydralazine HCl [Apresoline 25 mg Tablet] 25 mg PO BID 09/11/19 Levalbuterol Tartrate [Levalbuterol Tartrate Hfa] 1 puff IH Q6HP PRN 09/11/19 Levothyroxine Sodium [Synthroid] 125 mcg PO Q6AM 09/11/19 Sotalol HCl [Sotalol Af] 80 mg PO Q12 09/11/19 Warfarin Sodium [Coumadin 5 mg Tablet] 5 mg PO DAILY 09/11/19 Allergies/Adverse Reactions: Penicillins Allergy (Verified 09/16/13 13:11) Review of Systems ROS unobtainable: Due to mental status Physical Exam Vital Signs: Temp Pulse Resp BP Pulse Ox 98.0 F 120 H 17 152/107 H 97 09/17/19 12:00 09/17/19 14:07 09/17/19 12:00 09/17/19 14:07 09/17/19 12:00 Intake & Output 09/16/19 09/17/19 09/18/19 06:59 06:59 06:59 Intake Total 1722 1925 120 Output Total 2495 1240 Balance -773 685 120 Weight 79.5 kg General appearance: PRESENT: mild distress, other - Patient is very lethargic secondary to a dose of 2 mg of morphine IV given approximately 1117 hrs. Respiratory exam: PRESENT: clear to auscultation chase. ABSENT: rales, rhonchi, wheezes Cardiovascular exam: PRESENT: RRR. ABSENT: diastolic murmur, rubs, systolic murmur GI/Abdominal exam: PRESENT: other - Deferred to general surgery, however dressing appears to be dry Neurological exam: PRESENT: altered, other - Allergic Psychiatric exam: PRESENT: other Results Laboratory Results: 09/16/19 04:09 09/16/19 04:09 Impressions: Abdomen Ultrasound 09/10/19 14:06 IMPRESSION: 1. Possible small volume of gall sludge. 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 The gallbladder is mildly contracted. No pericholecystic fluid. Negative sonographic Szymanski sign. 2. Hepatic steatosis. 3. Mild right hydronephrosis. No obstructing calculus or other etiology identified. Attention on forthcoming CT. 4. Small volume ascites. 5. There is a 1.0 cm cyst, possibly with a thickened septation or nodular component of the right superior pole. Attention on forthcoming CT. Abdomen X-Ray 09/11/19 00:00 IMPRESSION: NO RADIOGRAPHIC EVIDENCE FOR ACUTE ABDOMINAL DISEASE. Abdomen/Pelvis CT 09/13/19 11:00 IMPRESSION: 1. Again seen are the changes from sigmoid diverticulitis. There has been worsening of the pneumoperitoneum with now moderate to large volume pneumoperitoneum and new small volume perihepatic and pelvic ascites. No focal drainable collection. Recommend surgical re-evaluation. 2. New small bilateral pleural effusions, right greater than left. 3. Vicarious excretion of contrast within the gallbladder lumen suggestive of kidney dysfunction. 4. Cardiomegaly. Findings were discussed with TONY Herrera at 1101 hours on 09/13/2019. KUB X-Ray 09/13/19 22:26 IMPRESSION: NG tube tip in the stomach. Chest X-Ray 09/14/19 00:00 IMPRESSION: Appropriate position of endotracheal tube. Assessment and Plan - Diagnosis (1) Atrial fibrillation with RVR Is this a current diagnosis for this admission?: Yes (2) COPD (chronic obstructive pulmonary disease) Qualifiers: COPD type: emphysema Emphysema type: centrilobular Qualified Code(s): J43.2 - Centrilobular emphysema Is this a current diagnosis for this admission?: Yes (3) Free intraperitoneal air Is this a current diagnosis for this admission?: Yes (4) Hypertension Is this a current diagnosis for this admission?: Yes (5) Hypothyroid Is this a current diagnosis for this admission?: Yes - Plan Summary Summary: 09/17/2019 Patient has been transferred from the ICU up to the medical floor. We have been reconsulted to assume medical care while patient is convalescing from surgery. Patient's altered mental status may be due to medications. Certainly patient is not hypoxic, or does she have any apparent embolic reason for altered mental status. Will check labs daily, control blood pressure and glucose. See patient on a daily basis for medical management. I did discuss this with the patient's daughter who is in the room - Time Time Spent with patient: 35 or more minutes
[2019-09-17] MEDS: DEXTROSE 5%-LACTATED RINGERS 1,000 ML IV PRN (17:04)
[2019-09-17] MEDS: HYDRALAZINE HCL 25 MG TABLET PO SCH (18:29)
[2019-09-17] MEDS: DILTIAZEM HCL 120 MG CAP.SR.24H PO SCH (22:07)
[2019-09-18] MEDS: HYDRALAZINE HCL 25 MG TABLET PO SCH ×2 (05:49→17:18)
[2019-09-18] MEDS: NYSTATIN/DEXAMETH/DIPHEN SUSP 120 ML PO SCH ×3 (05:49→22:14)
[2019-09-18] MEDS: LEVOTHYROXINE SODIUM 0.1 MG TABLET PO SCH (06:18)
[2019-09-18] MEDS: LEVOTHYROXINE SODIUM 0.025 MG TABLET PO SCH (06:19)
[2019-09-18] MEDS: LEVOTHYROXINE SODIUM 0.1 MG TABLET NG SCH (06:53)
[2019-09-18] MEDS: LEVOTHYROXINE SODIUM 0.025 MG TABLET NG SCH (06:54)
[2019-09-18] MEDS: DEXTROSE 5%-LACTATED RINGERS 1,000 ML IV PRN ×2 (09:48→19:37)
[2019-09-18] MEDS: CIPROFLOXACIN 400 MG/D5W RTU 400 MG/200 ML RTUPB IV SCH ×2 (09:49→22:42)
[2019-09-18] MEDS: FAMOTIDINE INJ/PF 20 MG/2 ML SDV IV SCH ×2 (09:49→22:42)
[2019-09-18] MEDS: DILTIAZEM HCL 120 MG CAP.SR.24H PO SCH ×2 (09:49→22:42)
[2019-09-18] MEDS: HEPARIN SOD (PORCINE) 5,000 UNIT/ML 1 ML VIAL SUBCUT SCH ×2 (09:49→22:42)
[2019-09-18] MEDS: METOPROLOL TARTRATE PF/INJ 5 MG/5 ML SDV IV SCH ×2 (12:12→17:17)
--- NOTE | 2019-09-18 12:47 | PDOC PROGRESS REPORT ---
Subjective Progress Note for:: 09/18/19 Reason For Visit: PERFORATED DIVERTICULITIS 09/18/2019 Patient was admitted on 1123 for perforated diverticulitis Physical Exam Vital Signs: Temp Pulse Resp BP Pulse Ox 97.4 F 92 20 146/81 H 100 09/18/19 11:22 09/18/19 11:22 09/18/19 11:22 09/18/19 11:22 09/18/19 11:22 Intake & Output 09/17/19 09/18/19 09/19/19 06:59 06:59 06:59 Intake Total 1925 2051 827 Output Total 1240 1010 220 Balance 685 1041 607 Weight 79.5 kg 81 kg General appearance: PRESENT: mild distress, other - Due to decreased level of consciousness Respiratory exam: PRESENT: clear to auscultation chase. ABSENT: rales, rhonchi, wheezes Cardiovascular exam: PRESENT: irregular rhythm, other - Atrial fib controlled rate Neurological exam: PRESENT: altered, other - Lethargic but will open eyes to voice , will not follow commands Psychiatric exam: PRESENT: other Results Laboratory Results: 09/16/19 04:09 09/16/19 04:09 09/17/19 09/17/19 16:00 16:00 Lactic Acid 1.3 Ammonia < 8.7 L Impressions: Abdomen Ultrasound 09/10/19 14:06 IMPRESSION: 1. Possible small volume of gall sludge. 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 The gallbladder is mildly contracted. No pericholecystic fluid. Negative sonographic Szymanski sign. 2. Hepatic steatosis. 3. Mild right hydronephrosis. No obstructing calculus or other etiology identified. Attention on forthcoming CT. 4. Small volume ascites. 5. There is a 1.0 cm cyst, possibly with a thickened septation or nodular component of the right superior pole. Attention on forthcoming CT. Abdomen X-Ray 09/11/19 00:00 IMPRESSION: NO RADIOGRAPHIC EVIDENCE FOR ACUTE ABDOMINAL DISEASE. Abdomen/Pelvis CT 09/13/19 11:00 IMPRESSION: 1. Again seen are the changes from sigmoid diverticulitis. There has been worsening of the pneumoperitoneum with now moderate to large volume pneumoperitoneum and new small volume perihepatic and pelvic ascites. No focal drainable collection. Recommend surgical re-evaluation. 2. New small bilateral pleural effusions, right greater than left. 3. Vicarious excretion of contrast within the gallbladder lumen suggestive of kidney dysfunction. 4. Cardiomegaly. Findings were discussed with TONY Hirsch at 1101 hours on 09/13/2019. KUB X-Ray 09/13/19 22:26 IMPRESSION: NG tube tip in the stomach. Chest X-Ray 09/14/19 00:00 IMPRESSION: Appropriate position of endotracheal tube. Assessment and Plan - Diagnosis (1) Atrial fibrillation with RVR Is this a current diagnosis for this admission?: Yes (2) COPD (chronic obstructive pulmonary disease) Qualifiers: COPD type: emphysema Emphysema type: centrilobular Qualified Code(s): J43.2 - Centrilobular emphysema Is this a current diagnosis for this admission?: Yes (3) Free intraperitoneal air Is this a current diagnosis for this admission?: Yes (4) Hypertension Is this a current diagnosis for this admission?: Yes (5) Hypothyroid Is this a current diagnosis for this admission?: Yes - Plan Summary Summary: 09/17/2019 Patient has been transferred from the ICU up to the medical floor. We have been reconsulted to assume medical care while patient is convalescing from surgery. Patient's altered mental status may be due to medications. Certainly patient is not hypoxic, or does she have any apparent embolic reason for altered mental sta tus. Will check labs daily, control blood pressure and glucose. See patient on a daily basis for medical management. I did discuss this with the patient's daughter who is in the room 09/18/2019 No signs are stable O2 sat between 9400% on 3 L nasal cannula Lactic acid levels normal ammonia levels normal Patient is receiving IV morphine for pain, asked the nurse to hold this and to call me if it needs to be given as I would like to see her level of consciousness prior to the morphine administration Patient is on IV Cipro for her postop care Patient is receiving D5 lactated Ringer's at 125/h Patient is on Cardizem for her atrial fib We will continue to provide supportive care - Time Time Spent with patient: 25-34 minutes
[2019-09-18] MEDS ORDERED: METOPROLOL TARTRATE PF/INJ 5 MG/5 ML SDV IV ONE ×2 (13:43→15:00)
--- NOTE | 2019-09-18 14:44 | PDOC PROGRESS REPORT ---
Subjective Progress Note for:: 09/18/19 Subjective:: Patient is more alert today still not completely oriented but improving Reason For Visit: PERFORATED DIVERTICULITIS Physical Exam Vital Signs: Temp Pulse Resp BP Pulse Ox 97.4 F 92 20 146/81 H 100 09/18/19 11:22 09/18/19 11:22 09/18/19 11:22 09/18/19 11:22 09/18/19 11:22 Intake & Output 09/17/19 09/18/19 09/19/19 06:59 06:59 06:59 Intake Total 1925 2051 827 Output Total 1240 1010 220 Balance 685 1041 607 Weight 79.5 kg 81 kg General appearance: PRESENT: no acute distress, cooperative Respiratory exam: PRESENT: clear to auscultation chase Cardiovascular exam: PRESENT: irregular rhythm GI/Abdominal exam: PRESENT: other - Soft, nondistended, nontender to palpation. The open portions of the wound appears very clean with no significant drainage. No erythema. Drain output is serosanguineous Results Laboratory Results: 09/16/19 04:09 09/16/19 04:09 09/17/19 09/17/19 16:00 16:00 Lactic Acid 1.3 Ammonia < 8.7 L Impressions: Abdomen Ultrasound 09/10/19 14:06 IMPRESSION: 1. Possible small volume of gall sludge. 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 The gallbladder is mildly contracted. No pericholecystic fluid. Negative sonographic Szymanski sign. 2. Hepatic steatosis. 3. Mild right hydronephrosis. No obstructing calculus or other etiology identified. Attention on forthcoming CT. 4. Small volume ascites. 5. There is a 1.0 cm cyst, possibly with a thickened septation or nodular component of the right superior pole. Attention on forthcoming CT. Abdomen X-Ray 09/11/19 00:00 IMPRESSION: NO RADIOGRAPHIC EVIDENCE FOR ACUTE ABDOMINAL DISEASE. Abdomen/Pelvis CT 09/13/19 11:00 IMPRESSION: 1. Again seen are the changes from sigmoid diverticulitis. There has been worsening of the pneumoperitoneum with now moderate to large volume pneumoperitoneum and new small volume perihepatic and pelvic ascites. No focal drainable collection. Recommend surgical re-evaluation. 2. New small bilateral pleural effusions, right greater than left. 3. Vicarious excretion of contrast within the gallbladder lumen suggestive of kidney dysfunction. 4. Cardiomegaly. Findings were discussed with TONY Hirsch at 1101 hours on 09/13/2019. KUB X-Ray 09/13/19 22:26 IMPRESSION: NG tube tip in the stomach. Chest X-Ray 09/14/19 00:00 IMPRESSION: Appropriate position of endotracheal tube. Assessment & Plan - Diagnosis (1) Acute diverticulitis with localized perf Is this a current diagnosis for this admission?: Yes Plan: Status post sigmoid ectomy with end colostomy. Patient is making progress albeit slow. Tolerating a diet. Will start physical therapy with ambulation's with assistance. DC drain. - Time Time Spent with patient: Less than 15 minutes
[2019-09-18] MEDS: MORPHINE SULFATE 10 MG/ML INJ IV PRN (15:08)
[2019-09-18] MEDS ORDERED: DILTIAZEM HCL INJ 25 MG/5 ML VIAL ONE ×2 (16:02→16:30)
[2019-09-18] MEDS ORDERED: DILTIAZEM HCL 60 MG TABLET ONE (16:02)
[2019-09-18] MEDS ORDERED: DILTIAZEM HCL INJ 25 MG/5 ML VIAL IV ONE ×2 (16:15→17:30)
[2019-09-18] MEDS ORDERED: DILTIAZEM HCL 60 MG TABLET PO ONE (16:15)
[2019-09-18] MEDS ORDERED: HYDRALAZINE HCL INJ/PF 20 MG/1 ML SDV IV PRN (18:59)
[2019-09-18] MEDS: DILTIAZEM HCL/D5W 125 MG/125 ML RTUINJ IV PRN (19:13)
--- NOTE | 2019-09-18 23:34 | EKG REPORT ---
SEVERITY:- ABNORMAL ECG - A FIB NONSPECIFIC INTRAVENTRICULAR CONDUCTION DELAY ST ELEVATION, PROBABLE ANTERIOR INJURY : Confirmed by: Leora Whaley 18-Sep-2019 23:33:31
[2019-09-19] MEDS: DILTIAZEM HCL/D5W 125 MG/125 ML RTUINJ IV PRN ×3 (03:22→20:30)
[2019-09-19] MEDS: DEXTROSE 5%-LACTATED RINGERS 1,000 ML IV PRN ×3 (04:02→15:37)
[2019-09-19] MEDS: NYSTATIN/DEXAMETH/DIPHEN SUSP 120 ML PO SCH ×3 (05:11→23:15)
[2019-09-19] MEDS: HYDRALAZINE HCL 25 MG TABLET PO SCH ×2 (05:11→15:37)
[2019-09-19] MEDS: LEVOTHYROXINE SODIUM 0.025 MG TABLET PO SCH (06:15)
[2019-09-19] MEDS: LEVOTHYROXINE SODIUM 0.1 MG TABLET PO SCH (06:15)
--- NOTE | 2019-09-19 08:39 | PDOC PROGRESS REPORT ---
Subjective Progress Note for:: 09/19/19 Reason For Visit: PERFORATED DIVERTICULITIS 09-19 Patient is postop day # 6 Patient's primary medical problem now is chronic atrial fib Physical Exam Vital Signs: Temp Pulse Resp BP Pulse Ox 98.0 F 138 H 18 155/79 H 97 09/19/19 03:24 09/19/19 07:00 09/19/19 03:24 09/19/19 06:00 09/19/19 03:24 Intake & Output 09/18/19 09/19/19 09/20/19 06:59 06:59 06:59 Intake Total 2051 4218 Output Total 1010 2720 Balance 1041 1498 Weight 81 kg 102.4 kg General appearance: PRESENT: mild distress, other - Much more awake and alert today Respiratory exam: PRESENT: clear to auscultation chase. ABSENT: rales, rhonchi, wheezes Cardiovascular exam: PRESENT: irregular rhythm Neurological exam: PRESENT: alert, awake, oriented to person, oriented to place, oriented to time, oriented to situation, CN II-XII grossly intact. ABSENT: motor sensory deficit Psychiatric exam: PRESENT: anxious Results Laboratory Results: 09/16/19 04:09 09/16/19 04:09 Impressions: Abdomen Ultrasound 09/10/19 14:06 IMPRESSION: 1. Possible small volume of gall sludge. 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 The gallbladder is mildly contracted. No pericholecystic fluid. Negative sonographic Szymanski sign. 2. Hepatic steatosis. 3. Mild right hydronephrosis. No obstructing calculus or other etiology identified. Attention on forthcoming CT. 4. Small volume ascites. 5. There is a 1.0 cm cyst, possibly with a thickened septation or nodular component of the right superior pole. Attention on forthcoming CT. Abdomen X-Ray 09/11/19 00:00 IMPRESSION: NO RADIOGRAPHIC EVIDENCE FOR ACUTE ABDOMINAL DISEASE. Abdomen/Pelvis CT 09/13/19 11:00 IMPRESSION: 1. Again seen are the changes from sigmoid diverticulitis. There has been worsening of the pneumoperitoneum with now moderate to large volume pneumoperitoneum and new small volume perihepatic and pelvic ascites. No focal drainable collection. Recommend surgical re-evaluation. 2. New small bilateral pleural effusions, right greater than left. 3. Vicarious excretion of contrast within the gallbladder lumen suggestive of kidney dysfunction. 4. Cardiomegaly. Findings were discussed with TONY Hirsch at 1101 hours on 09/13/2019. KUB X-Ray 09/13/19 22:26 IMPRESSION: NG tube tip in the stomach. Chest X-Ray 09/14/19 00:00 IMPRESSION: Appropriate position of endotracheal tube. Assessment and Plan - Diagnosis (1) Atrial fibrillation with RVR Is this a current diagnosis for this admission?: Yes (2) COPD (chronic obstructive pulmonary disease) Qualifiers: COPD type: emphysema Emphysema type: centrilobular Qualified Code(s): J43.2 - Centrilobular emphysema Is this a current diagnosis for this admission?: Yes (3) Free intraperitoneal air Is this a current diagnosis for this admission?: Yes (4) Hypertension Is this a current diagnosis for this admission?: Yes (5) Hypothyroid Is this a current diagnosis for this admission?: Yes (6) Anxiety Is this a current diagnosis for this admission?: Yes - Plan Summary Summary: 09/17/2019 Patient has been transferred from the ICU up to the medical floor. We have been reconsulted to assume medical care while patient is convalescing from surgery. Patient's altered mental status may be due to medications. Certainly patient is not hypoxic, or does she have any apparent embolic reason for altered mental status. Will check labs daily, control blood pressure and glucose. See patient on a daily basis for medical management. I did discuss this with the patient's daughter who is in the room 09/18/2019 No signs are stable O2 sat between 9400% on 3 L nasal cannula Lactic acid levels normal ammonia levels normal Patient is receiving IV morphine for pain, asked the nurse to hold this and to call me if it needs to be given as I would like to see her level of consciousness prior to the morphine administration Patient is on IV Cipro for her postop care Patient is receiving D5 lactated Ringer's at 125/h Patient is on Cardizem for her atrial fib We will continue to provide supportive care 09/19/2019 Today patient had difficulty with her atrial fib and controlling her rate it would vacillate anywhere between 100 and 140. He would respond well to either Lopressor or Cardizem bolus but then she or her rate would go right back up Definitively or prophylactically moved her to the [facility] and put her on a Cardizem drip. Until l just yesterday she was not able to take her p.o. medications and that was part of the problem. Was due to sedation and being postop She is now back on her Cardizem CD twice daily. Added her sotalol but at a lower dosage 40 mg twice daily instead of 80 mg due to the fact that she is on Cipro for her abdominal surgery, was concerned about the QT interaction. He also has a significant problem with anxiety, he was taking Valium as needed as an outpatient but due to the long half-life change that Ativan now admitted scheduled every 8 hours. Her pain medicine has been cut back to the morphine at 0.5 mg and she seems to be doing well with that. #1 status post abdominal surgery, #2 chronic atrial fib #3 anxiety #4 hyperte nsion #5 hypothyroidism #6 COPD - Time Time Spent with patient: 25-34 minutes
[2019-09-19] MEDS: MORPHINE SULFATE 10 MG/ML INJ IV PRN ×3 (08:41→23:23)
--- NOTE | 2019-09-19 09:50 | PDOC PROGRESS REPORT ---
Subjective Progress Note for:: 09/19/19 Subjective:: Patient laying in bed; apparently refused to physical therapy, has not been out of bed. Tolerating full liquids. Reason For Visit: PERFORATED DIVERTICULITIS Physical Exam Vital Signs: Temp Pulse Resp BP Pulse Ox 98.0 F 138 H 18 155/79 H 97 09/19/19 03:24 09/19/19 07:00 09/19/19 03:24 09/19/19 06:00 09/19/19 03:24 Intake & Output 09/18/19 09/19/19 09/20/19 06:59 06:59 06:59 Intake Total 2051 4218 Output Total 1010 2720 Balance 1041 1498 Weight 81 kg 102.4 kg General appearance: PRESENT: other - Very sleepy, responds to simple commands. Seems disoriented GI/Abdominal exam: PRESENT: other - Colostomy with minimal output. Tissue pink. Midline incision closed with milka superiorly, open into areas inferiorly with no granulation tissue. Results Laboratory Results: 09/16/19 04:09 09/16/19 04:09 Impressions: Abdomen Ultrasound 09/10/19 14:06 IMPRESSION: 1. Possible small volume of gall sludge. 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 The gallbladder is mildly contracted. No pericholecystic fluid. Negative sonographic Szymanski sign. 2. Hepatic steatosis. 3. Mild right hydronephrosis. No obstructing calculus or other etiology identified. Attention on forthcoming CT. 4. Small volume ascites. 5. There is a 1.0 cm cyst, possibly with a thickened septation or nodular component of the right superior pole. Attention on forthcoming CT. Abdomen X-Ray 09/11/19 00:00 IMPRESSION: NO RADIOGRAPHIC EVIDENCE FOR ACUTE ABDOMINAL DISEASE. Abdomen/Pelvis CT 09/13/19 11:00 IMPRESSION: 1. Again seen are the changes from sigmoid diverticulitis. There has been worsening of the pneumoperitoneum with now moderate to large volume pneumoperitoneum and new small volume perihepatic and pelvic ascites. No focal drainable collection. Recommend surgical re-evaluation. 2. New small bilateral pleural effusions, right greater than left. 3. Vicarious excretion of contrast within the gallbladder lumen suggestive of kidney dysfunction. 4. Cardiomegaly. Findings were discussed with TONY Hirsch at 1101 hours on 09/13/2019. KUB X-Ray 09/13/19 22:26 IMPRESSION: NG tube tip in the stomach. Chest X-Ray 09/14/19 00:00 IMPRESSION: Appropriate position of endotracheal tube. Assessment & Plan - Diagnosis (1) Acute diverticulitis with localized perf Is this a current diagnosis for this admission?: Yes Plan: Impression: Postoperative day 6 status post open exploratory laparotomy, sigmoid colectomy, colostomy doing well from a topical standpoint; however patient very slow to move, participate in recommended therapy. Recommendations: 1. We will clarify patient admission status and ensure she is on the radical service; this was discussed with Dr. Carlin this morning 2. Patient is a DNR/DNI. 3. Concerned about patient's p.o. intake, absence of granulation tissue in the midline wound. She may need nutritional supplementation. 4. We can discontinue IV ciprofloxacin. (2) Atrial fibrillation with RVR Is this a current diagnosis for this admission?: Yes - Time Time Spent with patient: 15-24 minutes
[2019-09-19] MEDS ORDERED: SOTALOL HCL 80 MG TABLET PO SCH (10:00)
[2019-09-19] MEDS: HEPARIN SOD (PORCINE) 5,000 UNIT/ML 1 ML VIAL SUBCUT SCH ×2 (10:16→23:16)
[2019-09-19] MEDS: DILTIAZEM HCL 120 MG CAP.SR.24H PO SCH ×2 (10:16→23:13)
[2019-09-19] MEDS: FAMOTIDINE INJ/PF 20 MG/2 ML SDV IV SCH ×2 (10:16→23:12)
[2019-09-19] MEDS: LORAZEPAM 1 MG TABLET PO SCH ×2 (13:14→23:18)
[2019-09-19] MEDS ORDERED: LISINOPRIL 10 MG TABLET PO ONE (16:45)
[2019-09-19] MEDS ORDERED: HYDRALAZINE HCL INJ/PF 20 MG/1 ML SDV IV PRN (17:45)
--- NOTE | 2019-09-19 21:34 | PDOC CONSULTATION ---
Consultation-Blank Consultation: CARDIOLOGY CONSULTATION by Dr. Rosey Leo on 09/19/2019. Patient seen at 3 PM. 60 minutes spent on this patient with more than 50% time spent in direct patient care. REASON FOR CONSULTATION: Difficulty controlling atrial fibrillation rate, with the patient continues to be in atrial fibrillation with rapid ventricular response. CONSULT REQUESTING PROVIDER: Mr. Feliberto HirschJ[facility] HISTORY PRESENT ILLNESS: The patient is confused and not unable to give a history. Chart reviewed. Patient admitted with perforated sigmoid diverticular colitis and with septic peritonitis. The patient had surgery for this including colectomy and colostomy. The patient has a history of atrial fibrillation allegedly maintained in sinus rhythm on sotalol. The patient on admission the EKG on 11 September shows atrial fibrillation with left bundle branch block pattern. The patient has a history of mitral valve replacement and is on Coumadin for this. The patient is confused but denies any chest pain or discomfort. She appears to be slightly agitated. The patient is on 15 mg/h of Cardizem infusion and the patient is also on sotalol 40 mg p.o. q. every 12 hours. Patient's blood pressure was also elevated. She claims she had a mitral valve replaced. But from the echocardiogram and this CT of the chest and the chest x-rays it seems that the patient has had a porcine aortic valve replacement. There is no significant restenosis of the aortic valve replacement.. Past Medical History Cardiac Medical History: Reports: Atrial Fibrillation, Hypertension Past Surgical History Past Surgical History: Reports: Appendectomy, Hysterectomy, Tonsillectomy, Valve Replacement RESUSCITATION status: The patient is a DO NOT INTUBATE. The patient's son is a surrogate healthcare decision maker. Current Medications Albuterol (Ventolin 0.083% Neb 2.5 Mg/3 Ml Ampul) 2.5 mg NEB RTQ4HP PRN PRN Reason: SHORTNESS OF BREATH Stop: 10/13/19 22:22 Albuterol/Ipratropium (Duoneb 3 Ml Ampul) 3 ml NEB RTQ6HP LU Stop: 10/13/19 22:29 Dextrose (Dextrose Inj 50% Syringe (25 Gm/50 Ml)) 12.5 gm IV PRN PRN; Protocol PRN Reason: FOR BG 50-69 IN ALERT PATIENT Stop: 10/10/19 17:55 Dextrose (Dextrose Inj 50% Syringe (25 Gm/50 Ml)) 25 gm IV PRN PRN; Protocol PRN Reason: PER PROTOCOL Stop: 10/10/19 17:55 Diltiazem HCl (Cardizem Cd 120 Mg Capsule) 120 mg PO Q12 [facility] Stop: 10/18/19 21:59 Last Admin: 09/19/19 10:16 Dose: 120 mg Documented by: Diphenhydramine/Hydrocorti/Nystatin (Magic Mouthwash (Omh Formula) Susp) 5 ml PO Q8 [facility] Stop: 10/11/19 16:59 Last Admin: 09/19/19 13:14 Dose: Not Given Documented by: Famotidine (Pepcid Inj/Pf 20 Mg/2 Ml Sdv) 20 mg IV Q12 [facility] Stop: 10/14/19 09:59 Last Admin: 09/19/19 10:16 Dose: 20 mg Documented by: Glucagon (Glucagen Inj 1 Mg Vial) 1 mg IM PRN PRN; Protocol PRN Reason: Evaluate for BG < 70 Stop: 10/10/19 17:55 Glucose (Glutose 40% Gel 15 Gm Tube) 15 gm PO PRN PRN; Protocol PRN Reason: FOR BG 50-69 IN ALERT PATIENT Stop: 10/10/19 17:55 Glucose (Glutose 40% Gel 15 Gm Tube) 30 gm PO PRN PRN; Protocol PRN Reason: FOR BG < 50 IN ALERT PATIENT Stop: 10/10/19 17:55 Heparin Sodium (Porcine) (Heparin Inj 5,000 Units/Ml 1 Ml Vial) 5,000 unit SUBCUT Q12 [facility] Stop: 10/10/19 21:59 Last Admin: 09/19/19 10:16 Dose: 5,000 unit Documented by: Hydralazine HCl (Apresoline Inj/Pf 20 Mg/1 Ml Sdv) 10 mg IV Q4HP PRN PRN Reason: Give For Sbp > 160 / Dbp > 90 Stop: 10/17/19 14:36 Hydralazine HCl (Apresoline 25 Mg Tablet) 25 mg PO Q12A [facility] Stop: 10/19/19 15:59 Last Admin: 09/19/19 15:37 Dose: 25 mg Documented by: Hydralazine HCl (Apresoline Inj/Pf 20 Mg/1 Ml Sdv) 10 mg IV Q4HP PRN PRN Reason: FOR SBP >160 OR DBP >90 Stop: 10/19/19 17:44 Diltiazem HCl (Cardizem Rtu Inj 125 Mg-D5w 125 Ml Premix) 125 mg in 125 mls @ 0 mls/hr IV CONTINUOUS PRN; Protocol PRN Reason: THIS MED IS NOT "PRN" Stop: 10/18/19 17:26 Last Admin: 09/19/19 20:30 Dose: 15 mls/hr, 15 mls/hr Documented by: Dextrose/Lactated Ringer's (D5lr 1000 Ml Iv Soln) 1,000 mls @ 30 mls/hr IV CONTINUOUS PRN PRN Reason: THIS MED IS NOT "PRN" Stop: 10/19/19 15:11 Last Admin: 09/19/19 15:37 Dose: 30 mls/hr Documented by: Levothyroxine Sodium (Synthroid 0.025 Mg Tablet) 0.025 mg PO Q6AM [facility] Stop: 10/18/19 06:14 Last Admin: 09/19/19 06:15 Dose: 0.025 mg Documented by: Levothyroxine Sodium (Synthroid 0.1 Mg Tablet) 0.1 mg PO Q6AM [facility] Stop: 10/18/19 06:14 Last Admin: 09/19/19 06:15 Dose: 0.1 mg Documented by: Lorazepam (Ativan Inj 2 Mg/1 Ml Vial) 0.5 mg IV Q6HP PRN PRN Reason: ANXIETY/AGITATION Stop: 09/23/19 09:40 Last Admin: 09/18/19 21:07 Dose: 0.5 mg Documented by: Lorazepam (Ativan 1 Mg Tablet) 0.5 mg PO Q8 [facility] Stop: 09/26/19 13:59 Last Admin: 09/19/19 13:14 Dose: Not Given Documented by: Morphine Sulfate (Morphine 10 Mg/Ml Inj) 0.5 mg IV Q4HP PRN PRN Reason: FOR PAIN Stop: 09/25/19 13:43 Last Admin: 09/19/19 13:14 Dose: 0.5 mg Documented by: Patient Own Medication (Levalbuterol Tartrate [Levalbuterol Tartrate Hfa]) 1 puff IH Q6HP PRN PRN Reason: BRONCHOPSPASM Pharmacy Profile Note (Medication Communication Order) 1 each .NOTICE NR Stop: 10/13/19 22:29 Sodium Chloride (Saline Flush 2.5 Ml Monoject Prefil Syrin) 2.5 ml IV Q8 [facility] Stop: 10/14/19 05:59 Last Admin: 09/19/19 13:14 Dose: Not Given Documented by: Sotalol HCl (Betapace 80 Mg Tablet) 40 mg PO Q12 [facility] Stop: 10/19/19 09:59 Last Admin: 09/19/19 10:16 Dose: 40 mg Documented by: Social History Smoking Status: Unknown if Ever Smoked Electronic Cigarette use?: No Family History Family History: Reviewed & Not Pertinent Parental Family History Reviewed: Yes - No premature CAD Children Family History Reviewed: No Sibling(s) Family History Reviewed.: No Medication/Allergy Allergies/Adverse Reactions: Penicillins Allergy (Verified 09/16/13 13:11) Review of Systems not obtainable due to patient's confusion. PHYSICAL EXAMINATION: The patient is morbidly obese. She is confused and slightly agitated. Selected Entries 09/19/19 09/19/19 10:02 15:00 Pulse Rate 103 H Respiratory 28 H Rate Respiratory Normal Depth Blood Pressure 157/114 H O2 Sat by Pulse 97 Oximetry Fraction of 40 Inspired Oxygen (FIO2) HEAD: Is atraumatic normocephalic. EYES: Pupils are equal round regular reactive to light and accommodation. There is no clinical pallor. There is no scleral icterus. External ocular movements are normal. EARS: Tympanic membranes are intact. External auditory canals are clear. NOSE: Nasal mucous membranes are not inflamed. There is no deviated nasal septum. MOUTH: Mucous membranes of mouth are moist. Tongue is moist. There is no ulcers. There is no bleeding from the gums. THROAT: There is no redness of the oropharynx. There is no exudates in the throat. SKIN: There is no petechia or ecchymosis. There is no skin rashes or skin lesions. NECK: Is supple. There is no JVD. Carotids are equal there is no bruits. There is no lymphadenopathy. There is no goiter. There is no accessory muscles of respiration in use. Trachea central. LUNGS: There is diminished air entry and prolonged expiration. On percussion there is hyperresonance. There is scattered rhonchi present. There is no rales or wheezing. There is no chest wall tenderness on palpation. HEART: S1-S2 is heard. S1 is of variable intensity. There is no S3 gallop. There is no S4 gallop. There is systolic murmur left sternal border and the apex, without radiation. There is no murmur of aortic stenosis. Prosthetic aortic valve click heard crisply. There is no aortic regurgitation murmur.. No prosthetic valve click heard. There is no rub. ABDOMEN: Is Nontender. There is no hepatosplenomegaly. Bowel sounds are well heard. There is a colostomy in the left lower quadrant of the abdomen. Surgical incision is covered with a bandage which is clean and dry. EXTREMITIES: Femorals are deep. Femorals are slightly diminished. There is no femoral bruits. There is no pedal edema. There is no DVT or cellulitis. Leg pulses are diminished. There is no cyanosis or clubbing. Capillary refill is normal. There is no calf tenderness. 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 PSYCHIATRIC: Not obtained due to patient's confusion. EKG: His atrial fibrillation with left bundle branch block pattern. Labs- Entire Visit 09/10/19 09/10/19 09/10/19 12:54 12:54 12:54 WBC 15.6 H RBC 5.74 H Hgb 16.9 H Hct 49.7 H MCV 87 MCH 29.5 MCHC 34.0 RDW 13.8 Plt Count 175 Lymph % (Auto) Not Reportable [place] % (Auto) Not Reportable Eos % (Auto) Not Reportable Baso % (Auto) Not Reportable Absolute Neuts (auto) Not Reportable Absolute Lymphs (auto) Not Reportable Absolute Monos (auto) Not Reportable Absolute Eos (auto) Not Reportable Absolute Basos (auto) Not Reportable Total Counted 100 Seg Neutrophils % Not Reportable Seg Neuts % (Manual) 86 H Band Neutrophils % 2 L Lymphocytes % (Manual) 5 L Monocytes % (Manual) 7 Eosinophils % (Manual) 0 Basophils % (Manual) 0 Abs Neuts (Manual) 13.7 H Abs Lymphs (Manual) 0.8 Abs Monocytes (Manual) 1.1 Absolute Eos (Manual) 0.0 Abs Basophils (Manual) 0.0 Toxic Granulation 1+ Toxic Vacuolation Large Platelets Platelet Comment ADEQUATE Poikilocytosis Anisocytosis Ovalocytes Reilly Cells RBC Morph Comment PT 19.2 H INR 1.60 APTT Carbonic Acid HCO3/H2CO3 Ratio ABG pH ABG pCO2 ABG pO2 ABG HCO3 ABG Total CO2 ABG O2 Saturation ABG Base Excess FiO2 Sodium 136.2 L Potassium 3.5 L Chloride 99 Carbon Dioxide 24 Anion Gap 13 BUN 15 Creatinine 0.61 Est GFR ( Amer) > 60 Est GFR (MDRD) Non-Af > 60 Glucose 112 H POC Glucose Lactic Acid Calcium 9.0 Phosphorus Magnesium Total Bilirubin 2.2 H Direct Bilirubin 0.0 Neonat Total Bilirubin Not Reportable Neonat Direct Bilirubin Not Reportable Neonat Indirect Bili Not Reportable AST 25 ALT 21 Alkaline Phosphatase 69 Ammonia Total Protein 7.2 Albumin 3.9 Lipase 1078.9 H TSH Free T4 Free T3 pg/mL Urine Color Urine Appearance Urine pH Ur Specific [place] Urine Protein Urine Glucose (UA) Urine Ketones Urine Blood Urine Nitrite Urine Bilirubin Urine Urobilinogen Ur Leukocyte Esterase Urine WBC (Auto) Urine RBC (Auto) Urine Bacteria (Auto) Urine Mucus (Auto) Urine Ascorbic Acid Blood Type Antibody Screen 09/10/19 09/10/19 09/10/19 12:54 12:57 18:10 WBC RBC Hgb Hct MCV MCH MCHC RDW Plt Count Lymph % (Auto) [place] % (Auto) Eos % (Auto) Baso % (Auto) Absolute Neuts (auto) Absolute Lymphs (auto) Absolute Monos (auto) Absolute Eos (auto) Absolute Basos (auto) Total Counted Seg Neutrophils % Seg Neuts % (Manual) Band Neutrophils % Lymphocytes % (Manual) Monocytes % (Manual) Eosinophils % (Manual) Basophils % (Manual) Abs Neuts (Manual) Abs Lymphs (Manual) Abs Monocytes (Manual) Absolute Eos (Manual) Abs Basophils (Manual) Toxic Granulation Toxic Vacuolation Large Platelets Platelet Comment Poikilocytosis Anisocytosis Ovalocytes Reilly Cells RBC Morph Comment PT INR APTT Carbonic Acid HCO3/H2CO3 Ratio ABG pH ABG pCO2 ABG pO2 ABG HCO3 ABG Total CO2 ABG O2 Saturation ABG Base Excess FiO2 Sodium Potassium Chloride Carbon Dioxide Anion Gap BUN Creatinine Est GFR ( Amer) Est GFR (MDRD) Non-Af Glucose POC Glucose Lactic Acid Calcium Phosphorus Magnesium Total Bilirubin Direct Bilirubin Neonat Total Bilirubin Neonat Direct Bilirubin Neonat Indirect Bili AST ALT Alkaline Phosphatase Ammonia Total Protein Albumin Lipase TSH 0.20 L Free T4 Free T3 pg/mL Urine Color YELLOW Urine Appearance CLEAR Urine pH 6.0 Ur Specific [place] 1.015 Urine Protein >=500 H Urine Glucose (UA) NEGATIVE Urine Ketones NEGATIVE Urine Blood NEGATIVE Urine Nitrite NEGATIVE Urine Bilirubin NEGATIVE Urine Urobilinogen NEGATIVE Ur Leukocyte Esterase NEGATIVE Urine WBC (Auto) 3 Urine RBC (Auto) 3 Urine Bacteria (Auto) TRACE Urine Mucus (Auto) RARE Urine Ascorbic Acid NEGATIVE Blood Type Cancelled Antibody Screen Cancelled 09/10/19 09/11/19 09/11/19 19:05 00:17 06:16 WBC RBC Hgb Hct MCV MCH MCHC RDW Plt Count Lymph % (Auto) [place] % (Auto) Eos % (Auto) Baso % (Auto) Absolute Neuts (auto) Absolute Lymphs (auto) Absolute Monos (auto) Absolute Eos (auto) Absolute Basos (auto) Total Counted Seg Neutrophils % Seg Neuts % (Manual) Band Neutrophils % Lymphocytes % (Manual) Monocytes % (Manual) Eosinophils % (Manual) Basophils % (Manual) Abs Neuts (Manual) Abs Lymphs (Manual) Abs Monocytes (Manual) Absolute Eos (Manual) Abs Basophils (Manual) Toxic Granulation Toxic Vacuolation Large Platelets Platelet Comment Poikilocytosis Anisocytosis Ovalocytes Herod Cells RBC Morph Comment PT INR APTT Carbonic Acid HCO3/H2CO3 Ratio ABG pH ABG pCO2 ABG pO2 ABG HCO3 ABG Total CO2 ABG O2 Saturation ABG Base Excess FiO2 Sodium Potassium Chloride Carbon Dioxide Anion Gap BUN Creatinine Est GFR ( Amer) Est GFR (MDRD) Non-Af Glucose POC Glucose 140 H 115 H Lactic Acid Calcium Phosphorus Magnesium Total Bilirubin Direct Bilirubin Neonat Total Bilirubin Neonat Direct Bilirubin Neonat Indirect Bili AST ALT Alkaline Phosphatase Ammonia Total Protein Albumin Lipase TSH Free T4 Free T3 pg/mL Urine Color Urine Appearance Urine pH Ur Specific [place] Urine Protein Urine Glucose (UA) Urine Ketones Urine Blood Urine Nitrite Urine Bilirubin Urine Urobilinogen Ur Leukocyte Esterase Urine WBC (Auto) Urine RBC (Auto) Urine Bacteria (Auto) Urine Mucus (Auto) Urine Ascorbic Acid Blood Type O POSITIVE Antibody Screen NEGATIVE 09/11/19 09/11/19 09/11/19 07:21 07:21 07:21 WBC 16.2 H RBC 4.98 Hgb 14.8 D Hct 43.8 MCV 88 MCH 29.8 MCHC 33.9 RDW 14.4 H Plt Count 118 L Lymph % (Auto) Not Reportable [place] % (Auto) Not Reportable Eos % (Auto) Not Reportable Baso % (Auto) Not Reportable Absolute Neuts (auto) Not Reportable Absolute Lymphs (auto) Not Reportable Absolute Monos (auto) Not Reportable Absolute Eos (auto) Not Reportable Absolute Basos (auto) Not Reportable Total Counted 100 Seg Neutrophils % Not Reportable Seg Neuts % (Manual) 84 H Band Neutrophils % 5 Lymphocytes % (Manual) 5 L Monocytes % (Manual) 6 Eosinophils % (Manual) 0 Basophils % (Manual) 0 Abs Neuts (Manual) 14.4 H Abs Lymphs (Manual) 0.8 Abs Monocytes (Manual) 1.0 Absolute Eos (Manual) 0.0 Abs Basophils (Manual) 0.0 Toxic Granulation Toxic Vacuolation PRESENT Large Platelets PRESENT Platelet Comment ADEQUATE Poikilocytosis SLIGHT Anisocytosis SLIGHT Ovalocytes Herod Cells RBC Morph Comment PT INR APTT Carbonic Acid HCO3/H2CO3 Ratio ABG pH ABG pCO2 ABG pO2 ABG HCO3 ABG Total CO2 ABG O2 Saturation ABG Base Excess FiO2 Sodium 139.5 Potassium 3.8 Chloride 106 Carbon Dioxide 25 Anion Gap 9 BUN 15 Creatinine 0.63 Est GFR ( Amer) > 60 Est GFR (MDRD) Non-Af > 60 Glucose 121 H POC Glucose Lactic Acid Calcium 8.2 L Phosphorus Magnesium Total Bilirubin 2.5 H Direct Bilirubin 0.2 Neonat Total Bilirubin Neonat Direct Bilirubin Neonat Indirect Bili AST ALT Alkaline Phosphatase Ammonia Total Protein Albumin Lipase < 10.0 L TSH Free T4 Free T3 pg/mL Urine Color Urine Appearance Urine pH Ur Specific [place] Urine Protein Urine Glucose (UA) Urine Ketones Urine Blood Urine Nitrite Urine Bilirubin Urine Urobilinogen Ur Leukocyte Esterase Urine WBC (Auto) Urine RBC (Auto) Urine Bacteria (Auto) Urine Mucus (Auto) Urine Ascorbic Acid Blood Type Antibody Screen 09/11/19 09/11/19 09/11/19 07:21 07:30 12:05 WBC RBC Hgb Hct MCV MCH MCHC RDW Plt Count Lymph % (Auto) [place] % (Auto) Eos % (Auto) Baso % (Auto) Absolute Neuts (auto) Absolute Lymphs (auto) Absolute Monos (auto) Absolute Eos (auto) Absolute Basos (auto) Total Counted Seg Neutrophils % Seg Neuts % (Manual) Band Neutrophils % Lymphocytes % (Manual) Monocytes % (Manual) Eosinophils % (Manual) Basophils % (Manual) Abs Neuts (Manual) Abs Lymphs (Manual) Abs Monocytes (Manual) Absolute Eos (Manual) Abs Basophils (Manual) Toxic Granulation Toxic Vacuolation Large Platelets Platelet Comment Poikilocytosis Anisocytosis Ovalocytes Reilly Cells RBC Morph Comment PT 20.5 H INR 1.74 APTT Carbonic Acid HCO3/H2CO3 Ratio ABG pH ABG pCO2 ABG pO2 ABG HCO3 ABG Total CO2 ABG O2 Saturation ABG Base Excess FiO2 Sodium Potassium Chloride Carbon Dioxide Anion Gap BUN Creatinine Est GFR ( Amer) Est GFR (MDRD) Non-Af Glucose POC Glucose 110 Lactic Acid Calcium Phosphorus Magnesium Total Bilirubin Direct Bilirubin Neonat Total Bilirubin Neonat Direct Bilirubin Neonat Indirect Bili AST ALT Alkaline Phosphatase Ammonia Total Protein Albumin Lipase TSH Free T4 1.69 Free T3 pg/mL 2.10 L Urine Color Urine Appearance Urine pH Ur Specific [place] Urine Protein Urine Glucose (UA) Urine Ketones Urine Blood Urine Nitrite Urine Bilirubin Urine Urobilinogen Ur Leukocyte Esterase Urine WBC (Auto) Urine RBC (Auto) Urine Bacteria (Auto) Urine Mucus (Auto) Urine Ascorbic Acid Blood Type Antibody Screen 09/11/19 09/11/19 09/12/19 18:06 23:58 06:06 WBC RBC Hgb Hct MCV MCH MCHC RDW Plt Count Lymph % (Auto) [place] % (Auto) Eos % (Auto) Baso % (Auto) Absolute Neuts (auto) Absolute Lymphs (auto) Absolute Monos (auto) Absolute Eos (auto) Absolute Basos (auto) Total Counted Seg Neutrophils % Seg Neuts % (Manual) Band Neutrophils % Lymphocytes % (Manual) Monocytes % (Manual) Eosinophils % (Manual) Basophils % (Manual) Abs Neuts (Manual) Abs Lymphs (Manual) Abs Monocytes (Manual) Absolute Eos (Manual) Abs Basophils (Manual) Toxic Granulation Toxic Vacuolation Large Platelets Platelet Comment Poikilocytosis Anisocytosis Ovalocytes Reilly Cells RBC Morph Comment PT INR APTT Carbonic Acid HCO3/H2CO3 Ratio ABG pH ABG pCO2 ABG pO2 ABG HCO3 ABG Total CO2 ABG O2 Saturation ABG Base Excess FiO2 Sodium Potassium Chloride Carbon Dioxide Anion Gap BUN Creatinine Est GFR ( Amer) Est GFR (MDRD) Non-Af Glucose POC Glucose 81 86 81 Lactic Acid Calcium Phosphorus Magnesium Total Bilirubin Direct Bilirubin Neonat Total Bilirubin Neonat Direct Bilirubin Neonat Indirect Bili AST ALT Alkaline Phosphatase Ammonia Total Protein Albumin Lipase TSH Free T4 Free T3 pg/mL Urine Color Urine Appearance Urine pH Ur Specific [place] Urine Protein Urine Glucose (UA) Urine Ketones Urine Blood Urine Nitrite Urine Bilirubin Urine Urobilinogen Ur Leukocyte Esterase Urine WBC (Auto) Urine RBC (Auto) Urine Bacteria (Auto) Urine Mucus (Auto) Urine Ascorbic Acid Blood Type Antibody Screen 09/12/19 09/12/19 09/13/19 06:23 06:23 04:59 WBC 11.9 H RBC 4.65 Hgb 13.8 Hct 41.1 MCV 88 MCH 29.8 MCHC 33.7 RDW 14.4 H Plt Count 104 L Lymph % (Auto) Not Reportable [place] % (Auto) Not Reportable Eos % (Auto) Not Reportable Baso % (Auto) Not Reportable Absolute Neuts (auto) Not Reportable Absolute Lymphs (auto) Not Reportable Absolute Monos (auto) Not Reportable Absolute Eos (auto) Not Reportable Absolute Basos (auto) Not Reportable Total Counted 100 Seg Neutrophils % Not Reportable Seg Neuts % (Manual) 90 H Band Neutrophils % Lymphocytes % (Manual) 7 L Monocytes % (Manual) 3 Eosinophils % (Manual) 0 Basophils % (Manual) 0 Abs Neuts (Manual) 10.7 H Abs Lymphs (Manual) 0.8 Abs Monocytes (Manual) 0.4 Absolute Eos (Manual) 0.0 Abs Basophils (Manual) 0.0 Toxic Granulation SLIGHT Toxic Vacuolation PRESENT Large Platelets Platelet Comment ADEQUATE Poikilocytosis SLIGHT Anisocytosis SLIGHT Ovalocytes Herod Cells SLIGHT RBC Morph Comment PT INR APTT Carbonic Acid HCO3/H2CO3 Ratio ABG pH ABG pCO2 ABG pO2 ABG HCO3 ABG Total CO2 ABG O2 Saturation ABG Base Excess FiO2 Sodium 133.4 L 133.6 L Potassium 4.4 4.0 Chloride 99 103 Carbon Dioxide 28 21 L Anion Gap 6 10 BUN 22 H 23 H Creatinine 0.98 0.95 Est GFR ( Amer) > 60 > 60 Est GFR (MDRD) Non-Af 56 L 58 L Glucose 82 74 L POC Glucose Lactic Acid Calcium 8.1 L 8.2 L Phosphorus Magnesium Total Bilirubin Direct Bilirubin Neonat Total Bilirubin Neonat Direct Bilirubin Neonat Indirect Bili AST ALT Alkaline Phosphatase Ammonia Total Protein Albumin Lipase TSH Free T4 Free T3 pg/mL Urine Color Urine Appearance Urine pH Ur Specific [place] Urine Protein Urine Glucose (UA) Urine Ketones Urine Blood Urine Nitrite Urine Bilirubin Urine Urobilinogen Ur Leukocyte Esterase Urine WBC (Auto) Urine RBC (Auto) Urine Bacteria (Auto) Urine Mucus (Auto) Urine Ascorbic Acid Blood Type Antibody Screen 09/13/19 09/13/19 09/13/19 15:43 15:43 15:43 WBC 14.8 H RBC 4.82 Hgb 14.2 Hct 42.7 MCV 89 MCH 29.5 MCHC 33.3 RDW 14.0 Plt Count 140 L Lymph % (Auto) [place] % (Auto) Eos % (Auto) Baso % (Auto) Absolute Neuts (auto) Absolute Lymphs (auto) Absolute Monos (auto) Absolute Eos (auto) Absolute Basos (auto) Total Counted Seg Neutrophils % Seg Neuts % (Manual) Band Neutrophils % Lymphocytes % (Manual) Monocytes % (Manual) Eosinophils % (Manual) Basophils % (Manual) Abs Neuts (Manual) Abs Lymphs (Manual) Abs Monocytes (Manual) Absolute Eos (Manual) Abs Basophils (Manual) Toxic Granulation Toxic Vacuolation Large Platelets Platelet Comment Poikilocytosis Anisocytosis Ovalocytes Herod Cells RBC Morph Comment PT INR APTT Carbonic Acid HCO3/H2CO3 Ratio ABG pH ABG pCO2 ABG pO2 ABG HCO3 ABG Total CO2 ABG O2 Saturation ABG Base Excess FiO2 Sodium 133.7 L Potassium 4.2 Chloride 101 Carbon Dioxide 23 Anion Gap 10 BUN 23 H Creatinine 0.90 Est GFR ( Amer) > 60 Est GFR (MDRD) Non-Af > 60 Glucose 104 POC Glucose Lactic Acid Calcium 8.4 Phosphorus Magnesium Total Bilirubin Direct Bilirubin Neonat Total Bilirubin Neonat Direct Bilirubin Neonat Indirect Bili AST ALT Alkaline Phosphatase Ammonia Total Protein Albumin Lipase TSH Free T4 Free T3 pg/mL Urine Color Urine Appearance Urine pH Ur Specific [place] Urine Protein Urine Glucose (UA) Urine Ketones Urine Blood Urine Nitrite Urine Bilirubin Urine Urobilinogen Ur Leukocyte Esterase Urine WBC (Auto) Urine RBC (Auto) Urine Bacteria (Auto) Urine Mucus (Auto) Urine Ascorbic Acid Blood Type O POSITIVE Antibody Screen NEGATIVE 09/13/19 09/13/19 09/13/19 22:56 22:56 23:00 WBC 12.6 H RBC 4.74 Hgb 14.0 Hct 41.8 MCV 88 MCH 29.5 MCHC 33.4 RDW 13.9 Plt Count 114 L Lymph % (Auto) Not Reportable [place] % (Auto) Not Reportable Eos % (Auto) Not Reportable Baso % (Auto) Not Reportable Absolute Neuts (auto) Not Reportable Absolute Lymphs (auto) Not Reportable Absolute Monos (auto) Not Reportable Absolute Eos (auto) Not Reportable Absolute Basos (auto) Not Reportable Total Counted 100 Seg Neutrophils % Not Reportable Seg Neuts % (Manual) 86 H Band Neutrophils % 1 L Lymphocytes % (Manual) 6 L Monocytes % (Manual) 6 Eosinophils % (Manual) 1 Basophils % (Manual) 0 Abs Neuts (Manual) 11.0 H Abs Lymphs (Manual) 0.8 Abs Monocytes (Manual) 0.8 Absolute Eos (Manual) 0.1 Abs Basophils (Manual) 0.0 Toxic Granulation Toxic Vacuolation PRESENT Large Platelets Platelet Comment ADEQUATE Poikilocytosis Anisocytosis Ovalocytes SLIGHT Reilly Cells RBC Morph Comment PT INR APTT Carbonic Acid HCO3/H2CO3 Ratio ABG pH ABG pCO2 ABG pO2 ABG HCO3 ABG Total CO2 ABG O2 Saturation ABG Base Excess FiO2 Sodium 135.4 L Potassium 4.3 Chloride 103 Carbon Dioxide 22 Anion Gap 10 BUN 22 H Creatinine 0.91 Est GFR ( Amer) > 60 Est GFR (MDRD) Non-Af > 60 Glucose 94 POC Glucose 84 Lactic Acid Calcium 8.4 Phosphorus 2.8 Magnesium 1.9 Total Bilirubin 1.7 H Direct Bilirubin 0.5 H Neonat Total Bilirubin Not Reportable Neonat Direct Bilirubin Not Reportable Neonat Indirect Bili Not Reportable AST 28 ALT 16 Alkaline Phosphatase 50 Ammonia Total Protein 6.0 L Albumin 2.8 L Lipase TSH Free T4 Free T3 pg/mL Urine Color Urine Appearance Urine pH Ur Specific [place] Urine Protein Urine Glucose (UA) Urine Ketones Urine Blood Urine Nitrite Urine Bilirubin Urine Urobilinogen Ur Leukocyte Esterase Urine WBC (Auto) Urine RBC (Auto) Urine Bacteria (Auto) Urine Mucus (Auto) Urine Ascorbic Acid Blood Type Antibody Screen 09/13/19 09/14/19 09/14/19 23:35 03:54 03:54 WBC 14.9 H RBC 4.59 Hgb 13.5 Hct 40.6 MCV 89 MCH 29.5 MCHC 33.3 RDW 14.1 H Plt Count 121 L Lymph % (Auto) Not Reportable [place] % (Auto) Not Reportable Eos % (Auto) Not Reportable Baso % (Auto) Not Reportable Absolute Neuts (auto) Not Reportable Absolute Lymphs (auto) Not Reportable Absolute Monos (auto) Not Reportable Absolute Eos (auto) Not Reportable Absolute Basos (auto) Not Reportable Total Counted 100 Seg Neutrophils % Not Reportable Seg Neuts % (Manual) 91 H Band Neutrophils % Lymphocytes % (Manual) 4 L Monocytes % (Manual) 4 Eosinophils % (Manual) 1 Basophils % (Manual) 0 Abs Neuts (Manual) 13.6 H Abs Lymphs (Manual) 0.6 Abs Monocytes (Manual) 0.6 Absolute Eos (Manual) 0.1 Abs Basophils (Manual) 0.0 Toxic Granulation Toxic Vacuolation Large Platelets Platelet Comment DECREASED Poikilocytosis Anisocytosis Ovalocytes Reilly Cells RBC Morph Comment NORMO-CYTIC/CHROMIC PT 18.5 H INR 1.52 APTT 34.7 Carbonic Acid 1.24 HCO3/H2CO3 Ratio 16:1 ABG pH 7.31 L ABG pCO2 41.3 ABG pO2 101.7 H ABG HCO3 20.4 ABG Total CO2 21.7 ABG O2 Saturation 97.2 ABG Base Excess -5.5 FiO2 40% Sodium Potassium Chloride Carbon Dioxide Anion Gap BUN Creatinine Est GFR ( Amer) Est GFR (MDRD) Non-Af Glucose POC Glucose Lactic Acid Calcium Phosphorus Magnesium Total Bilirubin Direct Bilirubin Neonat Total Bilirubin Neonat Direct Bilirubin Neonat Indirect Bili AST ALT Alkaline Phosphatase Ammonia Total Protein Albumin Lipase TSH Free T4 Free T3 pg/mL Urine Color Urine Appearance Urine pH Ur Specific [place] Urine Protein Urine Glucose (UA) Urine Ketones Urine Blood Urine Nitrite Urine Bilirubin Urine Urobilinogen Ur Leukocyte Esterase Urine WBC (Auto) Urine RBC (Auto) Urine Bacteria (Auto) Urine Mucus (Auto) Urine Ascorbic Acid Blood Type Antibody Screen 09/14/19 09/14/19 09/14/19 03:54 05:47 15:51 WBC RBC Hgb Hct MCV MCH MCHC RDW Plt Count Lymph % (Auto) [place] % (Auto) Eos % (Auto) Baso % (Auto) Absolute Neuts (auto) Absolute Lymphs (auto) Absolute Monos (auto) Absolute Eos (auto) Absolute Basos (auto) Total Counted Seg Neutrophils % Seg Neuts % (Manual) Band Neutrophils % Lymphocytes % (Manual) Monocytes % (Manual) Eosinophils % (Manual) Basophils % (Manual) Abs Neuts (Manual) Abs Lymphs (Manual) Abs Monocytes (Manual) Absolute Eos (Manual) Abs Basophils (Manual) Toxic Granulation Toxic Vacuolation Large Platelets Platelet Comment Poikilocytosis Anisocytosis Ovalocytes Reilly Cells RBC Morph Comment PT INR APTT Carbonic Acid 1.68 H HCO3/H2CO3 Ratio 15:1 ABG pH 7.28 L ABG pCO2 55.9 H ABG pO2 79.0 L ABG HCO3 25.6 H ABG Total CO2 27.3 H ABG O2 Saturation 94.0 ABG Base Excess -2.1 FiO2 40% Sodium 136.2 L Potassium 3.8 Chloride 103 Carbon Dioxide 24 Anion Gap 9 BUN 22 H Creatinine 0.89 Est GFR ( Amer) > 60 Est GFR (MDRD) Non-Af > 60 Glucose 95 POC Glucose 144 H Lactic Acid Calcium 8.1 L Phosphorus 2.9 Magnesium 1.9 Total Bilirubin 1.6 H Direct Bilirubin 0.5 H Neonat Total Bilirubin Not Reportable Neonat Direct Bilirubin Not Reportable Neonat Indirect Bili Not Reportable AST 27 ALT 14 Alkaline Phosphatase 43 Ammonia Total Protein 5.3 L Albumin 2.5 L Lipase TSH Free T4 Free T3 pg/mL Urine Color Urine Appearance Urine pH Ur Specific [place] Urine Protein Urine Glucose (UA) Urine Ketones Urine Blood Urine Nitrite Urine Bilirubin Urine Urobilinogen Ur Leukocyte Esterase Urine WBC (Auto) Urine RBC (Auto) Urine Bacteria (Auto) Urine Mucus (Auto) Urine Ascorbic Acid Blood Type Antibody Screen 09/15/19 09/16/19 09/16/19 07:40 04:09 04:09 WBC 10.1 12.1 H RBC 4.05 4.62 Hgb 12.1 13.6 Hct 35.3 L 40.2 MCV 87 87 MCH 29.9 29.5 MCHC 34.3 33.9 RDW 13.7 13.9 Plt Count 110 L 177 Lymph % (Auto) 6.0 L 6.0 L [place] % (Auto) 11.8 13.7 H Eos % (Auto) 2.9 2.9 Baso % (Auto) 0.2 0.4 Absolute Neuts (auto) 8.0 9.3 H Absolute Lymphs (auto) 0.6 0.7 Absolute Monos (auto) 1.2 1.7 H Absolute Eos (auto) 0.3 0.4 Absolute Basos (auto) 0.0 0.0 Total Counted Seg Neutrophils % 79.1 H 77.0 Seg Neuts % (Manual) Band Neutrophils % Lymphocytes % (Manual) Monocytes % (Manual) Eosinophils % (Manual) Basophils % (Manual) Abs Neuts (Manual) Abs Lymphs (Manual) Abs Monocytes (Manual) Absolute Eos (Manual) Abs Basophils (Manual) Toxic Granulation Toxic Vacuolation Large Platelets Platelet Comment Poikilocytosis Anisocytosis Ovalocytes Reilly Cells RBC Morph Comment PT INR APTT Carbonic Acid HCO3/H2CO3 Ratio ABG pH ABG pCO2 ABG pO2 ABG HCO3 ABG Total CO2 ABG O2 Saturation ABG Base Excess FiO2 Sodium 139.8 Potassium 3.8 Chloride 107 Carbon Dioxide 27 Anion Gap 6 BUN 18 Creatinine 0.91 Est GFR ( Amer) > 60 Est GFR (MDRD) Non-Af > 60 Glucose 106 POC Glucose Lactic Acid Calcium 8.2 L Phosphorus Magnesium Total Bilirubin Direct Bilirubin Neonat Total Bilirubin Neonat Direct Bilirubin Neonat Indirect Bili AST ALT Alkaline Phosphatase Ammonia Total Protein Albumin Lipase TSH Free T4 Free T3 pg/mL Urine Color Urine Appearance Urine pH Ur Specific [place] Urine Protein Urine Glucose (UA) Urine Ketones Urine Blood Urine Nitrite Urine Bilirubin Urine Urobilinogen Ur Leukocyte Esterase Urine WBC (Auto) Urine RBC (Auto) Urine Bacteria (Auto) Urine Mucus (Auto) Urine Ascorbic Acid Blood Type Antibody Screen 09/17/19 09/17/19 16:00 16:00 WBC RBC Hgb Hct MCV MCH MCHC RDW Plt Count Lymph % (Auto) [place] % (Auto) Eos % (Auto) Baso % (Auto) Absolute Neuts (auto) Absolute Lymphs (auto) Absolute Monos (auto) Absolute Eos (auto) Absolute Basos (auto) Total Counted Seg Neutrophils % Seg Neuts % (Manual) Band Neutrophils % Lymphocytes % (Manual) Monocytes % (Manual) Eosinophils % (Manual) Basophils % (Manual) Abs Neuts (Manual) Abs Lymphs (Manual) Abs Monocytes (Manual) Absolute Eos (Manual) Abs Basophils (Manual) Toxic Granulation Toxic Vacuolation Large Platelets Platelet Comment Poikilocytosis Anisocytosis Ovalocytes Herod Cells RBC Morph Comment PT INR APTT Carbonic Acid HCO3/H2CO3 Ratio ABG pH ABG pCO2 ABG pO2 ABG HCO3 ABG Total CO2 ABG O2 Saturation ABG Base Excess FiO2 Sodium Potassium Chloride Carbon Dioxide Anion Gap BUN Creatinine Est GFR ( Amer) Est GFR (MDRD) Non-Af Glucose POC Glucose Lactic Acid 1.3 Calcium Phosphorus Magnesium Total Bilirubin Direct Bilirubin Neonat Total Bilirubin Neonat Direct Bilirubin Neonat Indirect Bili AST ALT Alkaline Phosphatase Ammonia < 8.7 L Total Protein Albumin Lipase TSH Free T4 Free T3 pg/mL Urine Color Urine Appearance Urine pH Ur Specific [place] Urine Protein Urine Glucose (UA) Urine Ketones Urine Blood Urine Nitrite Urine Bilirubin Urine Urobilinogen Ur Leukocyte Esterase Urine WBC (Auto) Urine RBC (Auto) Urine Bacteria (Auto) Urine Mucus (Auto) Urine Ascorbic Acid Blood Type Antibody Screen Abdomen Ultrasound 09/10/19 14:06 IMPRESSION: 1. Possible small volume of gall sludge. 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 The gallbladder is mildly contracted. No pericholecystic fluid. Negative sonographic Szymanski sign. 2. Hepatic steatosis. 3. Mild right hydronephrosis. No obstructing calculus or other etiology identified. Attention on forthcoming CT. 4. Small volume ascites. 5. There is a 1.0 cm cyst, possibly with a thickened septation or nodular component of the right superior pole. Attention on forthcoming CT. Abdomen/Pelvis CT 09/10/19 14:06 IMPRESSION: Moderate inflammatory changes and 2 small 8-10 mm pockets of free air adjacent to the sigmoid -descending colonic junction consistent with perforated diverticulitis. Surgical consultation recommended. Abdomen X-Ray 09/11/19 00:00 IMPRESSION: NO RADIOGRAPHIC EVIDENCE FOR ACUTE ABDOMINAL DISEASE. Chest X-Ray 09/13/19 00:00 IMPRESSION: Recommend retraction of the endotracheal tube, as above. Cardiomegaly with airspace opacities bilaterally copyright 2011 [employer]- All Rights Reserved Abdomen/Pelvis CT 09/13/19 11:00 IMPRESSION: 1. Again seen are the changes from sigmoid diverticulitis. There has been worsening of the pneumoperitoneum with now moderate to large volume pneumoperitoneum and new small volume perihepatic and pelvic ascites. No focal drainable collection. Recommend surgical re-evaluation. 2. New small bilateral pleural effusions, right greater than left. 3. Vicarious excretion of contrast within the gallbladder lumen suggestive of kidney dysfunction. 4. Cardiomegaly. Findings were discussed with TONY Hirsch at 1101 hours on 09/13/2019. Chest X-Ray 09/13/19 16:39 IMPRESSION: Cardiomegaly without pulmonary edema. Cannot exclude limited right lower lobe pneumonia. Pleural calcifications may suggest asbestos exposure. KUB X-Ray 09/13/19 22:26 IMPRESSION: NG tube tip in the stomach. Chest X-Ray 09/14/19 00:00 IMPRESSION: Appropriate position of endotracheal tube. Echo report not available. IMPRESSION/RECOMMENDATION: 1. Atrial fibrillation with rapid ventricular response. Continue patient IV Cardizem. We will give a dose of digoxin IV. We will stop the patient's sotalol, since the patient has been off anticoagulation for a while this admission. Hence would not have the patient converted to sinus rhythm, less she have a TIA or CVA. Of note the patient when she was admitted was in atrial fibrillation by EKG. 2. Hypertension uncontrolled: Start the patient on lisinopril and increase the dose as tolerated. 3. History of Porcine Aortic valve replacement. Continue the patient on Coumadin. 4. History of acute abdomen status post perforated diverticulitis and peritonitis, status post colectomy and colostomy. We will try to obtain records from [facility]. Medications reviewed. Medication adjusted. Medical regimen and management plan discussed with attending physician on the case. Medical decision making is of high complexity. 60 minutes spent on this patient with more than 50% time spent in direct patient care.
--- NOTE | 2019-09-19 22:29 | EKG REPORT ---
SEVERITY:- ABNORMAL ECG - ATRIAL FIBRILLATION, V-RATE 69-132 LEFT BUNDLE BRANCH BLOCK : Confirmed by: Rosey Leo MD 19-Sep-2019 22:29:04
[2019-09-19] MEDS: LISINOPRIL 10 MG TABLET PO SCH (23:14)
[2019-09-19] MEDS ORDERED: DIGOXIN INJ 0.5 MG/2 ML AMPULE IV ONE (23:15)
[2019-09-20] MEDS: DILTIAZEM HCL/D5W 125 MG/125 ML RTUINJ IV PRN (03:55)
[2019-09-20 05:23] LABS: HEMOGLOBIN 13.8 g/dL (12.0-15.5); MEAN CORPUSCULAR HEMOGLOBIN 29.3 pg (27.0-33.4); MEAN CORPUSCULAR HGB CONC 33.7 g/dL (32.0-36.0); MEAN CORPUSCULAR VOLUME 87 fl (80-97); PLATELET COUNT 216 10^3/uL (150-450); WHITE BLOOD COUNT 10.8 10^3/uL (4.0-10.5)
[2019-09-20] MEDS: HYDRALAZINE HCL 25 MG TABLET PO SCH ×2 (06:44→17:56)
[2019-09-20] MEDS: LORAZEPAM 1 MG TABLET PO SCH ×3 (06:45→21:15)
[2019-09-20] MEDS: LEVOTHYROXINE SODIUM 0.025 MG TABLET PO SCH (06:45)
[2019-09-20] MEDS: HEPARIN SOD (PORCINE) 5,000 UNIT/ML 1 ML VIAL SUBCUT SCH ×3 (06:45→21:16)
[2019-09-20] MEDS: NYSTATIN/DEXAMETH/DIPHEN SUSP 120 ML PO SCH ×3 (06:46→21:17)
[2019-09-20] MEDS: LEVOTHYROXINE SODIUM 0.1 MG TABLET PO SCH (06:47)
[2019-09-20 07:52] LABS: APPEARANCE,URINE CLEAR; BILIRUBIN,URINE NEGATIVE (NEGATIVE); COLOR,URINE STRAW; GLUCOSE, URINE NEGATIVE (NEGATIVE); KETONES,URINE NEGATIVE (NEGATIVE); LEUKOCYTE ESTERASE,URINE NEGATIVE (NEGATIVE); NITRITE,URINE NEGATIVE (NEGATIVE); PROTEIN,URINE NEGATIVE (NEGATIVE); URINE SPECIFIC GRAVITY 1.006; UROBILINOGEN,URINE NEGATIVE mg/dL (<2.0)
[2019-09-20] MEDS: DILTIAZEM HCL 120 MG CAP.SR.24H PO SCH (09:37)
[2019-09-20] MEDS: FAMOTIDINE INJ/PF 20 MG/2 ML SDV IV SCH ×3 (09:39→21:16)
[2019-09-20] MEDS: LISINOPRIL 10 MG TABLET PO SCH ×2 (09:39→21:15)
[2019-09-20] MEDS ORDERED: ENOXAPARIN SODIUM INJ 100 MG/1 ML DISP.SYRIN SUBCUT SCH (10:00)
[2019-09-20] MEDS: DILTIAZEM HCL 180 MG CAPSULE.CR PO SCH ×2 (10:29→21:16)
--- NOTE | 2019-09-20 10:38 | PDOC PROGRESS REPORT ---
Subjective Progress Note for:: 09/20/19 Subjective:: Alert. Cooperative. No acute distress Reason For Visit: PERFORATED DIVERTICULITIS Physical Exam Vital Signs: Temp Pulse Resp BP Pulse Ox 97.6 F 73 16 155/80 H 95 09/20/19 08:40 09/20/19 08:40 09/20/19 08:40 09/20/19 08:00 09/20/19 08:40 Intake & Output 09/19/19 09/20/19 09/21/19 06:59 06:59 06:59 Intake Total 4218 2452 85 Output Total 2720 4450 Balance 1498 -1997 85 Weight 102.4 kg 95.5 kg General appearance: PRESENT: no acute distress, cooperative Respiratory exam: PRESENT: clear to auscultation chase Cardiovascular exam: PRESENT: irregular rhythm GI/Abdominal exam: PRESENT: other - Soft, nondistended, nontender to palpation. Ostomy with air and some liquid. Results Laboratory Results: 09/20/19 04:39 09/16/19 04:09 09/20/19 09/20/19 04:39 07:00 WBC 10.8 H RBC 4.70 Hgb 13.8 Hct 41.0 MCV 87 MCH 29.3 MCHC 33.7 RDW 14.0 Plt Count 216 Urine Color STRAW Urine Appearance CLEAR Urine pH 6.0 Ur Specific [place] 1.006 Urine Protein NEGATIVE Urine Glucose (UA) NEGATIVE Urine Ketones NEGATIVE Urine Blood SMALL H Urine Nitrite NEGATIVE Ur Leukocyte Esterase NEGATIVE Urine WBC (Auto) 3 Urine RBC (Auto) 5 Impressions: Abdomen Ultrasound 09/10/19 14:06 IMPRESSION: 1. Possible small volume of gall sludge. 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 The gallbladder is mildly contracted. No pericholecystic fluid. Negative sonographic Szymanski sign. 2. Hepatic steatosis. 3. Mild right hydronephrosis. No obstructing calculus or other etiology identified. Attention on forthcoming CT. 4. Small volume ascites. 5. There is a 1.0 cm cyst, possibly with a thickened septation or nodular component of the right superior pole. Attention on forthcoming CT. Abdomen X-Ray 09/11/19 00:00 IMPRESSION: NO RADIOGRAPHIC EVIDENCE FOR ACUTE ABDOMINAL DISEASE. Abdomen/Pelvis CT 09/13/19 11:00 IMPRESSION: 1. Again seen are the changes from sigmoid diverticulitis. There has been worsening of the pneumoperitoneum with now moderate to large volume pneumoperitoneum and new small volume perihepatic and pelvic ascites. No focal drainable collection. Recommend surgical re-evaluation. 2. New small bilateral pleural effusions, right greater than left. 3. Vicarious excretion of contrast within the gallbladder lumen suggestive of kidney dysfunction. 4. Cardiomegaly. Findings were discussed with TONY Hirsch at 1101 hours on 09/13/2019. KUB X-Ray 09/13/19 22:26 IMPRESSION: NG tube tip in the stomach. Chest X-Ray 09/14/19 00:00 IMPRESSION: Appropriate position of endotracheal tube. Assessment & Plan - Diagnosis (1) Acute diverticulitis with localized perf Is this a current diagnosis for this admission?: Yes Plan: Status post sigmoid colectomy with end colostomy. Main issue is generalized weakness and control of her heart rate on A. fib. Defer to hospitalist for management. - Time Time Spent with patient: Less than 15 minutes
--- NOTE | 2019-09-20 14:29 | EKG REPORT ---
SEVERITY:- ABNORMAL ECG - ATRIAL FIBRILLATION LEFT BUNDLE BRANCH BLOCK : Confirmed by: Rosey Leo MD 20-Sep-2019 14:29:15
--- NOTE | 2019-09-20 14:31 | EKG REPORT ---
SEVERITY:- ABNORMAL ECG - LEFT BUNDLE BRANCH BLOCK ATRIAL FIBRILLATION : Confirmed by: Rosey Leo MD 20-Sep-2019 14:29:37
--- NOTE | 2019-09-20 17:48 | PDOC PROGRESS REPORT ---
Subjective Progress Note for:: 09/20/19 Subjective:: No adverse events overnight. No new complaints. Her Cardizem was increased and she is being transitioned off of the drip. Sotalol has been discontinued. Reason For Visit: PERFORATED DIVERTICULITIS Physical Exam Vital Signs: Temp Pulse Resp BP Pulse Ox 97.9 F 80 16 100/66 96 09/20/19 13:25 09/20/19 16:00 09/20/19 13:25 09/20/19 16:00 09/20/19 15:52 Intake & Output 09/19/19 09/20/19 09/21/19 06:59 06:59 06:59 Intake Total 4218 2452 638 Output Total 2720 0 1700 Balance 2131 -4454 -6038 Weight 102.4 kg 95.5 kg General appearance: PRESENT: no acute distress, cooperative, disheveled, morbidly obese Respiratory exam: PRESENT: clear to auscultation chase, symmetrical, unlabored. ABSENT: accessory muscle use, chest wall tenderness, crackles, prolonged expiratory phas, rhonchi, tachypnea, wheezes Cardiovascular exam: PRESENT: irregular rhythm Pulses: PRESENT: normal carotid pulses Vascular exam: PRESENT: normal capillary refill GI/Abdominal exam: PRESENT: normal bowel sounds, soft, other - Left lower quadrant ostomy with some gas and liquid. ABSENT: distended, guarding, rebound, tenderness Extremities exam: ABSENT: clubbing, pedal edema Musculoskeletal exam: PRESENT: normal inspection. ABSENT: deformity Neurological exam: PRESENT: alert, awake, oriented to person, oriented to place, oriented to situation Psychiatric exam: PRESENT: flat affect, normal mood Skin exam: PRESENT: dry, warm Results Laboratory Results: 09/20/19 04:39 09/16/19 04:09 09/20/19 09/20/19 04:39 07:00 WBC 10.8 H RBC 4.70 Hgb 13.8 Hct 41.0 MCV 87 MCH 29.3 MCHC 33.7 RDW 14.0 Plt Count 216 Urine Color STRAW Urine Appearance CLEAR Urine pH 6.0 Ur Specific [place] 1.006 Urine Protein NEGATIVE Urine Glucose (UA) NEGATIVE Urine Ketones NEGATIVE Urine Blood SMALL H Urine Nitrite NEGATIVE Ur Leukocyte Esterase NEGATIVE Urine WBC (Auto) 3 Urine RBC (Auto) 5 Impressions: Abdomen Ultrasound 09/10/19 14:06 IMPRESSION: 1. Possible small volume of gall sludge. Probable gallbladder ad enomyomatosis. The gallbladder is mildly contracted. No pericholecystic fluid. Negative sonographic Szymanski sign. 2. Hepatic steatosis. 3. Mild right hydronephrosis. No obstructing calculus or other etiology identified. Attention on forthcoming CT. 4. Small volume ascites. 5. There is a 1.0 cm cyst, possibly with a thickened septation or nodular component of the right superior pole. Attention on forthcoming CT. Abdomen X-Ray 09/11/19 00:00 IMPRESSION: NO RADIOGRAPHIC EVIDENCE FOR ACUTE ABDOMINAL DISEASE. Abdomen/Pelvis CT 09/13/19 11:00 IMPRESSION: 1. Again seen are the changes from sigmoid diverticulitis. There has been worsening of the pneumoperitoneum with now moderate to large volume pneumoperitoneum and new small volume perihepatic and pelvic ascites. No focal drainable collection. Recommend surgical re-evaluation. 2. New small bilateral pleural effusions, right greater than left. 3. Vicarious excretion of contrast within the gallbladder lumen suggestive of kidney dysfunction. 4. Cardiomegaly. Findings were discussed with TONY Hirsch at 1101 hours on 09/13/2019. KUB X-Ray 09/13/19 22:26 IMPRESSION: NG tube tip in the stomach. Chest X-Ray 09/14/19 00:00 IMPRESSION: Appropriate position of endotracheal tube. Assessment and Plan - Diagnosis (1) Acute diverticulitis with localized perf Is this a current diagnosis for this admission?: Yes Plan: Status post Graf's procedure. Further management per surgery. (2) Anxiety Is this a current diagnosis for this admission?: Yes Plan: We have resumed her oral medications (3) Atrial fibrillation with RVR Is this a current diagnosis for this admission?: Yes Plan: She is been on a Cardizem drip, transitioning to increased dose of oral Cardizem off of the drip. Sotalol has been discontinued. Currently on DVT prophylaxis but may need long-term anticoagulation. We will see if we can transition her to a newer anticoagulant. (4) COPD (chronic obstructive pulmonary disease) Qualifiers: COPD type: emphysema Emphysema type: centrilobular Qualified Code(s): J43.2 - Centrilobular emphysema Is this a current diagnosis for this admission?: Yes Plan: Stable on her current treatment (5) Hypertension Qualifiers: Hypertension type: essential hypertension Qualified Code(s): I10 - Essential (primary) hypertension Is this a current diagnosis for this admission?: Yes Plan: Well-controlled on her current regimen (6) Hypothyroid Is this a current diagnosis for this admission?: Yes Plan: Continue Synthroid - Plan Summary Summary: 09/17/2019 Patient has been transferred from the ICU up to the medical floor. We have been reconsulted to assume medical care while patient is convalescing from surgery. Patient's altered mental status may be due to medications. Certainly patient is not hypoxic, nor does she have any apparent embolic reason for altered mental status. Will check labs daily, control blood pressure and glucose. See patient on a daily basis for medical management. I did discuss this with the patient's daughter who is in the room 09/18/2019 vital signs are stable O2 sat between 94 and 100% on 3 L nasal cannula Lactic acid levels normal, ammonia levels normal Patient is receiving IV morphine for pain, asked the nurse to hold this and to call me if it needs to be given as I would like to see her level of consciousness prior to the morphine administration Patient is on IV Cipro for her postop care Patient is receiving D5 lactated Ringer's at 125/h Patient is on Cardizem for her atrial fib We will continue to provide supportive care 09/19/2019 Today patient had difficulty with her atrial fib and controlling her rate , it w ould vacillate anywhere between 100 and 140. she would respond well to either Lopressor or Cardizem bolus but then her rate would go right back up Preventatively or prophylactically moved her to the IMCU and put her on a Cardizem drip. Until just yesterday she was not able to take her p.o. medica tions and that was part of the problem. Also was due to sedation and being postop She is now back on her Cardizem CD twice daily. Added her sotalol but at a lower dosage 40 mg twice daily instead of 80 mg due to the fact that she is on Cipro for her abdominal surgery, was concerned about the QT interaction. she also has a significant problem with anxiety, she was taking Valium as needed as an outpatient but due to the long I half-life change that to Ativan now scheduled every 8 hours. Her pain medicine has been cut back to morphine at 0.5 mg and she seems to be doing well with that. #1 status post abdominal surgery, #2 chronic atrial fib #3 anxiety #4 hypertension #5 hypothyroidism #6 COPD - Time Time Spent with patient: 15-24 minutes
[2019-09-20] MEDS: DEXTROSE 5%-LACTATED RINGERS 1,000 ML IV PRN (17:55)
--- NOTE | 2019-09-20 18:49 | Progress Note ---
Provider Note Provider Note: CARDIOLOGY PROGRESS NOTE by Dr. Rosey Leo on 09/20/2019. SUBJECTIVE: The patient still confused but less so. She is more wide awake today. She continues to be in atrial fibrillation ventricular response is much improved. She denies any chest pain or discomfort or shortness of breath. There is no PND orthopnea. There is no bleeding on Coumadin. There is no TIA CVA symptoms. PHYSICAL EXAMINATION: The patient is moderately obese in no acute distress although pleasantly confused. Selected Entries 09/20/19 09/20/19 13:25 13:30 Temperature 97.9 F Temperature Axillary Source Pulse Rate 93 Respiratory 16 Rate Blood Pressure 117/88 H O2 Sat by Pulse 97 Oximetry Oxygen Flow 3.00 Rate Oxygen Delivery Nasal Cannula Method HEAD: Is atraumatic normocephalic. EYES: Pupils are equal round regular reactive to light and accommodation. There is no clinical pallor. There is no scleral icterus. External ocular movements are normal. EARS: Tympanic membranes are intact. External auditory canals are clear. NOSE: Nasal mucous membranes are not inflamed. There is no deviated nasal septum. MOUTH: Mucous membranes of mouth are moist. Tongue is moist. There is no ulcers. There is no bleeding from the gums. THROAT: There is no redness of the oropharynx. There is no exudates in the throat. SKIN: There is no petechia or ecchymosis. There is no skin rashes or skin lesions. NECK: Is supple. There is no JVD. Carotids are equal there is no bruits. There is no lymphadenopathy. There is no goiter. There is no accessory muscles of respiration in use. Trachea central. LUNGS: There is diminished air entry and prolonged expiration. On percussion there is hyperresonance. There is scattered rhonchi present. There is no rales or wheezing. There is no chest wall tenderness on palpation. HEART: S1-S2 is heard. S1 is of variable intensity. There is no S3 gallop. There is no S4 gallop. There is systolic murmur left sternal border and the apex, without radiation. There is no murmur of aortic stenosis. There is no aortic regurgitation murmur.. No prosthetic valve click heard. There is no rub. ABDOMEN: Is Nontender. There is no hepatosplenomegaly. Bowel sounds are well heard. There is a colostomy in the left lower quadrant of the abdomen. Surgical incision is covered with a bandage which is clean and dry. EXTREMITIES: Femorals are deep. Femorals are slightly diminished. There is no femoral bruits. There is no pedal edema. There is no DVT or cellulitis. Leg pulses are diminished. There is no cyanosis or clubbing. Capillary refill is normal. There is no calf tenderness. ARTISTIC DIRECTOR: The patient is conscious awake disoriented x3 with no focal deficits. PSYCHIATRIC: Not obtained due to patient's confusion. EKG shows atrial fibrillation with left bundle branch block pattern. Abdomen Ultrasound 09/10/19 14:06 IMPRESSION: 1. Possible small volume of gall sludge. 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 The gallbladder is mildly contracted. No pericholecystic fluid. Negative sonographic Szymanski sign. 2. Hepatic steatosis. 3. Mild right hydronephrosis. No obstructing calculus or other etiology identified. Attention on forthcoming CT. 4. Small volume ascites. 5. There is a 1.0 cm cyst, possibly with a thickened septation or nodular component of the right superior pole. Attention on forthcoming CT. Abdomen/Pelvis CT 09/10/19 14:06 IMPRESSION: Moderate inflammatory changes and 2 small 8-10 mm pockets of free air adjacent to the sigmoid -descending colonic junction consistent with perforated diverticulitis. Surgical consultation recommended. Abdomen X-Ray 09/11/19 00:00 IMPRESSION: NO RADIOGRAPHIC EVIDENCE FOR ACUTE ABDOMINAL DISEASE. Chest X-Ray 09/13/19 00:00 IMPRESSION: Recommend retraction of the endotracheal tube, as above. Cardiomegaly with airspace opacities bilaterally copyright 2011 [employer]- All Rights Reserved Abdomen/Pelvis CT 09/13/19 11:00 IMPRESSION: 1. Again seen are the changes from sigmoid diverticulitis. There has been worsening of the pneumoperitoneum with now moderate to large volume pneumoperitoneum and new small volume perihepatic and pelvic ascites. No focal drainable collection. Recommend surgical re-evaluation. 2. New small bilateral pleural effusions, right greater than left. 3. Vicarious excretion of contrast within the gallbladder lumen suggestive of kidney dysfunction. 4. Cardiomegaly. Findings were discussed with TONY Hirsch at 1101 hours on 09/13/2019. Chest X-Ray 09/13/19 16:39 IMPRESSION: Cardiomegaly without pulmonary edema. Cannot exclude limited right lower lobe pneumonia. Pleural calcifications may suggest asbestos exposure. KUB X-Ray 09/13/19 22:26 IMPRESSION: NG tube tip in the stomach. Chest X-Ray 09/14/19 00:00 IMPRESSION: Appropriate position of endotracheal tube. Labs- All tests 24 hr 09/20/19 09/20/19 04:39 07:00 WBC 10.8 H RBC 4.70 Hgb 13.8 Hct 41.0 MCV 87 MCH 29.3 MCHC 33.7 RDW 14.0 Plt Count 216 Urine Color STRAW Urine Appearance CLEAR Urine pH 6.0 Ur Specific [place] 1.006 Urine Protein NEGATIVE Urine Glucose (UA) NEGATIVE Urine Ketones NEGATIVE Urine Blood SMALL H Urine Nitrite NEGATIVE Urine Bilirubin NEGATIVE Urine Urobilinogen NEGATIVE Ur Leukocyte Esterase NEGATIVE Urine WBC (Auto) 3 Urine RBC (Auto) 5 Urine Bacteria (Auto) TRACE Urine Mucus (Auto) RARE Urine Ascorbic Acid NEGATIVE IMPRESSION/RECOMMENDATION: 1. Atrial fibrillation with rapid ventricular response. We will increase the patient's Cardizem to 180 mg twice daily. Then will discontinue the IV Cardizem drip. 2. Hypertension uncontrolled: Start the patient on lisinopril and increase the dose as tolerated. 3. History of Porcine Aortic valve replacement. Continue the patient on Coumadin. 4. History of acute abdomen status post perforated diverticulitis and peritonitis, status post colectomy and colostomy. We will try to obtain records from [facility]. Medications reviewed. Medication adjusted. Medical regimen and management plan discussed with attending physician on the case. Medical decision making is of high complexity. 40 minutes spent on this patient with more than 50% time spent in direct patient care.
[2019-09-21 05:03] LABS: HEMATOCRIT 43.3 % (36.0-47.0); HEMOGLOBIN 14.6 g/dL (12.0-15.5); MEAN CORPUSCULAR HEMOGLOBIN 29.2 pg (27.0-33.4); MEAN CORPUSCULAR HGB CONC 33.7 g/dL (32.0-36.0); MEAN CORPUSCULAR VOLUME 87 fl (80-97); PLATELET COUNT 245 10^3/uL (150-450); RED BLOOD COUNT 4.98 10^6/uL (3.72-5.28); RED CELL DISTRIBUTION WIDTH 13.9 % (11.5-14.0); WHITE BLOOD COUNT 13.1 10^3/uL (4.0-10.5)
[2019-09-21] MEDS: LORAZEPAM 1 MG TABLET PO SCH ×3 (05:29→22:43)
[2019-09-21] MEDS: LEVOTHYROXINE SODIUM 0.1 MG TABLET PO SCH (05:44)
[2019-09-21] MEDS: LEVOTHYROXINE SODIUM 0.025 MG TABLET PO SCH (05:44)
[2019-09-21] MEDS: HYDRALAZINE HCL 25 MG TABLET PO SCH ×2 (05:44→18:38)
[2019-09-21] MEDS: HEPARIN SOD (PORCINE) 5,000 UNIT/ML 1 ML VIAL SUBCUT SCH ×3 (05:45→22:57)
[2019-09-21] MEDS: NYSTATIN/DEXAMETH/DIPHEN SUSP 120 ML PO SCH ×3 (05:51→22:45)
[2019-09-21] MEDS: DILTIAZEM HCL 180 MG CAPSULE.CR PO SCH (09:08)
[2019-09-21] MEDS: LISINOPRIL 10 MG TABLET PO SCH ×2 (09:08→22:44)
[2019-09-21] MEDS: FAMOTIDINE INJ/PF 20 MG/2 ML SDV IV SCH ×2 (09:09→22:44)
[2019-09-21] MEDS ORDERED: DILTIAZEM HCL 60 MG TABLET ONE (11:10)
[2019-09-21] MEDS ORDERED: DILTIAZEM HCL 60 MG TABLET PO ONE (11:30)
--- NOTE | 2019-09-21 11:38 | Progress Note ---
Provider Note Provider Note: CARDIOLOGY PROGRESS NOTE by Dr. Rosey Leo on 09/21/2019. SUBJECTIVE: The patient continues to be confused. The patient is still in atrial fibrillation with at times a heart rate going about 100. She denies any chest pain or discomfort. There is no PND orthopnea. She denies any shortness of breath. There is no ventricular arrhythmias seen. The patient continues to be in atrial fibrillation. PHYSICAL EXAMINATION: The patient is moderately obese. In no acute distress. Selected Entries 09/21/19 09/21/19 07:00 07:45 Temperature 97.8 F Pulse Rate 108 H Respiratory 14 Rate Blood Pressure 152/90 H Blood Pressure 110 Mean BP Location Right Arm BP Position Supine O2 Sat by Pulse 96 Oximetry Oxygen Flow 3.00 Rate Oxygen Delivery Nasal Cannula Method HEAD: Is atraumatic normocephalic. EYES: Pupils are equal round regular reactive to light and accommodation. There is no clinical pallor. There is no scleral icterus. External ocular movements are normal. EARS: Tympanic membranes are intact. External auditory canals are clear. NOSE: Nasal mucous membranes are not inflamed. There is no deviated nasal septum. MOUTH: Mucous membranes of mouth are moist. Tongue is moist. There is no ulcers. There is no bleeding from the gums. THROAT: There is no redness of the oropharynx. There is no exudates in the throat. SKIN: There is no petechia or ecchymosis. There is no skin rashes or skin lesions. NECK: Is supple. There is no JVD. Carotids are equal there is no bruits. There is no lymphadenopathy. There is no goiter. There is no accessory muscles of respiration in use. Trachea central. LUNGS: There is diminished air entry and prolonged expiration. On percussion there is hyperresonance. There is scattered rhonchi present. There is no rales or wheezing. There is no chest wall tenderness on palpation. H EART: S1-S2 is heard. S1 is of variable intensity. There is no S3 gallop. There is no S4 gallop. There is systolic murmur left sternal border and the apex, without radiation. There is no murmur of aortic stenosis. There is no aortic regurgitation murmur.. No prosthetic valve click heard. There is no rub. ABDOMEN: Is Nontender. There is no hepatosplenomegaly. Bowel sounds are well heard. There is a colostomy in the left lower quadrant of the abdomen. Surgical incision is covered with a bandage which is clean and dry. EXTREMITIES: Femorals are deep. Femorals are slightly diminished. There is no femoral bruits. There is no pedal edema. There is no DVT or cellulitis. Leg pulses are diminished. There is no cyanosis or clubbing. Capillary refill is normal. There is no calf tenderness. APERTURE MASK ETCHER: The patient is conscious awake disoriented x3 with no focal deficits. PSYCHIATRIC: Not obtained due to patient's confusion. Labs- All tests 24 hr 09/21/19 04:31 WBC 13.1 H RBC 4.98 Hgb 14.6 Hct 43.3 MCV 87 MCH 29.2 MCHC 33.7 RDW 13.9 Plt Count 245 IMPRESSION/RECOMMENDATION:ease the patient's Cardizem to 180 mg twice daily. Then will discontinue the Abdomen Ultrasound 09/10/19 14:06 IMPRESSION: 1. Possible small volume of gall sludge. 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 The gallbladder is mildly contracted. No pericholecystic fluid. Negative sonographic Szymanski sign. 2. Hepatic steatosis. 3. Mild right hydronephrosis. No obstructing calculus or other etiology identified. Attention on forthcoming CT. 4. Small volume ascites. 5. There is a 1.0 cm cyst, possibly with a thickened septation or nodular component of the right superior pole. Attention on forthcoming CT. Abdomen/Pelvis CT 09/10/19 14:06 IMPRESSION: Moderate inflammatory changes and 2 small 8-10 mm pockets of free air adjacent to the sigmoid -descending colonic junction consistent with perforated diverticulitis. Surgical consultation recommended. Abdomen X-Ray 09/11/19 00:00 IMPRESSION: NO RADIOGRAPHIC EVIDENCE FOR ACUTE ABDOMINAL DISEASE. Chest X-Ray 09/13/19 00:00 IMPRESSION: Recommend retraction of the endotracheal tube, as above. Cardiomegaly with airspace opacities bilaterally copyright 2011 [employer]- All Rights Reserved Abdomen/Pelvis CT 09/13/19 11:00 IMPRESSION: 1. Again seen are the changes from sigmoid diverticulitis. There has been worsening of the pneumoperitoneum with now moderate to large volume pneumoperitoneum and new small volume perihepatic and pelvic ascites. No focal drainable collection. Recommend surgical re-evaluation. 2. New small bilateral pleural effusions, right greater than left. 3. Vicarious excretion of contrast within the gallbladder lumen suggestive of kidney dysfunction. 4. Cardiomegaly. Findings were discussed with TONY Hirsch at 1101 hours on 09/13/2019. Chest X-Ray 09/13/19 16:39 IMPRESSION: Cardiomegaly without pulmonary edema. Cannot exclude limited right lower lobe pneumonia. Pleural calcifications may suggest asbestos exposure. KUB X-Ray 09/13/19 22:26 IMPRESSION: NG tube tip in the stomach. Chest X-Ray 09/14/19 00:00 IMPRESSION: Appropriate position of endotracheal tube. IMPRESSION/RECOMMENDATION: 1. Atrial fibrillation with still ventricular response not well controlled. The patient was given extra dose of Cardizem 60 mg p.o. now and the patient's Cardizem dosage has been increased to Cardizem CD 240 mg p.o. every 12 hours. 2. Hypertension uncontrolled: Start the patient on lisinopril and increase the dose as tolerated. 3. History of Porcine Aortic valve replacement. Note that the patient is not on Coumadin. Would recommend restarting the patient on Coumadin. 4. History of acute abdomen status post perforated diverticulitis and peritonitis, status post colectomy and colostomy. We will try to obtain records from [facility]. Medications reviewed. Medication adjusted. Medical regimen and management plan discussed with attending physician on the case. Medical decision making is of high complexity. 40 minutes spent on this patient with more than 50% time spent in direct patient care.
--- NOTE | 2019-09-21 17:46 | PDOC PROGRESS REPORT ---
Subjective Progress Note for:: 09/21/19 Subjective:: No adverse events overnight. No new complaints. Heart rate has been stable below 100 on oral medications. Reason For Visit: PERFORATED DIVERTICULITIS Physical Exam Vital Signs: Temp Pulse Resp BP Pulse Ox 98.0 F 55 L 18 141/92 H 97 09/21/19 16:33 09/21/19 16:33 09/21/19 16:33 09/21/19 16:33 09/21/19 16:33 Intake & Output 09/20/19 09/21/19 09/22/19 06:59 06:59 06:59 Intake Total 2452 1427 Output Total 4450 3350 Balance -1997 Weight 95.5 kg 94.9 kg General appearance: PRESENT: no acute distress, cooperative, disheveled, morbidly obese Respiratory exam: PRESENT: clear to auscultation chase, symmetrical, unlabored. ABSENT: accessory muscle use, chest wall tenderness, crackles, prolonged expiratory phas, rhonchi, tachypnea, wheezes Cardiovascular exam: PRESENT: irregular rhythm Pulses: PRESENT: normal carotid pulses Vascular exam: PRESENT: normal capillary refill GI/Abdominal exam: PRESENT: normal bowel sounds, soft, other - Left lower quadrant ostomy with some gas and liquid. ABSENT: distended, guarding, rebound, tenderness Extremities exam: ABSENT: clubbing, pedal edema Musculoskeletal exam: PRESENT: normal inspection. ABSENT: deformity Neurological exam: PRESENT: alert, awake, oriented to person, oriented to place, oriented to situation Psychiatric exam: PRESENT: flat affect, normal mood Skin exam: PRESENT: dry, warm Results Laboratory Results: 09/21/19 04:31 09/16/19 04:09 09/21/19 04:31 WBC 13.1 H RBC 4.98 Hgb 14.6 Hct 43.3 MCV 87 MCH 29.2 MCHC 33.7 RDW 13.9 Plt Count 245 Impressions: Abdomen Ultrasound 09/10/19 14:06 IMPRESSION: 1. Possible small volume of gall sludge. 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 The gallbladder is mildly contracted. No pericholecystic fluid. Negative sonographic Szymanski sign. 2. Hepatic steatosis. 3. Mild right hydronephrosis. No obstructing calculus or other etiology identified. Attention on forthcoming CT. 4. Small volume ascites. 5. There is a 1.0 cm cyst, possibly with a thickened septation or nodular component of the right superior pole. Attention on forthcoming CT. Abdomen X-Ray 09/11/19 00:00 IMPRESSION: NO RADIOGRAPHIC EVIDENCE FOR ACUTE ABDOMINAL DISEASE. Abdomen/Pelvis CT 09/13/19 11:00 IMPRESSION: 1. Again seen are the changes from sigmoid diverticulitis. There has been worsening of the pneumoperitoneum with now moderate to large volume pneumoperitoneum and new small volume perihepatic and pelvic ascites. No focal drainable collection. Recommend surgical re-evaluation. 2. New small bilateral pleural effusions, right greater than left. 3. Vicarious excretion of contrast within the gallbladder lumen suggestive of kidney dysfunction. 4. Cardiomegaly. Findings were discussed with TONY Hirsch at 1101 hours on 09/13/2019. KUB X-Ray 09/13/19 22:26 IMPRESSION: NG tube tip in the stomach. Chest X-Ray 09/14/19 00:00 IMPRESSION: Appropriate position of endotracheal tube. Assessment and Plan - Diagnosis (1) Acute diverticulitis with localized perf Is this a current diagnosis for this admission?: Yes Plan: Status post Graf's procedure. Further management per surgery. (2) Anxiety Is this a current diagnosis for this admission?: Yes Plan: We have resumed her oral medications (3) Atrial fibrillation with RVR Is this a current diagnosis for this admission?: Yes Plan: Heart rate now stable on oral Cardizem, cardiology following (4) COPD (chronic obstructive pulmonary disease) Qualifiers: COPD type: emphysema Emphysema type: centrilobular Qualified Code(s): J43.2 - Centrilobular emphysema Is this a current diagnosis for this admission?: Yes Plan: Stable on her current treatment (5) Hypertension Qualifiers: Hypertension type: essential hypertension Qualified Code(s): I10 - Essential (primary) hypertension Is this a current diagnosis for this admission?: Yes Plan: Well-controlled on her current regimen (6) Hypothyroid Is this a current diagnosis for this admission?: Yes Plan: Continue Synthroid - Plan Summary Summary: 09/17/2019 Patient has been transferred from the ICU up to the medical floor. We have been reconsulted to assume medical care while patient is convalescing from surgery. Patient's altered mental status may be due to medications. Certainly patient is not hypoxic, nor does she have any apparent embolic reason for altered mental status. Will check labs daily, control blood pressure and glucose. See patient on a daily basis for medical management. I did discuss this with the patient's daughter who is in the room 09/18/2019 vital signs are stable O2 sat between 94 and 100% on 3 L nasal cannula Lactic acid levels normal, ammonia levels normal Patient is receiving IV morphine for pain, asked the nurse to hold this and to call me if it needs to be given as I would like to see her level of consciousness prior to the morphine administration Patient is on IV Cipro for her postop care Patient is receiving D5 lactated Ringer's at 125/h Patient is on Cardizem for her atrial fib We will continue to provide supportive care 09/19/2019 Today patient had difficulty with her atrial fib and controlling her rate , it w ould vacillate anywhere between 100 and 140. she would respond well to either Lopressor or Cardizem bolus but then her rate would go right back up Preventatively or prophylactically moved her to the IMCU and put her on a Cardizem drip. Until just yesterday she was not able to take her p.o. medica tions and that was part of the problem. Also was due to sedation and being postop She is now back on her Cardizem CD twice daily. Added her sotalol but at a lower dosage 40 mg twice daily instead of 80 mg due to the fact that she is on Cipro for her abdominal surgery, was concerned about the QT interaction. she also has a significant problem with anxiety, she was taking Valium as needed as an outpatient but due to the long I half-life change that to Ativan now scheduled every 8 hours. Her pain medicine has been cut back to morphine at 0.5 mg and she seems to be doing well with that. #1 status post abdominal surgery, #2 chronic atrial fib #3 anxiety #4 hypertension #5 hypothyroidism #6 COPD - Time Time Spent with patient: 15-24 minutes
--- NOTE | 2019-09-21 18:05 | PDOC PROGRESS REPORT ---
Subjective Progress Note for:: 09/21/19 Reason For Visit: PERFORATED DIVERTICULITIS Physical Exam Vital Signs: Temp Pulse Resp BP Pulse Ox 98.0 F 55 L 18 141/92 H 97 09/21/19 16:33 09/21/19 16:33 09/21/19 16:33 09/21/19 16:33 09/21/19 16:33 Intake & Output 09/20/19 09/21/19 09/22/19 06:59 06:59 06:59 Intake Total 2452 1427 Output Total 4450 3350 Balance -1997 Weight 95.5 kg 94.9 kg Results Laboratory Results: 09/21/19 04:31 09/16/19 04:09 09/21/19 04:31 WBC 13.1 H RBC 4.98 Hgb 14.6 Hct 43.3 MCV 87 MCH 29.2 MCHC 33.7 RDW 13.9 Plt Count 245 Impressions: Abdomen Ultrasound 09/10/19 14:06 IMPRESSION: 1. Possible small volume of gall sludge. 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 The gallbladder is mildly contracted. No pericholecystic fluid. Negative sonographic Szymanski sign. 2. Hepatic steatosis. 3. Mild right hydronephrosis. No obstructing calculus or other etiology identified. Attention on forthcoming CT. 4. Small volume ascites. 5. There is a 1.0 cm cyst, possibly with a thickened septation or nodular component of the right superior pole. Attention on forthcoming CT. Abdomen X-Ray 09/11/19 00:00 IMPRESSION: NO RADIOGRAPHIC EVIDENCE FOR ACUTE ABDOMINAL DISEASE. Abdomen/Pelvis CT 09/13/19 11:00 IMPRESSION: 1. Again seen are the changes from sigmoid diverticulitis. There has been worsening of the pneumoperitoneum with now moderate to large volume pneumoperitoneum and new small volume perihepatic and pelvic ascites. No focal drainable collection. Recommend surgical re-evaluation. 2. New small bilateral pleural effusions, right greater than left. 3. Vicarious excretion of contrast within the gallbladder lumen suggestive of kidney dysfunction. 4. Cardiomegaly. Findings were discussed with TONY Hirsch at 1101 hours on 09/13/2019. KUB X-Ray 09/13/19 22:26 IMPRESSION: NG tube tip in the stomach. Chest X-Ray 09/14/19 00:00 IMPRESSION: Appropriate position of endotracheal tube. Assessment & Plan - Diagnosis (1) Free intraperitoneal air Is this a current diagnosis for this admission?: Yes (2) Acute diverticulitis Is this a current diagnosis for this admission?: Yes - Time Time Spent with patient: Less than 15 minutes - Plan Summary Plan Summary: This is a 69-year-old female who is status post Graf's procedure for perforated diverticulitis with purulent peritonitis. Patient's overall status is improving. She is more awake and alert today. Her ostomy is functioning. She is tolerating liquids well. I will advance her diet today. I have encouraged her to be out of bed and awake during the daytime. Continue with physical therapy. We will continue to follow with you.
[2019-09-21 21:45] LABS: APPEARANCE,URINE CLEAR; BILIRUBIN,URINE NEGATIVE (NEGATIVE); COLOR,URINE STRAW; GLUCOSE, URINE NEGATIVE (NEGATIVE); KETONES,URINE NEGATIVE (NEGATIVE); LEUKOCYTE ESTERASE,URINE NEGATIVE (NEGATIVE); NITRITE,URINE NEGATIVE (NEGATIVE); PROTEIN,URINE NEGATIVE (NEGATIVE); URINE SPECIFIC GRAVITY 1.006; UROBILINOGEN,URINE NEGATIVE mg/dL (<2.0)
[2019-09-21] MEDS ORDERED: DILTIAZEM HCL 180 MG CAPSULE.CR PO SCH (22:00)
[2019-09-21] MEDS: DILTIAZEM HCL 240 MG CAPSULE.CR PO SCH (22:45)
[2019-09-22] MEDS: DEXTROSE 5%-LACTATED RINGERS 1,000 ML IV PRN (04:27)
[2019-09-22] MEDS: LEVOTHYROXINE SODIUM 0.025 MG TABLET PO SCH (06:19)
[2019-09-22] MEDS: LEVOTHYROXINE SODIUM 0.1 MG TABLET PO SCH (06:19)
[2019-09-22] MEDS: HYDRALAZINE HCL 25 MG TABLET PO SCH ×2 (06:19→17:52)
[2019-09-22] MEDS: NYSTATIN/DEXAMETH/DIPHEN SUSP 120 ML PO SCH ×3 (06:21→22:59)
[2019-09-22] MEDS: HEPARIN SOD (PORCINE) 5,000 UNIT/ML 1 ML VIAL SUBCUT SCH ×3 (06:21→22:59)
[2019-09-22] MEDS: LORAZEPAM 1 MG TABLET PO SCH (06:21)
--- NOTE | 2019-09-22 09:12 | PDOC PROGRESS REPORT ---
Subjective Progress Note for:: 09/22/19 Subjective:: Feels much better. Patient is alert and much more oriented. Reason For Visit: PERFORATED DIVERTICULITIS Physical Exam Vital Signs: Temp Pulse Resp BP Pulse Ox 97.8 F 54 L 20 131/92 H 97 09/22/19 03:52 09/22/19 03:52 09/21/19 23:10 09/22/19 03:52 09/22/19 03:52 Intake & Output 09/21/19 09/22/19 09/23/19 06:59 06:59 06:59 Intake Total 1427 3516 Output Total 3350 3500 Balance -1923 16 Weight 94.9 kg 93 kg General appearance: PRESENT: no acute distress, cooperative Respiratory exam: PRESENT: clear to auscultation chase Cardiovascular exam: PRESENT: RRR GI/Abdominal exam: PRESENT: other - Soft, nondistended, nontender to palpation. Ostomy functioning well with stool and air in the bag. Results Laboratory Results: 09/21/19 04:31 09/16/19 04:09 09/21/19 17:10 Urine Color STRAW Urine Appearance CLEAR Urine pH 8.0 Ur Specific [place] 1.006 Urine Protein NEGATIVE Urine Glucose (UA) NEGATIVE Urine Ketones NEGATIVE Urine Blood MODERATE H Urine Nitrite NEGATIVE Ur Leukocyte Esterase NEGATIVE Urine WBC (Auto) 3 Urine RBC (Auto) 18 Impressions: Abdomen Ultrasound 09/10/19 14:06 IMPRESSION: 1. Possible small volume of gall sludge. 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 The gallbladder is mildly contracted. No pericholecystic fluid. Negative sonographic Szymanski sign. 2. Hepatic steatosis. 3. Mild right hydronephrosis. No obstructing calculus or other etiology identified. Attention on forthcoming CT. 4. Small volume ascites. 5. There is a 1.0 cm cyst, possibly with a thickened septation or nodular component of the right superior pole. Attention on forthcoming CT. Abdomen X-Ray 09/11/19 00:00 IMPRESSION: NO RADIOGRAPHIC EVIDENCE FOR ACUTE ABDOMINAL DISEASE. Abdomen/Pelvis CT 09/13/19 11:00 IMPRESSION: 1. Again seen are the changes from sigmoid diverticulitis. There has been worsening of the pneumoperitoneum with now moderate to large volume pneumoperitoneum and new small volume perihepatic and pelvic ascites. No focal drainable collection. Recommend surgical re-evaluation. 2. New small bilateral pleural effusions, right greater than left. 3. Vicarious excretion of contrast within the gallbladder lumen suggestive of kidney dysfunction. 4. Cardiomegaly. Findings were discussed with TONY Hirsch at 1101 hours on 09/13/2019. KUB X-Ray 09/13/19 22:26 IMPRESSION: NG tube tip in the stomach. Chest X-Ray 09/14/19 00:00 IMPRESSION: Appropriate position of endotracheal tube. Assessment & Plan - Diagnosis (1) Acute diverticulitis with localized perf Is this a current diagnosis for this admission?: Yes Plan: Looks much improved. Offered patient placement at intermediate care facility but patient is insistent on going home. We will start physical therapy. Discharge planning. - Time Time Spent with patient: Less than 15 minutes
[2019-09-22] MEDS: DILTIAZEM HCL 240 MG CAPSULE.CR PO SCH ×2 (09:59→23:02)
[2019-09-22] MEDS: LISINOPRIL 10 MG TABLET PO SCH ×2 (09:59→22:58)
[2019-09-22] MEDS: FAMOTIDINE INJ/PF 20 MG/2 ML SDV IV SCH ×2 (09:59→23:00)
[2019-09-22] MEDS: MORPHINE SULFATE 10 MG/ML INJ IV PRN ×2 (09:59→23:19)
[2019-09-22] MEDS: LORAZEPAM 0.5 MG TABLET PO SCH ×2 (14:01→22:58)
--- NOTE | 2019-09-22 18:05 | PDOC PROGRESS REPORT ---
Subjective Progress Note for:: 09/22/19 Subjective:: No adverse events overnight. No new complaints. Appetite has been fair. Heart rate consistently below 100. Reason For Visit: PERFORATED DIVERTICULITIS Physical Exam Vital Signs: Temp Pulse Resp BP Pulse Ox 97.6 F 74 16 131/87 H 93 09/22/19 12:03 09/22/19 14:00 09/22/19 12:03 09/22/19 12:03 09/22/19 12:03 Intake & Output 09/21/19 09/22/19 09/23/19 06:59 06:59 06:59 Intake Total 1427 3516 Output Total 3350 3500 Balance -1923 16 Weight 94.9 kg 93 kg General appearance: PRESENT: no acute distress, cooperative, disheveled, morbidly obese Respiratory exam: PRESENT: clear to auscultation chase, symmetrical, unlabored. ABSENT: accessory muscle use, chest wall tenderness, crackles, prolonged expiratory phas, rhonchi, tachypnea, wheezes Cardiovascular exam: PRESENT: irregular rhythm Pulses: PRESENT: normal carotid pulses Vascular exam: PRESENT: normal capillary refill GI/Abdominal exam: PRESENT: normal bowel sounds, soft, other - Left lower quadrant ostomy with some gas and liquid. ABSENT: distended, guarding, rebound, tenderness Extremities exam: ABSENT: clubbing, pedal edema Musculoskeletal exam: PRESENT: normal inspection. ABSENT: deformity Neurological exam: PRESENT: alert, awake, oriented to person, oriented to place, oriented to situation Psychiatric exam: PRESENT: flat affect, normal mood Skin exam: PRESENT: dry, warm Results Laboratory Results: 09/21/19 04:31 09/16/19 04:09 09/21/19 17:10 Urine Color STRAW Urine Appearance CLEAR Urine pH 8.0 Ur Specific [place] 1.006 Urine Protein NEGATIVE Urine Glucose (UA) NEGATIVE Urine Ketones NEGATIVE Urine Blood MODERATE H Urine Nitrite NEGATIVE Ur Leukocyte Esterase NEGATIVE Urine WBC (Auto) 3 Urine RBC (Auto) 18 Impressions: Abdomen Ultrasound 09/10/19 14:06 IMPRESSION: 1. Possible small volume of gall sludge. 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 The gallbladder is mildly contracted. No pericholecystic fluid. Negative sonographic Szymanski sign. 2. Hepatic steatosis. 3. Mild right hydronephrosis. No obstructing calculus or other etiology identified. Attention on forthcoming CT. 4. Small volume ascites. 5. There is a 1.0 cm cyst, possibly with a thickened septation or nodular component of the right superior pole. Attention on forthcoming CT. Abdomen X-Ray 09/11/19 00:00 IMPRESSION: NO RADIOGRAPHIC EVIDENCE FOR ACUTE ABDOMINAL DISEASE. Abdomen/Pelvis CT 09/13/19 11:00 IMPRESSION: 1. Again seen are the changes from sigmoid diverticulitis. There has been worsening of the pneumoperitoneum with now moderate to large volume pneumoperitoneum and new small volume perihepatic and pelvic ascites. No focal drainable collection. Recommend surgical re-evaluation. 2. New small bilateral pleural effusions, right greater than left. 3. Vicarious excretion of contrast within the gallbladder lumen suggestive of kidney dysfunction. 4. Cardiomegaly. Findings were discussed with TONY Hirsch at 1101 hours on 09/13/2019. KUB X-Ray 09/13/19 22:26 IMPRESSION: NG tube tip in the stomach. Chest X-Ray 09/14/19 00:00 IMPRESSION: Appropriate position of endotracheal tube. Assessment and Plan - Diagnosis (1) Acute diverticulitis with localized perf Is this a current diagnosis for this admission?: Yes Plan: Status post Graf's procedure. Further management per surgery. (2) Anxiety Is this a current diagnosis for this admission?: Yes Plan: We have resumed her oral medications (3) Atrial fibrillation with RVR Is this a current diagnosis for this admission?: Yes Plan: Rate is controlled on oral medications. I spoke with Dr. Fernando and he said that there was no reason why she could not be on Eliquis or Xarelto when cleared by surgery to do so. (4) COPD (chronic obstructive pulmonary disease) Qualifiers: COPD type: emphysema Emphysema type: centrilobular Qualified Code(s): J43.2 - Centrilobular emphysema Is this a current diagnosis for this admission?: Yes Plan: Stable on her current treatment (5) Hypertension Qualifiers: Hypertension type: essential hypertension Qualified Code(s): I10 - Essential (primary) hypertension Is this a current diagnosis for this admission?: Yes Plan: Well-controlled on her current regimen (6) Hypothyroid Is this a current diagnosis for this admission?: Yes Plan: Continue Synthroid - Plan Summary Summary: 09/17/2019 Patient has been transferred from the ICU up to the medical floor. We have been reconsulted to assume medical care while patient is convalescing from surgery. Patient's altered mental status may be due to medications. Certainly patient is not hypoxic, nor does she have any apparent embolic reason for altered mental status. Will check labs daily, control blood pressure and glucose. See patient on a daily basis for medical management. I did discuss this with the patient's daughter who is in the room 09/18/2019 vital signs are stable O2 sat between 94 and 100% on 3 L nasal cannula Lactic acid levels normal, ammonia levels normal Patient is receiving IV morphine for pain, asked the nurse to hold this and to call me if it needs to be given as I would like to see her level of consciousness prior to the morphine administration Patient is on IV Cipro for her postop care Patient is receiving D5 lactated Ringer's at 125/h Patient is on Cardizem for her atrial fib We will continue to provide supportive care 09/19/2019 Today patient had difficulty with her atrial fib and controlling her rate , it would vacillate anywhere between 100 and 140. she would respond well to either Lopressor or Cardizem bolus but then her rate would go right back up Preventatively or prophylactically moved her to the IMCU and put her on a Cardizem drip. Until just yesterday she was not able to take her p.o. me dications and that was part of the problem. Also was due to sedation and being postop She is now back on her Cardizem CD twice daily. Added her sotalol but at a lower dosage 40 mg twice daily instead of 80 mg due to the fact that she is on Cipro for her abdominal surgery, was concerned about the QT interaction. she also has a significant problem with anxiety, she was taking Valium as needed as an outpatient but due to the long I half-life change that to Ativan now scheduled every 8 hours. Her pain medicine has been cut back to morphine at 0.5 mg and she seems to be doing well with that. #1 status post abdominal surgery, #2 chronic atrial fib #3 anxiety #4 hypertension #5 hypothyroidism #6 COPD - Time Time Spent with patient: 15-24 minutes
--- NOTE | 2019-09-22 19:23 | Progress Note ---
Provider Note Provider Note: Cardiology progress note by Dr. Rosey Arce on 09/22/2019. SUBJECTIVE: The patient still appears to be confused. But she denies any chest pain or discomfort. There is no shortness of breath. Her atrial fibrillation ventricular response is well controlled. There is no ventricular arrhythmia seen on the monitor. There is no TIA CVA symptoms. She is reasonably well recovering from her GI surgery. PHYSICAL EXAMINATION: The patient is moderately obese. At present is no acute distress. Selected Entries 09/22/19 12:03 Temperature 97.6 F Temperature Axillary Source Pulse Rate 73 Respiratory 16 Rate Blood Pressure 131/87 H Blood Pressure 101 Mean BP Location Right Arm BP Position Supine O2 Sat by Pulse 93 Oximetry Oxygen Flow 3.00 Rate Oxygen Delivery Nasal Cannula Method HEAD: Is atraumatic normocephalic. EYES: Pupils are equal round regular r eactive to light and accommodation. There is no clinical pallor. There is no scleral icterus. External ocular movements are normal. EARS: Tympanic membranes are intact. External auditory canals are clear. NOSE: Nasal mucous membranes are not inflamed. There is no deviated nasal septum. MOUTH: Mucous membranes of mouth are moist. Tongue is moist. There is no ulcers. There is no bleeding from the gums. THROAT: There is no redness of the oropharynx. There is no exudates in the throat. SKIN: There is no petechia or ecchymosis. There is no skin rashes or skin lesions. NECK: Is supple. There is no JVD. Carotids are equal there is no bruits. There is no lymphadenopathy. There is no goiter. There is no accessory muscles of respiration in use. Trachea central. LUNGS: There is diminished air entry and prolonged expiration. On percussion there is hyperresonance. There is scattered rhonchi present. There is no rales or wheezing. There is no chest wall tenderness on palpation. HEART: S1-S2 is heard. S1 is of variable intensity. There is no S3 gallop. There is no S4 gallop. There is systolic murmur left sternal border and the apex, without radiation. There is no murmur of aortic stenosis. There is no aortic regurgitation murmur.. No prosthetic valve click heard. There is no rub. ABDOMEN: Is Nontender. There is no hepatosplenomegaly. Bowel sounds are well heard. There is a colostomy in the left lower quadrant of the abdomen. Surgical incision is covered with a bandage which is clean and dry. EXTREMITIES: Femorals are deep. Femorals are slightly diminished. There is no femoral bruits. There is no pedal edema. There is no DVT or cellulitis. Leg pulses are diminished. There is no cyanosis or clubbing. Capillary refill is normal. There is no calf tenderness. WELDER FITTER: The patient is conscious awake disoriented x3 with no focal deficits. PSYCHIATRIC: Not obtained due to patient's confusion. IMPRESSION/RECOMMENDATION: 1. Atrial fibrillation with no ventricular response reasonably well controlled. Been acceptable from the surgical list would recommend restarting the patient on chronic anticoagulation such as Coumadin or Xarelto or Eliquis. This has been discussed with Dr. Loo with attending physician. 2. Hypertension uncontrolled: Start the patient on lisinopril and increase the dose as tolerated. 3. History of Porcine Aortic valve replacement. No evidence of restenosis. 4. History of acute abdomen status post perforated diverticulitis and peritonitis, status post colectomy and colostomy. Patient recovering well from this. Still no records from [facility]. Medications reviewed. Medication adjusted. Medical regimen and management plan discussed with attending physician on the case. Medical decision making is of moderate complexity. 40 minutes spent on this patient with more than 50% time spent in direct patient care. Cardiac status is stable. Will sign off. Please contact me if the patient should have any recurrent cardiac problems that require cardiology management.
[2019-09-23 04:26] LABS: HEMATOCRIT 41.1 % (36.0-47.0); HEMOGLOBIN 13.7 g/dL (12.0-15.5); MEAN CORPUSCULAR HEMOGLOBIN 29.3 pg (27.0-33.4); MEAN CORPUSCULAR HGB CONC 33.3 g/dL (32.0-36.0); MEAN CORPUSCULAR VOLUME 88 fl (80-97); PLATELET COUNT 220 10^3/uL (150-450); RED BLOOD COUNT 4.68 10^6/uL (3.72-5.28); RED CELL DISTRIBUTION WIDTH 14.3 % (11.5-14.0); WHITE BLOOD COUNT 13.4 10^3/uL (4.0-10.5)
[2019-09-23] MEDS: HYDRALAZINE HCL 25 MG TABLET PO SCH ×2 (06:28→17:36)
[2019-09-23] MEDS: LORAZEPAM 0.5 MG TABLET PO SCH ×3 (06:28→21:59)
[2019-09-23] MEDS: LEVOTHYROXINE SODIUM 0.1 MG TABLET PO SCH (06:29)
[2019-09-23] MEDS: LEVOTHYROXINE SODIUM 0.025 MG TABLET PO SCH (06:29)
[2019-09-23] MEDS: NYSTATIN/DEXAMETH/DIPHEN SUSP 120 ML PO SCH ×3 (06:30→21:57)
[2019-09-23] MEDS: HEPARIN SOD (PORCINE) 5,000 UNIT/ML 1 ML VIAL SUBCUT SCH ×2 (06:30→13:19)
[2019-09-23] MEDS: LISINOPRIL 10 MG TABLET PO SCH ×2 (09:12→21:56)
[2019-09-23] MEDS: FAMOTIDINE INJ/PF 20 MG/2 ML SDV IV SCH ×2 (09:13→21:56)
[2019-09-23] MEDS: DILTIAZEM HCL 240 MG CAPSULE.CR PO SCH ×2 (09:13→21:57)
--- NOTE | 2019-09-23 10:21 | Progress Note ---
Provider Note Provider Note: Patient remains stable from surgical standpoint awaiting transfer to extended care facility Please reconsult surgery as necessary
[2019-09-23] MEDS: DEXTROSE 5%-LACTATED RINGERS 1,000 ML IV PRN (13:51)
--- NOTE | 2019-09-23 15:24 | PDOC PROGRESS REPORT ---
Subjective Progress Note for:: 09/23/19 Subjective:: No adverse events overnight. No new complaints. Appetite has been fair. Heart rate consistently below 100. Tolerating diet advancement. Reason For Visit: PERFORATED DIVERTICULITIS Physical Exam Vital Signs: Temp Pulse Resp BP Pulse Ox 98.0 F 84 23 H 94/60 L 90 L 09/23/19 08:09 09/23/19 14:00 09/23/19 08:09 09/23/19 08:09 09/23/19 10:31 Intake & Output 09/22/19 09/23/19 09/24/19 06:59 06:59 06:59 Intake Total 3516 1526 1600 Output Total 3500 2700 500 Balance 16 -1174 1100 Weight 93 kg 72.1 kg General appearance: PRESENT: no acute distress, cooperative, disheveled, morbidly obese Respiratory exam: PRESENT: clear to auscultation chase, symmetrical, unlabored. ABSENT: accessory muscle use, chest wall tenderness, crackles, prolonged expiratory phas, rhonchi, tachypnea, wheezes Cardiovascular exam: PRESENT: irregular rhythm Pulses: PRESENT: normal carotid pulses Vascular exam: PRESENT: normal capillary refill GI/Abdominal exam: PRESENT: normal bowel sounds, soft, other - Left lower quadrant ostomy with some gas and liquid. ABSENT: distended, guarding, rebound, tenderness Extremities exam: ABSENT: clubbing, pedal edema Musculoskeletal exam: PRESENT: normal inspection. ABSENT: deformity Neurological exam: PRESENT: alert, awake, oriented to person, oriented to place, oriented to situation Psychiatric exam: PRESENT: flat affect, normal mood Skin exam: PRESENT: dry, warm Results Laboratory Results: 09/23/19 04:01 09/16/19 04:09 09/23/19 04:01 WBC 13.4 H RBC 4.68 Hgb 13.7 Hct 41.1 MCV 88 MCH 29.3 MCHC 33.3 RDW 14.3 H Plt Count 220 Impressions: Abdomen Ultrasound 09/10/19 14:06 IMPRESSION: 1. Possible small volume of gall sludge. 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 The gallbladder is mildly contracted. No pericholecystic fluid. Negative sonographic Szymanski sign. 2. Hepatic steatosis. 3. Mild right hydronephrosis. No obstructing calculus or other etiology identified. Attention on forthcoming CT. 4. Small volume ascites. 5. There is a 1.0 cm cyst, possibly with a thickened septation or nodular c omponent of the right superior pole. Attention on forthcoming CT. Abdomen X-Ray 09/11/19 00:00 IMPRESSION: NO RADIOGRAPHIC EVIDENCE FOR ACUTE ABDOMINAL DISEASE. Abdomen/Pelvis CT 09/13/19 11:00 IMPRESSION: 1. Again seen are the changes from sigmoid diverticulitis. There has been worsening of the pneumoperitoneum with now moderate to large volume pneumoperitoneum and new small volume perihepatic and pelvic ascites. No focal drainable collection. Recommend surgical re-evaluation. 2. New small bilateral pleural effusions, right greater than left. 3. Vicarious excretion of contrast within the gallbladder lumen suggestive of kidney dysfunction. 4. Cardiomegaly. Findings were discussed with TONY Hirsch at 1101 hours on 09/13/2019. KUB X-Ray 09/13/19 22:26 IMPRESSION: NG tube tip in the stomach. Chest X-Ray 09/14/19 00:00 IMPRESSION: Appropriate position of endotracheal tube. Assessment and Plan - Diagnosis (1) Acute diverticulitis with localized perf Is this a current diagnosis for this admission?: Yes Plan: Status post Graf's procedure. Further management per surgery. (2) Anxiety Is this a current diagnosis for this admission?: Yes Plan: We have resumed her oral medications (3) Atrial fibrillation with RVR Is this a current diagnosis for this admission?: Yes Plan: Rate is controlled on oral medications. I spoke with Dr. Hurtado and he said that there was no reason why she could not be on Eliquis or Xarelto when cleared by surgery to do so. (4) COPD (chronic obstructive pulmonary disease) Qualifiers: COPD type: emphysema Emphysema type: centrilobular Qualified Code(s): J43.2 - Centrilobular emphysema Is this a current diagnosis for this admission?: Yes Plan: Stable on her current treatment (5) Hypertension Qualifiers: Hypertension type: essential hypertension Qualified Code(s): I10 - Essential (primary) hypertension Is this a current diagnosis for this admission?: Yes Plan: Well-controlled on her current regimen (6) Hypothyroid Is this a current diagnosis for this admission?: Yes Plan: Continue Synthroid - Plan Summary Summary: 09/17/2019 Patient has been transferred from the ICU up to the medical floor. We have been reconsulted to assume medical care while patient is convalescing from surgery. Patient's altered mental status may be due to medications. Certainly patient is not hypoxic, nor does she have any apparent embolic reason for altered mental status. Will check labs daily, control blood pressure and glucose. See patient on a daily basis for medical management. I did discuss this with the patient's daughter who is in the room 09/18/2019 vital signs are stable O2 sat between 94 and 100% on 3 L nasal cannula Lactic acid levels normal, ammonia levels normal Patient is receiving IV morphine for pain, asked the nurse to hold this and to call me if it needs to be given as I would like to see her level of consciousness prior to the morphine administration Patient is on IV Cipro for her postop care Patient is receiving D5 lactated Ringer's at 125/h Patient is on Cardizem for her atrial fib We will continue to provide supportive care 09/19/2019 Today patient had difficulty with her atrial fib and controlling her rate , it would vacillate anywhere between 100 and 140. she would respond well to either Lopressor or Cardizem bolus but then her rate would go right back up Preventatively or prophylactically moved her to the IMCU and put her on a Cardizem drip. Until just yesterday she was not able to take her p.o. medications and that was part of the problem. Also was due to sedation and being postop She is now back on her Cardizem CD twice daily. Added her sotalol but at a lower dosage 40 mg twice daily instead of 80 mg due to the fact that she is on Cipro for her abdominal surgery, was concerned about the QT interaction. she also has a significant problem with anxiety, she was taking Valium as needed as an outpatient but due to the long I half-life change that to Ativan now scheduled every 8 hours. Her pain medicine has been cut back to morphine at 0.5 mg and she seems to be doing well with that. #1 status post abdominal surgery, #2 chronic atrial fib #3 anxiety #4 hypertension #5 hypothyroidism #6 COPD - Time Time Spent with patient: 15-24 minutes
[2019-09-23] MEDS: APIXABAN 2.5 MG TABLET PO SCH (18:29)
[2019-09-23] MEDS: MORPHINE SULFATE 10 MG/ML INJ IV PRN (21:58)
[2019-09-24 00:24] LABS: APPEARANCE,URINE CLEAR; BILIRUBIN,URINE NEGATIVE (NEGATIVE); COLOR,URINE YELLOW; GLUCOSE, URINE NEGATIVE (NEGATIVE); KETONES,URINE NEGATIVE (NEGATIVE); LEUKOCYTE ESTERASE,URINE NEGATIVE (NEGATIVE); NITRITE,URINE NEGATIVE (NEGATIVE); PROTEIN,URINE NEGATIVE (NEGATIVE); URINE SPECIFIC GRAVITY 1.009; UROBILINOGEN,URINE NEGATIVE mg/dL (<2.0)
[2019-09-24] MEDS: LEVOTHYROXINE SODIUM 0.025 MG TABLET PO SCH (05:16)
[2019-09-24] MEDS: NYSTATIN/DEXAMETH/DIPHEN SUSP 120 ML PO SCH (05:16)
[2019-09-24] MEDS: LORAZEPAM 0.5 MG TABLET PO SCH (05:16)
[2019-09-24] MEDS: LEVOTHYROXINE SODIUM 0.1 MG TABLET PO SCH (05:16)
[2019-09-24] MEDS: HYDRALAZINE HCL 25 MG TABLET PO SCH (05:17)
[2019-09-24] MEDS: FAMOTIDINE INJ/PF 20 MG/2 ML SDV IV SCH (09:22)
[2019-09-24] MEDS: DILTIAZEM HCL 240 MG CAPSULE.CR PO SCH (09:22)
[2019-09-24] MEDS: LISINOPRIL 10 MG TABLET PO SCH (09:22)
[2019-09-24] MEDS: APIXABAN 2.5 MG TABLET PO SCH (09:24)
[2019-09-24] MEDS ORDERED: TRAMADOL HCL 50 MG TABLET PO PRN (09:55)
--- NOTE | 2019-09-24 10:14 | PDOC TRANSFER SUMMARY ---
Impression - Admit/DC Date/PCP Admission Date/Primary Care Provider: 09/10/19 17:56 DILMA ALEXANDRE MD Discharge Date: 09/24/19 - Discharge Diagnosis (1) Acute diverticulitis with localized perf Is this a current diagnosis for this admission?: Yes (2) Anxiety Is this a current diagnosis for this admission?: Yes (3) Atrial fibrillation with RVR Is this a current diagnosis for this admission?: Yes (4) COPD (chronic obstructive pulmonary disease) Is this a current diagnosis for this admission?: Yes (5) Hypertension Is this a current diagnosis for this admission?: Yes (6) Hypothyroid Is this a current diagnosis for this admission?: Yes - Assessment Summary: 09/17/2019 Patient has been transferred from the ICU up to the medical floor. We have been reconsulted to assume medical care while patient is convalescing from surgery. Patient's altered mental status may be due to medications. Certainly patient is not hypoxic, nor does she have any apparent embolic reason for altered mental status. Will check labs daily, control blood pressure and glucose. See patient on a daily basis for medical management. I did discuss this with the patient's daughter who is in the room 09/18/2019 vital signs are stable O2 sat between 94 and 100% on 3 L nasal cannula Lactic acid levels normal, ammonia levels normal Patient is receiving IV morphine for pain, asked the nurse to hold this and to call me if it needs to be given as I would like to see her level of consciousness prior to the morphine administration Patient is on IV Cipro for her postop care Patient is receiving D5 lactated Ringer's at 125/h Patient is on Cardizem for her atrial fib We will continue to provide supportive care 09/19/2019 Today patient had difficulty with her atrial fib and controlling her rate , it would vacillate anywhere between 100 and 140. she would respond well to either Lopressor or Cardizem bolus but then her rate would go right back up Preventatively or prophylactically moved her to the IMCU and put her on a Cardizem drip. Until just yesterday she was not able to take her p.o. medications and that was part of the problem. Also was due to sedation and being postop She is now back on her Cardizem CD twice daily. Added her sotalol but at a lower dosage 40 mg twice daily instead of 80 mg due to the fact that she is on Cipro for her abdominal surgery, was concerned about the QT interaction. she also has a significant problem with anxiety, she was taking Valium as needed as an outpatient but due to the long I half-life change that to Ativan now s cheduled every 8 hours. Her pain medicine has been cut back to morphine at 0.5 mg and she seems to be doing well with that. #1 status post abdominal surgery, #2 chronic atrial fib #3 anxiety #4 hype rtension #5 hypothyroidism #6 COPD - Additional Information Resuscitation Status: Do Not Intubate Discharge Diet: Cardiac Discharge Activity: No Lifting Over 10 Pounds, No Lifting/Push/Pulling, Slowly Increase Activity, Supervised Activity Referrals: DILMA ALEXANDRE MD [Primary Care Provider] - Follow up as needed RONY RAMOS MD [ACTIVE STAFF] - (1-2 weeks) Prescriptions: Lorazepam [Ativan 0.5 mg Tablet] 0.5 mg PO Q8 #10 tablet Tramadol HCl [Ultram 50 mg Tablet] 50 mg PO Q6HP PRN #10 tablet PRN Reason: Home Medications: Hydralazine HCl [Apresoline 25 mg Tablet] 25 mg PO BID 09/11/19 Levalbuterol Tartrate [Levalbuterol Tartrate Hfa] 1 puff IH Q6HP PRN 09/11/19 Levothyroxine Sodium [Synthroid] 125 mcg PO Q6AM 09/11/19 Apixaban [Eliquis 2.5 mg Tablet] 2.5 mg PO BID tablet 09/24/19 Diltiazem HCl [Cardizem Cd 240 mg Capsule.cr] 240 mg PO Q12 capsule.cr 09/24/19 Lisinopril [Prinivil 10 mg Tablet] 20 mg PO Q12 tablet 09/24/19 Lorazepam [Ativan 0.5 mg Tablet] 0.5 mg PO Q8 #10 tablet 09/24/19 Tramadol HCl [Ultram 50 mg Tablet] 50 mg PO Q6HP PRN #10 tablet 09/24/19 History of Present Illiness History of Present Illness: RAKAN SUGGS is a 69 year old female with a past medical history of atrial fibrillation with prior ablation, aortic valve replacement, COPD not on home O2, hypothyroidism, history of diverticulosis and acute diverticulitis and hyperte nsion who presented with abdominal pain. Patient says that she has been apparently fine until early this morning when she developed the hypogastric pain. She did report of associated loose, nonbloody stools. She denies fever or chills. In the ER, CT showed sigmoid diverticulitis with 2 pockets of free air consistent with perforation. Upon encounter, she is not in distress. On examination, there is minimal direct hypogastric tenderness with no rebound tenderness or other peritoneal signs. Hospital Course Hospital Course: She was initially managed conservatively, but had increasing free air and fluid below the diaphragm and so underwent a Daiana's procedure. She went to the ICU post-op for a few days due to hypoxemia prior to surgery. She was successfully extubated in the ICU, but experienced some delerium, which eventually resolved. She required IV medications for her chronic conditions until she had return of bowel function. Her sotalol was discontinued in favor of an increased dose of Cardizem, and her warfarin was replaced with Eliquis at cardiology's recommendation. She has tolerated advancement of her diet well. A bed was obtained at [facility] for rehab and she was d/c'd in stable condition. Physical Exam Vital Signs: Temp Pulse Resp BP Pulse Ox 97.5 F 79 17 115/67 95 09/24/19 07:54 09/24/19 07:54 09/24/19 07:54 09/24/19 07:54 09/24/19 07:54 Intake & Output 09/23/19 09/24/19 09/25/19 06:59 06:59 06:59 Intake Total 1526 1930 Output Total 2700 3575 Balance -1174 -1645 Weight 72.1 kg General appearance: PRESENT: no acute distress, cooperative, disheveled, morbidly obese Respiratory exam: PRESENT: clear to auscultation chase, symmetrical, unlabored. ABSENT: accessory muscle use, chest wall tenderness, crackles, prolonged expiratory phas, rhonchi, tachypnea, wheezes Cardiovascular exam: PRESENT: irregular rhythm Pulses: PRESENT: normal carotid pulses Vascular exam: PRESENT: normal capillary refill GI/Abdominal exam: PRESENT: normal bowel sounds, soft, other - Left lower quadrant ostomy with some gas and liquid. ABSENT: distended, guarding, rebound, tenderness Extremities exam: ABSENT: clubbing, pedal edema Musculoskeletal exam: PRESENT: normal inspection. ABSENT: deformity Neurological exam: PRESENT: alert, awake, oriented to person, oriented to place, oriented to situation Psychiatric exam: PRESENT: flat affect, normal mood Skin exam: PRESENT: dry, warm Results Laboratory Results: WBC 13.4 10^3/uL (4.0-10.5) H 09/23/19 04:01 RBC 4.68 10^6/uL (3.72-5.28) 09/23/19 04:01 Hgb 13.7 g/dL (12.0-15.5) 09/23/19 04:01 Hct 41.1 % (36.0-47.0) 09/23/19 04:01 MCV 88 fl (80-97) 09/23/19 04:01 MCH 29.3 pg (27.0-33.4) 09/23/19 04:01 MCHC 33.3 g/dL (32.0-36.0) 09/23/19 04:01 RDW 14.3 % (11.5-14.0) H 09/23/19 04:01 Plt Count 220 10^3/uL (150-450) 09/23/19 04:01 Lymph % (Auto) 6.0 % (13-45) L 09/16/19 04:09 Troup % (Auto) 13.7 % (3-13) H 09/16/19 04:09 Eos % (Auto) 2.9 % (0-6) 09/16/19 04:09 Baso % (Auto) 0.4 % (0-2) 09/16/19 04:09 Absolute Neuts (auto) 9.3 10^3/uL (1.7-8.2) H 09/16/19 04:09 Absolute Lymphs (auto) 0.7 10^3/uL (0.5-4.7) 09/16/19 04:09 Absolute Monos (auto) 1.7 10^3/uL (0.1-1.4) H 09/16/19 04:09 Absolute Eos (auto) 0.4 10^3/uL (0.0-0.6) 09/16/19 04:09 Absolute Basos (auto) 0.0 10^3/uL (0.0-0.2) 09/16/19 04:09 Total Counted 100 09/14/19 03:54 Seg Neutrophils % 77.0 % (42-78) 09/16/19 04:09 Seg Neuts % (Manual) 91 % (42-78) H 09/14/19 03:54 Band Neutrophils % 1 % (3-5) L 09/13/19 22:56 Lymphocytes % (Manual) 4 % (13-45) L 09/14/19 03:54 Monocytes % (Manual) 4 % (3-13) 09/14/19 03:54 Eosinophils % (Manual) 1 % (0-6) 09/14/19 03:54 Basophils % (Manual) 0 % (0-2) 09/14/19 03:54 Abs Neuts (Manual) 13.6 10^3/uL (1.7-8.2) H 09/14/19 03:54 Abs Lymphs (Manual) 0.6 10^3/uL (0.5-4.7) 09/14/19 03:54 Abs Monocytes (Manual) 0.6 10^3/uL (0.1-1.4) 09/14/19 03:54 Absolute Eos (Manual) 0.1 10^3/uL (0.0-0.6) 09/14/19 03:54 Abs Basophils (Manual) 0.0 10^3/uL (0.0-0.2) 09/14/19 03:54 Toxic Granulation SLIGHT 09/12/19 06:23 Toxic Vacuolation PRESENT 09/13/19 22:56 Large Platelets PRESENT 09/11/19 07:21 Platelet Comment DECREASED 09/14/19 03:54 Poikilocytosis SLIGHT 09/12/19 06:23 Anisocytosis SLIGHT 09/12/19 06:23 Ovalocytes SLIGHT 09/13/19 22:56 Reilly Cells SLIGHT 09/12/19 06:23 RBC Morph Comment NORMO-CYTIC/CHROMIC 09/14/19 03:54 PT 18.5 SEC (11.4-15.4) H 09/14/19 03:54 INR 1.52 09/14/19 03:54 APTT 34.7 SEC (23.5-35.8) 09/14/19 03:54 Carbonic Acid 1.68 mmol/L (1.05-1.35) H 09/14/19 05:47 HCO3/H2CO3 Ratio 15:1 09/14/19 05:47 ABG pH 7.28 (7.35-7.45) L 09/14/19 05:47 ABG pCO2 55.9 mmHg (35-45) H 09/14/19 05:47 ABG pO2 79.0 mmHg (80-100) L 09/14/19 05:47 ABG HCO3 25.6 mmol/L (20-24) H 09/14/19 05:47 ABG Total CO2 27.3 mmol/L (21-25) H 09/14/19 05:47 ABG O2 Saturation 94.0 % (94-98) 09/14/19 05:47 ABG Base Excess -2.1 mmol/L 09/14/19 05:47 FiO2 40% 09/14/19 05:47 Sodium 139.8 mmol/L (137-145) 09/16/19 04:09 Potassium 3.8 mmol/L (3.6-5.0) 09/16/19 04:09 Chloride 107 mmol/L (98-107) 09/16/19 04:09 Carbon Dioxide 27 mmol/L (22-30) 09/16/19 04:09 Anion Gap 6 (5-19) 09/16/19 04:09 BUN 18 mg/dL (7-20) 09/16/19 04:09 Creatinine 0.91 mg/dL (0.52-1.25) 09/16/19 04:09 Est GFR ( Amer) > 60 (>60) 09/16/19 04:09 Est GFR (MDRD) Non-Af > 60 (>60) 09/16/19 04:09 Glucose 106 mg/dL (75-110) 09/16/19 04:09 POC Glucose 144 mg/dL (70-110) H 09/14/19 15:51 Lactic Acid 1.3 mmol/L (0.7-2.1) 09/17/19 16:00 Calcium 8.2 mg/dL (8.4-10.2) L 09/16/19 04:09 Phosphorus 2.9 mg/dL (2.5-4.5) 09/14/19 03:54 Magnesium 1.9 mg/dL (1.6-2.3) 09/14/19 03:54 Total Bilirubin 1.6 mg/dL (0.2-1.3) H 09/14/19 03:54 Direct Bilirubin 0.5 mg/dL (0.0-0.4) H 09/14/19 03:54 Neonat Total Bilirubin Not Reportable 09/14/19 03:54 Neonat Direct Bilirubin Not Reportable 09/14/19 03:54 Neonat Indirect Bili Not Reportable 09/14/19 03:54 AST 27 U/L (14-36) 09/14/19 03:54 ALT 14 U/L (<35) 09/14/19 03:54 Alkaline Phosphatase 43 U/L (38-126) 09/14/19 03:54 Ammonia < 8.7 umol/L (9-33) L 09/17/19 16:00 Total Protein 5.3 g/dL (6.3-8.2) L 09/14/19 03:54 Albumin 2.5 g/dL (3.5-5.0) L 09/14/19 03:54 Lipase < 10.0 U/L (23-300) L 09/11/19 07:21 TSH 0.20 uIU/mL (0.47-4.68) L 09/10/19 12:54 Free T4 1.69 ng/dL (0.78-2.19) 09/11/19 07:21 Free T3 pg/mL 2.10 pg/mL (2.77-5.27) L 09/11/19 07:21 Urine Color YELLOW 09/23/19 23:16 Urine Appearance CLEAR 09/23/19 23:16 Urine pH 9.0 (5.0-9.0) 09/23/19 23:16 Ur Specific Niland 1.009 09/23/19 23:16 Urine Protein NEGATIVE mg/dL (NEGATIVE) 09/23/19 23:16 Urine Glucose (UA) NEGATIVE mg/dL (NEGATIVE) 09/23/19 23:16 Urine Ketones NEGATIVE mg/dL (NEGATIVE) 09/23/19 23:16 Urine Blood NEGATIVE (NEGATIVE) 09/23/19 23:16 Urine Nitrite NEGATIVE (NEGATIVE) 09/23/19 23:16 Urine Bilirubin NEGATIVE (NEGATIVE) 09/23/19 23:16 Urine Urobilinogen NEGATIVE mg/dL (<2.0) 09/23/19 23:16 Ur Leukocyte Esterase NEGATIVE (NEGATIVE) 09/23/19 23:16 Urine WBC (Auto) 4 /HPF 09/23/19 23:16 Urine RBC (Auto) 9 /HPF 09/23/19 23:16 Urine Bacteria (Auto) TRACE /HPF 09/21/19 17:10 Squamous Epi Cells Auto <1 /HPF 09/23/19 23:16 Urine Mucus (Auto) RARE /LPF 09/20/19 07:00 Urine Ascorbic Acid NEGATIVE (NEGATIVE) 09/23/19 23:16 Blood Type O POSITIVE 09/13/19 15:43 Antibody Screen NEGATIVE 09/13/19 15:43 Impressions: Abdomen Ultrasound 09/10/19 14:06 IMPRESSION: 1. Possible small volume of gall sludge. 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 The gallbladder is mildly contracted. No pericholecystic fluid. Negative sonographic Szymanski sign. 2. Hepatic steatosis. 3. Mild right hydronephrosis. No obstructing calculus or other etiology identified. Attention on forthcoming CT. 4. Small volume ascites. 5. There is a 1.0 cm cyst, possibly with a thickened septation or nodular component of the right superior pole. Attention on forthcoming CT. Abdomen/Pelvis CT 09/10/19 14:06 IMPRESSION: Moderate inflammatory changes and 2 small 8-10 mm pockets of free air adjacent to the sigmoid -descending colonic junction consistent with perforated diverticulitis. Surgical consultation recommended. Abdomen X-Ray 09/11/19 00:00 IMPRESSION: NO RADIOGRAPHIC EVIDENCE FOR ACUTE ABDOMINAL DISEASE. Chest X-Ray 09/13/19 00:00 IMPRESSION: Recommend retraction of the endotracheal tube, as above. Cardiomegaly with airspace opacities bilaterally copyright 2011 [employer]- All Rights Reserved Abdomen/Pelvis CT 09/13/19 11:00 IMPRESSION: 1. Again seen are the changes from sigmoid diverticulitis. There has been worsening of the pneumoperitoneum with now moderate to large volume pneumoperitoneum and new small volume perihepatic and pelvic ascites. No focal drainable collection. Recommend surgical re-evaluation. 2. New small bilateral pleural effusions, right greater than left. 3. Vicarious excretion of contrast within the gallbladder lumen suggestive of kidney dysfunction. 4. Cardiomegaly. Findings were discussed with TONY Hirsch at 1101 hours on 09/13/2019. Chest X-Ray 09/13/19 16:39 IMPRESSION: Cardiomegaly without pulmonary edema. Cannot exclude limited right lower lobe pneumonia. Pleural calcifications may suggest asbestos exposure. KUB X-Ray 09/13/19 22:26 IMPRESSION: NG tube tip in the stomach. Chest X-Ray 09/14/19 00:00 IMPRESSION: Appropriate position of endotracheal tube. Plan Time Spent: Greater than 30 Minutes Stroke Is this a Stroke Patient?: No Acute Heart Failure - Is this a Heart Failure Patient?: No
[2019-09-24 11:27] VITALS: BP 134/79
== END 2019-09-24 13:14 | DRG 330 ==
LOC: ER 11:32 → EH 17:56 → 3N 20:35 → 3S 09-11 17:15 → ICU 09-13 21:05 → 5 09-16 17:11 → 3W 09-18 18:45
PROVIDERS: ADMIT Hospitalist; ATTEND Hospitalist
PROC: 0D1L0Z4 Bypass Transverse Colon to Cutaneous, Open Approach (ICD-10-PCS; 2019-09-13)
PROC: 0DTN0ZZ Resection of Sigmoid Colon, Open Approach (ICD-10-PCS; principal; 2019-09-13 14:00)
DX: K57.20 Diverticulitis of large intestine with perforation and abscess without bleeding (principal); I48.20 Chronic atrial fibrillation, unspecified; B37.0 Candidal stomatitis; F41.9 Anxiety disorder, unspecified; J44.9 Chronic obstructive pulmonary disease, unspecified; I10 Essential (primary) hypertension; E03.9 Hypothyroidism, unspecified; R41.82 Altered mental status, unspecified; R09.02 Hypoxemia; E66.01 Morbid (severe) obesity due to excess calories; I44.7 Left bundle-branch block, unspecified; R53.83 Other fatigue; T40.2X5A Adverse effect of other opioids, initial encounter; Y92.239 Unspecified place in hospital as the place of occurrence of the external cause; D72.829 Elevated white blood cell count, unspecified; Z79.01 Long term (current) use of anticoagulants; Z95.3 Presence of xenogenic heart valve; Z88.0 Allergy status to penicillin; Z68.31 Body mass index [BMI] 31.0-31.9, adult
CPT/HCPCS: 00840; 36415; 51701; 71045; 74018; 74019; 74177; 76705; 80048; 80053; 81001; 82140; 82247; 82248; 82803; 82962; 83605; 83690; 83735; 84100; 84439; 84443; 84481; 85025; 85027; 85610; 85730; 86850; 86900; 86901; 87040; 87070; 88307; 93005; 93010; 93306; 94002; 94003; 94660; 96360; 96361; 99285; 99291; J0360; J0744; J1160; J1170; J1644; J1885; J2060; J2250; J2270; J2370; J2405; J2704; J3010; J3360; J3480; J3490; J7030; J7120; J7121; S0028

== ENCOUNTER 2020-02-11 02:25 | Emergency (ER) | payer MEDICARE, OTHER ==
[2020-02-11] MEDS ORDERED: DIAZEPAM INJ 10 MG/2 ML DISP.SYRIN IV ONE ×2 (04:04→07:06)
--- NOTE | 2020-02-11 04:18 | ER Document Report ---
Entered by RODGER VELIZ SCRIBE 02/11/20 0326 Acting as scribe for:ZAYRA ZEPEDA IV, MD ED General - General Chief Complaint: Swelling of Lower Extremity Stated Complaint: SWOLLEN FEET Time Seen by Provider: 02/11/20 03:17 Primary Care Provider: KISHAN TEJADA MD [NO LOCAL MD] - Follow up as needed Mode of Arrival: Medic Information source: Patient Notes: This 69 year old female patient with a history of A fib, CHF, HTN, and COPD bro ught in by EMS presents to the ED today with complaints of bilateral lower extremity swelling that started approximately x2 weeks ago. Patient states that she was started on Alprazolam and Celexa for anxiety and depression and noticed that her ankles were swollen. She reports that her ankles have never been swollen like this in the past. She also reports that her PCP advised her to stop taking her Lisinopril recently. She states that she has anxiety concerning isolation due to COVID-19 and has been experiencing orthopnea, difficulty sleeping and decreased appetite. She notes that she was supposed to have a cardiac ablation done in [place], but states that it has been cancelled due to COVID-19. She is followed by Dr. Elin Champagne, pest control supervisor, at [facility]. Denies chest pain. TRAVEL OUTSIDE OF THE [place] IN LAST 30 DAYS: No - Related Data Allergies/Adverse Reactions: Penicillins Allergy (Verified 02/11/20 02:34) Past Medical History - General Information source: Patient, [facility] Records - Social History Smoking Status: Never Smoker Cigarette use (# per day): No Chew tobacco use (# tins/day): No Smoking Education Provided: No Frequency of alcohol use: None Drug Abuse: None Lives with: Alone Family History: Reviewed & Not Pertinent Patient has suicidal ideation: No Patient has homicidal ideation: No - Past Medical History Cardiac Medical History: Reports: Hx Atrial Fibrillation, Hx Congestive Heart Failure, Hx Hypertension Pulmonary Medical History: Reports: Hx COPD Past Surgical History: Reports: Hx Appendectomy, Hx Hysterectomy, Hx Tonsillectomy, Hx Valve Replacement Review of Systems - Review of Systems Constitutional: No symptoms reported EENT: No symptoms reported Cardiovascular: See HPI, Orthopnea. denies: Chest pain Respiratory: No symptoms reported Gastrointestinal: No symptoms reported Genitourinary: No symptoms reported Female Genitourinary: No symptoms reported Musculoskeletal: See HPI, Ankle swelling Skin: No symptoms reported Hematologic/Lymphatic: No symptoms reported Neurological/Psychological: See HPI, Anxiety -: Yes All other systems reviewed and negative Physical Exam - Vital signs Vitals: Temp Pulse Resp BP Pulse Ox 98.9 F 56 L 22 H 138/66 H 95 02/11/20 02:37 02/11/20 02:37 02/11/20 02:37 02/11/20 02:37 02/11/20 02:37 - General General appearance: Alert, Anxious In distress: None - HEENT Head: Normocephalic, Atraumatic Eyes: Normal Pupils: PERRL - Respiratory Respiratory status: No respiratory distress Chest status: Nontender Breath sounds: Normal Chest palpation: Normal - Cardiovascular Rhythm: Irregularly irregular, Tachycardia Heart sounds: Normal auscultation Murmur: No Friction rub: No Gallop: None auscultated - Abdominal Inspection: Normal Distension: No distension Bowel sounds: Normal Tenderness: Nontender - Abdomen soft Organomegaly: No organomegaly - Back Back: Normal, Nontender - Extremities General upper extremity: Normal inspection General lower extremity: Edema - Non-pitting edema noted to LE bilaterally - Neurological Neuro grossly intact: Yes - Psychological Associated symptoms: Anxious - Skin Skin Temperature: Warm Skin Moisture: Dry Skin Color: Normal Course - Vital Signs Vital signs: Temp Pulse Resp BP Pulse Ox 98.9 F 56 L 23 H 109/81 97 02/11/20 02:37 02/11/20 02:37 02/11/20 05:01 02/11/20 05:01 02/11/20 05:25 - Laboratory Result Diagrams: 02/11/20 03:39 02/11/20 03:39 Laboratory results interpreted by me: 02/11/20 02/11/20 02/11/20 03:39 03:39 03:39 Seg Neuts % (Manual) 89 H Lymphocytes % (Manual) 6 L Abs Neuts (Manual) 9.1 H PT D-Dimer Sodium 122.9 L Chloride 87 L Glucose 125 H Total Bilirubin 3.1 H AST 81 H NT-Pro-B Natriuret Pep 8760 H 02/11/20 03:39 Seg Neuts % (Manual) Lymphocytes % (Manual) Abs Neuts (Manual) PT 16.0 H D-Dimer 1.13 H Sodium Chloride Glucose Total Bilirubin AST NT-Pro-B Natriuret Pep - EKG Interpretation by Me Additional EKG results interpreted by me: 02/11/20 06:35 EKG obtained on 02/11/2020 at 0437 hrs. was interpreted by this MD. Findings: Atrial fibrillation with rapid ventricular rate, rate 111, left bundle branch block is present. Left bundle branch block is noted to be present on EKG from 09/20/2019. There are ST segment abnormalities present that are difficult to interpret in light of the left bundle branch block, however the ST segments show changes compared with EKG from January 18, 2020. These changes were discussed with Dr. Wallace; he was able to view the January 17 EKG from [facility] on his computer during consult. - Consults Dr. Wallace, cardiology Time consulted: 05:50 - Dr. Wallace recommended patient be transferred to tertiary care center with interventional cardiology availability Reason for consultation: 02/11/20 06:39 New onset CHF, abnormal EKG, positive troponin Dr. Fredy Light, hospitalist with [facility] in [facility] Time consulted: 06:14 - Dr. Light accept patient for transfer to his facility. Reason for consultation: 02/11/20 06:40 Patient established with [facility] cardiology in ED with new onset CHF, elevated troponin Discharge - Discharge Clinical Impression: New onset of congestive heart failure, Elevated troponin I level Condition: Good Disposition: [facility] Referrals: KISHAN TEJADA MD [NO LOCAL MD] - Follow up as needed I personally performed the services described in the documentation, reviewed and edited the documentation which was dictated to the scribe in my presence, and it accurately records my words and actions.
[2020-02-11 04:45] LABS: HEMOGLOBIN 14.5 g/dL (12.0-15.5); MEAN CORPUSCULAR HEMOGLOBIN 29.5 pg (27.0-33.4); MEAN CORPUSCULAR HGB CONC 34.5 g/dL (32.0-36.0); MEAN CORPUSCULAR VOLUME 86 fl (80-97); PLATELET COUNT 171 10^3/uL (150-450); RED BLOOD COUNT 4.91 10^6/uL (3.72-5.28); RED CELL DISTRIBUTION WIDTH 13.6 % (11.5-14.0); WHITE BLOOD COUNT 10.2 10^3/uL (4.0-10.5)
[2020-02-11 04:48] LABS: INTERNATIONAL RATION (INR) 1.27
[2020-02-11 04:49] LABS: ALBUMIN 4.1 g/dL (3.5-5.0); ALKALINE PHOSPHATASE 54 U/L (38-126); ANION GAP 10 (5-19); ASPARTATE AMINO TRANSFERASE 81 U/L (14-36); BILIRUBIN,DIRECT 0.1 mg/dL (0.0-0.4); BILIRUBIN,TOTAL 3.1 mg/dL (0.2-1.3); BLOOD UREA NITROGEN 17 mg/dL (7-20); CALCIUM 9.2 mg/dL (8.4-10.2); CARBON DIOXIDE 26 mmol/L (22-30); CHLORIDE 87 mmol/L (98-107); GLUCOSE 125 mg/dL (75-110); PARTIAL THROMBOPLASTIN TIME 28.9 SEC (23.5-35.8); TOTAL PROTEIN 7.1 g/dL (6.3-8.2)
[2020-02-11 04:51] LABS: D-DIMER 1.13 ug/mL (0.00-0.50)
[2020-02-11 05:06] LABS: TROPONIN I 2.13 ng/mL
[2020-02-11 05:11] LABS: ABSOLUTE LYMPHOCYTES# (MANUAL) 0.6 10^3/uL (0.5-4.7); ABSOLUTE MONOCYTES # (MANUAL) 0.5 10^3/uL (0.1-1.4); BASOPHILS % (MANUAL) 0 % (0-2); EOSINOPHILS % (MANUAL) 0 % (0-6); LYMPHOCYTES % (MANUAL) 6 % (13-45); MONOCYTES % (MANUAL) 5 % (3-13); SEGMENTED NEUTROPHILS % (MAN) 89 % (42-78); TOTAL CELLS COUNTED 100
[2020-02-11 05:12] LABS: BURR CELLS SLIGHT; PLATELET COMMENT ADEQUATE; POIKILOCYTOSIS SLIGHT; TOXIC GRANULATION 1+; TOXIC VACUOLATION PRESENT
--- NOTE | 2020-02-11 05:19 | RADIOLOGY REPORT (SQ) ---
CHEST 1 VIEW on 02/11/2020 at 4:32 AM CLINICAL INDICATION: Shortness of breath COMPARISON: 09/14/2019 FINDINGS: The patient is status post median sternotomy. Cardiomegaly is noted. Hilar and mediastinal contours are within normal limits. The lungs are clear. Pulmonary vascularity is within normal limits. IMPRESSION: Cardiomegaly with no acute pulmonary disease.
[2020-02-11] MEDS ORDERED: ASPIRIN 81 MG TABLET, CHEWABLE PO ONE ×2 (05:50→06:28)
[2020-02-11] MEDS ORDERED: ENOXAPARIN SODIUM INJ 80 MG/0.8 ML DISP.SYRIN SUBCUT ONE (05:53)
[2020-02-11] MEDS ORDERED: ATORVASTATIN CALCIUM 80 MG TABLET PO ONE (06:15)
[2020-02-11] MEDS ORDERED: FUROSEMIDE INJ/PF 20 MG/2 ML SDV IV ONE (07:07)
--- NOTE | 2020-02-11 08:02 | ER Document Report ---
Doctor's Note Notes: 02/11/20 08:01 Patient is being transported to [facility] at this time. She remains hemodynamically stable and is pain-free. I just looked at her repeat EKG and this is unchanged from the first. Her troponin however has bumped up to approximately 20.
[2020-02-11 08:24] VITALS: BP 133/102
--- NOTE | 2020-02-12 10:28 | EKG REPORT ---
SEVERITY:- ABNORMAL ECG - ATRIAL FIBRILLATION, V-RATE 88-153 VENTRICULAR PREMATURE COMPLEX LEFT BUNDLE BRANCH BLOCK : Confirmed by: Leora Whaley 12-Feb-2020 10:28:08
--- NOTE | 2020-02-12 10:30 | EKG REPORT ---
SEVERITY:- ABNORMAL ECG - ATRIAL FIBRILLATION, V-RATE 83-153 IVCD, CONSIDER ATYPICAL RBBB ANTERIOR Q WAVES, POSSIBLY DUE TO LVH VS IVCD : Confirmed by: Leora Whaley 12-Feb-2020 10:29:00
== END 2020-02-11 08:03 | disposition short-term general hospital (02) ==
LOC: ER 02:25
DX: I11.0 Hypertensive heart disease with heart failure (principal); I50.9 Heart failure, unspecified; R79.89 Other specified abnormal findings of blood chemistry; I48.91 Unspecified atrial fibrillation; I44.7 Left bundle-branch block, unspecified; R00.0 Tachycardia, unspecified; J44.9 Chronic obstructive pulmonary disease, unspecified; F41.9 Anxiety disorder, unspecified; F32.9 Major depressive disorder, single episode, unspecified; R63.0 Anorexia; R06.01 Orthopnea; Z88.0 Allergy status to penicillin
CPT/HCPCS: 93005; 96376; 99285; 96372; 51702; 96374; 96375; 36415; 85025; 85610; 85730; 80053; 84484; 85379; 83880; 71045; 93010; J3360; J1940; J1650; A9270

== ENCOUNTER 2020-02-25 18:48 | Emergency (ER) | payer MEDICARE, OTHER ==
--- NOTE | 2020-02-25 21:23 | ER Document Report ---
ED GI/ - General Chief Complaint: Loose Stools Stated Complaint: RECTAL PAIN Time Seen by Provider: 02/25/20 20:10 Primary Care Provider: DILMA ALEXANDRE MD [Primary Care Provider] - Follow up as needed Mode of Arrival: Medic Information source: Patient Notes: This 69-year-old woman presents to the emergency department with a history of colostomy which was done in August of this year. Tonight she is in the emergency department because she had noticed a brownish material from the rectal region. She denies pain, bleeding or associated symptoms. The colostomy is draining normally and she is anxious because this is the first time that she is noticed this material. She is recently discharged from [facility], now wearing a LifeVest. The patient is living alone and is quite anxious. TRAVEL OUTSIDE OF THE [place] IN LAST 30 DAYS: No - Related Data Allergies/Adverse Reactions: Penicillins Allergy (Verified 02/11/20 02:34) Home Medications: Nitroglycerin tablets PRN, Levothyroxine, Furosemide, Metoprolol Succ ER, Digoxin, Entresto, Magnesium Oxide, Eliquis, Potassium Cl ER Past Medical History - Social History Smoking Status: Never Smoker Frequency of alcohol use: None Drug Abuse: None Family History: Reviewed & Not Pertinent Patient has homicidal ideation: No - Past Medical History Cardiac Medical History: Reports: Hx Atrial Fibrillation, Hx Congestive Heart Failure, Hx Hypertension Pulmonary Medical History: Reports: Hx COPD Renal/ Medical History: Denies: Hx Peritoneal Dialysis Past Surgical History: Reports: Hx Abdominal Surgery - Colostomy August 2019, Hx Appendectomy, Hx Hysterectomy, Hx Tonsillectomy, Hx Valve Replacement Review of Systems - Review of Systems Notes: Constitutional: Negative for fever. HENT: Negative for sore throat. Eyes: Negative for visual changes. Cardiovascular: + LifeVest negative for chest pain. Respiratory: Negative for shortness of breath. Gastrointestinal: + Colostomy, negative for abdominal pain, vomiting or diarrhea. Genitourinary: Negative for dysuria. Musculoskeletal: Negative for back pain. Skin: Negative for rash. Neurological: Negative for headaches, weakness or numbness. 10 point ROS negative except as marked above and in HPI. Physical Exam - Vital signs Vitals: Temp 98.7 F 02/25/20 19:07 - Notes Notes: PHYSICAL EXAMINATION: Physical Exam: General: Well-nourished well-developed 69-year-old woman in no acute distress HEENT: NC/AT, pupils equal round and reactive to light, MM moist,nares clear, oropharynx clear, airway patent Neck: supple, no adenopathy, no masses. Good range of motion Lungs: clear, no wheezing, no rales no rhonchi CVS: Regular rate and rhythm no murmur gallop or rub Abdomen: Soft, active, left sided colostomy draining normally, nontender, no masses, no hepatosplenomegaly Ext: No edema, clubbing or cyanosis. Neuro: Alert and responsive, moving all 4 extremities on command, cranial nerves intact, no focal findings Skin: Intact no open lesions, no rash PSYCH: Normal mood, normal affect. Course - Re-evaluation Re-evalutation: 02/25/20 21:20 Dr Zamora, general surgery was called and after a short discussion noted that this is a normal finding and that the patient should not be concerned, however he will see her in the office for follow-up if she has other concerns. - Vital Signs Vital signs: Temp Pulse Resp BP Pulse Ox 98.7 F 102 H 16 137/83 H 97 02/25/20 19:07 02/25/20 19:15 02/25/20 19:15 02/25/20 19:15 02/25/20 19:15 Discharge - Discharge Clinical Impression: Rectal discharge, History of colostomy Condition: Good Disposition: HOME, SELF-CARE Additional Instructions: He was seen in the emergency department with discharge from the rectum, discharge of mucousy material from the distal stump of a colostomy is not unusual in his normal process. Your surgeon was contacted and he is willing to see you in the office next week or you may wait until your appointment on 15 March. If you have other problems or concerns you may return to the emergency department for further evaluation and treatment. HOME CARE INSTRUCTIONS & INFORMATION: Thank you for choosing us for your medical needs. We hope you're satisfied with the care you received. After you leave, you must properly care for your problem and, at the same time, observe its progress. Any condition can change. Some illnesses can change rapidly over hours or days. If your condition worsens, return to the Emergency Department or see your physician promptly. ABOUT YOUR X-RAYS AND EKG'S: If you had an EKG or X-rays taken, they have been read by the Emergency Physician. The X-rays and EKG's will also be read by a Radiologist or Car Carder within 24 hours. If discrepancies are noted, you will be notified by telephone. Please be certain the ED has a correct telephone number & address where you can be reached. Also, realize that some fractures or abnormalities do not show up on initial X-rays. If your symptoms continue, see your physician. ABOUT YOUR LABORATORY TEST: If you had laboratory tests, the results have been reviewed by the Emergency Physician. Some test results (for example cultures) may not be available for several days. You will be contacted if any test result shows you need additional treatment. Please be certain the ED has a correct telephone number and address where you can be reached. ABOUT YOUR MEDICATIONS: You will receive instructions on how to take your medicine on the prescription label you receive. Additional information may be provided by the Pharmacy. If you have questions afterwards, call the ED for clarification or further instructions. Some prescribed medications may cause drowsiness. Do not perform tasks such as driving a car or operating machinery without consulting your Pharmacist. If you feel you need a refill of pain medication, your condition will need re-evaluation. Please do not call for a refill of any medication. ABOUT YOUR SIGNATURE: Signature of this document acknowledges to followin. Understanding that you received emergency treatment and that you may be released before al medical problems are known or treated. Please be certain the ED has a correct phone number & address where you can be reached. 2. Acknowledgement that you will arrange for follow-up care as recommended. 3. Authorization for the Emergency Physician to provide information to your follow-up Physician in order to maximize your care. AT ANY TIME, IF YOUR SYMPTOMS CHANGE SIGNIFICANTLY OR WORSEN OR YOU DEVELOP NEW SYMPTOMS, RETURN TO THE EMERGENCY DEPARTMENT IMMEDIATELY FOR RE-EVALUATION. OUR GOAL IS TO PROVIDE EXCELLENT MEDICAL CARE! WE HOPE THAT WE HAVE MET YOUR EXPECTATIONS DURING YOUR EMERGENCY DEPARTMENT VISIT AND THAT YOU FEEL YOU HAVE RECEIVED EXCELLENT CARE! Referrals: DILMA ALEXANDRE MD [Primary Care Provider] - Follow up as needed
[2020-02-25 22:44] VITALS: BP 135/86
== END 2020-02-25 23:03 | disposition home or self-care (01) ==
LOC: ER 18:48
DX: R09.89 Other specified symptoms and signs involving the circulatory and respiratory systems (principal); Z98.890 Other specified postprocedural states; I48.91 Unspecified atrial fibrillation; I11.0 Hypertensive heart disease with heart failure; I50.9 Heart failure, unspecified; J44.9 Chronic obstructive pulmonary disease, unspecified; Z79.899 Other long term (current) drug therapy; Z79.01 Long term (current) use of anticoagulants; Z95.811 Presence of heart assist device; Z90.49 Acquired absence of other specified parts of digestive tract; Z88.0 Allergy status to penicillin
CPT/HCPCS: 99283

== ENCOUNTER 2020-10-02 01:52 | Inpatient (IN) | payer MEDICARE, OTHER ==
--- NOTE | 2020-10-02 05:12 | ER Document Report ---
ED General - General Mode of Arrival: Medic Information source: Patient TRAVEL OUTSIDE OF THE [place] IN LAST 30 DAYS: No <LANIE SHEEHAN - Last Filed: 10/02/20 08:22> <ANALI OCHOA - Last Filed: 10/02/20 12:07> <FAROOQ MALHOTRA - Last Filed: 10/02/20 18:46> - General Chief Complaint: Psych Problem Stated Complaint: IVC Notes: 70-year-old female patient presented to the emergency department with concern for possible suicidal ideations. Patient apparently lives alone, law enforcement was called by her family, told that patient has not been taking care of herself, states she "is tired". They are worried that patient has given up and is not taking her medications. Patient denies any active suicidal or homicidal thoughts. Patient does states she is tired of being sick all the time. Upon review of patient's records she has a history of A. fib with RVR, diverticulitis, hypothyroidism, COPD, hypertension, anxiety and CHF. We have sent off a request for records from [facility]. (LANIE SHEEHAN) - Related Data Allergies/Adverse Reactions: Penicillins Allergy (Verified 10/02/20 14:18) Past Medical History - General Information source: Patient - Social History Smoking Status: Never Smoker Frequency of alcohol use: None Drug Abuse: None Family History: Reviewed & Not Pertinent - Past Medical History Cardiac Medical History: Reports: Hx Atrial Fibrillation, Hx Congestive Heart Failure, Hx Hypertension Pulmonary Medical History: Reports: Hx COPD Renal/ Medical History: Denies: Hx Peritoneal Dialysis Past Surgical History: Reports: Hx Abdominal Surgery - Colostomy August 2019, Hx Appendectomy, Hx Hysterectomy, Hx Tonsillectomy, Hx Valve Replacement <LANIE SHEEHAN - Last Filed: 10/02/20 08:22> Review of Systems - Review of Systems -: Yes All other systems reviewed and negative - see HPI <LANIE SHEEHAN - Last Filed: 10/02/20 08:22> Physical Exam <LANIE SHEEHAN - Last Filed: 10/02/20 08:22> - Vital signs Vitals: Temp BP Pulse Ox 98.2 F 98/77 L 97 10/02/20 07:00 10/02/20 07:00 10/02/20 07:00 - Notes Notes: PHYSICAL EXAMINATION: GENERAL: Appears to be stated age, no acute distress. HEAD: Atraumatic, normocephalic. EYES: Pupils equal round and reactive to light, extraocular movements intact, conjunctiva are slightly yellow. ENT: Nares patent, oropharynx clear without exudates. Moist mucous membranes. NECK: Normal range of motion, supple without lymphadenopathy LUNGS: Faint expiratory wheezes noted bilaterally. Normal work of breathing. HEART: Regular rate and rhythm without murmurs ABDOMEN: Soft, nontender, nondistended abdomen. No guarding, no rebound. No masses appreciated. Female : deferred Musculoskeletal: Normal range of motion, no pitting or edema. No cyanosis. NEUROLOGICAL: Cranial nerves grossly intact. Normal speech. Normal sensory, motor exams PSYCH: Normal mood, normal affect. SKIN: Jaundiced. (LANIE SHEEHAN) Course - Laboratory Results Result Diagrams: 10/02/20 02:32 10/02/20 02:32 <LANIE SHEEHAN - Last Filed: 10/02/20 08:22> - Laboratory Results Result Diagrams: 10/02/20 02:32 10/02/20 10:55 <ANALI OCHOA - Last Filed: 10/02/20 12:07> - Laboratory Results Result Diagrams: 10/02/20 02:32 10/02/20 10:55 Critical Laboratory Results Reviewed: Yes Attending or Supervising Physician who Reviewed Labs: CASTILLO LOPEZ md aware of labs - Radiology Results Critical Radiology Results Reviewed: No Critical Results <FAROOQ MALHOTRA - Last Filed: 10/02/20 18:46> - Re-evaluation Re-evalutation: I do not suspect that the patient is in fact suicidal. She does seem down and depressed. I feel that she has some underlying acute medical issues at this time. She is jaundiced. She denies having any history of liver or kidney issues. She is denying any acute complaints other than feeling tired. Orders have been significantly delayed secondary to downtime procedures. 10/02/20 06:17 At this time I have called the lab to inquire about the patient's lab results. The charge nurse did report to me that patient had a potassium of 6.5. The rest of patient's chemistry have not resulted yet, and the lab states they are going to fax them as they did not cross over during downtime. Records requested from [facility]. (LANIE SHEEHAN) 10/02/20 12:50 spoke w/ Dr Quiles- hospitalist- will admit pt to [facility]. plan for possible mrcp and continue fluid resuscitation (FAROOQ MALHOTRA) - Vital Signs Vital signs: Temp Pulse Resp BP Pulse Ox 98.7 F 16 110/68 100 10/02/20 15:30 10/02/20 17:01 10/02/20 17:01 10/02/20 17:01 - Laboratory Results Laboratory Results Interpreted: 10/02/20 10/02/20 10/02/20 02:32 02:32 02:32 RBC 5.43 H Hct 47.2 H MCHC 31.9 L RDW 17.4 H Seg Neuts % (Manual) 94 H Lymphocytes % (Manual) 3 L Abs Lymphs (Manual) 0.2 L PT 31.6 H APTT 38.3 H Sodium 132.2 L Potassium 6.5 H* Chloride 97 L BUN 93 H Creatinine 2.69 H Est GFR ( Amer) 21 L Est GFR (MDRD) Non-Af 17 L Total Bilirubin 4.5 H Direct Bilirubin 1.5 H AST 58 H ALT 82 H Alkaline Phosphatase 135 H Total Protein Albumin Salicylates < 1.0 L Acetaminophen < 10 L 10/02/20 10:55 RBC Hct MCHC RDW Seg Neuts % (Manual) Lymphocytes % (Manual) Abs Lymphs (Manual) PT APTT Sodium 132.3 L Potassium 5.9 H Chloride BUN 90 H Creatinine 2.47 H Est GFR ( Amer) 23 L Est GFR (MDRD) Non-Af 19 L Total Bilirubin 3.7 H Direct Bilirubin 1.1 H AST 50 H ALT 73 H Alkaline Phosphatase Total Protein 5.5 L Albumin 3.1 L Salicylates Acetaminophen Discharge <LANIE SHEEHAN - Last Filed: 10/02/20 08:22> <ANALI OCHOA - Last Filed: 10/02/20 12:07> - Discharge Admitting Provider: Etta (Hospitalist) Unit Admitted: Telemetry <FAROOQ MALHOTRA - Last Filed: 10/02/20 18:46> - Discharge Clinical Impression: Hyperbilirubinemia, JUNAID (acute kidney injury), Hyperkalemia Depression Qualifiers: Depression Type: major depressive disorder Qualified Code(s): F32.9 - Major depressive disorder, single episode, unspecified Condition: Serious Disposition: ADMITTED INPATIENT
--- NOTE | 2020-10-02 05:54 | RADIOLOGY REPORT (SQ) ---
CHEST X-RAY 1 VIEW on 10/02/2020 at 3:21 AM CLINICAL INDICATION: Altered mental status COMPARISON: 02/11/2020 FINDINGS: The patient is status post median sternotomy. Cardiomegaly is noted. There is right basilar opacity consistent with likely trace right pleural effusion and adjacent right basilar atelectasis and/or pneumonia. The lungs are otherwise clear. Hilar and mediastinal contours are within normal limits. IMPRESSION: Right basilar opacity consistent with atelectasis and/or pneumonia and probable trace right pleural effusion.
[2020-10-02] MEDS ORDERED: NORMAL SALINE 1000 ML 1,000 ML IV ONE ×2 (05:58→08:30)
[2020-10-02 06:25] LABS: HEMATOCRIT 47.2 % (36.0-47.0); HEMOGLOBIN 15.1 g/dL (12.0-15.5); MEAN CORPUSCULAR HEMOGLOBIN 27.7 pg (27.0-33.4); MEAN CORPUSCULAR HGB CONC 31.9 g/dL (32.0-36.0); MEAN CORPUSCULAR VOLUME 87 fl (80-97); PLATELET COUNT 151 10^3/uL (150-450); RED BLOOD COUNT 5.43 10^6/uL (3.72-5.28); RED CELL DISTRIBUTION WIDTH 17.4 % (11.5-14.0)
[2020-10-02 06:27] LABS: ABSOLUTE LYMPHOCYTES# (MANUAL) 0.2 10^3/uL (0.5-4.7); ABSOLUTE MONOCYTES # (MANUAL) 0.2 10^3/uL (0.1-1.4); ANISOCYTOSIS SLIGHT; BASOPHILS % (MANUAL) 0 % (0-2); BURR CELLS SLIGHT; EOSINOPHILS % (MANUAL) 0 % (0-6); LYMPHOCYTES % (MANUAL) 3 % (13-45); MONOCYTES % (MANUAL) 3 % (3-13); OVALOCYTES SLIGHT; PLATELET COMMENT ADEQUATE; POIKILOCYTOSIS SLIGHT; SCHISTOCYTES SLIGHT; SEGMENTED NEUTROPHILS % (MAN) 94 % (42-78); TARGET CELLS SLIGHT; TOTAL CELLS COUNTED 100; TOXIC GRANULATION SLIGHT; TOXIC VACUOLATION PRESENT
[2020-10-02 06:43] LABS: BLOOD UREA NITROGEN 93 mg/dL (7-20); CALCIUM 9.5 mg/dL (8.4-10.2); CHLORIDE 97 mmol/L (98-107); GLUCOSE 102 mg/dL (75-110); POTASSIUM 6.5 mmol/L (3.6-5.0)
[2020-10-02 06:44] LABS: ALBUMIN 3.9 g/dL (3.5-5.0); ALKALINE PHOSPHATASE 135 U/L (38-126); ANION GAP 13 (5-19); ASPARTATE AMINO TRANSFERASE 58 U/L (14-36); BILIRUBIN,TOTAL 4.5 mg/dL (0.2-1.3); CARBON DIOXIDE 22 mmol/L (22-30)
[2020-10-02 06:46] LABS: ACETAMINOPHEN < 10 ug/mL (10-30); ALCOHOL < 10 mg/dL (NONE DETECTED); BILIRUBIN,DIRECT 1.5 mg/dL (0.0-0.4); TOTAL PROTEIN 6.5 g/dL (6.3-8.2)
[2020-10-02 06:53] LABS: PARTIAL THROMBOPLASTIN TIME 38.3 SEC (23.5-35.8)
[2020-10-02 06:54] LABS: INTERNATIONAL RATION (INR) 3.08; PROTHROMBIN TIME 31.6 SEC (11.4-15.4)
[2020-10-02] MEDS ORDERED: SODIUM POLYSTYRENE SULFONATE 15 GM/60 ML PO ONE (06:54)
[2020-10-02] MEDS ORDERED: CALCIUM GLUCONATE 1000 MG/10 ML INJ IV ONE (06:54)
[2020-10-02 07:37] LABS: SALICYLATE < 1.0 mg/dL (2.0-20.0)
--- NOTE | 2020-10-02 09:43 | ER Document Report ---
Doctor's Note Notes: 10/02/20 09:35 Assumed care of patient at signout at 08 30. Briefly, patient had been brought to the ER by law enforcement out of concerns family had regarding possible SI due to patient not taking medications and just feeling "tired". Patient initially was put on IVC papers. Once patient arrived to the ER she is clearly jaundiced and fatigued. Her total bili is 4.5. She has a acute kidney injury with a creatinine of 2.69 and BUN 91. Potassium 6.5 which apparently was not hemolyzed. CXR noted small right pleural effusion and atelectasis. PT was given 1 liter IVF, kayexalate, calcium gluconate, and Levaquin. Pt has become slightly more hypotensive than when she arrived w/ SBP 90's and MAP 65. pulse is 73. 2nd liter of IV started for JUNAID and hypotension. Dr Mckee and agrees w/ plan of care. Pending abdominal US, lactate, lipase at this time. PT will likely be admitted. 10/02/20 11:07 I had a further discussion with the patient regarding her mental status. She adamantly denies that she has any suicidal ideation. She denies any history of SI/HI or AH/VH. Patient is on IVC papers, I believe patient's acute medical condition is likely the cause of her fatigue and poor self-care at home. I updated psych and they are seeing the patient now to determine if IVC papers should be rescinded. Abdominal ultrasound reviewed, trace ascites and fatty liver noted. No ductal dilation or obstruction. Pending repeat CMP to recheck patient's kidney function and potassium. She is almost completed her second liter of IV fluids and had also received IV Levaquin. Patient's blood pressure has remained stable around 105/80. EKG reviewed by ER physicianDr. Rodriges. Beverley. fib with a rate of 99, LBBB QTC 545. EKG unchanged from prior. 10/02/20 12:03 cnsulted hospitalist- agrees to admit pt. potassium recheck has decreased to 6 from 6.5. psych also evaluated the pt and cleared her and will remove IVC papers. 10/02/20 12:04
--- NOTE | 2020-10-02 09:56 | RADIOLOGY REPORT (SQ) ---
EXAM DESCRIPTION: U/S ABDOMEN LTD W/DOPPLER IMAGES COMPLETED DATE/TIME: 10/02/2020 9:00 am REASON FOR STUDY: elevated bilirubin COMPARISON: None. TECHNIQUE: Dynamic and static grayscale images acquired of the abdomen and recorded on PACS. Additio nal selected color Doppler and spectral images recorded. LIMITATIONS: Limited visualization. Poor acoustical window FINDINGS: PANCREAS: No masses. Visualized pancreatic duct normal caliber. LIVER: Normal size Mild fatty infiltration. 3 cm cyst right lobe. LIVER VASCULATURE: Normal directional flow of the main portal vein and hepatic veins. GALLBLADDER: No stones. Normal wall thickness. No pericholecystic fluid. ULTRASOUND-DETECTED GERARD'S SIGN: Negative. INTRAHEPATIC DUCTS AND COMMON DUCT: CBD and intrahepatic ducts normal caliber. No filling defects. INFERIOR VENA CAVA: Obscured. AORTA: No aneurysm. RIGHT KIDNEY: 7.8 cm. Increased cortical echotexture. No solid or suspicious masses. No hydron ephrosis. No calcifications. PERITONEAL AND RIGHT PLEURAL SPACE: Trace of ascites. OTHER: No other significant findings. IMPRESSION: Fatty liver. No dilated ducts. Trace ascites. TECHNICAL DOCUMENTATION: JOB ID: [id number] [email or web address]- All Rights Reserved Reading location - IP/workstation name: [email or web address]
[2020-10-02 11:48] LABS: ALBUMIN 3.1 g/dL (3.5-5.0); ALKALINE PHOSPHATASE 105 U/L (38-126); ANION GAP 8 (5-19); ASPARTATE AMINO TRANSFERASE 50 U/L (14-36); BILIRUBIN,DIRECT 1.1 mg/dL (0.0-0.4); BILIRUBIN,TOTAL 3.7 mg/dL (0.2-1.3); BLOOD UREA NITROGEN 90 mg/dL (7-20); CALCIUM 8.9 mg/dL (8.4-10.2); CARBON DIOXIDE 22 mmol/L (22-30); CHLORIDE 102 mmol/L (98-107); GLUCOSE 89 mg/dL (75-110); POTASSIUM 5.9 mmol/L (3.6-5.0); TOTAL PROTEIN 5.5 g/dL (6.3-8.2)
[2020-10-02] MEDS ORDERED: LEVOFLOXACIN 750 MG/D5W RTU 750 MG/150 ML RTUPB IV ONE (13:30)
--- NOTE | 2020-10-02 14:19 | EKG REPORT ---
SEVERITY:- ABNORMAL ECG - ATRIAL FIBRILLATION, V-RATE 74-109 VENTRICULAR PREMATURE COMPLEX NONSPECIFIC IVCD WITH LAD PROBABLE LVH WITH SECONDARY REPOL ABNRM : Confirmed by: Rosey Leo MD 02-Oct-2020 14:18:30
--- NOTE | 2020-10-02 14:20 | EKG REPORT ---
SEVERITY:- ABNORMAL ECG - ATRIAL FIBRILLATION IVCD, CONSIDER ATYPICAL LBBB : Confirmed by: Rosey Leo MD 02-Oct-2020 14:18:38
[2020-10-02] MEDS ORDERED: IPRATROPIUM/ALBUTEROL 0.5-2.5 MG/3 ML AMPUL NEB PRN (16:52)
[2020-10-02] MEDS ORDERED: ACETAMINOPHEN 325 MG TABLET PO PRN (16:52)
[2020-10-02] MEDS ORDERED: ONDANSETRON 4 MG TAB.RAPDIS PO PRN (16:52)
[2020-10-02] MEDS ORDERED: ONDANSETRON HCL INJ/PF 4 MG/2 ML SDV IV PRN (16:52)
--- NOTE | 2020-10-02 16:52 | PSYCHOLOGICAL NOTE ---
Psych Note - Psych Note Date seen by psych provider: 10/02/20 Time seen by psych provider: 11:11 Psych Note: Reason for Consult: suicidal ideation [id number] Patient is a 70 year old female who was admitted to the ED via EMS for medical concerns. Patient denies suicidal ideation, plan, and intent. She denies homicidal ideation, plan, and intent. She reports stressors related to medical issues and reports ongoing depression and anxiety, but states she wants to live and has never been suicidal. Patient denies history of suicide attempts and inpatient hospitalization. She is currently prescribed Lexapro. Patient reports taking medication as prescribed. She states she lives alone and is able to take care of herself. She is not involved in outpatient therapy. Patient reports being tired of her medical issues, but states she is not suicidal. Patient was alert and oriented to self, person, place, time and situation. Mood was euphoric with congruent affect. She denies current suicidal and homicidal ideation, plan, and intent. Patient did not appear to be responding to internal stimuli as evidenced by fair eye contact and answering questions appropriately when addressed. Thought processes are linear and organized. Conversational speech was within normal limits for rate, tone and prosody. Intellectual abilities are estimated to be average. Insight, judgment and impulse control were fair as evidenced by calling EMS for medical assistance and not acting on passive SI. Patient engages appropriately. She demonstrates future forward goal oriented thinking as she talks about the upcoming holidays. Clinical Presentation: passive suicidal ideation IVC Criteria per [place] GS 122C Dangerous to others Within the relevant past the individual No has inflicted or attempted to inflict or threatened to inflict serious bodily harm on another AND No that there is a reasonable probability that this conduct will be repeated. OR No has acted in such a way as to create a substantial risk of serious bodily harm to another AND No that there is a reasonable probability that this conduct will be repeated. OR No has engaged in extreme destruction of property AND NO that there is a reasonable probability that this conduct will be repeated. Previous episodes of dangerousness to others, when applicable, may be considered when determining reasonable probability of future dangerous conduct. Clear, cogent, and convincing evidence that an individual has committed a homicide in the relevant past is prima facie evidence of dangerousness to others. Dangerous to self Within the relevant past the individual has done any of the following: acted in such a way as to show ALL of the following: No The individual would be unable without care, supervision, and the continued assistance of others not otherwise available, to exercise self- control, judgment, and discretion in the conduct of the individual's daily responsibilities and social relations or to satisfy the individual's need for nourishment, personal or medical care, mcc, or self-protection and safety. AND No There is a reasonable probability of the individual suffering serious physical debilitation within the near future unless adequate treatment is given. A showing of behavior that is grossly irrational, of actions that the individual is unable to control, of behavior that is grossly inappropriate to the situation, or of other evidence of severely impaired insight and judgment shall create a prima facie inference that the individual is unable to care for himself or herself. OR Yes has attempted suicide or threatened suicide Reportedly patient made passive SI; denies current, plan, and intent AND No that there is a reasonable probability of suicide unless adequate treatment is given Denies current SI, plan, and intent; demonstrates future forward goal oriented thinking as she talks about the upcoming holidays OR No has mutilated himself or herself or attempted to mutilate himself or herself AND No that there is a reasonable probability of serious self-mutilation unless adequate treatment is given. NOTE: Previous episodes of dangerousness to self, when applicable, may be considered when determining reasonable probability of physical debilitation, suicide, or self-mutilation. Impression\plan: Patient is cleared from psychiatric services. Patient is recommended to rescind IVC. She was admitted to the ED for medical concerns and passive SI. She denies SI, plan, and intent. She reports being tired of being sick and tired of her medical issues, but states she wants to live. She reports no inpatient history or suicidal history. She is prescribed Lexapro for depression and anxiety and reports medication compliance. Patient is recommended to follow up with outpatient provider to continue medications. She was given resource sheet for community resources to include mobile crisis. Patient is being admitted to the hospital for medical concerns. If a new psychiatric concern arises during medical admission, please consult behavioral health in the ED. Dr. Dial was consulted to care management of this patient; attending physicians in agreement with recommendations and disposition.
[2020-10-02] MEDS ORDERED: ALBUTEROL SULFATE HFA (90 MCG/PUFF) 8 GM MDI (1 MDI/ER DISP) IH PRN (18:28)
--- NOTE | 2020-10-02 18:34 | PDOC H&P ---
History of Present Illness Admission Date/PCP: 10/02/20 12:06 DILMA ALEXANDRE MD History of Present Illness: RAKAN SUGGS is a 70 year old female with past medical history significant for HTN, HLD, COPD, partial colectomy due to diverticulitis who presents ED with 2 months of progressive severe depression with poor appetite and dehydration. Patient was found to have significant JUNAID and hyperkalemia on admission and she was started on IV fluids. EKG showed A. fib with a rate of 99 and this was seen on her previous EKG from admission 01/2020. Patient denies any chest pain. Pat jessica states she prefers to live alone however she has been becoming progressively more more depressed stating that sometimes she wants to and sometimes she does not. Currently she has no SI/HI and states she would like to be full code. I asked her if she would like to go to assisted living and she said she cannot afford it but she is open to speaking with her case management about it. Her daughter lives 3 hours away and is reportedly coming to see her and help with her planning. Bilirubin also significantly elevated which had been seen on previous labs at her PCPs office and patient had a CT abdomen pelvis which we do not have access to but ED stated it showed no acute findings. We will get MRCP to rule out biliary obstruction. Most likely this is starvation muscle wasting with hyperbilirubinemia. Past Medical History Cardiac Medical History: Reports: Atrial Fibrillation, Congestive Heart Failure, Hypertension Pulmonary Medical History: Reports: Chronic Obstructive Pulmonary Disease (COPD) Past Surgical History Past Surgical History: Reports: Appendectomy, Colostomy, Hysterectomy, Tonsillectomy, Valve Replacement Social History Information Source: Patient - Extensive secondhand smoke exposure, Emergency Med Personnel Lives with: Alone Smoking Status: Never Smoker Frequency of Alcohol Use: None Drugs: None Hx Prescription Drug Abuse: No - Advance Directive Resuscitation Status: Full Code Surrogate healthcare decision maker:: Admitting diagnosis: JUNAID with hyperkalemia All aspects of code status discussed with patient/POA including cardioversion, chest compressions, and intubation and the patient/POA indicated they wish to be full code MPOA is designated as: Radha Torres Time spent: Greater than 16 minutes Family History Family History: Reviewed & Not Pertinent Parental Family History Reviewed: Yes Children Family History Reviewed: Yes Sibling(s) Family History Reviewed.: Yes Medication/Allergy Home Medications: Albuterol Sulfate [Proair HFA Inhalation Aerosol 8.5 gm MDI] 2 puff IH Q6HP PRN 10/02/20 Apixaban [Eliquis] 5 mg PO BID 10/02/20 Cetirizine HCl [Zyrtec 10 mg Tablet] 10 mg PO DAILY 10/02/20 Digoxin [Lanoxin 0.125 mg Tablet] 0.125 mg PO DAILY 10/02/20 Levothyroxine Sodium [Synthroid 0.088 mg Tablet] 88 mcg PO Q6AM 10/02/20 Magnesium Oxide [Mag-Ox 400 mg Tablet] 400 mg PO BID 10/02/20 Metoprolol Succinate [Toprol Xl 25 mg Tab.sr] 25 mg PO Q12 10/02/20 Potassium Chloride [Klor-Con M20] 20 meq PO BID 10/02/20 Sacubitril/Valsartan [Entresto 24 mg/26 mg Tablet] 1 tab PO BID 10/02/20 Allergies/Adverse Reactions: Penicillins Allergy (Verified 10/02/20 14:18) Review of Systems All systems: reviewed and no additional remarkable complaints except as stated - Per HPI otherwise negative Physical Exam Vital Signs: Temp Pulse Resp BP Pulse Ox 98.7 F 16 110/68 100 10/02/20 15:30 10/02/20 17:01 10/02/20 17:01 10/02/20 17:01 Intake & Output 10/01/20 10/02/20 10/03/20 06:59 06:59 06:59 Intake Total 1000 1150 Balance 1000 1150 Exam: General appearance: PRESENT: no acute distress, thin frail-appearing elderly white female Head exam: PRESENT: atraumatic, normocephalic Eye exam: PRESENT: conjunctiva pink. ABSENT: scleral icterus Mouth exam: PRESENT: moist Respiratory exam: PRESENT: clear to auscultation chase. ABSENT: rales, rhonchi, wheezes Cardiovascular exam: PRESENT: RRR. ABSENT: diastolic murmur, rubs, systolic murmur; +2 BLE edema GI/Abdominal exam: PRESENT: normal bowel sounds, soft. ABSENT: distended, guar ding, mass, organolmegaly, rebound, tenderness Neurological exam: PRESENT: alert, awake, oriented to person, oriented to place, oriented to time, oriented to situation Psychiatric exam: PRESENT: appropriate affect, normal mood Skin exam: PRESENT: dry, intact, warm Results Laboratory Results: 10/02/20 02:32 10/02/20 10:55 10/02/20 10/02/20 10/02/20 02:32 02:32 02:32 WBC 7.0 RBC 5.43 H Hgb 15.1 Hct 47.2 H MCV 87 MCH 27.7 MCHC 31.9 L RDW 17.4 H Plt Count 151 Seg Neutrophils % Not Reportable Sodium 132.2 L Potassium 6.5 H* Chloride 97 L Carbon Dioxide 22 Anion Gap 13 BUN 93 H Creatinine 2.69 H Est GFR ( Amer) 21 L Glucose 102 Lactic Acid Calcium 9.5 Total Bilirubin 4.5 H AST 58 H Alkaline Phosphatase 135 H Total Protein 6.5 Albumin 3.9 Lipase 123.1 10/02/20 10/02/20 10:55 10:55 WBC RBC Hgb Hct MCV MCH MCHC RDW Plt Count Seg Neutrophils % Sodium 132.3 L Potassium 5.9 H Chloride 102 Carbon Dioxide 22 Anion Gap 8 BUN 90 H Creatinine 2.47 H Est GFR ( Amer) 23 L Glucose 89 Lactic Acid 1.4 Calcium 8.9 Total Bilirubin 3.7 H AST 50 H Alkaline Phosphatase 105 Total Protein 5.5 L Albumin 3.1 L Lipase Impressions: Abdomen Ultrasound 10/02/20 00:00 IMPRESSION: Fatty liver. No dilated ducts. Trace ascites. Chest X-Ray 10/02/20 00:00 IMPRESSION: Right basilar opacity consistent with atelectasis and/or pneumonia and probable trace right pleural effusion. Assessment and Plan - Diagnosis (1) JUNAID (acute kidney injury) Is this a current diagnosis for this admission?: Yes Plan: Prerenal etiology IV fluids Trend BMP Encourage nutrition and oral fluid intake (2) Depression Qualifiers: Depression Type: major depressive disorder Qualified Code(s): F32.9 - Major depressive disorder, single episode, unspecified Is this a current diagnosis for this admission?: Yes Plan: Psychiatry evaluation done in ED: Patient has no SI/HI currently Start Remeron (3) Hyperbilirubinemia Is this a current diagnosis for this admission?: Yes Plan: Hyperbilirubinemia also noted in PCP office prior to admission Likely due to starvation with muscle wasting Possible patient also has Gilbert's syndrome Trend LFTs Get MRCP Recent CT abdomen/pelvis reportedly no acute findings (4) Hyperkalemia Is this a current diagnosis for this admission?: Yes Plan: Likely due to renal failure and continued potassium supplements outpatient which have not been stopped Hold ARB, hold potassium supplements IV fluids Treat renal failure (5) Anxiety Is this a current diagnosis for this admission?: Yes Plan: Remeron (6) COPD (chronic obstructive pulmonary disease) Qualifiers: COPD type: emphysema Emphysema type: centrilobular Qualified Code(s): J43.2 - Centrilobular emphysema Is this a current diagnosis for this admission?: Yes Plan: Due to secondhand smoke, patient has never smoked in her life Asymptomatic currently (7) Hypertension Qualifiers: Hypertension type: essential hypertension Qualified Code(s): I10 - Essential (primary) hypertension Is this a current diagnosis for this admission?: Yes Plan: Home medications (8) Colostomy in place Is this a current diagnosis for this admission?: Yes Plan: Due to prior hemicolectomy from diverticulitis - Time Time Spent with patient: 35 or more minutes Medications reviewed and adjusted accordingly: Yes Anticipated Discharge Disposition: Assisted Living with Home Health Services Anticipated Discharge Timeframe: within 72 hours - Inpatient Certification Based on my medical assessment, after consideration of the patient's comorbidities, presenting symptoms, or acuity I expect that the services needed warrant INPATIENT care.: Yes I certify that my determination is in accordance with my understanding of Medicare's requirements for reasonable and necessary INPATIENT services [42 CFR 412.3e].: Yes Medical Necessity: Significant Comorbidiites Make Outpatient Treatment Too Risky, Need Close Monitoring Due to Risk of Patient Decompensation, Need For IV Fluids, Risk of Complication if Not Cared For in Hospital, Risk of Diagnosis Which Will Require Inpatient Eval/Care/Monitoring
[2020-10-02] MEDS ORDERED: ALBUTEROL SULFATE HFA (90 MCG/PUFF) 8 GM MDI IH PRN (18:39)
[2020-10-02] MEDS: METOPROLOL SUCCINATE 25 MG TAB.SR.24H PO SCH (22:27)
[2020-10-02] MEDS: MIRTAZAPINE 15 MG TABLET PO SCH (22:27)
[2020-10-02] MEDS: HEPARIN SOD (PORCINE) 5,000 UNIT/ML 1 ML VIAL SUBCUT SCH (22:28)
[2020-10-03] MEDS ORDERED: LORAZEPAM INJ 2 MG/1 ML VIAL IV ONE (01:30)
[2020-10-03] MEDS: HEPARIN SOD (PORCINE) 5,000 UNIT/ML 1 ML VIAL SUBCUT SCH ×3 (05:07→21:53)
[2020-10-03] MEDS: LEVOTHYROXINE SODIUM 0.088 MG TABLET PO SCH (05:08)
[2020-10-03 05:36] LABS: HEMATOCRIT 41.3 % (36.0-47.0); HEMOGLOBIN 13.7 g/dL (12.0-15.5); MEAN CORPUSCULAR HEMOGLOBIN 28.6 pg (27.0-33.4); MEAN CORPUSCULAR HGB CONC 33.2 g/dL (32.0-36.0); MEAN CORPUSCULAR VOLUME 86 fl (80-97); PLATELET COUNT 110 10^3/uL (150-450); RED BLOOD COUNT 4.78 10^6/uL (3.72-5.28); RED CELL DISTRIBUTION WIDTH 17.2 % (11.5-14.0); WHITE BLOOD COUNT 6.9 10^3/uL (4.0-10.5)
[2020-10-03 05:58] LABS: ANION GAP 9 (5-19); BLOOD UREA NITROGEN 94 mg/dL (7-20); CALCIUM 8.7 mg/dL (8.4-10.2); CARBON DIOXIDE 24 mmol/L (22-30); CHLORIDE 102 mmol/L (98-107); GLUCOSE 101 mg/dL (75-110); PHOSPHORUS 6.8 mg/dL (2.5-4.5); POTASSIUM 5.2 mmol/L (3.6-5.0)
--- NOTE | 2020-10-03 08:56 | RADIOLOGY REPORT (SQ) ---
EXAM DESCRIPTION: MRI ABDOMEN WITHOUT IMAGES COMPLETED DATE/TIME: 10/02/2020 10:13 pm REASON FOR STUDY: high LFT's/bili, MRCP PROTOCOL COMPARISON: CT of the abdomen pelvis with contrast from 09/13/2020 an ultrasound of the abdomen from 10/02/2020. TECHNIQUE: Multiplanar multisequence MR images of the abdomen were obtained per the MRCP protocol. LIMITATIONS: Evaluation is limited due to patient respiratory motion artifact FINDINGS: GALLBLADDER: The gallbladder is contracted. INTRAHEPATIC DUCTS: No dilatation of the intrahepatic ducts. EXTRAHEPATIC DUCTS: No dilatation of the common hepatic and common bile ducts. No choledocholithiasi s. PANCREAS: Variant pancreatic divisum. The 14 x 12 mm circumscribed high T2 signal lesion in the panc reatic head (image 15 of series 11) is unchanged compared to the CT from 09/13/2019. There is no dil atation of the pancreatic duct. LIVER, SPLEEN, KIDNEYS, ADRENALS: Subtle nodular contour of the liver. The 2.9 x 2.9 cm circumscribe d partially exophytic exophytic lesion in the posterior aspect of the right hepatic lobe (image 16 of series 11) is unchanged. There is anomalous increased signal on the out of phase sequence. The spl een is normal in size. There are several cortical based high T2 use signal lesions in both kidneys t hat could represent cysts. There is no hydronephrosis. VESSELS: No acute gross abnormality. LUNG BASES: Cardiomegaly and bilateral pleural effusions (right greater than left). OTHER: The abdominal aorta is tortuous but normal in caliber. There is a trace amount of ascites. T here is a ventral hernia that contains fat, fluid and nonobstructed loops of bowel ; the neck of the hernia sac measures 2.8 cm. IMPRESSION: 1. The gallbladder is contracted. There is no biliary ductal dilatation or evidence of choledocholithiasis. 2. Variant pancreatic divisum. 3. Stable 14 x 12 mm circumscribed high T2 signal lesion in the pancreatic head (image 15 of series 1 1). TECHNICAL DOCUMENTATION: JOB ID: [id number] [employer]- All Rights Reserved Reading location - IP/workstation name: [email or web address]
[2020-10-03] MEDS: CETIRIZINE 10 MG TABLET PO SCH (10:49)
[2020-10-03] MEDS: METOPROLOL SUCCINATE 25 MG TAB.SR.24H PO SCH ×2 (10:49→21:53)
[2020-10-03] MEDS: DOCUSATE SODIUM 100 MG CAPSULE PO SCH (10:49)
--- NOTE | 2020-10-03 12:35 | CDI QUERY ---
CDI Query CDI Review: Dear Provider, Please specify type a fib, if possible: PAROXYSMAL PERSISTENT PERMANENT LONGSTANDING OTHER Thanks, Zandra Cardoza, CDI [phone]
[2020-10-03] MEDS: NORMAL SALINE 1000 ML 1,000 ML IV PRN (16:11)
[2020-10-03 16:56] LABS: APPEARANCE,URINE SLIGHTLY-CLOUDY; BILIRUBIN,URINE NEGATIVE (NEGATIVE); COLOR,URINE YELLOW; GLUCOSE, URINE NEGATIVE (NEGATIVE); KETONES,URINE NEGATIVE (NEGATIVE); PROTEIN,URINE 30 mg/dL (NEGATIVE); URINE SPECIFIC GRAVITY 1.014; UROBILINOGEN,URINE NEGATIVE mg/dL (<2.0)
--- NOTE | 2020-10-03 18:52 | PDOC PROGRESS REPORT ---
Subjective Subjective:: RAKAN SUGGS is a 70 year old female with past medical history significant for HTN, HLD, COPD, partial colectomy due to diverticulitis who presents ED with 2 months of progressive severe depression with poor appetite and dehydration. Patient was found to have significant JUNAID and hyperkalemia on admission and she was started on IV fluids. EKG showed A. fib with a rate of 99 and this was seen on her previous EKG from admission 01/2020. Patient denies any chest pain. Patient states she prefers to live alone however she has been becoming progressively more more depressed stating that sometimes she wants to and s ometimes she does not. Currently she has no SI/HI and states she would like to be full code. I asked her if she would like to go to assisted living and she said she cannot afford it but she is open to speaking with her case management about it. Her daughter lives 3 hours away and is reportedly coming to see her and help with her planning. Bilirubin also significantly elevated which had been seen on previous labs at her PCPs office and patient had a CT abdomen pelvis which we do not have access to but ED stated it showed no acute findings. We will get MRCP to rule out biliary obstruction. Most likely this is starvation muscle wasting with hyperbilirubinemia. 10/03/2020 Patient seems to be resting calmly today. She is not anxious as she was last night. She is continued on IV fluids and her creatinine is steadily improving. Her potassium has improved with age recheck and is now down to 5.2. She has no new complaints. Her TSH is notably high we will check T3 and T4 in the morning. Will need case management to reach out to her daughter to determine the patient's needs at discharge. I do not believe the patient would be well served to go back to her home alone. I doubt she is taking her medications and there is clear evidence in her labs that she is malnourished and dehydrated. I believe she should go to assisted living. Reason For Visit: DEHYDRATION,HYPERKALEMIA,HYPERBILIRUBINEMIA Physical Exam Vital Signs: Temp Pulse Resp BP Pulse Ox 97.9 F 99 17 100/71 90 L 10/03/20 16:34 10/03/20 16:34 10/03/20 16:34 10/03/20 16:34 10/03/20 16:34 Intake & Output 12/10/03/20 10/04/20 06:59 06:59 06:59 Intake Total 1000 1520 300 Output Total 350 Balance 1000 1520 -50 Weight 69 kg 69.7 kg Exam: General appearance: PRESENT: no acute distress, thin frail-appearing elderly white female, resting comfortably today Head exam: PRESENT: atraumatic, normocephalic Eye exam: PRESENT: conjunctiva pink. ABSENT: scleral icterus Mouth exam: PRESENT: moist Respiratory exam: PRESENT: clear to auscultation chase. ABSENT: rales, rhonchi, wheezes Cardiovascular exam: PRESENT: RRR. ABSENT: diastolic murmur, rubs, systolic murmur; + 1 BLE edema improved GI/Abdominal exam: PRESENT: normal bowel sounds, soft. ABSENT: distended, guarding, mass, organolmegaly, rebound, tenderness Neurological exam: PRESENT: alert, awake, oriented to person, oriented to place, oriented to time, oriented to situation Psychiatric exam: PRESENT: appropriate affect, normal mood Skin exam: PRESENT: dry, intact, warm Results Laboratory Results: 10/03/20 04:41 10/03/20 04:41 10/03/20 10/03/20 10/03/20 04:41 04:41 04:41 WBC 6.9 RBC 4.78 Hgb 13.7 Hct 41.3 MCV 86 MCH 28.6 MCHC 33.2 RDW 17.2 H Plt Count 110 L Sodium 134.9 L Potassium 5.2 H Chloride 102 Carbon Dioxide 24 Anion Gap 9 BUN 94 H Creatinine 2.34 H Est GFR ( Amer) 25 L Glucose 101 Calcium 8.7 Phosphorus 6.8 H Magnesium 3.1 H TSH 14.70 H Urine Color Urine Appearance Urine pH Ur Specific Gorman Urine Protein Urine Glucose (UA) Urine Ketones Urine Blood Urine RBC (Auto) 10/03/20 16:30 WBC RBC Hgb Hct MCV MCH MCHC RDW Plt Count Sodium Potassium Chloride Carbon Dioxide Anion Gap BUN Creatinine Est GFR ( Amer) Glucose Calcium Phosphorus Magnesium TSH Urine Color YELLOW Urine Appearance SLIGHTLY-CLOUDY Urine pH 5.0 Ur Specific Gorman 1.014 Urine Protein 30 H Urine Glucose (UA) NEGATIVE Urine Ketones NEGATIVE Urine Blood SMALL H Urine RBC (Auto) 1 Impressions: Abdomen MRI 10/02/20 00:00 IMPRESSION: 1. The gallbladder is contracted. There is no biliary ductal dilatation or evidence of choledocholithiasis. 2. Variant pancreatic divisum. 3. Stable 14 x 12 mm circumscribed high T2 signal lesion in the pancreatic head (image 15 of series 11). Abdomen Ultrasound 10/02/20 00:00 IMPRESSION: Fatty liver. No dilated ducts. Trace ascites. Chest X-Ray 10/02/20 00:00 IMPRESSION: Right basilar opacity consistent with atelectasis and/or pneumonia and probable trace right pleural effusion. Assessment and Plan - Diagnosis (1) JUNAID (acute kidney injury) Is this a current diagnosis for this admission?: Yes (2) Depression Qualifiers: Depression Type: major depressive disorder Qualified Code(s): F32.9 - Major depressive disorder, single episode, unspecified Is this a current diagnosis for this admission?: Yes (3) Hyperbilirubinemia Is this a current diagnosis for this admission?: Yes (4) Hyperkalemia Is this a current diagnosis for this admission?: Yes (5) Anxiety Is this a current diagnosis for this admission?: Yes (6) COPD (chronic obstructive pulmonary disease) Qualifiers: COPD type: emphysema Emphysema type: centrilobular Qualified Code(s): J43.2 - Centrilobular emphysema Is this a current diagnosis for this admission?: Yes (7) Hypertension Qualifiers: Hypertension type: essential hypertension Qualified Code(s): I10 - Essential (primary) hypertension Is this a current diagnosis for this admission?: Yes (8) Colostomy in place Is this a current diagnosis for this admission?: Yes - Time Time Spent with patient: 25-34 minutes Medications reviewed and adjusted accordingly: Yes Anticipated Discharge Disposition: Assisted Living with Home Health Services Anticipated Discharge Timeframe: within 48 hours - Inpatient Certification Based on my medical assessment, after consideration of the patient's comorbidities, presenting symptoms, or acuity I expect that the services needed warrant INPATIENT care.: Yes I certify that my determination is in accordance with my understanding of Medicare's requirements for reasonable and necessary INPATIENT services [42 CFR 412.3e].: Yes Medical Necessity: Significant Comorbidiites Make Outpatient Treatment Too Risky, Need Close Monitoring Due to Risk of Patient Decompensation, Need For IV Fluids, Risk of Complication if Not Cared For in Hospital, Risk of Diagnosis Which Will Require Inpatient Eval/Care/Monitoring
[2020-10-03] MEDS ORDERED: RINGERS SOLUTION,LACTATED 1,000 ML IV ONE (20:15)
[2020-10-03] MEDS: MIRTAZAPINE 15 MG TABLET PO SCH (22:22)
[2020-10-04] MEDS: HEPARIN SOD (PORCINE) 5,000 UNIT/ML 1 ML VIAL SUBCUT SCH ×3 (05:29→21:31)
[2020-10-04] MEDS: LEVOTHYROXINE SODIUM 0.088 MG TABLET PO SCH (05:31)
[2020-10-04] MEDS: NORMAL SALINE 1000 ML 1,000 ML IV PRN ×3 (05:32→22:22)
[2020-10-04 06:54] LABS: HEMATOCRIT 42.2 % (36.0-47.0); HEMOGLOBIN 13.7 g/dL (12.0-15.5); MEAN CORPUSCULAR HEMOGLOBIN 28.1 pg (27.0-33.4); MEAN CORPUSCULAR HGB CONC 32.6 g/dL (32.0-36.0); MEAN CORPUSCULAR VOLUME 86 fl (80-97); RED BLOOD COUNT 4.89 10^6/uL (3.72-5.28); RED CELL DISTRIBUTION WIDTH 17.7 % (11.5-14.0); WHITE BLOOD COUNT 6.1 10^3/uL (4.0-10.5)
[2020-10-04 07:01] LABS: ANION GAP 7 (5-19); BLOOD UREA NITROGEN 86 mg/dL (7-20); CALCIUM 8.3 mg/dL (8.4-10.2); CARBON DIOXIDE 23 mmol/L (22-30); CHLORIDE 104 mmol/L (98-107); GLUCOSE 70 mg/dL (75-110); POTASSIUM 4.7 mmol/L (3.6-5.0)
[2020-10-04 07:11] LABS: FREE T3 1.35 pg/mL (2.77-5.27); FREE T4 (FREE THYROXINE) 0.95 ng/dL (0.78-2.19)
[2020-10-04 07:54] LABS: PLATELET COUNT 98 10^3/uL (150-450)
[2020-10-04] MEDS ORDERED: LEVOTHYROXINE SODIUM 0.1 MG TABLET PO SCH (10:15)
[2020-10-04] MEDS ORDERED: LEVOTHYROXINE SODIUM INJ/PF 0.1 MG SDV IV ONE (11:00)
[2020-10-04] MEDS: METOPROLOL SUCCINATE 25 MG TAB.SR.24H PO SCH ×2 (11:00→21:32)
[2020-10-04] MEDS ORDERED: LIOTHYRONINE SODIUM 5 MCG TABLET PO ONE (11:00)
[2020-10-04] MEDS: DOCUSATE SODIUM 100 MG CAPSULE PO SCH (11:04)
[2020-10-04] MEDS: CETIRIZINE 10 MG TABLET PO SCH (11:04)
[2020-10-04] MEDS ORDERED: HYDROCORTISONE SOD SUCCINATE INJ/PF 100 MG/2 ML SDV IV SCH (12:00)
--- NOTE | 2020-10-04 18:30 | PDOC PROGRESS REPORT ---
Subjective Subjective:: RAKAN SUGGS is a 70 year old female with past medical history significant for HTN, HLD, COPD, partial colectomy due to diverticulitis who presents ED with 2 months of progressive severe depression with poor appetite and dehydration. Patient was found to have significant JUNAID and hyperkalemia on admission and she was started on IV fluids. EKG showed A. fib with a rate of 99 and this was seen on her previous EKG from admission 01/2020. Patient denies any chest pain. Patient states she prefers to live alone however she has been becoming progressively more more depressed stating that sometimes she wants to and s ometimes she does not. Currently she has no SI/HI and states she would like to be full code. I asked her if she would like to go to assisted living and she said she cannot afford it but she is open to speaking with her case management about it. Her daughter lives 3 hours away and is reportedly coming to see her and help with her planning. Bilirubin also significantly elevated which had been seen on previous labs at her PCPs office and patient had a CT abdomen pelvis which we do not have access to but ED stated it showed no acute findings. We will get MRCP to rule out biliary obstruction. Most likely this is starvation muscle wasting with hyperbilirubinemia. 10/03/2020 Patient seems to be resting calmly today. She is not anxious as she was last night. She is continued on IV fluids and her creatinine is steadily improving. Her potassium has improved with age recheck and is now down to 5.2. She has no new complaints. Her TSH is notably high we will check T3 and T4 in the morning. Will need case management to reach out to her daughter to determine the patient's needs at discharge. I do not believe the patient would be well served to go back to her home alone. I doubt she is taking her medications and there is clear evidence in her labs that she is malnourished and dehydrated. I believe she should go to assisted living. 10/04/2020 After reviewing the patient's lab results and examining her today, I noted the patient to be in what I believe is myxedema coma. Her TSH was approximately 14 her T4 was very lower limit normal and T3 was low. Prior to admission, patient was clearly not eating or drinking enough and was not taking any of her home medications. She admitted this to me on admission. I prescribed the patient IV Synthroid and oral Cytomel as she has become extremely lethargic and barely arousable overnight. She has been so lethargic that she is unable to eat. She is also developed hypotension and bradycardia. This is all consistent with se neelam hypothyroidism and myxedema coma. Very soon after the patient received IV Synthroid and oral Cytomel, she became much more alert and returned to normal mentation and began eating all of the food that she was given. She is fully alert and oriented now appears much better than before. I have increased the dose of her Synthroid from her home dose. She will start this oral dose tomorrow. I had planned to give her a dose of Solu-Medrol in addition to the thyroid medication however her stat random cortisol came back normal. We will continue to monitor the patient for changes that she seems to be much much better currently. I have initially plan to send her to stepdown unit but after her remarkable improvement she can stay on telemetry for now. Reason For Visit: DEHYDRATION,HYPERKALEMIA,HYPERBILIRUBINEMIA Physical Exam Vital Signs: Temp Pulse Resp BP Pulse Ox 97.7 F 78 16 99/66 L 94 10/04/20 15:11 10/04/20 15:11 10/04/20 15:11 10/04/20 15:11 10/04/20 15:11 Intake & Output 10/03/20 10/04/20 10/05/20 06:59 06:59 06:59 Intake Total 1520 2500 720 Output Total 425 Balance 1520 2075 720 Weight 69 kg 69.3 kg Exam: General appearance: PRESENT: no acute distress, thin frail-appearing elderly white female, much more awake and alert after getting Synthroid Head exam: PRESENT: atraumatic, normocephalic Eye exam: PRESENT: conjunctiva pink. ABSENT: scleral icterus Mouth exam: PRESENT: moist Respiratory exam: PRESENT: clear to auscultation chase. ABSENT: rales, rhonchi, wheezes Cardiovascular exam: PRESENT: RRR. ABSENT: diastolic murmur, rubs, systolic murmur; + 1 BLE edema improved GI/Abdominal exam: PRESENT: normal bowel sounds, soft. ABSENT: distended, guarding, mass, organolmegaly, rebound, tenderness Neurological exam: PRESENT: alert, awake, oriented to person, oriented to place, oriented to time, oriented to situation Psychiatric exam: PRESENT: appropriate affect, normal mood Skin exam: PRESENT: dry, intact, warm Results Laboratory Results: 10/04/20 05:48 10/04/20 05:48 10/04/20 10/04/20 10/04/20 05:48 05:48 05:48 WBC 6.1 RBC 4.89 Hgb 13.7 Hct 42.2 MCV 86 MCH 28.1 MCHC 32.6 RDW 17.7 H Plt Count 98 L Sodium 134.4 L Potassium 4.7 Chloride 104 Carbon Dioxide 23 Anion Gap 7 BUN 86 H Creatinine 2.01 H Est GFR ( Amer) 29 L Glucose 70 L Calcium 8.3 L Free T4 0.95 Free T3 pg/mL 1.35 L Impressions: Abdomen MRI 10/02/20 00:00 IMPRESSION: 1. The gallbladder is contracted. There is no biliary ductal dilatation or evidence of choledocholithiasis. 2. Variant pancreatic divisum. 3. Stable 14 x 12 mm circumscribed high T2 signal lesion in the pancreatic head (image 15 of series 11). Abdomen Ultrasound 10/02/20 00:00 IMPRESSION: Fatty liver. No dilated ducts. Trace ascites. Chest X-Ray 10/02/20 00:00 IMPRESSION: Right basilar opacity consistent with atelectasis and/or pneumonia and probable trace right pleural effusion. Assessment and Plan - Diagnosis (1) JUNAID (acute kidney injury) Is this a current diagnosis for this admission?: Yes (2) Depression Qualifiers: Depression Type: major depressive disorder Qualified Code(s): F32.9 - Major depressive disorder, single episode, unspecified Is this a current diagnosis for this admission?: Yes (3) Hyperbilirubinemia Is this a current diagnosis for this admission?: Yes (4) Hyperkalemia Is this a current diagnosis for this admission?: Yes (5) Anxiety Is this a current diagnosis for this admission?: Yes (6) COPD (chronic obstructive pulmonary disease) Qualifiers: COPD type: emphysema Emphysema type: centrilobular Qualified Code(s): J43.2 - Centrilobular emphysema Is this a current diagnosis for this admission?: Yes (7) Hypertension Qualifiers: Hypertension type: essential hypertension Qualified Code(s): I10 - Essential (primary) hypertension Is this a current diagnosis for this admission?: Yes (8) Colostomy in place Is this a current diagnosis for this admission?: Yes - Time Time Spent with patient: 35 or more minutes Medications reviewed and adjusted accordingly: Yes Anticipated Discharge Disposition: Assisted Living with Home Health Services Anticipated Discharge Timeframe: within 72 hours - Inpatient Certification Based on my medical assessment, after consideration of the patient's comorbidities, presenting symptoms, or acuity I expect that the services needed warrant INPATIENT care.: Yes I certify that my determination is in accordance with my understanding of Medicare's requirements for reasonable and necessary INPATIENT services [42 CFR 412.3e].: Yes Medical Necessity: Significant Comorbidiites Make Outpatient Treatment Too Risky, Need Close Monitoring Due to Risk of Patient Decompensation, Need For Continuous Telemetry Monitoring, Risk of Complication if Not Cared For in Hospital, Risk of Diagnosis Which Will Require Inpatient Eval/Care/Monitoring
[2020-10-04] MEDS: MIRTAZAPINE 15 MG TABLET PO SCH (21:34)
[2020-10-05 06:12] LABS: HEMATOCRIT 41.9 % (36.0-47.0); HEMOGLOBIN 13.7 g/dL (12.0-15.5); MEAN CORPUSCULAR HEMOGLOBIN 28.2 pg (27.0-33.4); MEAN CORPUSCULAR HGB CONC 32.7 g/dL (32.0-36.0); MEAN CORPUSCULAR VOLUME 86 fl (80-97); RED BLOOD COUNT 4.85 10^6/uL (3.72-5.28); RED CELL DISTRIBUTION WIDTH 17.5 % (11.5-14.0)
[2020-10-05 06:13] LABS: ANION GAP 10 (5-19); BLOOD UREA NITROGEN 72 mg/dL (7-20); CARBON DIOXIDE 19 mmol/L (22-30); CHLORIDE 109 mmol/L (98-107); GLUCOSE 95 mg/dL (75-110); POTASSIUM 4.2 mmol/L (3.6-5.0)
[2020-10-05] MEDS: HEPARIN SOD (PORCINE) 5,000 UNIT/ML 1 ML VIAL SUBCUT SCH ×3 (06:17→21:15)
[2020-10-05] MEDS: LEVOTHYROXINE SODIUM 0.1 MG TABLET PO SCH (06:19)
[2020-10-05] MEDS: NORMAL SALINE 1000 ML 1,000 ML IV PRN ×2 (06:22→13:10)
[2020-10-05 06:44] LABS: PLATELET COUNT 98 10^3/uL (150-450)
[2020-10-05] MEDS: METOPROLOL SUCCINATE 25 MG TAB.SR.24H PO SCH ×2 (09:48→21:15)
[2020-10-05] MEDS: DOCUSATE SODIUM 100 MG CAPSULE PO SCH (09:50)
[2020-10-05] MEDS: CETIRIZINE 10 MG TABLET PO SCH (09:50)
[2020-10-05] MEDS: CALCIUM CARBONATE 600 MG/VITAMIN D3 400 UNIT TABLET PO SCH ×2 (09:50→17:06)
--- NOTE | 2020-10-05 18:03 | PDOC PROGRESS REPORT ---
Subjective Subjective:: RAKAN SUGGS is a 70 year old female with past medical history significant for HTN, HLD, COPD, partial colectomy due to diverticulitis who presents ED with 2 months of progressive severe depression with poor appetite and dehydration. Patient was found to have significant JUNAID and hyperkalemia on admission and she was started on IV fluids. EKG showed A. fib with a rate of 99 and this was seen on her previous EKG from admission 01/2020. Patient denies any chest pain. Patient states she prefers to live alone however she has been becoming progressively more more depressed stating that sometimes she wants to and s ometimes she does not. Currently she has no SI/HI and states she would like to be full code. I asked her if she would like to go to assisted living and she said she cannot afford it but she is open to speaking with her case management about it. Her daughter lives 3 hours away and is reportedly coming to see her and help with her planning. Bilirubin also significantly elevated which had been seen on previous labs at her PCPs office and patient had a CT abdomen pelvis which we do not have access to but ED stated it showed no acute findings. We will get MRCP to rule out biliary obstruction. Most likely this is starvation muscle wasting with hyperbilirubinemia. 10/03/2020 Patient seems to be resting calmly today. She is not anxious as she was last night. She is continued on IV fluids and her creatinine is steadily improving. Her potassium has improved with age recheck and is now down to 5.2. She has no new complaints. Her TSH is notably high we will check T3 and T4 in the morning. Will need case management to reach out to her daughter to determine the patient's needs at discharge. I do not believe the patient would be well served to go back to her home alone. I doubt she is taking her medications and there is clear evidence in her labs that she is malnourished and dehydrated. I believe she should go to assisted living. 10/04/2020 After reviewing the patient's lab results and examining her today, I noted the patient to be in what I believe is myxedema coma. Her TSH was approximately 14 her T4 was very lower limit normal and T3 was low. Prior to admission, patient was clearly not eating or drinking enough and was not taking any of her home medications. She admitted this to me on admission. I prescribed the patient IV Synthroid and oral Cytomel as she has become extremely lethargic and barely arousable overnight. She has been so lethargic that she is unable to eat. She is also developed hypotension and bradycardia. This is all consistent with se neelam hypothyroidism and myxedema coma. Very soon after the patient received IV Synthroid and oral Cytomel, she became much more alert and returned to normal mentation and began eating all of the food that she was given. She is fully alert and oriented now appears much better than before. I have increased the dose of her Synthroid from her home dose. She will start this oral dose tomorrow. I had planned to give her a dose of Solu-Medrol in addition to the thyroid medication however her stat random cortisol came back normal. We will continue to monitor the patient for changes that she seems to be much much better currently. I have initially plan to send her to stepdown unit but after her remarkable improvement she can stay on telemetry for now. 10/05/2020 Patient is doing substantially better. She is awake alert and oriented. Creatinine is lower. Calcium is low and I have repleted this today. Patient states he feels quite well overall and I do believe her severe lethargy, bra dycardia, hypotension, etc. was due to severe hypothyroidism. She needs close follow-up outpatient and I do not believe she can be left to care for herself on her own. Care coordination is reaching out to family to determine patient's options at discharge. Once renal function is back to baseline and patient works with physical therapy a few times, she may be discharged to SNF with hopefully transition to assisted living. She is bit reluctant to do these things. Reason For Visit: DEHYDRATION,HYPERKALEMIA,HYPERBILIRUBINEMIA Physical Exam Vital Signs: Temp Pulse Resp BP Pulse Ox 97.5 F 101 H 15 107/81 92 10/05/20 15:40 10/05/20 15:40 10/05/20 15:40 10/05/20 15:40 10/05/20 15:40 Intake & Output 10/04/20 10/05/20 10/06/20 06:59 06:59 06:59 Intake Total 2500 2980 1000 Output Total 425 Balance 2075 2980 1000 Weight 69.3 kg 69.8 kg Results Laboratory Results: 10/05/20 05:18 10/05/20 05:18 10/05/20 10/05/20 05:18 05:18 WBC 7.0 RBC 4.85 Hgb 13.7 Hct 41.9 MCV 86 MCH 28.2 MCHC 32.7 RDW 17.5 H Plt Count 98 L Sodium 138.0 Potassium 4.2 Chloride 109 H Carbon Dioxide 19 L Anion Gap 10 BUN 72 H Creatinine 1.75 H Est GFR ( Amer) 35 L Glucose 95 Calcium 8.0 L 10/03/20 16:30 Clean Catch Midstream Urine Culture - Final Mixed Urogenital Zulema Impressions: Abdomen MRI 10/02/20 00:00 IMPRESSION: 1. The gallbladder is contracted. There is no biliary ductal dilatation or evidence of choledocholithiasis. 2. Variant pancreatic divisum. 3. Stable 14 x 12 mm circumscribed high T2 signal lesion in the pancreatic head (image 15 of series 11). Abdomen Ultrasound 10/02/20 00:00 IMPRESSION: Fatty liver. No dilated ducts. Trace ascites. Chest X-Ray 10/02/20 00:00 IMPRESSION: Right basilar opacity consistent with atelectasis and/or pneumonia and probable trace right pleural effusion. Assessment and Plan - Diagnosis (1) JUNAID (acute kidney injury) Is this a current diagnosis for this admission?: Yes (2) Depression Qualifiers: Depression Type: major depressive disorder Qualified Code(s): F32.9 - Major depressive disorder, single episode, unspecified Is this a current diagnosis for this admission?: Yes (3) Hyperbilirubinemia Is this a current diagnosis for this admission?: Yes (4) Hyperkalemia Is this a current diagnosis for this admission?: Yes (5) Anxiety Is this a current diagnosis for this admission?: Yes (6) COPD (chronic obstructive pulmonary disease) Qualifiers: COPD type: emphysema Emphysema type: centrilobular Qualified Code(s): J43.2 - Centrilobular emphysema Is this a current diagnosis for this admission?: Yes (7) Hypertension Qualifiers: Hypertension type: essential hypertension Qualified Code(s): I10 - Essential (primary) hypertension Is this a current diagnosis for this admission?: Yes (8) Colostomy in place Is this a current diagnosis for this admission?: Yes - Plan Summary Summary: Myxedema Coma Bradycardia, hypotension, lethargy, relative hypoglycemia -given IV levothyroxine on 10/04, increased home dose synthroid; significant improvement thereafter -extremely poor med compliance TSH greater than 14, T4 low, T3 low Needs follow-up with endocrinology outpatient JUNAID (acute kidney injury) Prerenal etiology IV fluids Trend BMP Encourage nutrition and oral fluid intake Depression Psychiatry evaluation done in ED: Patient has no SI/HI currently Start Remeron Hyperbilirubinemia Hyperbilirubinemia also noted in PCP office prior to admission Likely due to starvation with muscle wasting Possible patient also has Gilbert's syndrome Trend LFTs Get MRCP Recent CT abdomen/pelvis reportedly no acute findings Hyperkalemia Likely due to renal failure and continued potassium supplements outpatient which have not been stopped Hold ARB, hold potassium supplements IV fluids Treat renal failure Anxiety Remeron COPD (chronic obstructive pulmonary disease) Due to secondhand smoke, patient has never smoked in her life Asymptomatic currently Hypertension Home medications Colostomy in place Due to prior hemicolectomy from diverticulitis - Time Time Spent with patient: 25-34 minutes Medications reviewed and adjusted accordingly: Yes Anticipated Discharge Disposition: [facility] Facility Anticipated Discharge Timeframe: within 48 hours - Inpatient Certification Based on my medical assessment, after consideration of the patient's comorbidities, presenting symptoms, or acuity I expect that the services needed warrant INPATIENT care.: Yes I certify that my determination is in accordance with my understanding of Medicare's requirements for reasonable and necessary INPATIENT services [42 CFR 412.3e].: Yes Medical Necessity: Significant Comorbidiites Make Outpatient Treatment Too Risky, Need Close Monitoring Due to Risk of Patient Decompensation, Risk of Complication if Not Cared For in Hospital, Risk of Diagnosis Which Will Require Inpatient Eval/Care/Monitoring
[2020-10-05] MEDS: MIRTAZAPINE 15 MG TABLET PO SCH (21:15)
[2020-10-06] MEDS: NORMAL SALINE 1000 ML 1,000 ML IV PRN ×3 (03:15→20:41)
[2020-10-06] MEDS: HEPARIN SOD (PORCINE) 5,000 UNIT/ML 1 ML VIAL SUBCUT SCH ×2 (05:54→13:06)
[2020-10-06] MEDS: LEVOTHYROXINE SODIUM 0.1 MG TABLET PO SCH (05:54)
[2020-10-06] MEDS: DOCUSATE SODIUM 100 MG CAPSULE PO SCH (10:27)
[2020-10-06] MEDS: METOPROLOL SUCCINATE 25 MG TAB.SR.24H PO SCH ×2 (10:27→21:45)
[2020-10-06] MEDS: CALCIUM CARBONATE 600 MG/VITAMIN D3 400 UNIT TABLET PO SCH ×2 (10:27→17:16)
[2020-10-06] MEDS: CETIRIZINE 10 MG TABLET PO SCH (10:27)
--- NOTE | 2020-10-06 17:27 | PDOC PROGRESS REPORT ---
Subjective Date:: 10/06/20 Subjective:: No adverse events overnight. No new complaints. Eating very little. Reason For Visit: DEHYDRATION,HYPERKALEMIA,HYPERBILIRUBINEMIA Physical Exam Vital Signs: Temp Pulse Resp BP Pulse Ox 97.7 F 110 H 18 98/65 L 93 10/06/20 16:00 10/06/20 16:00 10/06/20 16:00 10/06/20 16:00 10/06/20 16:00 Intake & Output 10/05/20 10/06/20 10/07/20 06:59 06:59 06:59 Intake Total 2980 2000 1100 Output Total 300 200 Balance 2980 1700 900 Weight 69.8 kg 69.8 kg General appearance: PRESENT: no acute distress, thin frail-appearing elderly white female Head exam: PRESENT: atraumatic, normocephalic Eye exam: PRESENT: conjunctiva pink. ABSENT: scleral icterus Mouth exam: PRESENT: moist Respiratory exam: PRESENT: clear to auscultation chase. ABSENT: rales, rhonchi, wheezes Cardiovascular exam: PRESENT: RRR. ABSENT: diastolic murmur, rubs, systolic murmur; + 1 BLE edema GI/Abdominal exam: PRESENT: normal bowel sounds, soft. ABSENT: distended, guarding, mass, organolmegaly, rebound, tenderness Neurological exam: PRESENT: alert, awake, oriented to person, oriented to place, oriented to time, oriented to situation Psychiatric exam: PRESENT: appropriate affect, normal mood Skin exam: PRESENT: dry, intact, warm Results Laboratory Results: 10/05/20 05:18 10/05/20 05:18 Impressions: Abdomen MRI 10/02/20 00:00 IMPRESSION: 1. The gallbladder is contracted. There is no biliary ductal dilatation or evidence of choledocholithiasis. 2. Variant pancreatic divisum. 3. Stable 14 x 12 mm circumscribed high T2 signal lesion in the pancreatic head (image 15 of series 11). Abdomen Ultrasound 10/02/20 00:00 IMPRESSION: Fatty liver. No dilated ducts. Trace ascites. Chest X-Ray 10/02/20 00:00 IMPRESSION: Right basilar opacity consistent with atelectasis and/or pneumonia and probable trace right pleural effusion. Assessment and Plan - Diagnosis (1) JUNAID (acute kidney injury) Is this a current diagnosis for this admission?: Yes (2) Colostomy in place Is this a current diagnosis for this admission?: Yes (3) Depression Qualifiers: Depression Type: major depressive disorder Qualified Code(s): F32.9 - Major depressive disorder, single episode, unspecified Is this a current diagnosis for this admission?: Yes (4) Hyperbilirubinemia Is this a current diagnosis for this admission?: Yes (5) Hyperkalemia Is this a current diagnosis for this admission?: Yes (6) Myxedema coma Is this a current diagnosis for this admission?: Yes - Plan Summary Summary: Creatinine improving, continue IV fluids. Oral intake is very poor, she tries to say that she eats until she is full and then she does not feel like eating the next meal, but her daughter says that she just does not eat, and the nurses are documenting that at most she is only eating a couple of bites at a time of her meals. Continue levothyroxine. She may benefit from placement for physical therapy. She was reluctant but the daughter was very much in agreement. - Time Time Spent with patient: 15-24 minutes Anticipated Discharge Disposition: [facility] Facility Anticipated Discharge Timeframe: when bed available
[2020-10-06] MEDS: APIXABAN 5 MG TABLET PO SCH (21:45)
[2020-10-06] MEDS: MIRTAZAPINE 15 MG TABLET PO SCH (21:45)
[2020-10-07] MEDS: LEVOTHYROXINE SODIUM 0.1 MG TABLET PO SCH (06:29)
[2020-10-07] MEDS: NORMAL SALINE 1000 ML 1,000 ML IV PRN ×3 (06:29→20:15)
[2020-10-07] MEDS: APIXABAN 5 MG TABLET PO SCH ×2 (09:21→22:09)
[2020-10-07] MEDS: CETIRIZINE 10 MG TABLET PO SCH (09:21)
[2020-10-07] MEDS: DOCUSATE SODIUM 100 MG CAPSULE PO SCH (09:21)
[2020-10-07] MEDS: CALCIUM CARBONATE 600 MG/VITAMIN D3 400 UNIT TABLET PO SCH ×2 (09:21→17:24)
[2020-10-07] MEDS: METOPROLOL SUCCINATE 25 MG TAB.SR.24H PO SCH ×2 (09:22→22:09)
[2020-10-07 13:04] LABS: ANION GAP 8 (5-19); BLOOD UREA NITROGEN 69 mg/dL (7-20); CALCIUM 8.5 mg/dL (8.4-10.2); CARBON DIOXIDE 15 mmol/L (22-30); CHLORIDE 114 mmol/L (98-107); GLUCOSE 105 mg/dL (75-110); POTASSIUM 5.1 mmol/L (3.6-5.0)
--- NOTE | 2020-10-07 15:24 | PDOC PROGRESS REPORT ---
Subjective Date:: 10/07/20 Subjective:: No adverse events overnight. No new complaints. Still eating very little. Abl e to rest comfortably. Reason For Visit: DEHYDRATION,HYPERKALEMIA,HYPERBILIRUBINEMIA Physical Exam Vital Signs: Temp Pulse Resp BP Pulse Ox 97.5 F 95 15 98/68 L 98 10/07/20 11:28 10/07/20 11:28 10/07/20 11:28 10/07/20 11:28 10/07/20 11:28 Intake & Output 10/06/20 10/07/20 10/08/20 06:59 06:59 06:59 Intake Total 2000 3200 1000 Output Total 300 500 100 Balance 1700 2700 900 Weight 69.8 kg 82.4 kg General appearance: PRESENT: no acute distress, thin frail-appearing elderly white female Head exam: PRESENT: atraumatic, normocephalic Eye exam: PRESENT: conjunctiva pink. ABSENT: scleral icterus Mouth exam: PRESENT: moist Respiratory exam: PRESENT: clear to auscultation chase. ABSENT: rales, rhonchi, wheezes Cardiovascular exam: PRESENT: RRR. ABSENT: diastolic murmur, rubs, systolic murmur; + 1 BLE edema GI/Abdominal exam: PRESENT: normal bowel sounds, soft. ABSENT: distended, guarding, mass, organolmegaly, rebound, tenderness Neurological exam: PRESENT: alert, awake, oriented to person, oriented to place, oriented to time, oriented to situation Psychiatric exam: PRESENT: appropriate affect, normal mood Skin exam: PRESENT: dry, intact, warm Results Laboratory Results: 10/05/20 05:18 10/07/20 12:13 10/07/20 12:13 Sodium 136.6 L Potassium 5.1 H Chloride 114 H Carbon Dioxide 15 L Anion Gap 8 BUN 69 H Creatinine 1.96 H Est GFR ( Amer) 30 L Glucose 105 Calcium 8.5 10/02/20 11:32 Blood Blood Culture - Final NO GROWTH IN 5 DAYS 10/02/20 11:18 Blood Blood Culture - Final NO GROWTH IN 5 DAYS Impressions: Abdomen MRI 10/02/20 00:00 IMPRESSION: 1. The gallbladder is contracted. There is no biliary ductal dilatation or evidence of choledocholithiasis. 2. Variant pancreatic divisum. 3. Stable 14 x 12 mm circumscribed high T2 signal lesion in the pancreatic head (image 15 of series 11). Abdomen Ultrasound 10/02/20 00:00 IMPRESSION: Fatty liver. No dilated ducts. Trace ascites. Chest X-Ray 10/02/20 00:00 IMPRESSION: Right basilar opacity consistent with atelectasis and/or pneumonia and probable trace right pleural effusion. Assessment and Plan - Diagnosis (1) JUNAID (acute kidney injury) Is this a current diagnosis for this admission?: Yes (2) Colostomy in place Is this a current diagnosis for this admission?: Yes (3) Depression Qualifiers: Depression Type: major depressive disorder Qualified Code(s): F32.9 - Major depressive disorder, single episode, unspecified Is this a current diagnosis for this admission?: Yes (4) Hyperbilirubinemia Is this a current diagnosis for this admission?: Yes (5) Hyperkalemia Is this a current diagnosis for this admission?: Yes (6) Myxedema coma Is this a current diagnosis for this admission?: Yes - Plan Summary Summary: Creatinine stagnated but improved overall, continue IV fluids. Oral intake is very poor, she tries to say that she eats until she is full and then she does not feel like eating the next meal, but her daughter says that she just does not eat, and the nurses are documenting that at most she is only eating a couple of bites at a time of her meals. Continue levothyroxine. She may benefit from placement for physical therapy. She was reluctant but the daughter was very much in agreement. - Time Time Spent with patient: 15-24 minutes Anticipated Discharge Disposition: [facility] Facility Anticipated Discharge Timeframe: Unknown
[2020-10-07] MEDS: MIRTAZAPINE 15 MG TABLET PO SCH (22:09)
[2020-10-08] MEDS: NORMAL SALINE 1000 ML 1,000 ML IV PRN (06:32)
[2020-10-08] MEDS: LEVOTHYROXINE SODIUM 0.1 MG TABLET PO SCH (06:32)
[2020-10-08] MEDS: METOPROLOL SUCCINATE 25 MG TAB.SR.24H PO SCH (11:00)
[2020-10-08] MEDS: CALCIUM CARBONATE 600 MG/VITAMIN D3 400 UNIT TABLET PO SCH ×2 (11:00→17:45)
[2020-10-08] MEDS: DOCUSATE SODIUM 100 MG CAPSULE PO SCH (11:01)
[2020-10-08] MEDS: CETIRIZINE 10 MG TABLET PO SCH (11:01)
[2020-10-08] MEDS: APIXABAN 5 MG TABLET PO SCH ×2 (11:01→23:48)
[2020-10-08] MEDS ORDERED: MIRTAZAPINE 15 MG TABLET PO PRN (11:21)
[2020-10-08] MEDS ORDERED: FUROSEMIDE INJ/PF 20 MG/2 ML SDV IV ONE ×2 (12:30→16:15)
--- NOTE | 2020-10-08 15:28 | PDOC PROGRESS REPORT ---
Subjective Date:: 10/08/20 Subjective:: No adverse events overnight. Gets a little disoriented at night sometimes and s eems to do better when somebody is in the room with her so they moved her closer to the nurses station so she could see people around. She has been very somnolent today. Her oxygen level slowly trended down last night and they had to put her on some oxygen per nasal cannula. She is otherwise very stable. Reason For Visit: DEHYDRATION,HYPERKALEMIA,HYPERBILIRUBINEMIA Physical Exam Vital Signs: Temp Pulse Resp BP Pulse Ox 97.4 F 84 16 107/66 99 10/08/20 11:01 10/08/20 14:00 10/08/20 11:01 10/08/20 11:01 10/08/20 11:01 Intake & Output 10/07/20 10/08/20 10/09/20 06:59 06:59 06:59 Intake Total 3200 3120 120 Output Total 500 425 Balance 2700 2695 120 Weight 82.4 kg 82.1 kg 82.1 kg General appearance: PRESENT: no acute distress, thin frail-appearing elderly white female Head exam: PRESENT: atraumatic, normocephalic Eye exam: PRESENT: conjunctiva pink. ABSENT: scleral icterus Mouth exam: PRESENT: moist Respiratory exam: PRESENT: clear to auscultation chase. ABSENT: rales, rhonchi, wheezes Cardiovascular exam: PRESENT: RRR. ABSENT: diastolic murmur, rubs, systolic murmur; + 1 BLE edema GI/Abdominal exam: PRESENT: normal bowel sounds, soft. ABSENT: distended, guarding, mass, organolmegaly, rebound, tenderness Neurological exam: PRESENT: alert, awake, oriented to person, oriented to place, oriented to time, oriented to situation Psychiatric exam: PRESENT: appropriate affect, normal mood Skin exam: PRESENT: dry, intact, warm Results Laboratory Results: 10/05/20 05:18 10/07/20 12:13 10/02/20 11:32 Blood Blood Culture - Final NO GROWTH IN 5 DAYS 10/02/20 11:18 Blood Blood Culture - Final NO GROWTH IN 5 DAYS Impressions: Abdomen MRI 10/02/20 00:00 IMPRESSION: 1. The gallbladder is contracted. There is no biliary ductal dilatation or evidence of choledocholithiasis. 2. Variant pancreatic divisum. 3. Stable 14 x 12 mm circumscribed high T2 signal lesion in the pancreatic head (image 15 of series 11). Abdomen Ultrasound 10/02/20 00:00 IMPRESSION: Fatty liver. No dilated ducts. Trace ascites. Chest X-Ray 10/02/20 00:00 IMPRESSION: Right basilar opacity consistent with atelectasis and/or pneumonia and probable trace right pleural effusion. Assessment and Plan - Diagnosis (1) JUNAID (acute kidney injury) Is this a current diagnosis for this admission?: Yes (2) Colostomy in place Is this a current diagnosis for this admission?: Yes (3) Depression Qualifiers: Depression Type: major depressive disorder Qualified Code(s): F32.9 - Major depressive disorder, single episode, unspecified Is this a current diagnosis for this admission?: Yes (4) Hyperbilirubinemia Is this a current diagnosis for this admission?: Yes (5) Hyperkalemia Is this a current diagnosis for this admission?: Yes (6) Myxedema coma Is this a current diagnosis for this admission?: Yes - Plan Summary Summary: Creatinine stagnated but improved overall. She starting to look a little edematous, and her urine output has not been that great considering all the fluid she is gotten. I will put her fluids on hold and give her a dose of Lasix to see how she responds. Plan is still to transfer to nursing home facility for rehab. Continue levothyroxine. - Time Time Spent with patient: 15-24 minutes Anticipated Discharge Disposition: Nursing Home Facility Anticipated Discharge Timeframe: Unknown
[2020-10-08 17:05] LABS: ANION GAP 6 (5-19); BLOOD UREA NITROGEN 78 mg/dL (7-20); CALCIUM 8.4 mg/dL (8.4-10.2); CARBON DIOXIDE 19 mmol/L (22-30); CHLORIDE 112 mmol/L (98-107); GLUCOSE 131 mg/dL (75-110); POTASSIUM 5.3 mmol/L (3.6-5.0)
[2020-10-08 18:49] LABS: ARTERIAL BLOOD H2CO3 1.47 mmol/L (1.05-1.35); ARTERIAL BLOOD HCO3 16.1 mmol/L (20-24); ARTERIAL BLOOD O2 SATURATION 95.7 % (94-98); ARTERIAL BLOOD PO2 101.9 mmHg (80-100); ARTERIAL BLOOD TOTAL CO2 17.6 mmol/L (21-25)
[2020-10-08 18:55] LABS: ARTERIAL BLOOD FIO2 2L; ARTERIAL BLOOD PH 7.14 (7.35-7.45)
[2020-10-08] MEDS ORDERED: DEXTROSE 5%-WATER 1000 ML 1,000 ML with SODIUM BICARBONATE 150 MEQ IV PRN ×2 (18:57)
[2020-10-09] MEDS: METOPROLOL SUCCINATE 25 MG TAB.SR.24H PO SCH ×3 (04:39→22:08)
[2020-10-09] MEDS: LEVOTHYROXINE SODIUM 0.1 MG TABLET PO SCH (05:12)
[2020-10-09 05:45] LABS: ANION GAP 9 (5-19); BLOOD UREA NITROGEN 80 mg/dL (7-20); CALCIUM 8.4 mg/dL (8.4-10.2); CARBON DIOXIDE 18 mmol/L (22-30); CHLORIDE 112 mmol/L (98-107); GLUCOSE 128 mg/dL (75-110); POTASSIUM 5.2 mmol/L (3.6-5.0)
[2020-10-09] MEDS: CETIRIZINE 10 MG TABLET PO SCH (10:59)
[2020-10-09] MEDS: CALCIUM CARBONATE 600 MG/VITAMIN D3 400 UNIT TABLET PO SCH ×2 (10:59→18:04)
[2020-10-09] MEDS: APIXABAN 5 MG TABLET PO SCH (11:00)
[2020-10-09] MEDS: DOCUSATE SODIUM 100 MG CAPSULE PO SCH (11:00)
--- NOTE | 2020-10-09 12:30 | RADIOLOGY REPORT (SQ) ---
EXAM DESCRIPTION: U/S RETROPERITON LTD IMAGES COMPLETED DATE/TIME: 10/09/2020 11:32 am REASON FOR STUDY: JUNAID COMPARISON: None. TECHNIQUE: Dynamic and static grayscale images acquired of the kidneys and bladder and recorded on P ACS. Additional selected color Doppler and spectral images recorded. LIMITATIONS: Limited study due to scan positioning. FINDINGS: RIGHT KIDNEY: 7.6 cm. Mild increased echogenicity. No solid or suspicious masses. N o hydronephrosis. No calcifications. LEFT KIDNEY: 8.9 cm. Mild increased echogenicity. 2 cm cyst. No solid or suspicious masses. N o hydronephrosis. Scattered echogenic foci. BLADDER: No masses. OTHER FINDINGS: No other significant finding. IMPRESSION: ATROPHIC KIDNEYS. NO HYDRONEPHROSIS. CYST IN THE LEFT KIDNEY WITH CALCIFICATIONS. POS SIBLE SMALL CALCULI IN THE LEFT KIDNEY. TECHNICAL DOCUMENTATION: JOB ID: [id number] 2010 [employer]- All Rights Reserved Reading location - IP/workstation name: [email or web address]
[2020-10-09] MEDS: FUROSEMIDE INJ/PF 40 MG/4 ML SDV IV SCH ×2 (13:51→22:13)
--- NOTE | 2020-10-09 15:44 | PDOC PROGRESS REPORT ---
Subjective Date:: 10/09/20 Subjective:: No adverse events overnight. Patient had been placed on a low rate bicarbonate infusion due to metabolic acidosis as a result of the renal failure, and she was given a couple of doses of Lasix. However, she put out little urine, if any. Still not eating much of anything at all. Reason For Visit: DEHYDRATION,HYPERKALEMIA,HYPERBILIRUBINEMIA Physical Exam Vital Signs: Temp Pulse Resp BP Pulse Ox 97.7 F 105 H 18 78/63 L 94 10/09/20 01:26 10/09/20 02:00 10/09/20 01:26 10/09/20 01:26 10/09/20 01:26 Intake & Output 10/08/20 10/09/20 10/10/20 06:59 06:59 06:59 Intake Total 3120 220 Output Total 425 Balance 2695 220 Weight 82.1 kg 84.8 kg General appearance: PRESENT: no acute distress, thin frail-appearing elderly white female Head exam: PRESENT: atraumatic, normocephalic Eye exam: PRESENT: conjunctiva pink. ABSENT: scleral icterus Mouth exam: PRESENT: moist Respiratory exam: PRESENT: clear to auscultation chase. ABSENT: rales, rhonchi, wheezes Cardiovascular exam: PRESENT: RRR. ABSENT: diastolic murmur, rubs, systolic murmur; generalized pitting edema GI/Abdominal exam: PRESENT: normal bowel sounds, soft. ABSENT: distended, gu arding, mass, organolmegaly, rebound, tenderness Neurological exam: PRESENT: alert, awake, oriented to person, oriented to place, oriented to time, oriented to situation Psychiatric exam: PRESENT: appropriate affect, normal mood Skin exam: PRESENT: dry, intact, warm Results Laboratory Results: 10/05/20 05:18 10/09/20 04:25 10/08/20 10/08/20 10/09/20 16:20 18:35 04:25 Carbonic Acid 1.47 H HCO3/H2CO3 Ratio 10:1 ABG pH 7.14 L* ABG pCO2 49.0 H ABG pO2 101.9 H ABG HCO3 16.1 L ABG O2 Saturation 95.7 ABG Base Excess -13.0 FiO2 2L Sodium 137.4 138.7 Potassium 5.3 H 5.2 H Chloride 112 H 112 H Carbon Dioxide 19 L 18 L Anion Gap 6 9 BUN 78 H 80 H Creatinine 2.20 H 2.24 H Est GFR ( Amer) 27 L 26 L Glucose 131 H 128 H Calcium 8.4 8.4 Impressions: Abdomen MRI 10/02/20 00:00 IMPRESSION: 1. The gallbladder is contracted. There is no biliary ductal dilatation or evidence of choledocholithiasis. 2. Variant pancreatic divisum. 3. Stable 14 x 12 mm circumscribed high T2 signal lesion in the pancreatic head (image 15 of series 11). Abdomen Ultrasound 10/02/20 00:00 IMPRESSION: Fatty liver. No dilated ducts. Trace ascites. Chest X-Ray 10/02/20 00:00 IMPRESSION: Right basilar opacity consistent with atelectasis and/or pneumonia and probable trace right pleural effusion. Renal Ultrasound 10/09/20 00:00 IMPRESSION: ATROPHIC KIDNEYS. NO HYDRONEPHROSIS. CYST IN THE LEFT KIDNEY WITH CALCIFICATIONS. POSSIBLE SMALL CALCULI IN THE LEFT KIDNEY. Assessment and Plan - Diagnosis (1) JUNAID (acute kidney injury) Is this a current diagnosis for this admission?: Yes (2) Colostomy in place Is this a current diagnosis for this admission?: Yes (3) Depression Qualifiers: Depression Type: major depressive disorder Qualified Code(s): F32.9 - Major depressive disorder, single episode, unspecified Is this a current diagnosis for this admission?: Yes (4) Hyperbilirubinemia Is this a current diagnosis for this admission?: Yes (5) Hyperkalemia Is this a current diagnosis for this admission?: Yes (6) Myxedema coma Is this a current diagnosis for this admission?: Yes - Plan Summary Summary: Patient had an echocardiogram done about 1 year ago that showed an EF of 45%. However, I do not think that is the only reason that she is retaining fluid. We gave her Lasix and she was not mobilizing any of that fluid at all. She has been seen in consultation by Dr. Kumar. Nesbitt catheter has been placed, and Dr. Kumar been giving her some higher doses of Lasix, in the hopes that the patient will not require hemodialysis. - Time Time Spent with patient: 15-24 minutes Anticipated Discharge Disposition: Unknown Anticipated Discharge Timeframe: Unknown
[2020-10-09 17:08] LABS: URINE CREATININE 39.3 mg/dL (15-278)
[2020-10-09] MEDS: APIXABAN 2.5 MG TABLET PO SCH (18:04)
--- NOTE | 2020-10-09 20:52 | PDOC CONSULTATION ---
Consultation Consult Date: 10/09/20 Provider Consulted: KYLER LAURA Consult reason:: JUNAID History of Present Illness Admission Date/PCP: 10/02/20 12:06 DILMA ALEXANDRE MD History of Present Illness: RAKAN MCGRATH is a 70 year old female with history of atrial fibrillation, CHF, hypertension, hyperlipidemia, COPD, aortic valve replacement, and partial colectomy due to diverticulitis who was admitted on 10/02/2020 because of poor oral intake, dehydration, depression and JUNAID. Patient tells me that she had diarrhea for approximately 1 week prior to admission. She was somewhat sleepy when I talked to her but she responds appropriately although she does not seem to be a very good historian. She denies any nausea nor vomiting. She denies any chest pains, shortness of breath but admits some slight cough. She says she always have swollen legs but it seems to be worse recently. On admission she has a BUN of 90, creatinine of 2.47 and she was thought to be dehydrated so she was given IV fluids. She received lactated Ringer's and the initial day followed by normal saline for approximately 5 days until 2 days ago. Her urine output was just recorded around 300-500 but she does not have a Nesbitt catheter. Her weight has gone up from 69 kg to 84.8 kg admission. Blood pressure has been relatively low anywhere between 78-112 over 70s. Her cortisol was 24. Her TSH and free T4 of 0.45. She tested negative for COVID-19 rapid PCR test. Review of records revealed that on February 11, 2020 she had a BUN of 17, and creatinine of 0.6 with appropriately normal kidney function for age. This admission her urinalysis on 10/03/2020 showed protein of 30, small blood, RBC of 1, large leukocyte esterase with WBC of 14. Urine culture was negative. After some IV fluid hydration from admission the patient's kidney function improved to a BUN of 72, creatinine of 1.75 with EGFR of 29 on October 05. However since then, the patient's kidney function started getting worse again. Today she has a BUN of 80, creatinine of 2.24. She denies any history of abnormal kidney function in the past. She says she has a kidney stone but has never passed one. She denies any problems with urination. Denies any NSAID use. Because of the worsening kidney function she was given 2 doses of Lasix 20 mg each intravenously yesterday but did not produce any significant response in terms of the urine output nor any improvement in her kidney function. Last night she was started on some bicarb drip because of metabolic acidosis. Incidentally the patient's son, Sumeet Mcgrath entered the room while I was talking to the patient and states that the patient was hospitalized for 3 to 4 days around July at [facility] for congestive heart failure and bradycardia. They confirmed that the patient follows up with hardware test engineer in [place], Dr. Champagne and Dr. Mackey. Past Medical History Cardiac Medical History: Reports: Atrial Fibrillation, CHF-Systolic, Hyperlipidemia, Hypertension-primary, Valvular Heart disease - Aortic valvular disease, mitral valve prolapse Pulmonary Medical History: Reports: Chronic Obstructive Pulmonary Disease (COPD) GI Medical History: Reports: Diverticulitis Psychiatric Medical History: Reports: Depression Past Surgical History Past Surgical History: Reports: Appendectomy, Colectomy - Hemicolectomy for diverticulitis, Colostomy, Hysterectomy, Tonsillectomy, Valve Replacement - Aortic valve Social History Information Source: Patient, [facility] Records Lives with: Alone Smoking Status: Never Smoker Frequency of Alcohol Use: None Drugs: None Hx Prescription Drug Abuse: No - Advance Directive Resuscitation Status: Full Code Family History Family History: Hypertension - Maternal grandmother Parental Family History Reviewed: Yes Children Family History Reviewed: Yes Sibling(s) Family History Reviewed.: Yes Medication/Allergy Home Medications: Albuterol Sulfate [Proair HFA Inhalation Aerosol 8.5 gm MDI] 2 puff IH Q6HP PRN 10/02/20 Apixaban [Eliquis] 5 mg PO BID 10/02/20 Cetirizine HCl [Zyrtec 10 mg Tablet] 10 mg PO DAILY 10/02/20 Digoxin [Lanoxin 0.125 mg Tablet] 0.125 mg PO DAILY 10/02/20 Levothyroxine Sodium [Synthroid 0.088 mg Tablet] 88 mcg PO Q6AM 10/02/20 Magnesium Oxide [Mag-Ox 400 mg Tablet] 400 mg PO BID 10/02/20 Metoprolol Succinate [Toprol Xl 25 mg Tab.sr] 25 mg PO Q12 10/02/20 Potassium Chloride [Klor-Con M20] 20 meq PO BID 10/02/20 Sacubitril/Valsartan [Entresto 24 mg/26 mg Tablet] 1 tab PO BID 10/02/20 Allergies/Adverse Reactions: Penicillins Allergy (Verified 10/02/20 14:18) Review of Systems All systems: reviewed and no additional remarkable complaints except as stated Review of Systems: Constitutional: ABSENT: chills, fatigue, fever(s), headache(s), weight gain, weight loss Eyes: ABSENT: visual disturbances Ears: ABSENT: hearing changes Cardiovascular: ABSENT: chest pain, dyspnea on exertion, orthropnea, palpitations; admits leg swelling Respiratory: ABSENT: Dyspnea, hemoptysis; admits slight cough Gastrointestinal: ABSENT: abdominal pain, constipation, diarrhea, hematemesis, hematochezia, nausea, vomiting Genitourinary: ABSENT: dysuria, hematuria Musculoskeletal: ABSENT: joint swelling Integumentary: ABSENT: rash, wounds Neurological: ABSENT: abnormal gait, abnormal speech, confusion, dizziness, focal weakness, numbness, syncope Psychiatric: ABSENT: anxiety; admits depression Endocrine: ABSENT: cold intolerance, heat intolerance, polydipsia, polyuria Hematologic/Lymphatic: ABSENT: easy bleeding, easy bruising, lymphadenopathy Physical Exam Vital Signs: Temp Pulse Resp BP Pulse Ox 97.7 F 105 H 18 78/63 L 94 10/09/20 01:26 10/09/20 02:00 10/09/20 01:26 10/09/20 01:26 10/09/20 01:26 Intake & Output 10/08/20 10/09/20 10/10/20 06:59 06:59 06:59 Intake Total 3120 220 Output Total 425 Balance 2695 220 Weight 82.1 kg 84.8 kg Exam: General appearance: No acute distress, cooperative, somewhat somnolent responds appropriately, fairly developed and fairly nourished Head exam: PRESENT: atraumatic, normocephalic Eye exam: PRESENT: Conjunctiva slightly pale, EOMI, PERRLA. ABSENT: conjunctival injection, scleral icterus Mouth exam: PRESENT: moist, neck supple, tongue midline Neck exam: PRESENT: full ROM. ABSENT: carotid bruit, JVD, lymphadenopathy, thyromegaly Respiratory exam: PRESENT: Diminished to auscultation bilaterally. ABSENT: r ales, rhonchi, stridor, wheezes Cardiovascular exam: PRESENT: Irregularly irregular, +S1, +S2. ABSENT: systolic murmur Pulses: PRESENT: normal radial pulses, normal dorsalis pedis pulses GI/Abdominal exam: PRESENT: normal bowel sounds, soft. Left lower quadrant colostomy bag in place ABSENT: guarding, mass, tenderness Rectal exam: Deferred Extremities exam: PRESENT: full ROM. Grade 2 bilateral lower extremity pitting edema, upper extremity edema, subcutaneous edema on her buttocks and dependent portion of her back ABSENT: calf tenderness Musculoskeletal: PRESENT: full ROM. ABSENT: deformity Neurological exam: PRESENT: alert, Awake, Oriented to person, Oriented to place, but not to to time, reflexes normal, CN II-XII grossly intact. ABSENT: motor sensory deficit Psychiatric exam: PRESENT: appropriate affect, depressed mood. ABSENT: homicidal ideation, suicidal ideation Skin exam: PRESENT: intact, dry, warm. ABSENT: rash Results Laboratory Results: 10/05/20 05:18 10/09/20 04:25 10/08/20 10/08/20 10/09/20 16:20 18:35 04:25 Carbonic Acid 1.47 H HCO3/H2CO3 Ratio 10:1 ABG pH 7.14 L* ABG pCO2 49.0 H ABG pO2 101.9 H ABG HCO3 16.1 L ABG O2 Saturation 95.7 ABG Base Excess -13.0 FiO2 2L Sodium 137.4 138.7 Potassium 5.3 H 5.2 H Chloride 112 H 112 H Carbon Dioxide 19 L 18 L Anion Gap 6 9 BUN 78 H 80 H Creatinine 2.20 H 2.24 H Est GFR ( Amer) 27 L 26 L Glucose 131 H 128 H Calcium 8.4 8.4 Impressions: Abdomen MRI 10/02/20 00:00 IMPRESSION: 1. The gallbladder is contracted. There is no biliary ductal dilatation or evidence of choledocholithiasis. 2. Variant pancreatic divisum. 3. Stable 14 x 12 mm circumscribed high T2 signal lesion in the pancreatic head (image 15 of series 11). Abdomen Ultrasound 10/02/20 00:00 IMPRESSION: Fatty liver. No dilated ducts. Trace ascites. Chest X-Ray 10/02/20 00:00 IMPRESSION: Right basilar opacity consistent with atelectasis and/or pneumonia and probable trace right pleural effusion. Assessment & Plan - Diagnosis (1) JUNAID (acute kidney injury) Is this a current diagnosis for this admission?: Yes Plan: Initially likely secondary to acute prerenal azotemia due to acute dehydration with history of poor oral intake and relative hypotension. Patient improved sli ghtly but then kidney function started getting worse. Patient is nonoliguric. Weight has gone up from 69 kg to 84.8 kg. Patient has significant anasarca mild hypoalbuminemia. I think we might have over hydrated the patient to the point that she has an impending CHF at this point given her history. Initial abdominal ultrasound and MRI of the abdomen did not show any hydronephrosis. We will try to obtain her records from [facility] from previous recent hospitalization. Hopefully she had echocardiogram done there. Insert a Nesbitt catheter to quantify urine output adequately. We will obtain a kidney ultrasound. I will try to recheck her urinalysis, urine sodium, urine creatinine and urine microalbumin. I will start Lasix 40 mg IV every 12 hours. At this point she does not require any renal replacement therapy yet. Monitor kidney function closely including electrolytes. Avoid nephrotoxic medications doses of medications including any pain medications or sedating medications accordingly depending on kidney function. She does not need any renal replacement therapy at this point. (2) CHF (congestive heart failure) Is this a current diagnosis for this admission?: Yes Plan: Lately with some decompensation. Obtain records from [facility] including previous echocardiogram if available. (3) Metabolic acidosis Is this a current diagnosis for this admission?: Yes Plan: Hyperchloremic normal anion gap acidosis. Likely cause include JUNAID and saline. Since the patient appears to be a fluid overloaded, I will discontinue the sodium bicarbonate for now. (4) Hyperkalemia Is this a current diagnosis for this admission?: Yes Plan: Due to JUNAID. Mild. Follow low potassium renal diet. (5) Hypothyroid Is this a current diagnosis for this admission?: Yes Plan: Severe and uncontrolled this admission. Defer to hospitalist for management. (6) Depression Qualifiers: Depression Type: major depressive disorder Qualified Code(s): F32.9 - Major depressive disorder, single episode, unspecified Is this a current diagnosis for this admission?: Yes - Notes Notes: Thank you very much for this consultation. Discussed with Dr. Loo.
[2020-10-10] MEDS: LEVOTHYROXINE SODIUM 0.1 MG TABLET PO SCH (05:24)
[2020-10-10 06:33] LABS: ANION GAP 6 (5-19); BLOOD UREA NITROGEN 83 mg/dL (7-20); CALCIUM 8.7 mg/dL (8.4-10.2); CARBON DIOXIDE 21 mmol/L (22-30); CHLORIDE 111 mmol/L (98-107); GLUCOSE 113 mg/dL (75-110); PHOSPHORUS 4.5 mg/dL (2.5-4.5); POTASSIUM 4.6 mmol/L (3.6-5.0)
[2020-10-10] MEDS: DOCUSATE SODIUM 100 MG CAPSULE PO SCH (09:50)
[2020-10-10] MEDS: METOPROLOL SUCCINATE 25 MG TAB.SR.24H PO SCH ×2 (09:51→21:52)
[2020-10-10] MEDS: CALCIUM CARBONATE 600 MG/VITAMIN D3 400 UNIT TABLET PO SCH ×2 (09:51→18:03)
[2020-10-10] MEDS: CETIRIZINE 10 MG TABLET PO SCH (09:51)
[2020-10-10] MEDS: APIXABAN 2.5 MG TABLET PO SCH ×2 (09:51→18:03)
[2020-10-10] MEDS: FUROSEMIDE INJ/PF 40 MG/4 ML SDV IV SCH ×2 (09:51→22:07)
--- NOTE | 2020-10-10 15:31 | PDOC PROGRESS REPORT ---
Subjective Date:: 10/10/20 Subjective:: No adverse events overnight. She still on oxygen. She still very edematous. S he has had a little bit of urine output. She got Lasix a couple of times last night. She is little more awake today. Her lunch was in front of her and she had only eaten about half of a small meatball while everything else on her tray had not been touched. She told me that she has actually been eating despite what it looks like, and she started to get a little tearful about it. Reason For Visit: DEHYDRATION,HYPERKALEMIA,HYPERBILIRUBINEMIA Physical Exam Vital Signs: Temp Pulse Resp BP Pulse Ox 98.0 F 93 17 114/70 91 L 10/09/20 23:56 10/10/20 02:00 10/09/20 23:56 10/09/20 23:56 10/09/20 23:56 Intake & Output 10/09/20 10/10/20 10/11/20 06:59 06:59 06:59 Intake Total 220 520 Output Total 1050 Balance 220 -530 Weight 84.8 kg 83.8 kg General appearance: PRESENT: no acute distress, thin frail-appearing elderly white female Head exam: PRESENT: atraumatic, normocephalic Eye exam: PRESENT: conjunctiva pink. ABSENT: scleral icterus Mouth exam: PRESENT: moist Respiratory exam: PRESENT: clear to auscultation chase. ABSENT: rales, rhonchi, wheezes Cardiovascular exam: PRESENT: RRR. ABSENT: diastolic murmur, rubs, systolic murmur; + 2 generalized edema GI/Abdominal exam: PRESENT: normal bowel sounds, soft. ABSENT: distended, guarding, mass, organolmegaly, rebound, tenderness Neurological exam: PRESENT: alert, awake, oriented to person, oriented to place Psychiatric exam: PRESENT: appropriate affect, normal mood Skin exam: PRESENT: dry, intact, warm Results Laboratory Results: 10/05/20 05:18 10/10/20 04:35 10/10/20 04:35 Sodium 138.4 Potassium 4.6 Chloride 111 H Carbon Dioxide 21 L Anion Gap 6 BUN 83 H Creatinine 2.13 H Est GFR ( Amer) 28 L Glucose 113 H Calcium 8.7 Phosphorus 4.5 Magnesium 2.5 H Impressions: Abdomen MRI 10/02/20 00:00 IMPRESSION: 1. The gallbladder is contracted. There is no biliary ductal dilatation or evidence of choledocholithiasis. 2. Variant pancreatic divisum. 3. Stable 14 x 12 mm circumscribed high T2 signal lesion in the pancreatic head (image 15 of series 11). Abdomen Ultrasound 10/02/20 00:00 IMPRESSION: Fatty liver. No dilated ducts. Trace ascites. Chest X-Ray 10/02/20 00:00 IMPRESSION: Right basilar opacity consistent with atelectasis and/or pneumonia and probable trace right pleural effusion. Renal Ultrasound 10/09/20 00:00 IMPRESSION: ATROPHIC KIDNEYS. NO HYDRONEPHROSIS. CYST IN THE LEFT KIDNEY WITH CALCIFICATIONS. POSSIBLE SMALL CALCULI IN THE LEFT KIDNEY. Assessment and Plan - Diagnosis (1) JUNAID (acute kidney injury) Is this a current diagnosis for this admission?: Yes (2) Colostomy in place Is this a current diagnosis for this admission?: Yes (3) Depression Qualifiers: Depression Type: major depressive disorder Qualified Code(s): F32.9 - Major depressive disorder, single episode, unspecified Is this a current diagnosis for this admission?: Yes (4) Hyperbilirubinemia Is this a current diagnosis for this admission?: Yes (5) Hyperkalemia Is this a current diagnosis for this admission?: Yes (6) Myxedema coma Is this a current diagnosis for this admission?: Yes - Plan Summary Summary: BUN and creatinine remain elevated. She has had a little bit of urine output, but not what one would expect considering how much Lasix she has gotten. She is a little more awake today. Still not eating very much. We will follow up Dr. Kumar's recommendations after she sees her today. She will likely need placement because she is very weak. - Time Time Spent with patient: 15-24 minutes Anticipated Discharge Disposition: Custodial Facility Anticipated Discharge Timeframe: Unknown
--- NOTE | 2020-10-11 00:08 | PDOC PROGRESS REPORT ---
Subjective Date:: 10/10/20 Subjective:: Patient appears to be more awake today. She states that she feels better and sh e is eating better although she does not appear to be eating so much. She denies any shortness of breath nor chest pains. She denies any cough. She made about 2050 mL of urine output from yesterday since we started the Nesbitt catheter. Her intake and output balance is -530 mL as recorded. Her blood pressure appears to be slightly better. We received some records from [facility] from which she was hospitalized from 06/08 to 06/11/2020. She was described to have nonischemic cardiomyopathy with TTE done on 02/06/2020 with ejection fraction of less than 25%. She had a left heart catheterization on 02/13/2020 which showed nonobstructive coronary artery disease, moderate MR and moderate pulmonary hypertension. Reason For Visit: DEHYDRATION,HYPERKALEMIA,HYPERBILIRUBINEMIA Physical Exam Vital Signs: Temp Pulse Resp BP Pulse Ox 98.0 F 93 17 114/70 91 L 10/09/20 23:56 10/10/20 02:00 10/09/20 23:56 10/09/20 23:56 10/09/20 23:56 Intake & Output 10/09/20 10/10/20 10/11/20 06:59 06:59 06:59 Intake Total 220 520 Output Total 1050 Balance 220 -530 Weight 84.8 kg 83.8 kg Exam: General appearance: PRESENT: no acute distress, cooperative, well-developed, well-nourished Head exam: PRESENT: atraumatic, normocephalic Eye exam: PRESENT: conjunctiva pale, PERRLA. ABSENT: scleral icterus Neck exam: ABSENT: JVD Respiratory exam: PRESENT: Diminished breath sounds. ABSENT: crackles, rales, rhonchi, unlabored, wheezes Cardiovascular exam: PRESENT: Irregularly irregular rate rhythm -+S1, +S2. ABSENT: diastolic murmur, systolic murmur GI/Abdominal exam: PRESENT: normal bowel sounds, soft. Left lower quadrant colostomy ABSENT: guarding, mass, tenderness Extremities exam: Grade 2 bilateral lower extremity pitting edema, positive subcutaneous edema in dependent portion of her buttocks and back, slightly decreased upper extremity edema Neurological exam: PRESENT: alert, awake, oriented to person, place and time. Skin exam: PRESENT: dry, warm, Results Laboratory Results: 10/05/20 05:18 10/10/20 04:35 10/10/20 04:35 Sodium 138.4 Potassium 4.6 Chloride 111 H Carbon Dioxide 21 L Anion Gap 6 BUN 83 H Creatinine 2.13 H Est GFR ( Amer) 28 L Glucose 113 H Calcium 8.7 Phosphorus 4.5 Magnesium 2.5 H Impressions: Abdomen MRI 10/02/20 00:00 IMPRESSION: 1. The gallbladder is contracted. There is no biliary ductal dilatation or evidence of choledocholithiasis. 2. Variant pancreatic divisum. 3. Stable 14 x 12 mm circumscribed high T2 signal lesion in the pancreatic head (image 15 of series 11). Abdomen Ultrasound 10/02/20 00:00 IMPRESSION: Fatty liver. No dilated ducts. Trace ascites. Chest X-Ray 10/02/20 00:00 IMPRESSION: Right basilar opacity consistent with atelectasis and/or pneumonia and probable trace right pleural effusion. Renal Ultrasound 10/09/20 00:00 IMPRESSION: ATROPHIC KIDNEYS. NO HYDRONEPHROSIS. CYST IN THE LEFT KIDNEY WITH CALCIFICATIONS. POSSIBLE SMALL CALCULI IN THE LEFT KIDNEY. Assessment & Plan - Diagnosis (1) JUNAID (acute kidney injury) Is this a current diagnosis for this admission?: Yes Plan: Initially likely secondary to acute prerenal azotemia due to acute dehydration with history of poor oral intake and relative hypotension. Patient improved slightly but then kidney function started getting worse. Patient is nonoliguric. Weight has gone up from 69 kg-> 84.8 kg->83.8kgs.. Patient has significant anasarca mild hypoalbuminemia. I think we might have over hydrated the patient to the point that she now has CHF. Initial abdominal ultrasound and MRI of the abdomen did not show any hydronephrosis. Continue IV Lasix 40 mg every 12 hours. Continue to monitor kidney function. No need of renal replacement therapy. (2) CHF (congestive heart failure) Is this a current diagnosis for this admission?: Yes Plan: Patient has baseline nonischemic cardiomyopathy with LVEF of less than 25% based on TTE on 02/06/2020 from [facility]. Clinical day with compensation. Continue diuresis. (3) Metabolic acidosis Is this a current diagnosis for this admission?: Yes Plan: Improving. (4) Hyperkalemia Is this a current diagnosis for this admission?: Yes Plan: Resolved. (5) Atrial fibrillation Is this a current diagnosis for this admission?: Yes (6) Hypothyroid Is this a current diagnosis for this admission?: Yes Plan: Severe and uncontrolled this admission. Defer to hospitalist for management. (7) Depression Qualifiers: Depression Type: major depressive disorder Qualified Code(s): F32.9 - Major depressive disorder, single episode, unspecified Is this a current diagnosis for this admission?: Yes - Time Time with patient: 15-25 minutes
[2020-10-11] MEDS: LEVOTHYROXINE SODIUM 0.1 MG TABLET PO SCH (05:35)
[2020-10-11 06:23] LABS: ANION GAP 7 (5-19); BLOOD UREA NITROGEN 83 mg/dL (7-20); CALCIUM 9.1 mg/dL (8.4-10.2); CARBON DIOXIDE 26 mmol/L (22-30); CHLORIDE 109 mmol/L (98-107); GLUCOSE 82 mg/dL (75-110); POTASSIUM 4.4 mmol/L (3.6-5.0)
[2020-10-11 10:37] LABS: CREATININE URINE 42.5 mg/dL (Not Estab.); MICROALBUMIN URINE 149.7 ug/mL (Not Estab.)
[2020-10-11] MEDS: METOPROLOL SUCCINATE 25 MG TAB.SR.24H PO SCH (12:23)
[2020-10-11] MEDS: DOCUSATE SODIUM 100 MG CAPSULE PO SCH (12:23)
[2020-10-11] MEDS: CALCIUM CARBONATE 600 MG/VITAMIN D3 400 UNIT TABLET PO SCH ×2 (12:23→17:14)
[2020-10-11] MEDS: APIXABAN 2.5 MG TABLET PO SCH ×2 (12:23→17:14)
[2020-10-11] MEDS: FUROSEMIDE INJ/PF 40 MG/4 ML SDV IV SCH ×2 (12:23→22:02)
[2020-10-11] MEDS: CETIRIZINE 10 MG TABLET PO SCH (12:23)
--- NOTE | 2020-10-11 13:41 | PDOC PROGRESS REPORT ---
Subjective Date:: 10/11/20 Subjective:: Patient appears to look brighter and more awake. She said her breathing is okay . She made 1020 mL of urine output for the last 24 hours. Her intake and output balance is -503. He said she is feeling better and denies any new complaints. Her daughter is at bedside and was telling me the history of clinical decline for the last couple months prompting this admission. Reason For Visit: DEHYDRATION,HYPERKALEMIA,HYPERBILIRUBINEMIA Physical Exam Vital Signs: Temp Pulse Resp BP Pulse Ox 97.9 F 63 16 106/67 100 10/11/20 10:00 10/11/20 08:35 10/11/20 08:35 10/11/20 08:35 10/11/20 08:35 Intake & Output 10/10/20 10/11/20 10/12/20 06:59 06:59 06:59 Intake Total 520 517 Output Total 1050 1020 Balance -530 -503 Weight 83.8 kg 83.3 kg 83.3 kg Exam: General appearance: PRESENT: no acute distress, cooperative, well-developed, well-nourished Head exam: PRESENT: atraumatic, normocephalic Eye exam: PRESENT: conjunctiva pale, PERRLA. ABSENT: scleral icterus Neck exam: ABSENT: JVD Respiratory exam: PRESENT: Diminished breath sounds. ABSENT: crackles, rales, rhonchi, unlabored, wheezes Cardiovascular exam: PRESENT: Irregularly irregular rate rhythm -+S1, +S2. ABSENT: diastolic murmur, systolic murmur GI/Abdominal exam: PRESENT: normal bowel sounds, soft. ABSENT: guarding, mass, tenderness Extremities exam: Grade 2 bilateral lower extremity pitting edema, upper extremity edema is improving Neurological exam: PRESENT: alert, awake, oriented to person, place and time. Skin exam: PRESENT: dry, warm, Results Laboratory Results: 10/05/20 05:18 10/11/20 04:30 10/11/20 04:30 Sodium 142.0 Potassium 4.4 Chloride 109 H Carbon Dioxide 26 Anion Gap 7 BUN 83 H Creatinine 2.27 H Est GFR ( Amer) 26 L Glucose 82 Calcium 9.1 Impressions: Abdomen MRI 10/02/20 00:00 IMPRESSION: 1. The gallbladder is contracted. There is no biliary ductal dilatation or evidence of choledocholithiasis. 2. Variant pancreatic divisum. 3. Stable 14 x 12 mm circumscribed high T2 signal lesion in the pancreatic head (image 15 of series 11). Abdomen Ultrasound 10/02/20 00:00 IMPRESSION: Fatty liver. No dilated ducts. Trace ascites. Chest X-Ray 10/02/20 00:00 IMPRESSION: Right basilar opacity consistent with atelectasis and/or pneumonia and probable trace right pleural effusion. Renal Ultrasound 10/09/20 00:00 IMPRESSION: ATROPHIC KIDNEYS. NO HYDRONEPHROSIS. CYST IN THE LEFT KIDNEY WITH CALCIFICATIONS. POSSIBLE SMALL CALCULI IN THE LEFT KIDNEY. Assessment & Plan - Diagnosis (1) JUNAID (acute kidney injury) Is this a current diagnosis for this admission?: Yes Plan: Initially likely secondary to acute prerenal azotemia due to acute dehydration with history of poor oral intake and relative hypotension. Patient improved slightly but then kidney function started getting worse. Patient is non- oliguric. Weight has gone up from 69 kg-> 84.8 kg->83.8kgs. Patient has significant anasarca mild hypoalbuminemia. I think we might have over hydrated the patient to the point that she now has CHF. Initial abdominal ultrasound and MRI of the abdomen did not show any hydronephrosis. Kidney function is unchanged. It is very possible that the patient is establishing a new baseline kidney function. Records from May from [facility] revealed that her BUN ranged air around 23-40 and her creatinine ranged about 1.16-1.25. Continue IV Lasix 40 mg every 12 hours. Continue to monitor kidney function. No need of renal replacement therapy. (2) CHF (congestive heart failure) Is this a current diagnosis for this admission?: Yes Plan: Patient has baseline non-ischemic cardiomyopathy with LVEF of less than 25% based on TTE on 02/06/2020 from [facility]. With mild decompensation. Continue diuresis. Consider cardiology consultation to optimize cardiac management. Defer to hospitalist service. (3) Metabolic acidosis Is this a current diagnosis for this admission?: Yes Plan: Resolved. (4) Hyperkalemia Is this a current diagnosis for this admission?: Yes Plan: Resolved. (5) Atrial fibrillation Is this a current diagnosis for this admission?: Yes Plan: On metoprolol. (6) Hypothyroid Is this a current diagnosis for this admission?: Yes Plan: Severe and uncontrolled this admission. Defer to hospitalist for management. (7) Depression Qualifiers: Depression Type: major depressive disorder Qualified Code(s): F32.9 - Major depressive disorder, single episode, unspecified Is this a current diagnosis for this admission?: Yes - Time Time with patient: 15-25 minutes
--- NOTE | 2020-10-11 14:26 | PDOC PROGRESS REPORT ---
Subjective Date:: 10/11/20 Subjective:: patient reports she would like to go home at discharge, denies chest pain/shortn ess of breath Reason For Visit: DEHYDRATION,HYPERKALEMIA,HYPERBILIRUBINEMIA Physical Exam Vital Signs: Temp Pulse Resp BP Pulse Ox 98.7 F 102 H 20 100/60 91 L 10/11/20 12:00 10/11/20 12:00 10/11/20 12:00 10/11/20 12:00 10/11/20 12:00 Intake & Output 10/10/20 10/11/20 10/12/20 06:59 06:59 06:59 Intake Total 520 517 240 Output Total 1050 1020 Balance -530 -503 240 Weight 83.8 kg 83.3 kg 83.3 kg General appearance: PRESENT: no acute distress Respiratory exam: PRESENT: clear to auscultation chase Cardiovascular exam: PRESENT: RRR Vascular exam: PRESENT: other Results Laboratory Results: 10/05/20 05:18 10/11/20 04:30 10/11/20 04:30 Sodium 142.0 Potassium 4.4 Chloride 109 H Carbon Dioxide 26 Anion Gap 7 BUN 83 H Creatinine 2.27 H Est GFR ( Amer) 26 L Glucose 82 Calcium 9.1 Impressions: Abdomen MRI 10/02/20 00:00 IMPRESSION: 1. The gallbladder is contracted. There is no biliary ductal dilatation or evidence of choledocholithiasis. 2. Variant pancreatic divisum. 3. Stable 14 x 12 mm circumscribed high T2 signal lesion in the pancreatic head (image 15 of series 11). Abdomen Ultrasound 10/02/20 00:00 IMPRESSION: Fatty liver. No dilated ducts. Trace ascites. Chest X-Ray 10/02/20 00:00 IMPRESSION: Right basilar opacity consistent with atelectasis and/or pneumonia and probable trace right pleural effusion. Renal Ultrasound 10/09/20 00:00 IMPRESSION: ATROPHIC KIDNEYS. NO HYDRONEPHROSIS. CYST IN THE LEFT KIDNEY WITH CALCIFICATIONS. POSSIBLE SMALL CALCULI IN THE LEFT KIDNEY. Assessment and Plan - Diagnosis (1) CHF (congestive heart failure) Is this a current diagnosis for this admission?: Yes (2) Myxedema coma Is this a current diagnosis for this admission?: Yes (3) Atrial fibrillation with RVR Is this a current diagnosis for this admission?: Yes - Plan Summary Summary: 1. Stage III CKD, acute on chronic CKD: pati Peguero in place, expect Cr to go back to 2.6 2. Atrial fib: hold metoprolol as BP dropping down with diuresis 3. CHF with peripheral edema: FRANCISCO bandages 4. Hypothyroidism: fatigued, f/u TSH in 4-6 weeks as outpatient. 5. acute physical deconditiong: PT eval - Time Time Spent with patient: 15-24 minutes Anticipated Discharge Disposition: Home, Self Care Anticipated Discharge Timeframe: within 72 hours
[2020-10-12] MEDS: LEVOTHYROXINE SODIUM 0.1 MG TABLET PO SCH (05:38)
[2020-10-12 05:48] LABS: ABSOLUTE EOSINOPHILS # (AUTO) 0.1 10^3/uL (0.0-0.6); ABSOLUTE LYMPHOCYTES (AUTO) 0.5 10^3/uL (0.5-4.7); ABSOLUTE MONOCYTES (AUTO) 0.7 10^3/uL (0.1-1.4); ABSOLUTE NEUT (AUTO) 6.7 10^3/uL (1.7-8.2); BASOPHILS % (AUTO) 0.1 % (0-2); EOSINOPHILS % (AUTO) 1.5 % (0-6); HEMATOCRIT 39.9 % (36.0-47.0); HEMOGLOBIN 13.1 g/dL (12.0-15.5); LYMPHOCYTES % (AUTO) 6.3 % (13-45); MEAN CORPUSCULAR HEMOGLOBIN 27.9 pg (27.0-33.4); MEAN CORPUSCULAR HGB CONC 32.9 g/dL (32.0-36.0); MEAN CORPUSCULAR VOLUME 85 fl (80-97); MONOCYTES % (AUTO) 8.4 % (3-13); RED CELL DISTRIBUTION WIDTH 18.3 % (11.5-14.0); SEGMENTED NEUTROPHILS % (AUTO) 83.7 % (42-78); TOTAL CELLS COUNTED % (AUTO) 100 %
[2020-10-12 06:14] LABS: ALBUMIN 2.6 g/dL (3.5-5.0); ALKALINE PHOSPHATASE 90 U/L (38-126); ANION GAP 7 (5-19); ASPARTATE AMINO TRANSFERASE 20 U/L (14-36); BILIRUBIN,DIRECT 0.3 mg/dL (0.0-0.4); BILIRUBIN,TOTAL 1.6 mg/dL (0.2-1.3); BLOOD UREA NITROGEN 82 mg/dL (7-20); CALCIUM 8.7 mg/dL (8.4-10.2); CARBON DIOXIDE 25 mmol/L (22-30); CHLORIDE 109 mmol/L (98-107); GLUCOSE 134 mg/dL (75-110); POTASSIUM 3.5 mmol/L (3.6-5.0)
[2020-10-12 06:18] LABS: PLATELET COUNT 64 10^3/uL (150-450)
[2020-10-12 06:26] LABS: FREE T3 1.52 pg/mL (2.77-5.27); FREE T4 (FREE THYROXINE) 0.75 ng/dL (0.78-2.19)
[2020-10-12 06:39] LABS: THYROID STIMULATING HORMONE 9.12 uIU/mL (0.47-4.68)
[2020-10-12] MEDS: APIXABAN 2.5 MG TABLET PO SCH (09:10)
[2020-10-12] MEDS: CALCIUM CARBONATE 600 MG/VITAMIN D3 400 UNIT TABLET PO SCH ×2 (09:10→17:20)
[2020-10-12] MEDS: CETIRIZINE 10 MG TABLET PO SCH (09:10)
[2020-10-12] MEDS: DOCUSATE SODIUM 100 MG CAPSULE PO SCH (09:10)
[2020-10-12] MEDS: FUROSEMIDE INJ/PF 40 MG/4 ML SDV IV SCH ×2 (09:10→21:12)
[2020-10-12] MEDS: POTASSIUM CHLORIDE 10 MEQ TABLET.ER PO SCH (09:10)
--- NOTE | 2020-10-12 11:11 | PDOC PROGRESS REPORT ---
Subjective Date:: 10/12/20 Subjective:: patient denies chest pain/SOB, no new concerns per RN Reason For Visit: DEHYDRATION,HYPERKALEMIA,HYPERBILIRUBINEMIA Physical Exam Vital Signs: Temp Pulse Resp BP Pulse Ox 98.0 F 107 H 20 113/72 92 10/12/20 08:11 10/12/20 07:34 10/12/20 07:34 10/12/20 07:34 10/12/20 07:34 Intake & Output 10/11/20 10/12/20 10/13/20 06:59 06:59 06:59 Intake Total 517 480 Output Total 1020 2400 Balance -503 -1920 Weight 83.3 kg 82.1 kg General appearance: PRESENT: no acute distress, other - able to speak in full sentences Respiratory exam: PRESENT: decreased breath sounds - on room air Cardiovascular exam: PRESENT: RRR, other - 2+ pedal edema Extremities exam: PRESENT: +2 edema Results Laboratory Results: 10/12/20 05:13 10/12/20 05:13 10/12/20 10/12/20 10/12/20 05:13 05:13 05:13 WBC 8.0 RBC 4.70 Hgb 13.1 Hct 39.9 MCV 85 MCH 27.9 MCHC 32.9 RDW 18.3 H Plt Count 64 L Seg Neutrophils % 83.7 H Sodium 141.1 Potassium 3.5 L Chloride 109 H Carbon Dioxide 25 Anion Gap 7 BUN 82 H Creatinine 1.89 H Est GFR ( Amer) 32 L Glucose 134 H Calcium 8.7 Magnesium 2.2 Total Bilirubin 1.6 H AST 20 Alkaline Phosphatase 90 Total Protein 5.0 L Albumin 2.6 L TSH 9.12 H Free T4 0.75 L Free T3 pg/mL 1.52 L Impressions: Abdomen MRI 10/02/20 00:00 IMPRESSION: 1. The gallbladder is contracted. There is no biliary ductal dilatation or evidence of choledocholithiasis. 2. Variant pancreatic divisum. 3. Stable 14 x 12 mm circumscribed high T2 signal lesion in the pancreatic head (image 15 of series 11). Abdomen Ultrasound 10/02/20 00:00 IMPRESSION: Fatty liver. No dilated ducts. Trace ascites. Chest X-Ray 10/02/20 00:00 IMPRESSION: Right basilar opacity consistent with atelectasis and/or pneumonia and probable trace right pleural effusion. Renal Ultrasound 10/09/20 00:00 IMPRESSION: ATROPHIC KIDNEYS. NO HYDRONEPHROSIS. CYST IN THE LEFT KIDNEY WITH CALCIFICATIONS. POSSIBLE SMALL CALCULI IN THE LEFT KIDNEY. Assessment and Plan - Diagnosis (1) CHF (congestive heart failure) Is this a current diagnosis for this admission?: Yes (2) Myxedema coma Is this a current diagnosis for this admission?: Yes (3) Atrial fibrillation with RVR Is this a current diagnosis for this admission?: Yes - Plan Summary Summary: 1. Stage III CKD, acute on chronic CKD: Diuresing, krueger in place - krueger to be removed in am, D/W organizational effectiveness consultant. She is eating better and mood appears improved from yesterday 2. Atrial fib: BB on hold, resume digoxin, and entresto (per organizational effectiveness consultant), resume anticoagulation 3. CHF with peripheral edema: FRANCISCO bandages constinue 4. Hypothyroidism: fatigued, f/u TSH in 4-6 weeks as outpatient, T4 a little lower than baseline. 5. acute physical deconditiong: PT eval and suspect SNF vs [facility] - Time Time Spent with patient: 15-24 minutes Anticipated [facility]charge [facility]position[facility] Anticipated Discharge Timeframe: within 72 hours
--- NOTE | 2020-10-12 13:03 | PDOC PROGRESS REPORT ---
Subjective Date:: 10/12/20 Subjective:: Patient states that she is feeling fine and has no new complaints. She looks br ighter, more alert and overall clinically much better. She ate 50% of her breakfast per nurse. She has made about 2400 mL of urine output for the last 24 hours which is the best that she has had for the last few days. Overall she is appears to be clinically improving. She is being arranged for assisted living placement. Reason For Visit: DEHYDRATION,HYPERKALEMIA,HYPERBILIRUBINEMIA Physical Exam Vital Signs: Temp Pulse Resp BP Pulse Ox 98.0 F 107 H 20 113/72 92 10/12/20 08:11 10/12/20 07:34 10/12/20 07:34 10/12/20 07:34 10/12/20 07:34 Intake & Output 10/11/20 10/12/20 10/13/20 06:59 06:59 06:59 Intake Total 517 480 Output Total 1020 2400 Balance -503 -1920 Weight 83.3 kg 82.1 kg Exam: General appearance: PRESENT: no acute distress, cooperative, well-developed, well-nourished Head exam: PRESENT: atraumatic, normocephalic Eye exam: PRESENT: conjunctiva pink, PERRLA. ABSENT: scleral icterus Neck exam: ABSENT: JVD Respiratory exam: PRESENT: Diminished breath sounds. ABSENT: crackles, rales, rhonchi, unlabored, wheezes Cardiovascular exam: PRESENT: Irregularly irregular rate rhythm -+S1, +S2. ABSENT: diastolic murmur, systolic murmur GI/Abdominal exam: PRESENT: normal bowel sounds, soft. ABSENT: guarding, mass, tenderness Extremities exam: Slowly improving grade 1-2 bilateral lower extremity pitting edema, upper extremity edema is resolving Neurological exam: PRESENT: alert, awake, oriented to person, place and time. Skin exam: PRESENT: dry, warm, Results Laboratory Results: 10/12/20 05:13 10/12/20 05:13 10/12/20 10/12/20 10/12/20 05:13 05:13 05:13 WBC 8.0 RBC 4.70 Hgb 13.1 Hct 39.9 MCV 85 MCH 27.9 MCHC 32.9 RDW 18.3 H Plt Count 64 L Seg Neutrophils % 83.7 H Sodium 141.1 Potassium 3.5 L Chloride 109 H Carbon Dioxide 25 Anion Gap 7 BUN 82 H Creatinine 1.89 H Est GFR ( Amer) 32 L Glucose 134 H Calcium 8.7 Magnesium 2.2 Total Bilirubin 1.6 H AST 20 Alkaline Phosphatase 90 Total Protein 5.0 L Albumin 2.6 L TSH 9.12 H Free T4 0.75 L Free T3 pg/mL 1.52 L Impressions: Abdomen MRI 10/02/20 00:00 IMPRESSION: 1. The gallbladder is contracted. There is no biliary ductal dilatation or evidence of choledocholithiasis. 2. Variant pancreatic divisum. 3. Stable 14 x 12 mm circumscribed high T2 signal lesion in the pancreatic head (image 15 of series 11). Abdomen Ultrasound 10/02/20 00:00 IMPRESSION: Fatty liver. No dilated ducts. Trace ascites. Chest X-Ray 10/02/20 00:00 IMPRESSION: Right basilar opacity consistent with atelectasis and/or pneumonia and probable trace right pleural effusion. Renal Ultrasound 10/09/20 00:00 IMPRESSION: ATROPHIC KIDNEYS. NO HYDRONEPHROSIS. CYST IN THE LEFT KIDNEY WITH CALCIFICATIONS. POSSIBLE SMALL CALCULI IN THE LEFT KIDNEY. Assessment & Plan - Diagnosis (1) JUNAID (acute kidney injury) Is this a current diagnosis for this admission?: Yes Plan: Initially likely secondary to acute prerenal azotemia due to acute dehydration with history of poor oral intake and relative hypotension. Patient improved sl ightly but then kidney function started getting worse. Patient is non-oliguric. Weight has gone up from 69 kg-> 84.8 kg->82.1kgs. Patient has significant anasarca with mild hypoalbuminemia. I think we might have over hydrated the patient to the point that she now has CHF. Initial abdominal ultrasound and MRI of the abdomen did not show any hydronephrosis. Kidney function is finally starting to improve with creatinine of 1.89 today. It is very possible that the patient is establishing a new baseline kidney function. We decided to continue to monitor and see where her kidney functions again and up to. Records from [facility] revealed that her BUN ranged air around 23-40 and her creatinine ranged about 1.16-1.25. Continue IV Lasix 40 mg every 12 hours. Continue to monitor kidney function. No need of renal replacement therapy. If urine output continues to be good, may remove Nesbitt catheter tomorrow. (2) CHF (congestive heart failure) Is this a current diagnosis for this admission?: Yes Plan: Patient has baseline non-ischemic cardiomyopathy with LVEF of less than 25% based on TTE on 02/06/2020 from [facility]. With acute decompensation patient is clinically improving. Continue diuresis. Consider cardiology consultation to optimize cardiac management. Defer to hospitalist service. (3) Metabolic acidosis Is this a current diagnosis for this admission?: Yes Plan: Resolved. (4) Hypokalemia Is this a current diagnosis for this admission?: Yes Plan: Diuretic induced. Potassium replacement. (5) Atrial fibrillation Is this a current diagnosis for this admission?: Yes Plan: On metoprolol. (6) Hypothyroid Is this a current diagnosis for this admission?: Yes Plan: Severe and uncontrolled this admission. Defer to hospitalist for management. (7) Depression Qualifiers: Depression Type: major depressive disorder Qualified Code(s): F32.9 - Major depressive disorder, single episode, unspecified Is this a current diagnosis for this admission?: Yes - Notes Notes: Discussed with Dr. Varun Morales from hospitalist service.
[2020-10-12] MEDS: DIGOXIN 0.125 MG TABLET PO SCH (14:41)
[2020-10-12] MEDS: SACUBITRIL/VALSARTAN 24 MG/26 MG TABLET PO SCH (15:07)
[2020-10-12] MEDS: MAGNESIUM OXIDE 400 MG TABLET PO SCH (17:20)
[2020-10-12] MEDS: APIXABAN 5 MG TABLET PO SCH (17:20)
[2020-10-12] MEDS ORDERED: APIXABAN 5 MG PO SCH (18:00)
[2020-10-13] MEDS: LEVOTHYROXINE SODIUM 0.1 MG TABLET PO SCH (05:24)
[2020-10-13 05:49] LABS: ABSOLUTE EOSINOPHILS # (AUTO) 0.1 10^3/uL (0.0-0.6); ABSOLUTE LYMPHOCYTES (AUTO) 0.5 10^3/uL (0.5-4.7); ABSOLUTE MONOCYTES (AUTO) 0.7 10^3/uL (0.1-1.4); ABSOLUTE NEUT (AUTO) 6.4 10^3/uL (1.7-8.2); BASOPHILS % (AUTO) 0.3 % (0-2); EOSINOPHILS % (AUTO) 0.8 % (0-6); HEMATOCRIT 40.1 % (36.0-47.0); HEMOGLOBIN 13.1 g/dL (12.0-15.5); MEAN CORPUSCULAR HEMOGLOBIN 27.6 pg (27.0-33.4); MEAN CORPUSCULAR HGB CONC 32.7 g/dL (32.0-36.0); MEAN CORPUSCULAR VOLUME 85 fl (80-97); MONOCYTES % (AUTO) 8.7 % (3-13); RED BLOOD COUNT 4.74 10^6/uL (3.72-5.28); RED CELL DISTRIBUTION WIDTH 18.1 % (11.5-14.0); SEGMENTED NEUTROPHILS % (AUTO) 84.2 % (42-78); TOTAL CELLS COUNTED % (AUTO) 100 %; WHITE BLOOD COUNT 7.6 10^3/uL (4.0-10.5)
[2020-10-13 06:06] LABS: PLATELET COUNT 59 10^3/uL (150-450)
[2020-10-13 06:45] LABS: ALBUMIN 2.6 g/dL (3.5-5.0); ALKALINE PHOSPHATASE 73 U/L (38-126); ANION GAP 7 (5-19); ASPARTATE AMINO TRANSFERASE 25 U/L (14-36); BILIRUBIN,DIRECT 0.3 mg/dL (0.0-0.4); BILIRUBIN,TOTAL 1.6 mg/dL (0.2-1.3); BLOOD UREA NITROGEN 81 mg/dL (7-20); CALCIUM 8.7 mg/dL (8.4-10.2); CARBON DIOXIDE 25 mmol/L (22-30); CHLORIDE 111 mmol/L (98-107); GLUCOSE 98 mg/dL (75-110); POTASSIUM 3.9 mmol/L (3.6-5.0)
[2020-10-13] MEDS: MAGNESIUM OXIDE 400 MG TABLET PO SCH ×2 (10:40→18:57)
[2020-10-13] MEDS: DOCUSATE SODIUM 100 MG CAPSULE PO SCH (10:40)
[2020-10-13] MEDS: POTASSIUM CHLORIDE 10 MEQ TABLET.ER PO SCH (10:40)
[2020-10-13] MEDS: CALCIUM CARBONATE 600 MG/VITAMIN D3 400 UNIT TABLET PO SCH ×2 (10:40→18:57)
[2020-10-13] MEDS: APIXABAN 5 MG TABLET PO SCH ×2 (10:40→18:57)
[2020-10-13] MEDS: CETIRIZINE 10 MG TABLET PO SCH (10:40)
[2020-10-13] MEDS: SACUBITRIL/VALSARTAN 24 MG/26 MG TABLET PO SCH ×2 (10:40→18:57)
[2020-10-13] MEDS: DIGOXIN 0.125 MG TABLET PO SCH (10:44)
[2020-10-13] MEDS: FUROSEMIDE INJ/PF 40 MG/4 ML SDV IV SCH ×2 (10:47→21:28)
--- NOTE | 2020-10-13 11:33 | PDOC PROGRESS REPORT ---
Subjective Date:: 10/13/20 Subjective:: patient reports she is depressed, denies thoughts to hurt herself or others. She wants to see her children Reason For Visit: DEHYDRATION,HYPERKALEMIA,HYPERBILIRUBINEMIA Physical Exam Vital Signs: Temp Pulse Resp BP Pulse Ox 97.4 F 53 L 18 111/73 93 10/13/20 07:28 10/13/20 07:28 10/13/20 07:28 10/13/20 07:28 10/13/20 07:28 Intake & Output 10/12/20 10/13/20 10/14/20 06:59 06:59 06:59 Intake Total 480 240 Output Total 2400 2024 Balance -1919 -1784 Weight 82.1 kg 82.1 kg General appearance: PRESENT: no acute distress Respiratory exam: PRESENT: clear to auscultation chase, unlabored Cardiovascular exam: PRESENT: RRR, other - 2+ pitting edema upto thighs Results Laboratory Results: 10/13/20 04:53 10/13/20 04:53 10/13/20 10/13/20 04:53 04:53 WBC 7.6 RBC 4.74 Hgb 13.1 Hct 40.1 MCV 85 MCH 27.6 MCHC 32.7 RDW 18.1 H Plt Count 59 L Seg Neutrophils % 84.2 H Sodium 142.7 Potassium 3.9 Chloride 111 H Carbon Dioxide 25 Anion Gap 7 BUN 81 H Creatinine 1.74 H Est GFR ( Amer) 35 L Glucose 98 Calcium 8.7 Total Bilirubin 1.6 H AST 25 Alkaline Phosphatase 73 Total Protein 5.0 L Albumin 2.6 L 10/13/20 04:53 NT-Pro-B Natriuret Pep 59444 H Impressions: Abdomen MRI 10/02/20 00:00 IMPRESSION: 1. The gallbladder is contracted. There is no biliary ductal dilatation or evidence of choledocholithiasis. 2. Variant pancreatic divisum. 3. Stable 14 x 12 mm circumscribed high T2 signal lesion in the pancreatic head (image 15 of series 11). Abdomen Ultrasound 10/02/20 00:00 IMPRESSION: Fatty liver. No dilated ducts. Trace ascites. Chest X-Ray 10/02/20 00:00 IMPRESSION: Right basilar opacity consistent with atelectasis and/or pneumonia and probable trace right pleural effusion. Renal Ultrasound 10/09/20 00:00 IMPRESSION: ATROPHIC KIDNEYS. NO HYDRONEPHROSIS. CYST IN THE LEFT KIDNEY WITH CALCIFICATIONS. POSSIBLE SMALL CALCULI IN THE LEFT KIDNEY. Assessment and Plan - Diagnosis (1) CHF (congestive heart failure) Is this a current diagnosis for this admission?: Yes (2) Myxedema coma Is this a current diagnosis for this admission?: Yes (3) Atrial fibrillation with RVR Is this a current diagnosis for this admission?: Yes - Plan Summary Summary: 1. Stage III CKD, acute on chronic CKD: Diuresing, krueger in place - krueger to be removedtoday. She is eating better and mood appears improved from yesterday still 2. Atrial fib: BB on hold while diuresing, resume digoxin, and entresto (per data security consultant), resume anticoagulation 3. CHF with peripheral edema: FRANCISCO bandages placed by me and RN today 4. Hypothyroidism: fatigued, f/u TSH in 4-6 weeks as outpatient, T4 a little lower than baseline. 5. acute physical deconditiong: PT eval and suspect SNF vs [facility], C following - Time Time Spent with patient: 15-24 minutes Anticipated Discharge Disposition: Care Home Facility Anticipated Discharge Timeframe: within 72 hours
[2020-10-13] MEDS: METOPROLOL SUCCINATE 25 MG TAB.SR.24H PO SCH (21:28)
[2020-10-14] MEDS: ALBUMIN HUMAN 12.5 GM/50 ML RTUINJ IV SCH ×4 (04:35→07:43)
[2020-10-14] MEDS ORDERED: ALBUMIN HUMAN 37.5 GM/150 ML IV ONE (05:19)
[2020-10-14 06:04] LABS: ANION GAP 5 (5-19); BLOOD UREA NITROGEN 86 mg/dL (7-20); CALCIUM 8.6 mg/dL (8.4-10.2); CARBON DIOXIDE 26 mmol/L (22-30); CHLORIDE 110 mmol/L (98-107); GLUCOSE 145 mg/dL (75-110)
[2020-10-14 06:10] LABS: POTASSIUM 5.2 mmol/L (3.6-5.0)
[2020-10-14] MEDS ORDERED: CALCIUM GLUCONATE 1 GM/NS 50 ML RTU IV ONE (06:30)
[2020-10-14] MEDS ORDERED: IPRATROPIUM/ALBUTEROL 0.5-2.5 MG/3 ML AMPUL NEB ONE (06:30)
[2020-10-14] MEDS ORDERED: PANTOPRAZOLE SODIUM 40 MG VIAL IV ONE (07:18)
[2020-10-14] MEDS: LEVOTHYROXINE SODIUM 0.1 MG TABLET PO SCH (07:40)
[2020-10-14] MEDS ORDERED: NORMAL SALINE 1000 ML 1,000 ML IV PRN (07:53)
--- NOTE | 2020-10-14 08:20 | RADIOLOGY REPORT (SQ) ---
CT of the head: 10/14/2020 7:17 AM THREAT MONITORING ANALYST HISTORY: 70-year-old patient with altered mental status. COMPARISON: None available TECHNIQUE: Multiple axial contiguous images were obtained through the head without intravenous contrast administered. This exam was performed according to our departmental dose-optimization program, which includes automated exposure control, adjustment of the mA and/or KV according to the patient's size and/or use of iterative reconstruction technique. FINDINGS: The ventricles and cerebral sulci demonstrate mild prominence, consistent with cerebral atrophy. There are mild periventricular hypodensities, suggestive of periventricular white matter changes. The carey-white matter differentiation is within normal limits. Both globes appear symmetric. The mastoid air cells appear clear. There is minimal mucoperiosteal thickening of the ethmoid sinuses. There is calcification at the posterior left cerebellum. There is atherosclerotic calcification seen at the right vertebral artery. The calvarium is intact. No extra-axial fluid collection is seen. No midline shift or mass effect is apparent. There are no findings to suggest acute intracranial hemorrhage. IMPRESSION: 1. No acute intracranial hemorrhage is seen. 2. Mild cerebral atrophy and periventricular white matter changes are seen.
--- NOTE | 2020-10-14 08:25 | RADIOLOGY REPORT (SQ) ---
CT ABDOMEN AND PELVIS WITHOUT INTRAVENOUS CONTRAST: 10/14/2020 7:19 AM BUSINESS APPLICATIONS SPECIALIST HISTORY: 70-year old with concern for bleeding from ostomy site. COMPARISON: None available TECHNIQUE: Axial contiguous images were obtained from the lung bases to the proximal femurs without intravenous contrast administered. Sagittal and coronal reconstructions were also obtained and reviewed. This exam was performed according to our departmental dose-optimization program, which includes automated exposure control, adjustment of the mA and/or KV according to the patient's size and/or use of iterative reconstruction technique. FINDINGS: There are small bilateral effusions with overlying airspace opacities. The cardiac silhouette is enlarged. Atherosclerotic calcifications are seen at the aorta. A small hiatal hernia is present. Evaluation of the solid organs is limited by the lack of intravenous contrast. The visualized hepatic parenchyma demonstrates no focal abnormality. There is a hypodensity at the posterior aspect of the right lobe of the liver measuring at least 3.1 x 3.0 cm. This may represent a cyst. There is nonspecific gallbladder wall thickening and cholelithiasis present. The gallbladder is contracted. The spleen is normal in size. The pancreas is unremarkable. The bilateral adrenal glands are unremarkable. Both kidneys demonstrate no evidence of hydronephrosis. There are punctate bilateral nonobstructive renal calculi present. There is air within the urinary bladder which could be due iatrogenic.. The stomach is not well distended. The small bowel loops appear unremarkable. No pericolonic inflammatory stranding is seen. There is a left-sided hernia with a parastomal hernia containing portions of the colon. The appendix is not visualized. There is no evidence of pneumoperitoneum. There is a moderate amount of free intraperitoneal fluid which is hyperdense concerning for hemorrhage. There is reticulation at the anterior abdominal wall most likely from cellulitis or edema. The IVC is unremarkable. The visualized portions of the abdominal aorta are within normal limits of size. There is moderate atherosclerotic calcification of aorta and into the iliac arteries. There is reticulation within the subcutaneous soft tissues suggesting edema/anasarca. No significantly enlarged lymph nodes are seen in the abdomen or pelvis. Review of the bone show no evidence of any suspicious lytic or blastic lesions. Multilevel degenerative changes are seen within the lumbar spine. There is mild anterolisthesis of L4 over L5 by 5 to 6 mm. Is a laminotomy defects seen at S1. IMPRESSION: There is a moderate amount of free intraperitoneal fluid which is hyperdense concerning for hemorrhage. This is of indeterminate etiology. Evaluation with CTA imaging or GI bleed study could be considered. There is a left-sided parastomal hernia containing portions of the transverse colon. There are punctate bilateral nonobstructive renal calculi present. There are moderate bilateral effusions with overlying airspace opacities. There is also diffuse reticulation within the subcutaneous soft tissues suggesting edema. These findings are suggestive of anasarca.
--- NOTE | 2020-10-14 09:26 | EKG REPORT ---
SEVERITY:- ABNORMAL ECG - ATRIAL FIBRILLATION, V-RATE 77-101 IVCD, CONSIDER ATYPICAL LBBB : Confirmed by: Taqueria Harman MD 14-Oct-2020 09:26:06
[2020-10-14] MEDS ORDERED: RINGERS SOLUTION,LACTATED 1,000 ML IV PRN (09:34)
[2020-10-14] MEDS ORDERED: NORMAL SALINE 250 ML IV PRN ×2 (09:38)
[2020-10-14] MEDS ORDERED: RINGERS SOLUTION,LACTATED 1,000 ML IV ONE (10:10)
[2020-10-14 10:38] LABS: HEMATOCRIT 38.7 % (36.0-47.0); HEMOGLOBIN 12.3 g/dL (12.0-15.5); MEAN CORPUSCULAR HEMOGLOBIN 27.9 pg (27.0-33.4); MEAN CORPUSCULAR HGB CONC 31.6 g/dL (32.0-36.0); MEAN CORPUSCULAR VOLUME 88 fl (80-97); WHITE BLOOD COUNT 8.9 10^3/uL (4.0-10.5)
--- NOTE | 2020-10-14 10:43 | PDOC PROGRESS REPORT ---
Subjective Date:: 10/14/20 Subjective:: patient confused unable to tell me any information, declining overnight per RN Reason For Visit: DEHYDRATION,HYPERKALEMIA,HYPERBILIRUBINEMIA Physical Exam Vital Signs: Temp Pulse Resp BP Pulse Ox 97.4 F 89 20 78/52 L 93 10/14/20 04:12 10/14/20 08:08 10/14/20 08:08 10/14/20 08:08 10/14/20 08:08 Intake & Output 10/13/20 10/14/20 10/15/20 06:59 06:59 06:59 Intake Total 240 90 50 Output Total 2025 0 Balance -1785 90 50 Weight 82.1 kg 81 kg General appearance: PRESENT: other - somnolent, moves bilateral shoulders to sternal run Mouth exam: PRESENT: dry mucosa Respiratory exam: PRESENT: clear to auscultation chase, other - on 5L Cardiovascular exam: PRESENT: irregular rhythm GI/Abdominal exam: PRESENT: diminished bowel sounds, other - stoma with 25mL blood in bag Extremities exam: PRESENT: +2 edema - in BLE Musculoskeletal exam: PRESENT: other - moves her arms and legs to pain Neurological exam: PRESENT: other - somnolent, responsive to pain in BUE and BLE, not to verbal stimuli Results Laboratory Results: 10/14/20 04:12 10/14/20 10/14/20 04:12 06:40 Sodium 140.5 Potassium 5.2 H D Chloride 110 H Carbon Dioxide 26 Anion Gap 5 BUN 86 H Creatinine 1.98 H Est GFR ( Amer) 30 L Glucose 145 H Calcium 8.6 Ammonia 64.1 H 10/13/20 04:53 NT-Pro-B Natriuret Pep 72917 H Impressions: Abdomen MRI 10/02/20 00:00 IMPRESSION: 1. The gallbladder is contracted. There is no biliary ductal dilatation or evidence of choledocholithiasis. 2. Variant pancreatic divisum. 3. Stable 14 x 12 mm circumscribed high T2 signal lesion in the pancreatic head (image 15 of series 11). Abdomen Ultrasound 10/02/20 00:00 IMPRESSION: Fatty liver. No dilated ducts. Trace ascites. Chest X-Ray 10/02/20 00:00 IMPRESSION: Right basilar opacity consistent with atelectasis and/or pneumonia and probable trace right pleural effusion. Renal Ultrasound 10/09/20 00:00 IMPRESSION: ATROPHIC KIDNEYS. NO HYDRONEPHROSIS. CYST IN THE LEFT KIDNEY WITH CALCIFICATIONS. POSSIBLE SMALL CALCULI IN THE LEFT KIDNEY. Abdomen/Pelvis CT 10/14/20 00:00 IMPRESSION: There is a moderate amount of free intraperitoneal fluid which is hyperdense concerning for hemorrhage. This is of indeterminate etiology. Evaluation with CTA imaging or GI bleed study could be considered. There is a left-sided parastomal hernia containing portions of the transverse colon. There are punctate bilateral nonobstructive renal calculi present. There are moderate bilateral effusions with overlying airspace opacities. There is also diffuse reticulation within the subcutaneous soft tissues suggesting edema. These findings are suggestive of anasarca. Head CT 10/14/20 00:00 IMPRESSION: 1. No acute intracranial hemorrhage is seen. 2. Mild cerebral atrophy and periventricular white matter changes are seen. Assessment and Plan - Diagnosis (1) CHF (congestive heart failure) Is this a current diagnosis for this admission?: Yes (2) Myxedema coma Is this a current diagnosis for this admission?: Yes (3) Atrial fibrillation with RVR Is this a current diagnosis for this admission?: Yes (5) Shock Is this a current diagnosis for this admission?: Yes (6) Acute encephalopathy Is this a current diagnosis for this admission?: Yes - Plan Summary Summary: 1. Hypovolemic shock: iv fluid 30ml/Kg LR, Dr. Torres consulting at this time requesting for stat echo and does not see benefit of pressors and does not want to have her transferred to ICU at this time. [facility] 2. Atrial fib with concern of stoma bleeding: gen surg here to see and evaluate, Hb type and screen 3. Stage III CKD, acute on chronic CKD: was on diuretics, now on hold due to hypotension 2. Atrial fib: hold oral antihypertensives, and anticoagulation on hold due to stomal bleeding 3. CHF with peripheral edema: FRANCISCO bandages continued 4. Hypothyroidism: fatigued, f/u TSH in 4-6 weeks as outpatient, T4 a little lower than baseline. 5. acute physical deconditiong: hold PT unable to participate 2. Acute encephalopathy: no hemorrhage on CT, suspect due to hypovolemia, MR brain ordered to rule out CVA - Time Time Spent with patient: 35 or more minutes Anticipated Discharge Disposition: Home with Home Health Anticipated Discharge Timeframe: unknown
[2020-10-14 10:53] LABS: PLATELET COUNT 46 10^3/uL (150-450)
[2020-10-14] MEDS ORDERED: DOBUTAMINE HCL/D5W 500 MG/250 ML RTUINJ IV PRN (11:00)
[2020-10-14 11:32] LABS: ABSOLUTE LYMPHOCYTES# (MANUAL) 0.1 10^3/uL (0.5-4.7); ABSOLUTE MONOCYTES # (MANUAL) 0.5 10^3/uL (0.1-1.4); BASOPHILS % (MANUAL) 0 % (0-2); EOSINOPHILS % (MANUAL) 0 % (0-6); LYMPHOCYTES % (MANUAL) 1 % (13-45); MONOCYTES % (MANUAL) 6 % (3-13); NUCLEATED RED BLOOD CELLS 1 /100 WBC (0); SEGMENTED NEUTROPHILS % (MAN) 93 % (42-78); TOTAL CELLS COUNTED 100
[2020-10-14 11:34] LABS: ANISOCYTOSIS 2+; OVALOCYTES SLIGHT; PLATELET COMMENT DECREASED; POLYCHROMASIA SLIGHT
[2020-10-14 11:52] LABS: PROTHROMBIN TIME 20.1 SEC (11.4-15.4)
[2020-10-14] MEDS: CALCIUM CARBONATE 600 MG/VITAMIN D3 400 UNIT TABLET PO SCH (11:52)
[2020-10-14] MEDS: DOCUSATE SODIUM 100 MG CAPSULE PO SCH (11:52)
[2020-10-14] MEDS: POTASSIUM CHLORIDE 10 MEQ TABLET.ER PO SCH (11:52)
[2020-10-14] MEDS: MAGNESIUM OXIDE 400 MG TABLET PO SCH (11:53)
[2020-10-14] MEDS: CETIRIZINE 10 MG TABLET PO SCH (11:53)
[2020-10-14] MEDS: DIGOXIN 0.125 MG TABLET PO SCH (11:53)
--- NOTE | 2020-10-14 12:31 | PDOC CONSULTATION ---
Consultation Consult Date: 10/14/20 Provider Consulted: VANESSA BHAKTA History of Present Illness Admission Date/PCP: 10/02/20 12:06 DILMA ALEXANDRE MD History of Present Illness: RAKAN SUGGS is a 70 year old female with past medical history significant for HTN, HLD, COPD, partial colectomy due to diverticulitis who presents ED with 2 months of progressive severe depression with poor appetite and dehydration. James jenkins was found to have significant JUNAID and hyperkalemia on admission and she was started on IV fluids. EKG showed A. fib with a rate of 99 and she is on Eliquis for this, admitted on 10/02/2020 for failure to thrive and depression. The patient became fluid overloaded during admission and went administration of Lasix with good response. According to the hospitalist, the patient was doing well yesterday. However, during the night if she progressively became obtunded and unresponsive until this morning she is comatose unresponsive to verbal and physical stimuli, she barely moves to deep physical stimuli, she is hypotensive with a blood pressure 90/60. The patient has a colostomy secondary to left colectomy for diverticulitis which presents with a small amount of liquid stools tainted with blood. CT scan of the abdomen was done this morning reveals a small amount of fluid in the abdomen, possibly blood. CT scan of the head was done this morning was negative. The H&H done today is 12.3 and 3.7, respectively compared to yesterday 13.1 and 40.1, respectively. Past Medical History Cardiac Medical History: Reports: Atrial Fibrillation, Congestive Heart Failure, Hyperlipidema, Hypertension Pulmonary Medical History: Reports: Chronic Obstructive Pulmonary Disease (COPD) GI Medical History: Reports: Diverticulitis Psychiatric Medical History: Reports: Depression Past Surgical History Past Surgical History: Reports: Appendectomy, Colostomy, Hysterectomy, Tonsillectomy, Valve Replacement - Aortic valve Social History Lives with: Alone Smoking Status: Never Smoker Frequency of Alcohol Use: None Drugs: None Hx Prescription Drug Abuse: No - Advance Directive Resuscitation Status: Full Code Family History Family History: Reviewed & Not Pertinent Parental Family History Reviewed: No Children Family History Reviewed: No Sibling(s) Family History Reviewed.: No Medication/Allergy Home Medications: Albuterol Sulfate [Proair HFA Inhalation Aerosol 8.5 gm MDI] 2 puff IH Q6HP PRN 10/02/20 Apixaban [Eliquis] 5 mg PO BID 10/02/20 Cetirizine HCl [Zyrtec 10 mg Tablet] 10 mg PO DAILY 10/02/20 Digoxin [Lanoxin 0.125 mg Tablet] 0.125 mg PO DAILY 10/02/20 Levothyroxine Sodium [Synthroid 0.088 mg Tablet] 88 mcg PO Q6AM 10/02/20 Magnesium Oxide [Mag-Ox 400 mg Tablet] 400 mg PO BID 10/02/20 Metoprolol Succinate [Toprol Xl 25 mg Tab.sr] 25 mg PO Q12 10/02/20 Potassium Chloride [Klor-Con M20] 20 meq PO BID 10/02/20 Sacubitril/Valsartan [Entresto 24 mg/26 mg Tablet] 1 tab PO BID 10/02/20 Allergies/Adverse Reactions: Penicillins Allergy (Verified 10/02/20 14:18) Physical Exam Vital Signs: Temp Pulse Resp BP Pulse Ox 97.3 F 96 16 102/70 96 10/14/20 11:56 10/14/20 11:56 10/14/20 11:56 10/14/20 11:56 10/14/20 11:56 Intake & Output 10/13/20 10/14/20 10/15/20 06:59 06:59 06:59 Intake Total 240 90 50 Output Total 2025 0 Balance -1785 90 50 Weight 82.1 kg 81 kg General appearance: PRESENT: other - Segura is comatose, unresponsive, only slight movement all extremities on deep pain stimuli Head exam: PRESENT: atraumatic Eye exam: PRESENT: other - Bilateral fixed pupils at midsize, with no response to light Mouth exam: PRESENT: dry mucosa Neck exam: PRESENT: other - No abnormalities Respiratory exam: PRESENT: clear to auscultation chase Cardiovascular exam: PRESENT: irregular rhythm, RRR Vascular exam: PRESENT: normal capillary refill GI/Abdominal exam: PRESENT: soft, other - Sense of colostomy pink, with a small amount of liquid stools and gas in the colostomy bag, some blood noted with mixed with stools Rectal exam: PRESENT: deferred Neurological exam: PRESENT: other - Patient motionless, responds for a very deep pain stimuli with withdrawal of the right upper extremity Skin exam: PRESENT: warm Results Laboratory Results: 10/14/20 09:11 10/14/20 04:12 10/14/20 10/14/20 10/14/20 04:12 06:40 09:11 WBC RBC Hgb Hct MCV MCH MCHC RDW Plt Count Seg Neutrophils % Sodium 140.5 Potassium 5.2 H D Chloride 110 H Carbon Dioxide 26 Anion Gap 5 BUN 86 H Creatinine 1.98 H Est GFR ( Amer) 30 L Glucose 145 H Calcium 8.6 Ammonia 64.1 H Blood Type O POSITIVE Antibody Screen NEGATIVE 10/14/20 09:11 WBC 8.9 RBC 4.40 Hgb 12.3 Hct 38.7 MCV 88 MCH 27.9 MCHC 31.6 L RDW 18.0 H Plt Count 46 L Seg Neutrophils % Not Reportable Sodium Potassium Chloride Carbon Dioxide Anion Gap BUN Creatinine Est GFR ( Amer) Glucose Calcium Ammonia Blood Type Antibody Screen 10/13/20 04:53 NT-Pro-B Natriuret Pep 87680 H Impressions: Abdomen MRI 10/02/20 00:00 IMPRESSION: 1. The gallbladder is contracted. There is no biliary ductal dilatation or evidence of choledocholithiasis. 2. Variant pancreatic divisum. 3. Stable 14 x 12 mm circumscribed high T2 signal lesion in the pancreatic head (image 15 of series 11). Abdomen Ultrasound 10/02/20 00:00 IMPRESSION: Fatty liver. No dilated ducts. Trace ascites. Chest X-Ray 10/02/20 00:00 IMPRESSION: Right basilar opacity consistent with atelectasis and/or pneumonia and probable trace right pleural effusion. Renal Ultrasound 10/09/20 00:00 IMPRESSION: ATROPHIC KIDNEYS. NO HYDRONEPHROSIS. CYST IN THE LEFT KIDNEY WITH CALCIFICATIONS. POSSIBLE SMALL CALCULI IN THE LEFT KIDNEY. Abdomen/Pelvis CT 10/14/20 00:00 IMPRESSION: There is a moderate amount of free intraperitoneal fluid which is hyperdense concerning for hemorrhage. This is of indeterminate etiology. Evaluation with CTA imaging or GI bleed study could be considered. There is a left-sided parastomal hernia containing portions of the transverse colon. There are punctate bilateral nonobstructive renal calculi present. There are moderate bilateral effusions with overlying airspace opacities. There is also diffuse reticulation within the subcutaneous soft tissues suggesting edema. These findings are suggestive of anasarca. Head CT 10/14/20 00:00 IMPRESSION: 1. No acute intracranial hemorrhage is seen. 2. Mild cerebral atrophy and periventricular white matter changes are seen. Assessment & Plan - Diagnosis (1) Coma Qualifiers: Coma depth: Dulce coma 3-8 Is this a current diagnosis for this admission?: Yes (2) Acute encephalopathy Is this a current diagnosis for this admission?: Yes (3) Atrial fibrillation Is this a current diagnosis for this admission?: Yes (4) CHF (congestive heart failure) Is this a current diagnosis for this admission?: Yes (5) Depression Qualifiers: Depression Type: major depressive disorder Qualified Code(s): F32.9 - Major depressive disorder, single episode, unspecified Is this a current diagnosis for this admission?: Yes - Plan Summary Plan Summary: Assessment: Patient with multiple medical problems including atrial fibrillation on Eliquis, chronic kidney disease, congestive heart failure severe, inferior to thrive Patient comatose and unresponsive CT scan abdomen/pelvis shows a small amount of fluid around the liver, possibly blood of unknown origin; patient currently on Eliquis with elevated PT, PTT, and INR. However, I cannot identify the origin of this hemoperitoneum as there is no bowel injury, no sign of active bleeding from intra-abdominal or retro- peritoneal vessels, and no aneurysmal disease Skin warm, good urine output, and minimal change of the H&H since yesterday rule out an hypovolemic shock Sudden change of her mental status the patient which has become comatose overnight, motionless, and unresponsive with minimal withdrawing the right upper extremity following deep pain stimuli Both pupils midsize, equal, no responsive to light Patient GCS appears to be [address] scan of the head negative However, I believe the patient condition might be still due to an ischemic neurologic event not identified on CT Plan: No general surgery procedure planned with this patient. Please call me with further questions. I will sign off.
--- NOTE | 2020-10-14 12:32 | PDOC DISCHARGE SUMMARY ---
Impression - Admit/DC Date/PCP Admission Date/Primary Care Provider: 10/02/20 12:06 DILMA ALEXANDRE MD Discharge Date: 10/14/20 - Discharge Diagnosis (1) CHF (congestive heart failure) Is this a current diagnosis for this admission?: Yes (2) Myxedema coma Is this a current diagnosis for this admission?: Yes (3) Atrial fibrillation with RVR Is this a current diagnosis for this admission?: Yes (5) Shock Is this a current diagnosis for this admission?: Yes (6) Acute encephalopathy Is this a current diagnosis for this admission?: Yes - Assessment Summary: 1. Hypovolemic shock: iv fluid 30ml/Kg LR, Dr. Torres (senior billing consultant)consulting at this time requesting for stat echo and does not see benefit of pressors and does not want to have her transferred to ICU at this time due to lack of beds. place [facility]. EF 30% without right heart strain per Dr. Batista with stat bedside echo. Awaiting on IMCU bed to start on pressors due to lack of ICU beds. 2. Atrial fib with concern of stoma bleeding: gen surg here to see and evaluate who does not think she has abdominal bleeding, Hb type and screen, and 2 units PRBC on hold 3. Stage III CKD, acute on chronic CKD: was on diuretics, now on hold due to hypotension 4. CHF with peripheral edema: FRANCISCO bandages continued, no more IVF, start on dobutamine drip YRIS 5. Hypothyroidism: fatigued, f/u TSH in 4-6 weeks as outpatient, T4 a little lower than baseline. 6. acute physical deconditiong: hold PT unable to participate 7. Acute encephalopathy: no hemorrhage on CT, suspect due to hypovolemia, MR brain ordered to rule out CVA, pupils are sluggish but reactive to light 8. Thrombocytopenia: FFP pending repeat CBC - Additional Information Resuscitation Status: Full Code Discharge Diet: Other (Comments) - NPO Referrals: [facility] [Outside] - Follow up as needed [facility] [Outside] - Follow up as needed DILMA ALEXANDRE MD [Primary Care Provider] - Follow up as needed Home Medications: Albuterol Sulfate [Proair HFA Inhalation Aerosol 8.5 gm MDI] 2 puff IH Q6HP PRN 10/02/20 Apixaban [Eliquis] 5 mg PO BID 10/02/20 Cetirizine HCl [Zyrtec 10 mg Tablet] 10 mg PO DAILY 10/02/20 Digoxin [Lanoxin 0.125 mg Tablet] 0.125 mg PO DAILY 10/02/20 Levothyroxine Sodium [Synthroid 0.088 mg Tablet] 88 mcg PO Q6AM 10/02/20 Magnesium Oxide [Mag-Ox 400 mg Tablet] 400 mg PO BID 10/02/20 Metoprolol Succinate [Toprol Xl 25 mg Tab.sr] 25 mg PO Q12 10/02/20 Potassium Chloride [Klor-Con M20] 20 meq PO BID 10/02/20 Sacubitril/Valsartan [Entresto 24 mg/26 mg Tablet] 1 tab PO BID 10/02/20 History of Present Illiness History of Present Illness: RAKAN SUGGS is a 70 year old female Physical Exam Vital Signs: Temp Pulse Resp BP Pulse Ox 97.3 F 96 16 102/70 96 10/14/20 11:56 10/14/20 11:56 10/14/20 11:56 10/14/20 11:56 10/14/20 11:56 Intake & Output 10/13/20 10/14/20 10/15/20 06:59 06:59 06:59 Intake Total 240 90 50 Output Total 2025 0 Balance -1785 90 50 Weight 82.1 kg 81 kg Exam: somnolent Head exam: PRESENT: other - pale Eye exam: PRESENT: other - sluggish but responsive to light Respiratory exam: PRESENT: unlabored - on5L Cardiovascular exam: PRESENT: irregular rhythm Pulses: PRESENT: +1 pedal pulses bilateral Vascular exam: PRESENT: pallor, other - 2+ pitting edema to BLE GI/Abdominal exam: PRESENT: diminished bowel sounds, other - 25ml bright red blood in stoma Extremities exam: PRESENT: pedal edema, +2 edema Neurological exam: PRESENT: other - winces her eyes pain stimuli to both toes and arms and shoulders Skin exam: PRESENT: other - pale Results Laboratory Results: WBC 8.9 10^3/uL (4.0-10.5) 10/14/20 09:11 RBC 4.40 10^6/uL (3.72-5.28) 10/14/20 09:11 Hgb 12.3 g/dL (12.0-15.5) 10/14/20 09:11 Hct 38.7 % (36.0-47.0) 10/14/20 09:11 MCV 88 fl (80-97) 10/14/20 09:11 MCH 27.9 pg (27.0-33.4) 10/14/20 09:11 MCHC 31.6 g/dL (32.0-36.0) L 10/14/20 09:11 RDW 18.0 % (11.5-14.0) H 10/14/20 09:11 Plt Count 46 10^3/uL (150-450) L 10/14/20 09:11 Lymph % (Auto) Not Reportable 10/14/20 09:11 [place] % (Auto) Not Reportable 10/14/20 09:11 Eos % (Auto) Not Reportable 10/14/20 09:11 Baso % (Auto) Not Reportable 10/14/20 09:11 Absolute Neuts (auto) Not Reportable 10/14/20 09:11 Absolute Lymphs (auto) Not Reportable 10/14/20 09:11 Absolute Monos (auto) Not Reportable 10/14/20 09:11 Absolute Eos (auto) Not Reportable 10/14/20 09:11 Absolute Basos (auto) Not Reportable 10/14/20 09:11 Total Counted 100 10/14/20 09:11 Seg Neutrophils % Not Reportable 10/14/20 09:11 Seg Neuts % (Manual) 93 % (42-78) H 10/14/20 09:11 Lymphocytes % (Manual) 1 % (13-45) L 10/14/20 09:11 Monocytes % (Manual) 6 % (3-13) 10/14/20 09:11 Eosinophils % (Manual) 0 % (0-6) 10/14/20 09:11 Basophils % (Manual) 0 % (0-2) 10/14/20 09:11 Abs Neuts (Manual) 8.3 10^3/uL (1.7-8.2) H 10/14/20 09:11 Abs Lymphs (Manual) 0.1 10^3/uL (0.5-4.7) L 10/14/20 09:11 Abs Monocytes (Manual) 0.5 10^3/uL (0.1-1.4) 10/14/20 09:11 Absolute Eos (Manual) 0.0 10^3/uL (0.0-0.6) 10/14/20 09:11 Abs Basophils (Manual) 0.0 10^3/uL (0.0-0.2) 10/14/20 09:11 Nucleated RBCs 1 /100 WBC (0) 10/14/20 09:11 Toxic Granulation SLIGHT 10/02/20 02:32 Toxic Vacuolation PRESENT 10/02/20 02:32 Platelet Comment DECREASED 10/14/20 09:11 Polychromasia SLIGHT 10/14/20 09:11 Poikilocytosis SLIGHT 10/02/20 02:32 Anisocytosis 2+ 10/14/20 09:11 Target Cells SLIGHT 10/02/20 02:32 Ovalocytes SLIGHT 10/14/20 09:11 [place] Cells SLIGHT 10/02/20 02:32 Schistocytes SLIGHT 10/02/20 02:32 PT 20.1 SEC (11.4-15.4) H 10/14/20 11:18 INR 1.70 10/14/20 11:18 APTT 38.3 SEC (23.5-35.8) H 10/02/20 02:32 Carbonic Acid 1.47 mmol/L (1.05-1.35) H 10/08/20 18:35 HCO3/H2CO3 Ratio 10:1 10/08/20 18:35 ABG pH 7.14 (7.35-7.45) L* 10/08/20 18:35 ABG pCO2 49.0 mmHg (35-45) H 10/08/20 18:35 ABG pO2 101.9 mmHg (80-100) H 10/08/20 18:35 ABG HCO3 16.1 mmol/L (20-24) L 10/08/20 18:35 ABG Total CO2 17.6 mmol/L (21-25) L 10/08/20 18:35 ABG O2 Saturation 95.7 % (94-98) 10/08/20 18:35 ABG Base Excess -13.0 mmol/L 10/08/20 18:35 FiO2 2L 10/08/20 18:35 Sodium 140.5 mmol/L (137-145) 10/14/20 04:12 Potassium 5.2 mmol/L (3.6-5.0) H D 10/14/20 04:12 Chloride 110 mmol/L (98-107) H 10/14/20 04:12 Carbon Dioxide 26 mmol/L (22-30) 10/14/20 04:12 Anion Gap 5 (5-19) 10/14/20 04:12 BUN 86 mg/dL (7-20) H 10/14/20 04:12 Creatinine 1.98 mg/dL (0.52-1.25) H 10/14/20 04:12 Est GFR ( Amer) 30 (>60) L 10/14/20 04:12 Est GFR (MDRD) Non-Af 25 (>60) L 10/14/20 04:12 Glucose 145 mg/dL (75-110) H 10/14/20 04:12 POC Glucose 94 mg/dL (70-110) 10/08/20 10:56 Lactic Acid 1.4 mmol/L (0.7-2.1) 10/02/20 10:55 Calcium 8.6 mg/dL (8.4-10.2) 10/14/20 04:12 Phosphorus 4.5 mg/dL (2.5-4.5) 10/10/20 04:35 Magnesium 2.2 mg/dL (1.6-2.3) 10/12/20 05:13 Total Bilirubin 1.6 mg/dL (0.2-1.3) H 10/13/20 04:53 Direct Bilirubin 0.3 mg/dL (0.0-0.4) 10/13/20 04:53 Neonat Total Bilirubin Not Reportable 10/13/20 04:53 Neonat Direct Bilirubin Not Reportable 10/13/20 04:53 Neonat Indirect Bili Not Reportable 10/13/20 04:53 AST 25 U/L (14-36) 10/13/20 04:53 ALT 22 U/L (<35) 10/13/20 04:53 Alkaline Phosphatase 73 U/L (38-126) 10/13/20 04:53 Ammonia 64.1 umol/L (9-33) H 10/14/20 06:40 NT-Pro-B Natriuret Pep 64668 pg/mL (<125) H 10/13/20 04:53 Total Protein 5.0 g/dL (6.3-8.2) L 10/13/20 04:53 Albumin 2.6 g/dL (3.5-5.0) L 10/13/20 04:53 Lipase 123.1 U/L (23-300) 10/02/20 02:32 TSH 9.12 uIU/mL (0.47-4.68) H 10/12/20 05:13 Free T4 0.75 ng/dL (0.78-2.19) L 10/12/20 05:13 Free T3 pg/mL 1.52 pg/mL (2.77-5.27) L 10/12/20 05:13 Random Cortisol 24.10 ug/dL (None Established) 10/04/20 05:48 ACTH 7.8 pg/mL (7.2-63.3) 10/04/20 10:51 Urine Color YELLOW 10/03/20 16:30 Urine Appearance SLIGHTLY-CLOUDY 10/03/20 16:30 Urine pH 5.0 (5.0-9.0) 10/03/20 16:30 Ur Specific [place] 1.014 10/03/20 16:30 Urine Protein 30 mg/dL (NEGATIVE) H 10/03/20 16:30 Urine Glucose (UA) NEGATIVE mg/dL (NEGATIVE) 10/03/20 16:30 Urine Ketones NEGATIVE mg/dL (NEGATIVE) 10/03/20 16:30 Urine Blood SMALL (NEGATIVE) H 10/03/20 16:30 Urine Nitrite (Reflex) NEGATIVE (NEGATIVE) 10/03/20 16:30 Urine Bilirubin NEGATIVE (NEGATIVE) 10/03/20 16:30 Urine Urobilinogen NEGATIVE mg/dL (<2.0) 10/03/20 16:30 Leukocyte Esterase Rfl LARGE (NEGATIVE) H 10/03/20 16:30 Urine RBC (Auto) 1 /HPF 10/03/20 16:30 Urine WBC (Reflex) 14 /HPF 10/03/20 16:30 Squamous Epi Cells Auto <1 /HPF 10/03/20 16:30 Urine Mucus (Auto) RARE /LPF 10/03/20 16:30 Urine Creatinine 39.3 mg/dL (15-278) 10/09/20 16:31 Urine Creatinine 42.5 mg/dL (Not Estab.) 10/09/20 16:31 Urine Microalbumin 149.7 ug/mL (Not Estab.) 10/09/20 16:31 Microalb/Creat Ratio 352 mg/g creat (0-29) H 10/09/20 16:31 Urine Sodium 57 mmol/L (30-90) 10/09/20 16:31 Urine Ascorbic Acid NEGATIVE (NEGATIVE) 10/03/20 16:30 Carlos Human Metapneumo PCR NOT DETECTED (NOT DETECT) 10/02/20 10:22 Salicylates < 1.0 mg/dL (2.0-20.0) L 10/02/20 02:32 Acetaminophen < 10 ug/mL (10-30) L 10/02/20 02:32 Serum Alcohol < 10 mg/dL (NONE DETECTED) 10/02/20 02:32 Adenovirus (PCR) NOT DETECTED (NOT DETECT) 10/02/20 10:22 B. pertussis DNA (PCR) NOT DETECTED (NOT DETECT) 10/02/20 10:22 B.parapertussis DNA PCR NOT DETECTED (NOT DETECT) 10/02/20 10:22 C. pneumoniae DNA (PCR) NOT DETECTED (NOT DETECT) 10/02/20 10:22 Coronavirus OC43 (PCR) NOT DETECTED (NOT DETECT) 10/02/20 10:22 Coronavirus HKU1 (PCR) NOT DETECTED (NOT DETECT) 10/02/20 10:22 Coronavirus 229E (PCR) NOT DETECTED (NOT DETECT) 10/02/20 10:22 COVID-19 Source Cancelled 10/02/20 08:15 COVID-19 (CHEPE) Cancelled 10/02/20 08:15 Coronavirus NL63 (PCR) NOT DETECTED (NOT DETECT) 10/02/20 10:22 Influenza A (H1) PCR NOT DETECTED (NOT DETECT) 10/02/20 10:22 Influ A (H1N1/09) PCR NOT DETECTED (NOT DETECT) 10/02/20 10:22 Influenza A (H3) PCR NOT DETECTED (NOT DETECT) 10/02/20 10:22 Influenza Type A (PCR) NOT DETECTED (NOT DETECT) 10/02/20 10:22 Influenza Type B (PCR) NOT DETECTED (NOT DETECT) 10/02/20 10:22 M. pneumoniae (PCR) NOT DETECTED (NOT DETECT) 10/02/20 10:22 Parainfluenza 1 (PCR) NOT DETECTED (NOT DETECT) 10/02/20 10:22 Parainfluenza 2 (PCR) NOT DETECTED (NOT DETECT) 10/02/20 10:22 Parainfluenza 3 (PCR) NOT DETECTED (NOT DETECT) 10/02/20 10:22 Parainfluenza 4 (PCR) NOT DETECTED (NOT DETECT) 10/02/20 10:22 RSV (PCR) NOT DETECTED (NOT DETECT) 10/02/20 10:22 Entero/Rhino (PCR) NOT DETECTED (NOT DETECT) 10/02/20 10:22 SARS-CoV-2 (PCR) NOT DETECTED (NOT DETECT) 10/02/20 10:22 Blood Type O POSITIVE 10/14/20 09:11 Antibody Screen NEGATIVE 10/14/20 09:11 Crossmatch See Detail 10/14/20 09:11 10/13/20 04:53 NT-Pro-B Natriuret Pep 47553 H Impressions: Abdomen MRI 10/02/20 00:00 IMPRESSION: 1. The gallbladder is contracted. There is no biliary ductal dilatation or evidence of choledocholithiasis. 2. Variant pancreatic divisum. 3. Stable 14 x 12 mm circumscribed high T2 signal lesion in the pancreatic head (image 15 of series 11). Abdomen Ultrasound 10/02/20 00:00 IMPRESSION: Fatty liver. No dilated ducts. Trace ascites. Chest X-Ray 10/02/20 00:00 IMPRESSION: Right basilar opacity consistent with atelectasis and/or pneumonia and probable trace right pleural effusion. Renal Ultrasound 10/09/20 00:00 IMPRESSION: ATROPHIC KIDNEYS. NO HYDRONEPHROSIS. CYST IN THE LEFT KIDNEY WITH CALCIFICATIONS. POSSIBLE SMALL CALCULI IN THE LEFT KIDNEY. Abdomen/Pelvis CT 10/14/20 00:00 IMPRESSION: There is a moderate amount of free intraperitoneal fluid which is hyperdense concerning for hemorrhage. This is of indeterminate etiology. Evaluation with CTA imaging or GI bleed study could be considered. There is a left-sided parastomal hernia containing portions of the transverse colon. There are punctate bilateral nonobstructive renal calculi present. There are moderate bilateral effusions with overlying airspace opacities. There is also diffuse reticulation within the subcutaneous soft tissues suggesting edema. These findings are suggestive of anasarca. Head CT 10/14/20 00:00 IMPRESSION: 1. No acute intracranial hemorrhage is seen. 2. Mild cerebral atrophy and periventricular white matter changes are seen. Stroke Is this a Stroke Patient?: No Acute Heart Failure Is this a Heart Failure Patient?: Yes Documentation of LVEF assessment?: Yes LVEF: LVEF Less Than or Equal to 35% Anticoagulant Therapy: N/A - stomal bleeding Reason(s) not Discharged on Anticoagulant Therapy: Complications r/t anticoagulant therapy (hx or current) - stomal bleeding Discharged on Evidence-Based Beta Blockers: No, document contraindications - shock Reason(s) not discharged on Evidence-Based Beta Blockers: Hypotension Discharged on ARNI?: No-Document Contraindications Reason(s) not discharged on ARNI: Hypotension For LVEF <35%, discharged on Aldosterone Antagonist?: N/A (LVEF > or = 35%)
--- NOTE | 2020-10-14 12:53 | XCELERA REPORT ---
[address] [address] Transthoracic Echocardiogram Report Name: RAKAN SUGGS Age: 70 yrs Gender: Female : 1950 Patient Status: Inpatient Patient Location: [address] [place] [address] Study Date: 10/14/2020 11:44 AM Height: 63 in Weight: 178 lb BSA: 1.8 m2 Procedure: A complete two-dimensional transthoracic echocardiogram was performed (2D, M-mode, spectral and color flow Doppler). The study was technically adequate with some images being suboptimal in quality. Reason For Study: hypotension Ordering Physician: ZENY HAJI Performed By: Elysia Seay Interpretation Summary The left ventricle is moderately dilated. Left ventricular systolic function is severely reduced. The Ejection Fraction estimate is 20-25%. LV diastolic function could not be adequately assessed due to atrial fibrilation. There is severe global hypokinesis of the left ventricle. Flattened septum is consistent with RV pressure/volume overload. Septal motion is consistent with conduction abnormality. LV diastolic function could not be adequately assessed due to atrial fibrilation. Moderate to severe GARCÍA. Severe LAE. Moderate to severe MR, moderate AI, moderate to severe TR, mild to moderate PI. MMode/2D Measurements & Calculations RVDd: 2.6 cm LVIDd: 6.7 cm FS: 12.9 % Ao root diam: IVSd: 0.93 cm LVIDs: 5.8 cm EDV(Teich): 2.9 cm 231.3 ml Ao root area: LVPWd: 0.95 cm ESV(Teich): 6.7 cm2 169.0 ml EF(Teich): 26.9 % EDV(MOD-sp4): SV(MOD-sp4): 108.9 ml 30.1 ml ESV(MOD-sp4): 78.8 ml EF(MOD-sp4): 27.6 % Doppler Measurements & Calculations MV E max mc: MV dec slope: Ao V2 max: AI max mc: 93.1 cm/sec 135.7 cm/sec 400.9 cm/sec MV A max mc: 542.7 cm/sec2 Ao max P.4 mmHgAI max P.6 mmHg 0.43 cm/sec MV dec time: Ao V2 mean: AI dec slope: MV E/A: 214.1 0.17 sec 112.6 cm/sec Ao mean P.7 cm/sec2 5.2 mmHg AI P1/2t: 549.5 msec Ao V2 VTI: 21.9 cm LV V1 max PG: PA V2 max: PI end-d mc: TR max mc: 1.4 mmHg 46.2 cm/sec 104.9 cm/sec 326.0 cm/sec LV V1 mean PG: PA max P.85 mmHg TR max P.6 mmHg 0.64 mmHg LV V1 max: 59.7 cm/sec LV V1 mean: 35.6 cm/sec LV V1 VTI: 10.4 cm Left Ventricle The left ventricle is moderately dilated. Left ventricular systolic function is severely reduced. The Ejection Fraction estimate is 20-25%. LV diastolic function could not be adequately assessed due to atrial fibrilation. There is severe global hypokinesis of the left ventricle. Flattened septum is consistent with RV pressure/volume overload. Septal motion is consistent with conduction abnormality. Right Ventricle The right ventricle is moderately dilated. The right ventricular systolic function is moderately reduced. Atria The right atrium is moderate to severely dilated. The left atrium is severely dilated. The interatrial septum is difficult to see, but appears to be grossly normal. Mitral Valve There is mild mitral annular calcification. There is a moderate to severe amount of mitral regurgitation. Aortic Valve av replacement, pig valve. There is a moderate amount of aortic regurgitation. Tricuspid Valve Tricuspid leaflets are thickened. There is a moderate to severe amount of tricuspid regurgitation. Pulmonic Valve The pulmonic valve leaflets appear thickened, but open well. There is a mild to moderate amount of pulmonic regurgitation. Effusions There is no pericardial effusion. : ZENY HAJI Antonio
--- NOTE | 2020-10-14 13:08 | PDOC CONSULTATION ---
Consultation Consult Date: 10/14/20 Attending physician:: ZENY MACKEY Provider Consulted: MARIA ESTHER BASSETT Consult reason:: Hypotension History of Present Illness Admission Date/PCP: 10/02/20 12:06 DILMA ALEXANDRE MD History of Present Illness: RAKAN SUGGS is a 70 year old female his is a 70 yo female with history of aortic valve replacement with a bioprosthesis in 2003, hypertension, hyperlipidemia, COPD, partial colectomy secondary to diverticulitis, persistent atrial fibrillation with past ablations and treatment of Sotalol and Tikosyn, nonischemic cardiomyopathy with a prior echocardiogram in April 2020 at [facility] with an ejection fraction of 40% and nonobstructive coronary artery disease on [facility] in January 2020 who is consulted to our service for acute decompensation and hypotension. The patient was admitted on 10/02/2020 with failure to thrive and acute kidney injury secondary to dehydration. Over the course of her hospitalization she was hydrated and eventually developed fluid overload therefore diuresis was begun. Unfortunately she decompensated today and became hypotensive with blood pressures in the 80 mmHg systolic with concerns of intra-abdominal bleeding. She became unresponsive and essentially comatose. Physical exam on 10/14/2020: GENERAL: Unresponsive and essentially comatose. Very pale. HEENT: Normocephalic, atraumatic. Pupils equal. Sclerae anicteric. Oropharynx moist. NECK: Difficult to evaluate for JVD given her body habitus. LUNGS: Crackles and rhonchi throughout all pulmonary cha. Normal respiratory effort without the use of accessory muscles or intercostal retractions. CARDIOVASCULAR: Irregularly irregular without murmurs, rubs, or gallops. PMI not displaced. ABDOMEN: No masses or tenderness to palpation. No bruit. No splenomegaly or hepatomegaly. No abdominal aorta bruit noted. EXTREMITIES: Unable to evaluate for edema as the patient has Ryan wrap around both lower extremities. Distal pulses are very faint and difficult to palpate. SKIN: No lesions or rashes. MUSCULOSKELETAL: No chest tenderness to palpation. NEUROLOGIC: Nonfocal. No gross sensory or motor deficits bilateral upper or lower extremities. Past Medical History Cardiac Medical History: Reports: Atrial Fibrillation, Congestive Heart Failure, Hyperlipidema, Hypertension Pulmonary Medical History: Reports: Chronic Obstructive Pulmonary Disease (COPD) GI Medical History: Reports: Diverticulitis Psychiatric Medical History: Reports: Depression Past Surgical History Past Surgical History: Reports: Appendectomy, Colostomy, Hysterectomy, Tonsillectomy, Valve Replacement - Aortic valve Social History Lives with: Alone Smoking Status: Never Smoker Frequency of Alcohol Use: None Drugs: None Hx Prescription Drug Abuse: No - Advance Directive Resuscitation Status: Full Code Family History Family History: Reviewed & Not Pertinent Parental Family History Reviewed: Yes Children Family History Reviewed: Yes Sibling(s) Family History Reviewed.: Yes Medication/Allergy Home Medications: Albuterol Sulfate [Proair HFA Inhalation Aerosol 8.5 gm MDI] 2 puff IH Q6HP PRN 10/02/20 Apixaban [Eliquis] 5 mg PO BID 10/02/20 Cetirizine HCl [Zyrtec 10 mg Tablet] 10 mg PO DAILY 10/02/20 Digoxin [Lanoxin 0.125 mg Tablet] 0.125 mg PO DAILY 10/02/20 Levothyroxine Sodium [Synthroid 0.088 mg Tablet] 88 mcg PO Q6AM 10/02/20 Magnesium Oxide [Mag-Ox 400 mg Tablet] 400 mg PO BID 10/02/20 Metoprolol Succinate [Toprol Xl 25 mg Tab.sr] 25 mg PO Q12 10/02/20 Potassium Chloride [Klor-Con M20] 20 meq PO BID 10/02/20 Sacubitril/Valsartan [Entresto 24 mg/26 mg Tablet] 1 tab PO BID 10/02/20 Allergies/Adverse Reactions: Penicillins Allergy (Verified 10/02/20 14:18) Physical Exam Vital Signs: Temp Pulse Resp BP Pulse Ox 97.3 F 96 16 102/70 96 10/14/20 11:56 10/14/20 11:56 10/14/20 11:56 10/14/20 11:56 10/14/20 11:56 Intake & Output 10/13/20 10/14/20 10/15/20 06:59 06:59 06:59 Intake Total 240 90 50 Output Total 2025 0 Balance -1785 90 50 Weight 82.1 kg 81 kg Results Laboratory Results: 10/14/20 09:11 10/14/20 04:12 10/14/20 10/14/20 10/14/20 04:12 06:40 09:11 WBC RBC Hgb Hct MCV MCH MCHC RDW Plt Count Seg Neutrophils % Sodium 140.5 Potassium 5.2 H D Chloride 110 H Carbon Dioxide 26 Anion Gap 5 BUN 86 H Creatinine 1.98 H Est GFR ( Amer) 30 L Glucose 145 H Calcium 8.6 Ammonia 64.1 H Blood Type O POSITIVE Antibody Screen NEGATIVE 10/14/20 09:11 WBC 8.9 RBC 4.40 Hgb 12.3 Hct 38.7 MCV 88 MCH 27.9 MCHC 31.6 L RDW 18.0 H Plt Count 46 L Seg Neutrophils % Not Reportable Sodium Potassium Chloride Carbon Dioxide Anion Gap BUN Creatinine Est GFR ( Amer) Glucose Calcium Ammonia Blood Type Antibody Screen 10/13/20 04:53 NT-Pro-B Natriuret Pep 94354 H Impressions: Abdomen MRI 10/02/20 00:00 IMPRESSION: 1. The gallbladder is contracted. There is no biliary ductal dilatation or evidence of choledocholithiasis. 2. Variant pancreatic divisum. 3. Stable 14 x 12 mm circumscribed high T2 signal lesion in the pancreatic head (image 15 of series 11). Abdomen Ultrasound 10/02/20 00:00 IMPRESSION: Fatty liver. No dilated ducts. Trace ascites. Chest X-Ray 10/02/20 00:00 IMPRESSION: Right basilar opacity consistent with atelectasis and/or pneumonia and probable trace right pleural effusion. Renal Ultrasound 10/09/20 00:00 IMPRESSION: ATROPHIC KIDNEYS. NO HYDRONEPHROSIS. CYST IN THE LEFT KIDNEY WITH CALCIFICATIONS. POSSIBLE SMALL CALCULI IN THE LEFT KIDNEY. Abdomen/Pelvis CT 10/14/20 00:00 IMPRESSION: There is a moderate amount of free intraperitoneal fluid which is hyperdense concerning for hemorrhage. This is of indeterminate etiology. Evaluation with CTA imaging or GI bleed study could be considered. There is a left-sided parastomal hernia containing portions of the transverse colon. There are punctate bilateral nonobstructive renal calculi present. There are moderate bilateral effusions with overlying airspace opacities. There is also diffuse reticulation within the subcutaneous soft tissues suggesting edema. These findings are suggestive of anasarca. Head CT 10/14/20 00:00 IMPRESSION: 1. No acute intracranial hemorrhage is seen. 2. Mild cerebral atrophy and periventricular white matter changes are seen. 10/14/20 09:11 10/14/20 04:12 MCV 88 fl (80-97) 10/14/20 09:11 MCH 27.9 pg (27.0-33.4) 10/14/20 09:11 MCHC 31.6 g/dL (32.0-36.0) L 10/14/20 09:11 RDW 18.0 % (11.5-14.0) H 10/14/20 09:11 Seg Neutrophils % Not Reportable 10/14/20 09:11 Carbonic Acid 1.47 mmol/L (1.05-1.35) H 10/08/20 18:35 HCO3/H2CO3 Ratio 10:1 10/08/20 18:35 ABG pH 7.14 (7.35-7.45) L* 10/08/20 18:35 ABG pCO2 49.0 mmHg (35-45) H 10/08/20 18:35 ABG pO2 101.9 mmHg (80-100) H 10/08/20 18:35 ABG HCO3 16.1 mmol/L (20-24) L 10/08/20 18:35 ABG O2 Saturation 95.7 % (94-98) 10/08/20 18:35 ABG Base Excess -13.0 mmol/L 10/08/20 18:35 FiO2 2L 10/08/20 18:35 Chloride 110 mmol/L (98-107) H 10/14/20 04:12 Carbon Dioxide 26 mmol/L (22-30) 10/14/20 04:12 Anion Gap 5 (5-19) 10/14/20 04:12 Est GFR ( Amer) 30 (>60) L 10/14/20 04:12 Glucose 145 mg/dL (75-110) H 10/14/20 04:12 Lactic Acid 1.4 mmol/L (0.7-2.1) 10/02/20 10:55 Calcium 8.6 mg/dL (8.4-10.2) 10/14/20 04:12 Phosphorus 4.5 mg/dL (2.5-4.5) 10/10/20 04:35 Magnesium 2.2 mg/dL (1.6-2.3) 10/12/20 05:13 Total Bilirubin 1.6 mg/dL (0.2-1.3) H 10/13/20 04:53 AST 25 U/L (14-36) 10/13/20 04:53 Alkaline Phosphatase 73 U/L (38-126) 10/13/20 04:53 Ammonia 64.1 umol/L (9-33) H 10/14/20 06:40 Total Protein 5.0 g/dL (6.3-8.2) L 10/13/20 04:53 Albumin 2.6 g/dL (3.5-5.0) L 10/13/20 04:53 Lipase 123.1 U/L (23-300) 10/02/20 02:32 TSH 9.12 uIU/mL (0.47-4.68) H 10/12/20 05:13 Free T4 0.75 ng/dL (0.78-2.19) L 10/12/20 05:13 Free T3 pg/mL 1.52 pg/mL (2.77-5.27) L 10/12/20 05:13 Urine Color YELLOW 10/03/20 16:30 Urine Appearance SLIGHTLY-CLOUDY 10/03/20 16:30 Urine pH 5.0 (5.0-9.0) 10/03/20 16:30 Ur Specific Kyle 1.014 10/03/20 16:30 Urine Protein 30 mg/dL (NEGATIVE) H 10/03/20 16:30 Urine Glucose (UA) NEGATIVE mg/dL (NEGATIVE) 10/03/20 16:30 Urine Ketones NEGATIVE mg/dL (NEGATIVE) 10/03/20 16:30 Urine Blood SMALL (NEGATIVE) H 10/03/20 16:30 Urine RBC (Auto) 1 /HPF 10/03/20 16:30 Blood Type O POSITIVE 10/14/20 09:11 Antibody Screen NEGATIVE 10/14/20 09:11 10/13/20 04:53 NT-Pro-B Natriuret Pep 69933 H Current Medication List Generic Name Dose Route Start Last Admin Trade Name Freq PRN Reason Stop Dose Admin Acetaminophen 650 mg 10/02/20 16:52 Acetaminophen 325 Mg Tablet PO 11/01/20 16:51 Q4HP PRN Pain or fever Albuterol 2 puff 10/02/20 18:39 Albuterol Sulfate Hfa (90 Mcg/Puff) 8 Gm Mdi IH 11/01/20 18:38 Q6HP PRN SHORTNESS OF BREATH Albuterol/Ipratropium 3 ml 10/02/20 16:52 Ipratropium/Albuterol 0.5-2.5 Mg/3 Ml Ampul NEB 11/01/20 16:51 RTQ2HP PRN SHORTNESS OF BREATH Calcium Carbonate 1 tab 10/05/20 10:00 10/14/20 11:52 Calcium Carbonate 600 Mg/Vitamin D3 400 Unit Tablet PO 11/04/20 09:59 Not Given BID LU Cetirizine HCl 10 mg 10/03/20 10:00 10/14/20 11:53 Cetirizine 10 Mg Tablet PO 11/02/20 09:59 Not Given DAILY LU Digoxin 0.125 mg 10/12/20 14:00 10/14/20 11:53 Digoxin 0.125 Mg Tablet PO 11/11/20 13:59 Not Given DAILY LU Docusate Sodium 100 mg 10/03/20 10:00 10/14/20 11:52 Docusate Sodium 100 Mg Capsule PO 11/02/20 09:59 Not Given DAILY LU Sodium Chloride 1,000 mls @ 0 mls/hr 10/14/20 07:53 10/14/20 08:02 Nacl 0.9% 1000 Ml Iv Soln IV 11/13/20 07:52 999 mls/hr ONCE PRN Administration THIS MED IS NOT "PRN" Wide Open Lactated Ringer's 1,000 mls @ 100 mls/hr 10/14/20 09:34 10/14/20 09:55 Lactated Ringers 1000 Ml Iv Soln IV 11/13/20 09:33 100 mls/hr CONTINUOUS PRN Administration THIS MED IS NOT "PRN" Sodium Chloride 250 mls @ 30 mls/hr 10/14/20 09:38 Nacl 0.9% 250 Ml Iv Soln IV 10/15/20 09:37 .DURING TRANSFUSION PRN THIS MED IS NOT "PRN" Sodium Chloride 250 mls @ 0 mls/hr 10/14/20 09:38 Nacl 0.9% 250 Ml Iv Soln IV 10/15/20 09:37 CONTINUOUS PRN AFTER EACH UNIT As Directed Dobutamine HCl/Dextrose 500 mg in 250 mls @ 6.075 mls/hr 10/14/20 11:00 10/14/20 12:53 Dobutrex Rtu 500 Mg-D5w 250 Ml Premixed Bag IV 11/13/20 10:59 2.5 mcg/kg/min CONTINUOUS PRN 6.08 mls/hr THIS MED IS NOT "PRN" Administration Protocol 2.5 MCG/KG/MIN Levothyroxine Sodium 0.1 mg 10/05/20 06:00 10/14/20 07:40 Levothyroxine Sodium 0.1 Mg Tablet PO 11/04/20 05:59 Not Given Q6AM LU Magnesium Oxide 400 mg 10/12/20 18:00 10/14/20 11:53 Magnesium Oxide 400 Mg Tablet PO 11/11/20 17:59 Not Given BID LU Mirtazapine 7.5 mg 10/08/20 11:21 Mirtazapine 15 Mg Tablet PO 11/07/20 11:20 HSP PRN SLEEP OR INSOMNIA Ondansetron HCl 4 mg 10/02/20 16:52 Ondansetron 4 Mg Tab.Rapdis PO 11/01/20 16:51 Q4HP PRN FOR NAUSEA/VOMITING Ondansetron HCl 4 mg 10/02/20 16:52 10/13/20 20:21 Ondansetron Hcl Inj/Pf 4 Mg/2 Ml Sdv IV 11/01/20 16:51 4 mg Q4HP PRN Administration FOR NAUSEA/VOMITING Pantoprazole Sodium 80 mg 10/14/20 22:00 Pantoprazole Sodium 40 Mg Vial IV 10/17/20 21:59 Q12 LU Potassium Chloride 40 meq 10/12/20 10:00 10/14/20 11:52 Potassium Chloride 10 Meq Tablet.Er PO 11/11/20 09:59 Not Given DAILY LU Discontinued Medications Generic Name Dose Route Start Last Admin Trade Name Freq PRN Reason Stop Dose Admin Albuterol/Ipratropium 3 ml 10/14/20 06:30 10/14/20 06:25 Ipratropium/Albuterol 0.5-2.5 Mg/3 Ml Ampul NEB 10/14/20 06:31 3 ml NOW ONE Administration Apixaban 5 mg 10/06/20 22:00 10/09/20 11:00 Apixaban 5 Mg Tablet PO 11/05/20 21:59 5 mg Q12 LU Administration Apixaban 2.5 mg 10/09/20 18:00 10/12/20 09:10 Apixaban 2.5 Mg Tablet PO 11/08/20 17:59 2.5 mg BID LU Administration Apixaban 5 mg 10/12/20 18:00 10/13/20 18:57 Apixaban 5 Mg Tablet PO 11/11/20 17:59 5 mg BID LU Administration Calcium Gluconate 1,000 mg 10/02/20 06:54 10/02/20 08:18 Calcium Gluconate 1000 Mg/10 Ml Inj IV 10/02/20 06:55 1,000 mg NOW ONE Administration Furosemide 20 mg 10/08/20 12:30 10/08/20 12:06 Furosemide Inj/Pf 20 Mg/2 Ml Sdv IV 10/08/20 12:31 20 mg NOW ONE Administration Furosemide 20 mg 10/08/20 16:15 10/08/20 16:38 Furosemide Inj/Pf 20 Mg/2 Ml Sdv IV 10/08/20 16:16 20 mg NOW ONE Administration Furosemide 40 mg 10/09/20 11:00 10/13/20 21:28 Furosemide Inj/Pf 40 Mg/4 Ml Sdv IV 11/08/20 10:59 40 mg Q12 LU Administration Heparin Sodium (Porcine) 5,000 unit 10/02/20 22:00 10/06/20 13:06 Heparin Sod (Porcine) 5,000 Unit/Ml 1 Ml Vial SUBCUT 11/01/20 21:59 Not Given Q8 LU Hydrocortisone Sodium Succinate 100 mg 10/04/20 12:00 10/04/20 12:00 Hydrocortisone Sod Succinate Inj/Pf 100 Mg/2 Ml Sdv IV 11/03/20 11:59 Not Given Q8A LU Sodium Chloride 1,000 mls @ 0 mls/hr 10/02/20 05:58 10/02/20 06:56 Nacl 0.9% 1000 Ml Iv Soln IV 10/02/20 05:59 Infused BOLUS ONE Infusion Wide Open Levofloxacin/Dextrose 750 mg in 150 mls @ 100 mls/hr 10/02/20 13:30 10/02/20 15:53 Levaquin Rtu 750 Mg/D5w 150 Ml Premix IV 10/02/20 14:59 Infused NOW ONE Infusion Sodium Chloride 1,000 mls @ 0 mls/hr 10/02/20 08:30 10/02/20 10:45 Nacl 0.9% 1000 Ml Iv Soln IV 10/02/20 08:31 Infused BOLUS ONE Infusion Wide Open Sodium Chloride 1,000 mls @ 125 mls/hr 10/02/20 16:52 10/04/20 05:32 Nacl 0.9% 1000 Ml Iv Soln IV 11/01/20 16:51 125 mls/hr CONTINUOUS PRN Administration THIS MED IS NOT "PRN" Lactated Ringer's 1,000 mls @ 0 mls/hr 10/03/20 20:15 10/03/20 22:32 Lactated Ringers 1000 Ml Iv Soln IV 10/03/20 20:16 Infused BOLUS ONE Infusion Wide Open Sodium Chloride 1,000 mls @ 150 mls/hr 10/04/20 10:26 10/07/20 19:56 Nacl 0.9% 1000 Ml Iv Soln IV 11/01/20 16:51 Infused CONTINUOUS PRN Infusion THIS MED IS NOT "PRN" Sodium Chloride 1,000 mls @ 100 mls/hr 10/07/20 15:24 10/08/20 06:32 Nacl 0.9% 1000 Ml Iv Soln IV 11/01/20 16:51 100 mls/hr CONTINUOUS PRN Administration THIS MED IS NOT "PRN" Sodium Bicarbonate 150 meq/ 1,150 mls @ 50 mls/hr 10/08/20 18:57 10/08/20 20:18 Dextrose IV 11/07/20 18:56 50 mls/hr CONTINUOUS PRN 50 mls/hr THIS MED IS NOT "PRN" Administration Albumin Human 12.5 gm in 50 mls @ 50 mls/hr 10/14/20 04:30 10/14/20 07:43 Albuminar-25 Rtu Inj 12.5 Gm/50 Ml Premix IV 10/14/20 08:29 50 ml/hr Q1H LU 50 mls/hr Administration Albumin Human Confirm 10/14/20 05:19 10/14/20 05:33 Albuminar-25 Rtu Inj 12.5 Gm/50 Ml Premix Administered 10/14/20 05:20 Not Given Dose 37.5 gm in 150 mls @ ud IV .STK-MED ONE Calcium Gluconate 1 gm in 50 mls @ 50 mls/hr 10/14/20 06:30 10/14/20 06:32 Calcium Gluconate Rtu 1 Gm/50 Ml IV 10/14/20 07:29 50 mls/hr NOW ONE Administration Lactated Ringer's 1,000 mls @ 0 mls/hr 10/14/20 10:10 10/14/20 11:55 Lactated Ringers 1000 Ml Iv Soln IV 10/14/20 10:11 999 mls/hr BOLUS ONE Administration Wide Open Levothyroxine Sodium 0.088 mg 10/03/20 06:00 10/04/20 05:31 Levothyroxine Sodium 0.088 Mg Tablet PO 11/02/20 05:59 0.088 mg Q6AM LU Administration Levothyroxine Sodium 0.1 mg 10/04/20 10:15 Levothyroxine Sodium 0.1 Mg Tablet PO 11/03/20 10:14 Q6AM LU Levothyroxine Sodium 0.2 mg 10/04/20 11:00 10/04/20 10:50 Levothyroxine Sodium Inj/Pf 0.1 Mg Sdv IV 10/04/20 11:01 0.2 mg STAT ONE Administration Liothyronine Sodium 5 mcg 10/04/20 11:00 10/04/20 10:50 Liothyronine Sodium 5 Mcg Tablet PO 10/04/20 11:01 5 mcg STAT ONE Administration Lorazepam 1 mg 10/03/20 01:30 10/03/20 01:34 Lorazepam Inj 2 Mg/1 Ml Vial IV 10/03/20 01:31 1 mg NOW ONE Administration Metoprolol Succinate 25 mg 10/02/20 22:00 10/13/20 21:28 Metoprolol Succinate 25 Mg Tab.Sr.24h PO 11/01/20 21:59 25 mg Q12 LU Administration Mirtazapine 15 mg 10/02/20 22:00 10/07/20 22:09 Mirtazapine 15 Mg Tablet PO 11/01/20 21:59 15 mg QHS LU Administration Pantoprazole Sodium 80 mg 10/14/20 07:18 10/14/20 07:51 Pantoprazole Sodium 40 Mg Vial IV 10/14/20 07:19 80 mg .BOLUS (IVBAG) ONE Administration Sacubitril/Valsartan 1 tab 10/12/20 16:00 10/13/20 18:57 Sacubitril/Valsartan 24 Mg/26 Mg Tablet PO 11/11/20 15:59 1 tab BID LU Administration Sodium Polystyrene Sulfonate 60 gm 10/02/20 06:54 10/02/20 08:19 Sodium Polystyrene Sulfonate 15 Gm/60 Ml PO 10/02/20 06:55 60 gm NOW ONE Administration Assessment & Plan - Diagnosis (1) Acute encephalopathy Is this a current diagnosis for this admission?: Yes (2) Atrial fibrillation Is this a current diagnosis for this admission?: Yes (3) CHF (congestive heart failure) Is this a current diagnosis for this admission?: Yes (4) Colostomy in place Is this a current diagnosis for this admission?: Yes (5) Coma Qualifiers: Coma depth: [place] coma 3-8 Is this a current diagnosis for this admission?: Yes - Notes Notes: Very unfortunate 70-year-old female with multiple cardiac problems as well as medical problems who became hypotensive earlier today with concerns of intra- abdominal bleed versus an acute intracranial process versus decompensated heart failure. Review of her chart demonstrates that she received a significant amount of fluids and her lung exam is compatible with fluid overload. Today's echocardiogram demonstrated an ejection fraction of less than 25% with a prior ejection fraction of 40% in April 2020. There was no evidence of acute intracranial pathology on CT scan of the head and general surgery does not feel that there is any significant intra-abdominal bleed. The patient is critically ill with a very poor prognosis. Unfortunately we do not have ICU beds available at this facility. We will continue to support her hemodynamic status until she can be transferred to [facility].
[2020-10-14 14:12] VITALS: BP 80/42
[2020-10-14 15:22] LABS: HEMATOCRIT 38.9 % (36.0-47.0); HEMOGLOBIN 12.2 g/dL (12.0-15.5); MEAN CORPUSCULAR HEMOGLOBIN 27.7 pg (27.0-33.4); MEAN CORPUSCULAR HGB CONC 31.3 g/dL (32.0-36.0); MEAN CORPUSCULAR VOLUME 89 fl (80-97); RED CELL DISTRIBUTION WIDTH 18.1 % (11.5-14.0); WHITE BLOOD COUNT 8.8 10^3/uL (4.0-10.5)
[2020-10-14 15:48] LABS: PLATELET COUNT 36 10^3/uL (150-450)
[2020-10-14 15:50] LABS: ABSOLUTE LYMPHOCYTES# (MANUAL) 0.4 10^3/uL (0.5-4.7); ABSOLUTE MONOCYTES # (MANUAL) 0.5 10^3/uL (0.1-1.4); BASOPHILS % (MANUAL) 0 % (0-2); EOSINOPHILS % (MANUAL) 0 % (0-6); LYMPHOCYTES % (MANUAL) 5 % (13-45); MONOCYTES % (MANUAL) 6 % (3-13); NUCLEATED RED BLOOD CELLS 1 /100 WBC (0); SEGMENTED NEUTROPHILS % (MAN) 89 % (42-78); TOTAL CELLS COUNTED 100
[2020-10-14 15:52] LABS: ANISOCYTOSIS 2+; OVALOCYTES 1+; PLATELET COMMENT DECREASED
[2020-10-14] MEDS ORDERED: PANTOPRAZOLE SODIUM 40 MG VIAL IV SCH (22:00)
== END 2020-10-14 14:03 | disposition short-term general hospital (02) | DRG 682 ==
LOC: ER 01:52 → EH 12:06 → 4N 17:58
PROVIDERS: ADMIT Internal Medicine; ATTEND Family Medicine
DX: N17.9 Acute kidney failure, unspecified (principal); E03.5 Myxedema coma; R57.1 Hypovolemic shock; E87.2 Acidosis; I42.8 Other cardiomyopathies; I13.0 Hypertensive heart and chronic kidney disease with heart failure and stage 1 through stage 4 chronic kidney disease, or unspecified chronic kidney disease; G93.40 Encephalopathy, unspecified; E87.5 Hyperkalemia; I10 Essential (primary) hypertension; T50.1X5A Adverse effect of loop [high-ceiling] diuretics, initial encounter; R40.2434 Glasgow coma scale score 3-8, 24 hours or more after hospital admission; E03.9 Hypothyroidism, unspecified; R00.1 Bradycardia, unspecified; F32.9 Major depressive disorder, single episode, unspecified; E86.0 Dehydration; J43.2 Centrilobular emphysema; I48.91 Unspecified atrial fibrillation; E80.6 Other disorders of bilirubin metabolism; F41.9 Anxiety disorder, unspecified; Z77.22 Contact with and (suspected) exposure to environmental tobacco smoke (acute) (chronic); I11.0 Hypertensive heart disease with heart failure; I50.9 Heart failure, unspecified; N18.30 Chronic kidney disease, stage 3 unspecified; D69.6 Thrombocytopenia, unspecified; Z95.2 Presence of prosthetic heart valve; Z20.828 Contact with and (suspected) exposure to other viral communicable diseases; Z79.01 Long term (current) use of anticoagulants; Z90.49 Acquired absence of other specified parts of digestive tract; Z93.3 Colostomy status; Z60.2 Problems related to living alone; Z88.0 Allergy status to penicillin; Z79.51 Long term (current) use of inhaled steroids
CPT/HCPCS: 0202U; 36415; 36600; 70450; 71045; 74176; 74181; 76705; 76775; 80048; 80053; 80307; 81001; 82024; 82043; 82140; 82533; 82570; 82803; 82962; 83605; 83690; 83735; 83880; 84100; 84300; 84439; 84443; 84481; 85025; 85027; 85610; 85730; 86850; 86900; 86901; 86920; 87040; 87070; 87086; 93005; 93010; 93306; 93976; 94640; 96361; 96374; 99285; J0610; 0241U; C9113; C9803; J1250; J1644; J1940; J1956; J2060; J2405; J3490; J7030; J7060; J7120; P9047